=== PATIENT | female | born 1935 | race Caucasian/White ===

== ENCOUNTER 2016-10-03 21:31 | Inpatient (IN) | payer MEDICAID, MEDICARE ==
[2016-10-03 21:32] VITALS: BMI 25.3
--- NOTE | 2016-10-03 21:58 | C.PDOC ---
History Of Present Illness HX LIMITED DUE TO CLINICAL CONDITION, OBTAINED FROM FAMILY MEMBER (SON) AT BEDSIDE 80 Y/O FEMALE, HISTORY OF ASTHMA, BROUGHT TO ER BY ALS FOR INCREASING SOB. FAMILY MEMBER NOTES PT HAS HAD COUGH PRODUCTIVE OF YELLOWISH SPUTUM AND FEVERS FOR PAST 7-8 DAYS. NOTES PT SEEN BY PMD YESTERDAY AND STARTED ON ZITHROMAX 250. NO IMPROVEMENT WITH NEB TREATMENT (2x) AT HOME, 1 NEB GIVEN IN FIELD PRIOR TO ARRIVAL. PT WITH PAST HISTORY OF CABG IN 2005 AND ICD. Chief Complaint (Nursing): Respiratory Distress History Per: Family History/Exam Limitations: clinical condition Onset/Duration Of Symptoms: Days Current Respiratory Medications: See Home Med List Associated Symptoms: Fever, Chest Pain, Productive Cough Reports Recently: Treated By A Physician Past Medical History Reviewed: Historical Data, Nursing Documentation, Vital Signs Vital Signs: Last Vital Signs Temp 97.7 F 10/03/16 21:42 Pulse 99 H 10/04/16 01:27 Resp 18 10/04/16 01:27 BP 122/68 10/03/16 23:45 Pulse Ox 100 10/04/16 01:27 - Medical History PMH: Asthma, Atrial Fibrillation, CAD (CABG), CHF, COPD (ASTHMA), Diabetes, HTN , Peripheral Edema Surgical History: CABG (2004), Pacemaker - [facility] Procedures ASSISTANCE WITH RESPIRATORY VENTILATION, 24-96 HRS, CPAP (02/16/16) EXCISION OF RIGHT LOWER LUNG LOBE, PERC APPROACH, DIAGN (02/16/16) INSPECTION OF LARYNX, ENDO (06/16/15) Family History: States: Unknown Family Hx - Social History Hx Tobacco Use: No Hx Alcohol Use: No Hx Substance Use: No - Immunization History Hx Tetanus Toxoid Vaccination: No Hx Influenza Vaccination: No Hx Pneumococcal Vaccination: Yes Review Of Systems Except As Marked, All Systems Reviewed And Found Negative. (LIMITED, POOR HISTORIAN) Respiratory: Positive for: Shortness of Breath Gastrointestinal: Negative for: Vomiting Skin: Negative for: Rash Physical Exam - Physical Exam Appears: Non-toxic, Chronically Ill (MOD RESPIRATORY DISTRESS) Skin: Warm, Dry, No Diaphoretic Head: Atraumatic, Normacephalic Oral Mucosa: Moist Chest: Symmetrical Cardiovascular: Rhythm Regular (SINUS TACH), No Edema Respiratory: No Accessory Muscle Use, Rhonchi (BILATERAL, DIFFUSE), No Wheezing , Other (TACHYPNEIC) Gastrointestinal/Abdominal: Soft, No Tenderness Back: Normal Inspection Extremity: Normal ROM, Capillary Refill (< 2 SEC. ) ED Course And Treatment - Laboratory Results Result Diagrams: 10/03/16 22:32 10/03/16 22:32 O2 Sat by Pulse Oximetry: 100 (RA) Pulse Ox Interpretation: Normal - Radiology CXR: Interpreted by Me CXR Interpretation: Yes: Other ((+) CHF) Progress - Re-Evaluation Re-evaluation Note: 10/03/16 21:52 CONVERT TO WIDE COMPLEX ON MONITOR. EXAM UNCHANGED. PT DOES NOT REPORT PAIN OR DISCHARGE. 10/03/16 23:19 APPEARS COMFORTABLE ON BIPAP. ADMIT DR CAROL LOGAN MEDICAL STAFF MANAGER - Data Reviewed Data Reviewed: Lab, Diagnostic imaging, EKG, Old records - Critical Care Citical Care: Excluding Proc Time Critical Care Time: 90 minutes - Continuity of Care Discussed patient case with:: Patient, Family-HIPPA compliant, On-call PMD-pt unassigned Disposition Counseled Patient/Family Regarding: Studies Performed, Diagnosis - Disposition Disposition: HOSPITALIZED Disposition Time: 23:24 Condition: STABLE - POA Present On Arrival: None - Clinical Impression Clinical Impression: Congestive heart failure (CHF), Pneumonia - Scribe Statement The provider has reviewed the documentation as recorded by the Scribe Maurisio Mckenna All medical record entries made by the Scribe were at my direction and personally dictated by me. I have reviewed the chart and agree that the record accurately reflects my personal performance of the history, physical exam, medical decision making, and the department course for this patient. I have also personally directed, reviewed, and agree with the discharge instructions and disposition. Decision To Admit - Pt Status Changed To: Hospital Disposition Of: Inpatient - Admit Certification Admit to Inpatient:: After my assessment, the patient will require hospitalization for at least two midnights. This is because of the severity of symptoms shown, intensity of services needed, and/or the medical risk in this patient being treated as an outpatient. - InPatient: Physician Admission Certification: I certify that this patient requires 2 or more midnights of care for the following reason:: SEE NOTE - . Bed Request Type: Telemetry Admitting Physician: Riddhi Clark Patient Diagnosis: Congestive heart failure (CHF), Pneumonia
[2016-10-03 22:37] LABS: VENOUS BLOOD GAS BASE EXCESS -5.2 mmol/L (0.0-2.0); VENOUS BLOOD GAS PCO2 37 mmHg (40-60); VENOUS BLOOD PH 7.34 (7.32-7.43)
[2016-10-03 22:42] LABS: POTASSIUM 4.8 mmol/L (3.6-5.2)
[2016-10-03 22:44] LABS: BILIRUBIN,TOTAL 0.7 mg/dL (0.2-1.3)
[2016-10-03 22:45] LABS: ALB/GLOB RATIO 1.4 (1.0-2.1); TOTAL PROTEIN 7.3 g/dL (6.3-8.3)
[2016-10-03 22:47] LABS: BASO # 0.1 K/uL (0.0-0.2); BASO % 0.6 % (0.0-2.0); EOS % 0.6 % (0.0-4.0); HEMATOCRIT 33.5 % (34.0-47.0); LYMPH # 1.1 K/uL (1.0-4.3); LYMPH % 13.6 % (20.0-40.0); MEAN CELL VOLUME 87.1 fL (81.0-99.0); MEAN CORPUSCULAR HEMOGLOBIN 28.5 pg (27.0-31.0); MEAN CORPUSCULAR HGB CONC 32.7 g/dL (33.0-37.0); MEAN PLATELET VOLUME 7.9 fL (7.2-11.7); MONO # 0.3 K/uL (0.0-0.8); MONO % 3.6 % (0.0-10.0); RED CELL DISTRIBUTION WIDTH 14.5 % (11.5-14.5); WHITE BLOOD COUNT 8.1 K/uL (4.8-10.8)
[2016-10-03 22:54] LABS: INR 1.2
[2016-10-03 22:57] LABS: TROPONIN I 0.032 ng/mL (0.00-0.120)
[2016-10-03] MEDS ORDERED: cefTRIAXone IV 1 gm in Dextros 50 ML IV ONE (23:19)
[2016-10-03] MEDS ORDERED: Azithromycin 500 MG in Sodium Chloride 0.9% 250 ML IV STA (23:19)
[2016-10-03] MEDS ORDERED: cefTRIAXone IV 1 gm in Dextros 50 ML IVPB ONE (23:31)
[2016-10-03] MEDS ORDERED: Azithromycin 500mg/250ML NS 500 MG/250 ML BAG IVPB ONE (23:32)
[2016-10-04 02:08] LABS: URINE COLOR Straw (YELLOW)
[2016-10-04 02:09] LABS: RBC URINE < 1 /hpf (0-3); URINE BILIRUBIN NEGATIVE (NEGATIVE); URINE BLOOD NEGATIVE (NEGATIVE); URINE GLUCOSE (UA) NORMAL (Normal); URINE HYALINE CAST 0-2 /lpf (0-2); URINE KETONE NEGATIVE (NEGATIVE); URINE LEUKOCYTE ESTERASE TRACE Leu/uL (Negative); URINE PROTEIN NEGATIVE (NEGATIVE); URINE UROBILINOGEN NORMAL mg/dL (0.2-1.0); WBC URINE 2 /hpf (0-5)
[2016-10-04] MEDS ORDERED: Home Med 1 UNIT (Ibandronate Sodium [Boniva] 150 MG) PO SCH (07:00)
[2016-10-04] MEDS ORDERED: (Novolog) Insulin Aspart, Recombinant 100 u/ml 10 ml vial SC SCH (07:30)
--- NOTE | 2016-10-04 08:57 | RAD ---
HISTORY: Shortness of breath COMPARISON: 02/21/2016 FINDINGS: LUNGS: Mild venous congestion. Mild bilateral hilar prominence. Patchy increased markings at the left lung base with trace left pleural effusion. PLEURA: As above. CARDIOVASCULAR: Status post median sternotomy. Left-sided pacemaker. Mild cardiomegaly. OSSEOUS STRUCTURES: No significant abnormalities. VISUALIZED UPPER ABDOMEN: Normal. OTHER FINDINGS: None. IMPRESSION: Mild venous congestion. Mild bilateral hilar prominence. Patchy increased markings at the left lung base with trace left pleural effusion.
[2016-10-04] MEDS ORDERED: Albuterol 0.083% Inhal Sol (2.5 mg/3 mL) UD IH SCH (09:30)
[2016-10-04] MEDS ORDERED: DIOVAN 160 MG PO SCH (10:00)
[2016-10-04] MEDS ORDERED: Enoxaparin 40 mg Syringe SC SCH (10:00)
[2016-10-04] MEDS ORDERED: Fluticasone-Salmeterol 250-50mcg Diskus IH SCH (10:00)
[2016-10-04] MEDS: Multiple Vitamins Tab PO SCH (10:27)
[2016-10-04] MEDS: Pantoprazole 40 mg EC Tab PO SCH (10:27)
[2016-10-04 11:18] LABS: BASO % 0.1 % (0.0-2.0); HEMATOCRIT 30.6 % (34.0-47.0); LYMPH # 0.3 K/uL (1.0-4.3); LYMPH % 9.5 % (20.0-40.0); MEAN CELL VOLUME 86.8 fL (81.0-99.0); MEAN CORPUSCULAR HEMOGLOBIN 28.6 pg (27.0-31.0); MEAN CORPUSCULAR HGB CONC 32.9 g/dL (33.0-37.0); MEAN PLATELET VOLUME 8.1 fL (7.2-11.7); MONO # 0.1 K/uL (0.0-0.8); MONO % 2.5 % (0.0-10.0); PLATELET COUNT 198 K/uL (130-400); RED CELL DISTRIBUTION WIDTH 14.5 % (11.5-14.5); WHITE BLOOD COUNT 3.4 K/uL (4.8-10.8)
[2016-10-04 11:29] LABS: POTASSIUM 4.5 mmol/L (3.6-5.2)
[2016-10-04] MEDS: (Novolog) Insulin Aspart, Recombinant 100 u/ml 10 ml vial SC SCH ×3 (11:30→21:55)
[2016-10-04 11:31] LABS: ALB/GLOB RATIO 1.3 (1.0-2.1); BILIRUBIN,TOTAL 0.7 mg/dL (0.2-1.3); TOTAL PROTEIN 6.7 g/dL (6.3-8.3)
[2016-10-04 11:32] LABS: CALCIUM 8.8 mg/dl (8.6-10.4)
[2016-10-04 13:31] LABS: BASOPHIL 1 % (0-2); NEUTROPHIL 82 % (50-75); TOTAL CELLS COUNTED 100
[2016-10-04 13:33] LABS: ACANTHOCYTES SLIGHT
--- NOTE | 2016-10-04 13:46 | CP.PCM.PN ---
Subjective - Date & Time of Evaluation Date of Evaluation: 10/04/16 Time of Evaluation: 09:00 - Subjective Subjective: Medicine Progress Note- Dr. Clark's service: Patient seen and examined at bedside this AM. Patient with PMHx of CHF, DM, CABG 2005 admitted overnight for SOB and cough. Patient is complaining of cough for the past week. She is upset regarding her insulin this morning since it was delayed. Patient is on BIPAP and tolerating it well. Denies fevers, chills, nausea, vomiting, headaches. Objective - Vital Signs/Intake and Output Vital Signs (last 24 hours): Temp Pulse Resp BP Pulse Ox 97.5 F L 87 18 130/70 100 10/04/16 07:15 10/04/16 07:15 10/04/16 07:15 10/04/16 10:26 10/04/16 07:15 Intake and Output: 10/04/16 10/04/16 06:59 18:59 Intake Total 500 Output Total 500 Balance 0 - Medications Medications: Current Medications Albuterol Sulfate (Albuterol 0.083% Inhal Liza (2.5 Mg/3 Ml) Ud) 2.5 mg IH RBID [facility] Apixaban (Eliquis) 5 mg PO DAILY [facility] Carvedilol (Coreg) 6.25 mg PO BID [facility] Last Admin: 10/04/16 10:28 Dose: 6.25 mg Furosemide (Lasix) 40 mg IVP DAILY [facility] Last Admin: 10/04/16 10:26 Dose: 40 mg Glimepiride (Amaryl) 1 mg PO DAILY [facility] Heparin Sodium (Porcine) (Heparin) 5,000 units SC Q12H [facility] Home Med (Acarbose [Precose]) 100 mg PO DAILY [facility] Azithromycin 500 mg/ Sodium (Chloride) 250 mls @ 250 mls/hr IVPB DAILY [facility] Ceftriaxone Sodium 1 gm/ (Sodium Chloride) 100 mls @ 100 mls/hr IVPB DAILY [facility] Insulin Aspart (Novolog) 0 unit SC ACHS [facility] PRN Reason: Protocol Losartan Potassium (Cozaar) 100 mg PO DAILY [facility] Last Admin: 10/04/16 10:27 Dose: 100 mg Metformin HCl (Glucophage) 1,000 mg PO BIDCC [facility] Last Admin: 10/04/16 10:26 Dose: 1,000 mg Multivitamins (Hexavitamin) 1 tab PO DAILY [facility] Last Admin: 10/04/16 10:27 Dose: 1 tab Pantoprazole Sodium (Protonix Ec Tab) 40 mg PO DAILY [facility] Last Admin: 10/04/16 10:27 Dose: 40 mg Fluticasone/Salmeterol (Advair Diskus 250/50) 1 puff IH RQ12 [facility] Sitagliptin Phosphate (Januvia) 50 mg PO BIDCC [facility] Last Admin: 10/04/16 10:27 Dose: 50 mg Spironolactone (Aldactone) 1 mg PO DAILY [facility] - Labs Labs: 10/04/16 11:09 10/04/16 11:09 PT 13.4 SECONDS (9.7-12.2) H 10/03/16 22:32 INR 1.2 10/03/16 22:32 APTT 43 SECONDS (21-34) H 10/03/16 22:32 - Constitutional Appears: No Acute Distress - Head Exam Head Exam: NORMAL INSPECTION, NORMOCEPHALIC - Eye Exam Eye Exam: EOMI, Normal appearance - ENT Exam ENT Exam: Mucous Membranes Moist - Respiratory Exam Respiratory Exam: Rales. absent: Rhonchi, Wheezes - Cardiovascular Exam Cardiovascular Exam: REGULAR RHYTHM, +S1, +S2 - GI/Abdominal Exam GI & Abdominal Exam: Soft. absent: Distended, Tenderness - Extremities Exam Extremities Exam: Full ROM, Normal Inspection - Back Exam Back Exam: NORMAL INSPECTION - Neurological Exam Neurological Exam: Alert, Awake, Oriented x3 - Psychiatric Exam Psychiatric exam: Normal Affect, Normal Mood - Skin Skin Exam: Normal Color, Warm Assessment and Plan (1) Pneumonia Assessment & Plan: CXR shows mild venous congestion. Mild bilateral hilar prominence. Patchy increased markings at the left lung base with trace left pleural effusion. Afebrile and no leukocytosis. Rocephin IVPB Azithomycin IVPB Status: Acute (2) Congestive heart failure (CHF) Assessment & Plan: Patient's mannequin maker consulted- Dr. Colón- help appreciated. CXR shows mild venous congestion. Mild bilateral hilar prominence. Patchy increased markings at the left lung base with trace left pleural effusion. BNP 12,000 Lasix 40 mg IVP daily Losartan 100 mg PO daily Coreg 6.25 mg PO BID Aldactone 12.5 mg PO daily Status: Chronic (3) CAD (coronary artery disease) Assessment & Plan: Patient with hx of CABG in 2004 with AICD Coreg 6.25 mg PO BID Status: Chronic (4) DM type 2 (diabetes mellitus, type 2) Assessment & Plan: Continue home meds: Januvia 100 mg PO daily Glimepiride 1 mg PO daily Metformin 1000 PO BID ISS for coverage Status: Chronic (5) Atrial fibrillation Assessment & Plan: Eliquis 5 mg PO daily Coreg 6.25 mg PO BID Status: Acute (6) Prophylactic measure Assessment & Plan: Hepatin 5000 SC Q12H Protonix 40 mg PO daily Status: Acute - Assessment and Plan (Free Text) Assessment: Management as per Dr. Clark.
[2016-10-04] MEDS: guaiFENesin DM 200 mg-20 mg/10 ml UD PO PRN (19:07)
--- NOTE | 2016-10-04 19:15 | CARD ---
APPROVED REPORT EKG Measurement Heart [id number] <Conclusion> Ventricular-paced rhythm Abnormal ECG
[2016-10-04] MEDS: Azithromycin 500 MG in Sodium Chloride 0.9% 250 ML IVPB SCH (19:30)
[2016-10-04] MEDS: Fluticasone-Salmeterol 250-50mcg Diskus IH SCH (19:43)
[2016-10-05 07:21] LABS: BASO % 0.5 % (0.0-2.0); EOS % 0.8 % (0.0-4.0); HEMATOCRIT 30.3 % (34.0-47.0); LYMPH # 0.7 K/uL (1.0-4.3); LYMPH % 13.5 % (20.0-40.0); MEAN CELL VOLUME 86.9 fL (81.0-99.0); MEAN CORPUSCULAR HEMOGLOBIN 28.4 pg (27.0-31.0); MEAN CORPUSCULAR HGB CONC 32.7 g/dL (33.0-37.0); MEAN PLATELET VOLUME 8.3 fL (7.2-11.7); MONO # 0.4 K/uL (0.0-0.8); MONO % 7.4 % (0.0-10.0); NRBC % 0.1 % (0.0-2.0); RED CELL DISTRIBUTION WIDTH 14.4 % (11.5-14.5)
[2016-10-05 07:39] LABS: WHITE BLOOD COUNT 5.4 K/uL (4.8-10.8)
[2016-10-05] MEDS: guaiFENesin DM 200 mg-20 mg/10 ml UD PO PRN (07:41)
[2016-10-05 07:42] LABS: ALB/GLOB RATIO 1.3 (1.0-2.1); BILIRUBIN,TOTAL 0.5 mg/dL (0.2-1.3); TOTAL PROTEIN 6.2 g/dL (6.3-8.3)
[2016-10-05 07:43] LABS: CALCIUM 8.3 mg/dl (8.6-10.4); MAGNESIUM 1.7 mg/dL (1.6-2.3); PHOSPHOROUS 3.4 mg/dL (2.5-4.5)
[2016-10-05] MEDS: (Novolog) Insulin Aspart, Recombinant 100 u/ml 10 ml vial SC SCH ×4 (08:07→22:27)
[2016-10-05] MEDS: Fluticasone-Salmeterol 250-50mcg Diskus IH SCH (08:32)
[2016-10-05] MEDS: Multiple Vitamins Tab PO SCH (09:26)
[2016-10-05] MEDS: Pantoprazole 40 mg EC Tab PO SCH (09:26)
--- NOTE | 2016-10-05 13:26 | CP.PCM.PN ---
Subjective - Date & Time of Evaluation Date of Evaluation: 10/05/16 Time of Evaluation: 08:00 - Subjective Subjective: Medicine Progress Note- Dr. Clark's Service: Patient seen and examined at bedside this AM. Patient is complaining of productive cough and phlegm. She was not able to sleep secondary to cough. Denies fevers, chills, nausea, vomiting. Patient is tolerating diet. Objective - Vital Signs/Intake and Output Vital Signs (last 24 hours): Temp Pulse Resp BP Pulse Ox 97.3 F L 81 18 107/61 100 10/05/16 07:17 10/05/16 07:17 10/05/16 07:17 10/05/16 09:28 10/05/16 07:17 Intake and Output: 10/05/16 10/05/16 06:59 18:59 Intake Total 490 Balance 490 - Medications Medications: Current Medications Albuterol Sulfate (Albuterol 0.083% Inhal Liza (2.5 Mg/3 Ml) Ud) 2.5 mg IH RBID [facility] Apixaban (Eliquis) 2.5 mg PO BID [facility] Last Admin: 10/05/16 09:27 Dose: 2.5 mg Carvedilol (Coreg) 6.25 mg PO BID [facility] Last Admin: 10/05/16 09:26 Dose: 6.25 mg Furosemide (Lasix) 40 mg IVP DAILY [facility] Last Admin: 10/05/16 09:28 Dose: 40 mg Glimepiride (Amaryl) 1 mg PO DAILY [facility] Last Admin: 10/05/16 09:27 Dose: 1 mg Guaifenesin/Dextromethorphan (Robitussin Dm) 10 ml PO Q4H PRN PRN Reason: Cough and congestion Last Admin: 10/05/16 07:41 Dose: 10 ml Home Med (Acarbose [Precose]) 100 mg PO DAILY [facility] Azithromycin 500 mg/ Sodium (Chloride) 250 mls @ 166.667 mls/hr IVPB Q24H [facility] Last Admin: 10/04/16 19:30 Dose: 166.667 mls/hr Ceftriaxone Sodium 1 gm/ (Sodium Chloride) 100 mls @ 200 mls/hr IVPB Q24H [facility] Last Admin: 10/05/16 12:50 Dose: 200 mls/hr Insulin Aspart (Novolog) 0 unit SC ACHS [facility] PRN Reason: Protocol Last Admin: 10/05/16 11:36 Dose: Not Given Losartan Potassium (Cozaar) 100 mg PO DAILY [facility] Last Admin: 10/05/16 09:26 Dose: 100 mg Metformin HCl (Glucophage) 1,000 mg PO BIDCC [facility] Last Admin: 10/05/16 07:56 Dose: 1,000 mg Multivitamins (Hexavitamin) 1 tab PO DAILY [facility] Last Admin: 10/05/16 09:26 Dose: 1 tab Pantoprazole Sodium (Protonix Ec Tab) 40 mg PO DAILY [facility] Last Admin: 10/05/16 09:26 Dose: 40 mg Fluticasone/Salmeterol (Advair Diskus 250/50) 1 puff IH RQ12 [facility] Last Admin: 10/05/16 08:32 Dose: 1 puff [facility] Last Admin: 10/05/16 07:56 Dose: 50 mg Spironolactone (Aldactone) 12.5 mg PO DAILY [facility] Last Admin: 10/05/16 09:27 Dose: 12.5 mg - Labs Labs: 10/05/16 07:12 10/05/16 07:12 PT 13.4 SECONDS (9.7-12.2) H 10/03/16 22:32 INR 1.2 10/03/16 22:32 APTT 43 SECONDS (21-34) H 10/03/16 22:32 - Constitutional Appears: No Acute Distress - Head Exam Head Exam: NORMAL INSPECTION, NORMOCEPHALIC - Eye Exam Eye Exam: EOMI, Normal appearance - ENT Exam ENT Exam: Mucous Membranes Moist - Neck Exam Neck Exam: Full ROM, Normal Inspection - Respiratory Exam Respiratory Exam: Rales, NORMAL BREATHING PATTERN - Cardiovascular Exam Cardiovascular Exam: REGULAR RHYTHM, +S1, +S2 - GI/Abdominal Exam GI & Abdominal Exam: Soft. absent: Distended, Tenderness - Extremities Exam Extremities Exam: Full ROM, Normal Inspection - Neurological Exam Neurological Exam: Alert, Awake, Oriented x3 - Psychiatric Exam Psychiatric exam: Normal Affect, Normal Mood - Skin Skin Exam: Normal Color, Warm Assessment and Plan - Assessment and Plan (Free Text) Assessment: (1) Pneumonia Assessment & Plan: CXR shows mild venous congestion. Mild bilateral hilar prominence. Patchy increased markings at the left lung base with trace left pleural effusion. Afebrile and no leukocytosis. Rocephin IVPB Azithomycin IVPB Robitussin PO Q4 PRN Add Saroj Marcus Status: Acute (2) Congestive heart failure (CHF) Assessment & Plan: Patient's tracer clerk consulted- Dr. Colón- help appreciated. CXR shows mild venous congestion. Mild bilateral hilar prominence. Patchy increased markings at the left lung base with trace left pleural effusion. BNP 12,000 Lasix 40 mg IVP daily Losartan 100 mg PO daily Coreg 6.25 mg PO BID Aldactone 12.5 mg PO daily f/u ECHO Status: Chronic (3) CAD (coronary artery disease) Assessment & Plan: Patient with hx of CABG in 2004 with AICD Coreg 6.25 mg PO BID Status: Chronic (4) DM type 2 (diabetes mellitus, type 2) Assessment & Plan: Continue home meds: Januvia 100 mg PO daily Glimepiride 1 mg PO daily Metformin 1000 PO BID ISS for coverage Status: Chronic (5) Atrial fibrillation Assessment & Plan: Eliquis 5 mg PO daily Coreg 6.25 mg PO BID Status: Acute (6) Prophylactic measure Assessment & Plan: Hepatin 5000 SC Q12H Protonix 40 mg PO daily Status: Acute - Assessment and Plan (Free Text) Assessment: Management as per Dr. Clark.
[2016-10-05] MEDS: Azithromycin 500 MG in Sodium Chloride 0.9% 250 ML IVPB SCH (18:52)
[2016-10-06] MEDS: Fluticasone-Salmeterol 250-50mcg Diskus IH SCH ×2 (08:26→19:27)
[2016-10-06] MEDS: (Novolog) Insulin Aspart, Recombinant 100 u/ml 10 ml vial SC SCH ×4 (08:32→21:24)
[2016-10-06 08:33] LABS: BASO % 0.4 % (0.0-2.0); EOS # 0.1 K/uL (0.0-0.7); EOS % 1.2 % (0.0-4.0); HEMATOCRIT 31.8 % (34.0-47.0); LYMPH # 0.9 K/uL (1.0-4.3); LYMPH % 13.5 % (20.0-40.0); MEAN CELL VOLUME 87.4 fL (81.0-99.0); MEAN CORPUSCULAR HGB CONC 33.2 g/dL (33.0-37.0); MEAN PLATELET VOLUME 8.1 fL (7.2-11.7); MONO # 0.6 K/uL (0.0-0.8); MONO % 8.8 % (0.0-10.0); RED CELL DISTRIBUTION WIDTH 14.6 % (11.5-14.5); WHITE BLOOD COUNT 6.4 K/uL (4.8-10.8)
[2016-10-06 08:54] LABS: POTASSIUM 4.1 mmol/L (3.6-5.2)
[2016-10-06 08:56] LABS: ALB/GLOB RATIO 1.3 (1.0-2.1); BILIRUBIN,TOTAL 0.5 mg/dL (0.2-1.3); PHOSPHOROUS 3.4 mg/dL (2.5-4.5); TOTAL PROTEIN 6.4 g/dL (6.3-8.3)
[2016-10-06 08:57] LABS: CALCIUM 8.1 mg/dl (8.6-10.4); MAGNESIUM 1.8 mg/dL (1.6-2.3)
[2016-10-06] MEDS: guaiFENesin DM 200 mg-20 mg/10 ml UD PO PRN ×3 (09:57→18:26)
[2016-10-06] MEDS: Multiple Vitamins Tab PO SCH (09:57)
[2016-10-06] MEDS: Pantoprazole 40 mg EC Tab PO SCH (09:58)
[2016-10-06] MEDS ORDERED: MethylPREDNISolone 40 mg Vial IM ONE (16:30)
[2016-10-06] MEDS ORDERED: Dextrose 50% SYRINGE Inj (50 ml) IV PRN (16:40)
[2016-10-06] MEDS ORDERED: MethylPREDNISolone 40 mg Vial IVP STA (16:44)
[2016-10-06] MEDS ORDERED: Glucagon Recombinant 1 mg Inj IM PRN (17:06)
[2016-10-06] MEDS ORDERED: MethylPREDNISolone 40 mg Vial IVP ONE (17:15)
[2016-10-06] MEDS: Azithromycin 500 MG in Sodium Chloride 0.9% 250 ML IVPB SCH (18:33)
[2016-10-06] MEDS: Patient's Own Medication - Tablet/Capusle PO SCH (18:38)
[2016-10-07] MEDS: MethylPREDNISolone 40 mg Vial IVP SCH ×3 (00:28→21:51)
[2016-10-07 07:31] LABS: BASO % 0.2 % (0.0-2.0); HEMATOCRIT 30.9 % (34.0-47.0); LYMPH # 0.5 K/uL (1.0-4.3); LYMPH % 13.4 % (20.0-40.0); MEAN CELL VOLUME 86.2 fL (81.0-99.0); MEAN CORPUSCULAR HGB CONC 33.6 g/dL (33.0-37.0); MEAN PLATELET VOLUME 8.3 fL (7.2-11.7); MONO # 0.1 K/uL (0.0-0.8); NRBC % 0.1 % (0.0-2.0); RED CELL DISTRIBUTION WIDTH 14.5 % (11.5-14.5); WHITE BLOOD COUNT 3.6 K/uL (4.8-10.8)
[2016-10-07] MEDS: (Novolog) Insulin Aspart, Recombinant 100 u/ml 10 ml vial SC SCH ×4 (07:35→21:46)
[2016-10-07 07:49] LABS: POTASSIUM 4.7 mmol/L (3.6-5.2)
[2016-10-07 07:51] LABS: ALB/GLOB RATIO 1.2 (1.0-2.1); BILIRUBIN,TOTAL 0.6 mg/dL (0.2-1.3); TOTAL PROTEIN 6.4 g/dL (6.3-8.3)
[2016-10-07 07:52] LABS: CALCIUM 7.9 mg/dl (8.6-10.4); MAGNESIUM 1.8 mg/dL (1.6-2.3); PHOSPHOROUS 4.2 mg/dL (2.5-4.5)
[2016-10-07] MEDS: Pantoprazole 40 mg EC Tab PO SCH (09:29)
[2016-10-07] MEDS: guaiFENesin DM 200 mg-20 mg/10 ml UD PO PRN (09:30)
[2016-10-07] MEDS: Multiple Vitamins Tab PO SCH (09:38)
[2016-10-07] MEDS: Fluticasone-Salmeterol 250-50mcg Diskus IH SCH ×2 (11:26→19:33)
[2016-10-07] MEDS: Azithromycin 500 MG in Sodium Chloride 0.9% 250 ML IVPB SCH (19:32)
[2016-10-07] MEDS: Patient's Own Medication - Tablet/Capusle PO SCH (19:41)
[2016-10-08] MEDS: (Novolog) Insulin Aspart, Recombinant 100 u/ml 10 ml vial SC SCH ×4 (07:32→22:28)
[2016-10-08 07:46] LABS: HEMATOCRIT 29.1 % (34.0-47.0); LYMPH # 0.6 K/uL (1.0-4.3); LYMPH % 9.2 % (20.0-40.0); MEAN CELL VOLUME 86.1 fL (81.0-99.0); MEAN CORPUSCULAR HEMOGLOBIN 28.8 pg (27.0-31.0); MEAN CORPUSCULAR HGB CONC 33.5 g/dL (33.0-37.0); MEAN PLATELET VOLUME 8.3 fL (7.2-11.7); MONO # 0.4 K/uL (0.0-0.8); MONO % 5.6 % (0.0-10.0); PLATELET COUNT 209 K/uL (130-400); RED CELL DISTRIBUTION WIDTH 14.3 % (11.5-14.5)
--- NOTE | 2016-10-08 07:49 | HP ---
A 80-year-old female with history of congestive heart failure, status post pacemaker, chief complaint weakness, fatigue, tiredness ____ rest. The patient came to the hospital advised admission. PHYSICAL EXAMINATION: GENERAL: Awake, alert, oriented. VITAL SIGNS: Temperature 98, pulse ____. HEENT: Within normal limits. NECK: Supple. CHEST: Symmetrical. HEART: Regular. ABDOMEN: Soft. EXTREMITIES: No edema. ASSESSMENT: The patient congestive heart failure. PLAN: The patient on bed rest, supportive care, antibiotic. Riddhi Conley MD cc: [id number] TT: 10/06/2016 12:16:29 jn 10/08/2016 06:48:10
[2016-10-08 07:54] LABS: WHITE BLOOD COUNT 6.3 K/uL (4.8-10.8)
[2016-10-08 08:03] LABS: POTASSIUM 4.7 mmol/L (3.6-5.2)
[2016-10-08 08:05] LABS: BILIRUBIN,TOTAL 0.5 mg/dL (0.2-1.3)
[2016-10-08 08:06] LABS: ALB/GLOB RATIO 1.2 (1.0-2.1); CALCIUM 7.6 mg/dl (8.6-10.4); MAGNESIUM 1.8 mg/dL (1.6-2.3); PHOSPHOROUS 2.9 mg/dL (2.5-4.5); TOTAL PROTEIN 5.9 g/dL (6.3-8.3)
[2016-10-08] MEDS: Fluticasone-Salmeterol 250-50mcg Diskus IH SCH ×2 (08:06→19:43)
[2016-10-08 09:51] LABS: NEUTROPHIL 85 % (50-75); REACTIVE LYMPHOCYTES 1 % (0-0); TOTAL CELLS COUNTED 100
[2016-10-08] MEDS: Pantoprazole 40 mg EC Tab PO SCH (10:02)
[2016-10-08] MEDS: MethylPREDNISolone 40 mg Vial IVP SCH ×2 (10:02→22:23)
[2016-10-08] MEDS: Multiple Vitamins Tab PO SCH (10:02)
[2016-10-08] MEDS ORDERED: Sodium Chloride 0.9% 1,000 ML IV SCH (13:30)
--- NOTE | 2016-10-08 14:18 | CP.PCM.PN ---
Subjective - Date & Time of Evaluation Date of Evaluation: 10/08/16 Time of Evaluation: 08:00 - Subjective Subjective: Medicine Progress Note- Dr. Clark's Service: Patient seen and examined at bedside this AM. Patient is complaining of cough. Cough has improved. This AM she is out of bed to chair. She is feeling better this AM. Objective - Vital Signs/Intake and Output Vital Signs (last 24 hours): Temp Pulse Resp BP Pulse Ox 97.4 F L 87 20 126/64 98 10/07/16 23:25 10/08/16 12:33 10/07/16 23:25 10/08/16 10:02 10/08/16 12:33 Intake and Output: 10/08/16 10/08/16 06:59 18:59 Intake Total 50 Output Total 500 Balance -450 - Medications Medications: Current Medications Albuterol Sulfate (Albuterol 0.083% Inhal Liza (2.5 Mg/3 Ml) Ud) 2.5 mg IH RBID [facility] Apixaban (Eliquis) 2.5 mg PO BID [facility] Benzonatate (Tessalon Perles) 100 mg PO TID [facility] Last Admin: 10/08/16 13:07 Dose: 100 mg Carvedilol (Coreg) 6.25 mg PO BID [facility] Last Admin: 10/08/16 10:02 Dose: 6.25 mg Dextrose (Dextrose 50% Inj) 0 ml IV STAT PRN; Protocol PRN Reason: Hyglycemia Protocol Dextrose (Glutose 15) 0 gm PO ONCE PRN; Protocol PRN Reason: Hypoglycemia Protocol Last Admin: 10/06/16 17:09 Dose: 15 gm Furosemide (Lasix) 40 mg IVP DAILY [facility] Last Admin: 10/08/16 10:02 Dose: 40 mg Glimepiride (Amaryl) 1 mg PO DAILY [facility] Last Admin: 10/08/16 10:03 Dose: 1 mg Glucagon (Glucagen Diagnostic Kit) 0 mg IM STAT PRN; Protocol PRN Reason: Hypoglycemia Protocol Guaifenesin/Dextromethorphan (Robitussin Dm) 10 ml PO Q4H PRN PRN Reason: Cough and congestion Last Admin: 10/07/16 09:30 Dose: 10 ml Home Med (Patient's Own Medication) 1 tab PO DAILY@1800 [facility] Last Admin: 10/07/16 19:41 Dose: Not Given Azithromycin 500 mg/ Sodium (Chloride) 250 mls @ 166.667 mls/hr IVPB Q24H [facility] Last Admin: 10/07/16 19:32 Dose: 166.667 mls/hr Ceftriaxone Sodium 1 gm/ (Sodium Chloride) 100 mls @ 200 mls/hr IVPB Q24H [facility] Last Admin: 10/08/16 13:07 Dose: 200 mls/hr Dextrose (Dextrose 5% In Water 1000 Ml) 1,000 mls @ 0 mls/hr IV .Q0M PRN; Protocol; Per Protocol PRN Reason: Hypoglycemia Protocol Sodium Chloride (Sodium Chloride 0.9%) 1,000 mls @ 60 mls/hr IV [id number] [facility] Stop: 10/09/16 06:09 Insulin Aspart (Novolog) 0 unit SC ACHS [facility] PRN Reason: Protocol Last Admin: 10/08/16 12:10 Dose: 6 unit Losartan Potassium (Cozaar) 100 mg PO DAILY [facility] Last Admin: 10/08/16 10:02 Dose: 100 mg Metformin HCl (Glucophage) 1,000 mg PO BIDCC [facility] Last Admin: 10/08/16 07:31 Dose: 1,000 mg Methylprednisolone (Solu-Medrol) 20 mg IVP Q12 [facility] Montelukast Sodium (Singulair) 10 mg PO HS [facility] Last Admin: 10/07/16 21:51 Dose: 10 mg Multivitamins (Hexavitamin) 1 tab PO DAILY [facility] Last Admin: 10/08/16 10:02 Dose: 1 tab Pantoprazole Sodium (Protonix Ec Tab) 40 mg PO DAILY [facility] Last Admin: 10/08/16 10:02 Dose: 40 mg Fluticasone/Salmeterol (Advair Diskus 250/50) 1 puff IH RQ12 [facility] Last Admin: 10/08/16 08:06 Dose: 1 puff Sitagliptin Phosphate (Januvia) 50 mg PO BIDCC [facility] Last Admin: 10/08/16 07:32 Dose: 50 mg Spironolactone (Aldactone) 12.5 mg PO DAILY [facility] Last Admin: 10/08/16 10:03 Dose: 12.5 mg - Labs Labs: 10/08/16 07:24 10/08/16 07:24 PT 13.4 SECONDS (9.7-12.2) H 10/03/16 22:32 INR 1.2 10/03/16 22:32 APTT 43 SECONDS (21-34) H 10/03/16 22:32 - Constitutional Appears: No Acute Distress - Head Exam Head Exam: NORMAL INSPECTION, NORMOCEPHALIC - Eye Exam Eye Exam: EOMI, Normal appearance - ENT Exam ENT Exam: Mucous Membranes Moist - Neck Exam Neck Exam: Full ROM, Normal Inspection - Respiratory Exam Respiratory Exam: Clear to Ausculation Bilateral, NORMAL BREATHING PATTERN - Cardiovascular Exam Cardiovascular Exam: REGULAR RHYTHM, +S1, +S2 - GI/Abdominal Exam GI & Abdominal Exam: Soft. absent: Distended, Tenderness - Extremities Exam Extremities Exam: Full ROM, Normal Inspection - Back Exam Back Exam: NORMAL INSPECTION - Neurological Exam Neurological Exam: Alert, Awake, Oriented x3 - Psychiatric Exam Psychiatric exam: Normal Affect, Normal Mood - Skin Skin Exam: Normal Color, Warm Assessment and Plan - Assessment and Plan (Free Text) Assessment: (1) Pneumonia Assessment & Plan: CXR shows mild venous congestion. Mild bilateral hilar prominence. Patchy increased markings at the left lung base with trace left pleural effusion. Afebrile and no leukocytosis. Decrease IV steroids from Solumedrol 40 IVP Q12H to 20 mg IVP Q12H Rocephin IVPB- DAY 5 Azithomycin IVPB- DAY 5 Robitussin PO Q4 PRN Tessalon Perles Status: Acute (2) Congestive heart failure (CHF) Assessment & Plan: Patient's plunger shovel operator consulted- Dr. Colón- help appreciated. CXR shows mild venous congestion. Mild bilateral hilar prominence. Patchy increased markings at the left lung base with trace left pleural effusion. BNP 12,000 Lasix 40 mg IVP daily Losartan 100 mg PO daily Coreg 6.25 mg PO BID Aldactone 12.5 mg PO daily f/u ECHO- done follow up report Status: Chronic (3) CAD (coronary artery disease) Assessment & Plan: Patient with hx of CABG in 2004 with AICD Coreg 6.25 mg PO BID Status: Chronic (4) DM type 2 (diabetes mellitus, type 2) Assessment & Plan: Continue home meds: Januvia 100 mg PO daily Glimepiride 1 mg PO daily Metformin 1000 PO BID ISS for coverage Status: Chronic (5) Atrial fibrillation Assessment & Plan: Eliquis 2.5 mg PO BID Coreg 6.25 mg PO BID Status: Acute (6) Prophylactic measure Assessment & Plan: Hepatin 5000 SC Q12H Protonix 40 mg PO daily Status: Acute
[2016-10-08] MEDS: Patient's Own Medication - Tablet/Capusle PO SCH (18:48)
[2016-10-08] MEDS: guaiFENesin DM 200 mg-20 mg/10 ml UD PO PRN (18:48)
[2016-10-08] MEDS: Azithromycin 500 MG in Sodium Chloride 0.9% 250 ML IVPB SCH (19:54)
[2016-10-09 07:47] LABS: BASO % 0.1 % (0.0-2.0); HEMATOCRIT 28.6 % (34.0-47.0); LYMPH # 0.5 K/uL (1.0-4.3); LYMPH % 6.5 % (20.0-40.0); MEAN CELL VOLUME 85.7 fL (81.0-99.0); MEAN CORPUSCULAR HEMOGLOBIN 28.7 pg (27.0-31.0); MEAN CORPUSCULAR HGB CONC 33.5 g/dL (33.0-37.0); MEAN PLATELET VOLUME 8.1 fL (7.2-11.7); MONO # 0.3 K/uL (0.0-0.8); MONO % 3.8 % (0.0-10.0); PLATELET COUNT 206 K/uL (130-400); RED CELL DISTRIBUTION WIDTH 14.5 % (11.5-14.5)
[2016-10-09] MEDS: (Novolog) Insulin Aspart, Recombinant 100 u/ml 10 ml vial SC SCH ×4 (07:53→22:01)
[2016-10-09 07:55] LABS: POTASSIUM 4.2 mmol/L (3.6-5.2)
[2016-10-09 07:58] LABS: ALB/GLOB RATIO 1.2 (1.0-2.1); BILIRUBIN,TOTAL 0.5 mg/dL (0.2-1.3); CALCIUM 7.6 mg/dl (8.6-10.4); MAGNESIUM 1.8 mg/dL (1.6-2.3); TOTAL PROTEIN 5.9 g/dL (6.3-8.3)
[2016-10-09] MEDS: Fluticasone-Salmeterol 250-50mcg Diskus IH SCH ×2 (08:28→19:40)
[2016-10-09] MEDS: Multiple Vitamins Tab PO SCH (09:33)
[2016-10-09] MEDS: MethylPREDNISolone 40 mg Vial IVP SCH ×2 (09:33→21:20)
[2016-10-09] MEDS: Pantoprazole 40 mg EC Tab PO SCH (09:33)
[2016-10-09 10:06] LABS: NEUTROPHIL 88 % (50-75); TOTAL CELLS COUNTED 100
--- NOTE | 2016-10-09 10:56 | CP.PCM.PN ---
Subjective - Date & Time of Evaluation Date of Evaluation: 10/09/16 Time of Evaluation: 09:05 - Subjective Subjective: Medicine Progress Note Patient seen and examined. Patient states that she feels better but continues to have productive cough with yellow sputum. She also complains of throat discomfort due to the coughing. She denies pain in her chest or abdomen. Objective - Vital Signs/Intake and Output Vital Signs (last 24 hours): Temp Pulse Resp BP Pulse Ox 97.3 F L 71 19 127/64 100 10/09/16 07:55 10/09/16 07:55 10/09/16 07:55 10/09/16 09:34 10/09/16 07:55 Intake and Output: 10/09/16 10/09/16 06:59 18:59 Intake Total 720 Balance 720 - Medications Medications: Current Medications Albuterol Sulfate (Albuterol 0.083% Inhal Liza (2.5 Mg/3 Ml) Ud) 2.5 mg IH RBID [facility] Apixaban (Eliquis) 2.5 mg PO BID [facility] Last Admin: 10/09/16 09:32 Dose: 2.5 mg Benzonatate (Tessalon Perles) 100 mg PO TID [facility] Last Admin: 10/09/16 09:34 Dose: 100 mg Carvedilol (Coreg) 6.25 mg PO BID [facility] Last Admin: 10/09/16 09:33 Dose: 6.25 mg Dextrose (Dextrose 50% Inj) 0 ml IV STAT PRN; Protocol PRN Reason: Hyglycemia Protocol Dextrose (Glutose 15) 0 gm PO ONCE PRN; Protocol PRN Reason: Hypoglycemia Protocol Last Admin: 10/06/16 17:09 Dose: 15 gm Furosemide (Lasix) 40 mg IVP DAILY [facility] Last Admin: 10/09/16 09:34 Dose: 40 mg Glimepiride (Amaryl) 1 mg PO DAILY [facility] Last Admin: 10/09/16 09:43 Dose: 1 mg Glucagon (Glucagen Diagnostic Kit) 0 mg IM STAT PRN; Protocol PRN Reason: Hypoglycemia Protocol Guaifenesin/Dextromethorphan (Robitussin Dm) 10 ml PO Q4H PRN PRN Reason: Cough and congestion Last Admin: 10/08/16 18:48 Dose: 10 ml Home Med (Patient's Own Medication) 1 tab PO DAILY@1800 [facility] Last Admin: 10/08/16 18:48 Dose: 1 tab Azithromycin 500 mg/ Sodium (Chloride) 250 mls @ 166.667 mls/hr IVPB Q24H [facility] Last Admin: 10/08/16 19:54 Dose: 166.667 mls/hr Ceftriaxone Sodium 1 gm/ (Sodium Chloride) 100 mls @ 200 mls/hr IVPB Q24H [facility] Last Admin: 10/08/16 13:07 Dose: 200 mls/hr Dextrose (Dextrose 5% In Water 1000 Ml) 1,000 mls @ 0 mls/hr IV .Q0M PRN; Protocol; Per Protocol PRN Reason: Hypoglycemia Protocol Insulin Aspart (Novolog) 0 unit SC ACHS [facility] PRN Reason: Protocol Last Admin: 10/09/16 07:53 Dose: 3 unit Losartan Potassium (Cozaar) 100 mg PO DAILY [facility] Last Admin: 10/09/16 09:33 Dose: 100 mg Metformin HCl (Glucophage) 1,000 mg PO BIDCC [facility] Last Admin: 10/09/16 07:52 Dose: 1,000 mg Methylprednisolone (Solu-Medrol) 20 mg IVP Q12 [facility] Last Admin: 10/09/16 09:33 Dose: 20 mg Montelukast Sodium (Singulair) 10 mg PO HS [facility] Last Admin: 10/08/16 22:17 Dose: 10 mg Multivitamins (Hexavitamin) 1 tab PO DAILY [facility] Last Admin: 10/09/16 09:33 Dose: 1 tab Pantoprazole Sodium (Protonix Ec Tab) 40 mg PO DAILY [facility] Last Admin: 10/09/16 09:33 Dose: 40 mg Fluticasone/Salmeterol (Advair Diskus 250/50) 1 puff IH RQ12 [facility] Last Admin: 10/09/16 08:28 Dose: 1 puff Sitagliptin Phosphate (Januvia) 50 mg PO BIDCC [facility] Last Admin: 10/09/16 07:53 Dose: 50 mg Spironolactone (Aldactone) 12.5 mg PO DAILY [facility] Last Admin: 10/09/16 09:34 Dose: 12.5 mg - Labs Labs: 10/09/16 07:30 10/09/16 07:30 PT 13.4 SECONDS (9.7-12.2) H 10/03/16 22:32 INR 1.2 10/03/16 22:32 APTT 43 SECONDS (21-34) H 10/03/16 22:32 - Constitutional Appears: Well, No Acute Distress - Head Exam Head Exam: ATRAUMATIC, NORMOCEPHALIC - Eye Exam Eye Exam: EOMI, Normal appearance - ENT Exam ENT Exam: Mucous Membranes Moist, Normal Exam Additional comments: no erythema or exudates in throat - Neck Exam Neck Exam: Full ROM - Respiratory Exam Respiratory Exam: Rhonchi, Wheezes, NORMAL BREATHING PATTERN. absent: Accessory Muscle Use, Prolonged Expiratory Phase, Respiratory Distress - Cardiovascular Exam Cardiovascular Exam: REGULAR RHYTHM, +S1, +S2. absent: Tachycardia - GI/Abdominal Exam GI & Abdominal Exam: Soft, Normal Bowel Sounds - Extremities Exam Extremities Exam: Normal Inspection - Neurological Exam Neurological Exam: Alert, Awake, Oriented x3 - Psychiatric Exam Psychiatric exam: Normal Affect, Normal Mood - Skin Skin Exam: Dry, Intact, Normal Color, Warm Assessment and Plan - Assessment and Plan (Free Text) Assessment: (1) Pneumonia Assessment & Plan: CXR shows mild venous congestion. Mild bilateral hilar prominence. Patchy increased markings at the left lung base with trace left pleural effusion. Afebrile and no leukocytosis. IV steroids from Solumedrol 20 mg IVP Q12H Rocephin IVPB- DAY 6 Azithomycin IVPB- DAY 6 Robitussin PO Q4 PRN Tessalon Perles Status: Acute (2) Congestive heart failure (CHF) Assessment & Plan: Patient's customs officer consulted- Dr. Colón- help appreciated. CXR shows mild venous congestion. Mild bilateral hilar prominence. Patchy increased markings at the left lung base with trace left pleural effusion. BNP 12,000 Lasix 40 mg IVP daily Losartan 100 mg PO daily Coreg 6.25 mg PO BID Aldactone 12.5 mg PO daily f/u ECHO report Patient has AICD in place Status: Chronic (3) CAD (coronary artery disease) Assessment & Plan: Patient with hx of CABG in 2004 with AICD Coreg 6.25 mg PO BID Status: Chronic (4) DM type 2 (diabetes mellitus, type 2) Assessment & Plan: Continue home meds: Januvia 100 mg PO daily Glimepiride 1 mg PO daily Metformin 1000 PO BID ISS for coverage Status: Chronic (5) Atrial fibrillation Assessment & Plan: Eliquis 2.5 mg PO BID Coreg 6.25 mg PO BID Currently rate controlled Status: Acute (6) Prophylactic measure Assessment & Plan: Heparin 5000 SC Q12H Protonix 40 mg PO daily Status: Acute
[2016-10-09 15:56] VITALS: RESP 20
[2016-10-09] MEDS: guaiFENesin DM 200 mg-20 mg/10 ml UD PO PRN (17:29)
[2016-10-09] MEDS: Patient's Own Medication - Tablet/Capusle PO SCH (17:33)
[2016-10-09] MEDS: Azithromycin 500 MG in Sodium Chloride 0.9% 250 ML IVPB SCH (18:16)
[2016-10-09] MEDS: guaiFENesin 600 mg ER Tab PO SCH (21:21)
[2016-10-10] MEDS: Fluticasone-Salmeterol 250-50mcg Diskus IH SCH ×2 (07:56→19:27)
[2016-10-10] MEDS: (Novolog) Insulin Aspart, Recombinant 100 u/ml 10 ml vial SC SCH ×4 (08:03→21:02)
--- NOTE | 2016-10-10 08:50 | CARD ---
APPROVED REPORT EXAM: Two-dimensional and M-mode echocardiogram with Doppler and color Doppler. Other Information Quality : GoodRhythm : NSR INDICATION Dyspnea Congestive Heart Failure SOB, PNEUMONIA M-Mode DIMENSIONS Left Atrium (MM)4.23 (2.5-4.0cm)IVSd0.59 (0.7-1.1cm) Aortic Root2.67 (2.2-3.7cm)LVDd5.84 (4.0-5.6cm) Aortic Cusp Exc.1.66 (1.5-2.0cm)PWd0.73 (0.7-1.1cm) FS (%) 15 %LVDs4.93 (2.0-3.8cm) LVEF (%)32 (>50%) Mitral Valve MV E Ezvkhbup41.7cm/sMV A Ytwpkgtq78.9cm/sE/A ratio2.5 TDI E/Lateral E'0.0E/Medial E'0.0 Tricuspid Valve TR Peak [id number]/sTR Peak Gr.[id number] LEFT VENTRICLE The Left Ventricle is mildly dilated. There is normal left ventricular wall thickness. The systolic function is severely impaired. EF = 15-20% There is Mild hypokinesis of the inferior and infero-septal wall segments with severe hypokinesis of the basal anterior wall and akinesis of all other wall segments. Transmitral Doppler flow pattern is Grade III-reversible restrictive diastolic dysfunction. No left ventricle thrombus noted on this study. There is no ventricular septal defect visualized. There is no left ventricular aneurysm. There is no mass noted in the left ventricle. RIGHT VENTRICLE The right ventricle is normal size. There is normal right ventricular wall thickness. The right ventricular systolic function is normal. DEVICE LEADS NOTED IN THE RA AND RV ATRIA The left atrium is mildly dilated. The right atrium size is normal. The interatrial septum is intact with no evidence for an atrial septal defect. AORTIC VALVE The aortic valve is moderately sclerotic. There is trace aortic regurgitation. There is no aortic valvular stenosis. There is no aortic valvular vegetation. MITRAL VALVE Mitral annular calcification is mild. There is no evidence of mitral valve prolapse. There is no mitral valve stenosis. Mitral regurgitation is mild. TRICUSPID VALVE The tricuspid valve is normal in structure There is mild tricuspid regurgitation. RAP 10-15 PAP IS 30-35 There is no tricuspid valve prolapse or vegetation. There is no tricuspid valve stenosis. PULMONIC VALVE The pulmonary valve is normal in structure. There is moderate pulmonic valvular regurgitation. There is no pulmonic valvular stenosis. GREAT VESSELS The aortic root is normal in size. The ascending aorta is normal in size. The pulmonary artery is normal. IVC IS DILATED WITH LESS THAN 50% COLLAPSE PERICARDIAL EFFUSION The pericardium appears normal. There is no pleural effusion. <Conclusion> EF = 15-20% The systolic function is severely impaired. There is Mild hypokinesis of the inferior and infero-septal wall segments with severe hypokinesis of the basal anterior wall and akinesis of all other wall segments. Transmitral Doppler flow pattern is Grade III-reversible restrictive diastolic dysfunction. DEVICE LEADS NOTED IN THE RA AND RV The left atrium is mildly dilated. There is trace aortic regurgitation. Mitral regurgitation is mild. There is mild tricuspid regurgitation. There is moderate pulmonic valvular regurgitation. RAP 10-15 PAP IS 30-35 IVC IS DILATED WITH LESS THAN 50% COLLAPSE
[2016-10-10] MEDS: Pantoprazole 40 mg EC Tab PO SCH (09:47)
[2016-10-10] MEDS: Albuterol 0.083% Inhal Sol (2.5 mg/3 mL) UD IH SCH ×2 (09:47→19:26)
[2016-10-10] MEDS: Multiple Vitamins Tab PO SCH (09:48)
[2016-10-10] MEDS: MethylPREDNISolone 40 mg Vial IVP SCH ×2 (09:51→21:02)
[2016-10-10] MEDS: guaiFENesin 600 mg ER Tab PO SCH ×2 (10:59→21:02)
--- NOTE | 2016-10-10 11:01 | CP.PCM.CON ---
History of Present Illness - History of Present Illness History of Present Illness: The patient is a 80 year old kyrgyz speaking woman, who was admitted to the hospital with dyspnea. Pt has wheezing. Pt had an icd implanted 10 yers ago at [facility], with apparently no recent check of the battery. Pt has had apparent OK in the remote past Review of Systems - Review of Systems All systems: reviewed and no additional remarkable complaints except (as above.) Past Patient History - Infectious Disease Hx of Infectious Diseases: None - Past Medical History & Family History Past Medical History?: Yes - Past Social History Smoking Status: Never Smoked - CARDIAC Hx Congestive Heart Failure: Yes Hx Hypertension: Yes - PULMONARY Hx Chronic Obstructive Pulmonary Disease (COPD): Yes - NEUROLOGICAL Hx Neurological Disorder: Yes HX 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) - HEENT Hx HEENT Problems: No - RENAL Hx Chronic Kidney Disease: No - ENDOCRINE/METABOLIC Hx Endocrine Disorders: Yes Hx Diabetes Mellitus Type 2: Yes - HEMATOLOGICAL/ONCOLOGICAL Hx Blood Disorders: No - INTEGUMENTARY Hx Dermatological Problems: No - MUSCULOSKELETAL/RHEUMATOLOGICAL Hx Musculoskeletal Disorders: No Hx Falls: No - GASTROINTESTINAL Hx Gastrointestinal Disorders: No - GENITOURINARY/GYNECOLOGICAL Hx Genitourinary Disorders: No - PSYCHIATRIC Hx Psychophysiologic Disorder: No Hx Substance Use: No - SURGICAL HISTORY Hx Surgeries: Yes Hx Coronary Artery Bypass Graft: Yes (2004) - ANESTHESIA Hx Anesthesia: Yes Hx Anesthesia Reactions: No Hx Malignant Hyperthermia: No Has any member of the family had a problem w/ anesthesia?: No Meds Allergies/Adverse Reactions: Allergies Allergy/AdvReac Type Severity Reaction Status Date / Time DENITA Inhibitors AdvReac Verified 02/16/16 22:55 - Medications Medications: Current Medications Albuterol Sulfate (Albuterol 0.083% Inhal Liza (2.5 Mg/3 Ml) Ud) 2.5 mg IH RBID [facility] Last Admin: 10/10/16 09:47 Dose: 2.5 mg Apixaban (Eliquis) 2.5 mg PO BID [facility] Last Admin: 10/10/16 09:48 Dose: 2.5 mg Benzonatate (Tessalon Perles) 100 mg PO TID [facility] Last Admin: 10/10/16 09:47 Dose: 100 mg Carvedilol (Coreg) 6.25 mg PO BID [facility] Last Admin: 10/10/16 09:48 Dose: 6.25 mg Dextrose (Dextrose 50% Inj) 0 ml IV STAT PRN; Protocol PRN Reason: Hyglycemia Protocol Dextrose (Glutose 15) 0 gm PO ONCE PRN; Protocol PRN Reason: Hypoglycemia Protocol Last Admin: 10/06/16 17:09 Dose: 15 gm Furosemide (Lasix) 40 mg IVP DAILY [facility] Last Admin: 10/10/16 09:51 Dose: 40 mg Glimepiride (Amaryl) 1 mg PO DAILY [facility] Last Admin: 10/10/16 09:48 Dose: 1 mg Glucagon (Glucagen Diagnostic Kit) 0 mg IM STAT PRN; Protocol PRN Reason: Hypoglycemia Protocol Guaifenesin (Mucinex La) 600 mg PO Q12 [facility] Last Admin: 10/09/16 21:21 Dose: 600 mg Guaifenesin/Dextromethorphan (Robitussin Dm) 10 ml PO Q4H PRN PRN Reason: Cough and congestion Last Admin: 10/09/16 17:29 Dose: 10 ml Home Med (Patient's Own Medication) 1 tab PO DAILY@1800 [facility] Last Admin: 10/09/16 17:33 Dose: 1 tab Azithromycin 500 mg/ Sodium (Chloride) 250 mls @ 166.667 mls/hr IVPB Q24H [facility] Last Admin: 10/09/16 18:16 Dose: 166.667 mls/hr Ceftriaxone Sodium 1 gm/ (Sodium Chloride) 100 mls @ 200 mls/hr IVPB Q24H [facility] Last Admin: 10/09/16 12:55 Dose: 200 mls/hr Insulin Aspart (Novolog) 0 unit SC ACHS [facility] PRN Reason: Protocol Last Admin: 10/10/16 08:03 Dose: Not Given Losartan Potassium (Cozaar) 100 mg PO DAILY [facility] Last Admin: 10/10/16 09:48 Dose: 100 mg Metformin HCl (Glucophage) 1,000 mg PO BIDCC [facility] Last Admin: 10/10/16 08:29 Dose: 1,000 mg Methylprednisolone (Solu-Medrol) 20 mg IVP Q12 [facility] Last Admin: 10/10/16 09:51 Dose: 20 mg Montelukast Sodium (Singulair) 10 mg PO HS [facility] Last Admin: 10/09/16 21:21 Dose: 10 mg Multivitamins (Hexavitamin) 1 tab PO DAILY [facility] Last Admin: 10/10/16 09:48 Dose: 1 tab Pantoprazole Sodium (Protonix Ec Tab) 40 mg PO DAILY [facility] Last Admin: 10/10/16 09:47 Dose: 40 mg Fluticasone/Salmeterol (Advair Diskus 250/50) 1 puff IH RQ12 [facility] Last Admin: 10/10/16 07:56 Dose: 1 puff Sitagliptin Phosphate (Januvia) 50 mg PO BIDCC [facility] Last Admin: 10/10/16 08:29 Dose: 50 mg Spironolactone (Aldactone) 12.5 mg PO DAILY [facility] Last Admin: 10/10/16 09:49 Dose: 12.5 mg Physical Exam - Constitutional Appears: No Acute Distress - Head Exam Head Exam: ATRAUMATIC - Eye Exam Eye Exam: EOMI, Normal appearance - ENT Exam ENT Exam: Mucous Membranes Moist - Neck Exam Neck exam: Positive for: Normal Inspection - Respiratory Exam Respiratory Exam: Rhonchi, Wheezes - Cardiovascular Exam Cardiovascular Exam: REGULAR RHYTHM - GI/Abdominal Exam GI & Abdominal Exam: Normal Bowel Sounds - Exam External exam: NORMAL EXTERNAL EXAM - Extremities Exam Extremities exam: Positive for: normal inspection - Back Exam Back exam: NORMAL INSPECTION - Neurological Exam Neurological exam: Alert, CN II-XII Intact, Oriented x3 - Psychiatric Exam Psychiatric exam: Anxious - Skin Skin Exam: Dry Results - Vital Signs Recent Vital Signs: Last Vital Signs Temp 97.8 F 10/10/16 07:00 Pulse 76 10/10/16 09:45 Resp 20 10/10/16 07:00 BP 125/59 L 10/10/16 09:51 Pulse Ox 100 10/10/16 07:00 - Labs Result Diagrams: 10/09/16 07:30 10/09/16 07:30 Labs: Laboratory Results - last 24 hr 10/09/16 10/09/16 10/09/16 11:26 16:27 21:45 POC Glucose (mg/dL) 231 H 409 H* 151 H 10/10/16 10/10/16 02:12 06:19 POC Glucose (mg/dL) 119 H 107 Assessment & Plan - Assessment and Plan (Free Text) Assessment: 1. Echo reveals severe cardiomyopathy with wall motion abnormalities c/w old OK in the LAD distribution. ECG shows alternating paced rhythm and pt's [place] rhythm, with inferior and anterior q waves. 2. No evidence of acute myocardial syndrome. 3. CXR shows increased markings, but pt's overwhelming lung exam is more c/w pneumonia/COPD exacerbation. BNP level will likely be chronically high. 4. Pt is on a non selective beta garett, but only low dose. Also on arb and aldactone, appropriate meds. 5. Will find out which company implanted the ppm and have it checked. 6. Pt is on eliquis, and she likely had afib in the past (alternative, pt could have had a dvt or PE). 7. asa 81 a day is advised. 8. Lipid panel as pt is not on statin.
--- NOTE | 2016-10-10 14:47 | CP.PCM.PN ---
Subjective - Date & Time of Evaluation Date of Evaluation: 10/10/16 Time of Evaluation: 11:00 - Subjective Subjective: Medicine Progress Note Patient seen and examined. Patient continues to have productive cough with yellow sputum. She also complains of throat discomfort due to the coughing. She denies pain in her chest or abdomen. Patient was seen by Dr Avendaño today who wishes to evaluate her ICD as it has not been checked in several years. Objective - Vital Signs/Intake and Output Vital Signs (last 24 hours): Temp Pulse Resp BP Pulse Ox 97.8 F 76 20 125/59 L 100 10/10/16 07:00 10/10/16 09:45 10/10/16 07:00 10/10/16 09:51 10/10/16 07:00 Intake and Output: 10/10/16 10/10/16 06:59 18:59 Intake Total 650 Balance 650 - Medications Medications: Current Medications Albuterol Sulfate (Albuterol 0.083% Inhal Liza (2.5 Mg/3 Ml) Ud) 2.5 mg IH RBID [facility] Last Admin: 10/10/16 09:47 Dose: 2.5 mg Apixaban (Eliquis) 2.5 mg PO BID [facility] Last Admin: 10/10/16 09:48 Dose: 2.5 mg Aspirin (Ecotrin) 81 mg PO DAILY [facility] Benzonatate (Tessalon Perles) 100 mg PO TID [facility] Last Admin: 10/10/16 14:13 Dose: 100 mg Carvedilol (Coreg) 6.25 mg PO BID [facility] Last Admin: 10/10/16 09:48 Dose: 6.25 mg Dextrose (Dextrose 50% Inj) 0 ml IV STAT PRN; Protocol PRN Reason: Hyglycemia Protocol Dextrose (Glutose 15) 0 gm PO ONCE PRN; Protocol PRN Reason: Hypoglycemia Protocol Last Admin: 10/06/16 17:09 Dose: 15 gm Furosemide (Lasix) 40 mg IVP DAILY [facility] Last Admin: 10/10/16 09:51 Dose: 40 mg Glimepiride (Amaryl) 1 mg PO DAILY [facility] Last Admin: 10/10/16 09:48 Dose: 1 mg Glucagon (Glucagen Diagnostic Kit) 0 mg IM STAT PRN; Protocol PRN Reason: Hypoglycemia Protocol Guaifenesin (Mucinex La) 600 mg PO Q12 [facility] Last Admin: 10/10/16 10:59 Dose: 600 mg Guaifenesin/Dextromethorphan (Robitussin Dm) 10 ml PO Q4H PRN PRN Reason: Cough and congestion Last Admin: 10/09/16 17:29 Dose: 10 ml Home Med (Patient's Own Medication) 1 tab PO DAILY@1800 [facility] Last Admin: 10/09/16 17:33 Dose: 1 tab Azithromycin 500 mg/ Sodium (Chloride) 250 mls @ 166.667 mls/hr IVPB Q24H [facility] Last Admin: 10/09/16 18:16 Dose: 166.667 mls/hr Ceftriaxone Sodium 1 gm/ (Sodium Chloride) 100 mls @ 200 mls/hr IVPB Q24H [facility] Last Admin: 10/10/16 13:07 Dose: 200 mls/hr Insulin Aspart (Novolog) 0 unit SC ACHS [facility] PRN Reason: Protocol Last Admin: 10/10/16 13:07 Dose: 3 unit Losartan Potassium (Cozaar) 100 mg PO DAILY [facility] Last Admin: 10/10/16 09:48 Dose: 100 mg Metformin HCl (Glucophage) 1,000 mg PO BIDCC [facility] Last Admin: 10/10/16 08:29 Dose: 1,000 mg Methylprednisolone (Solu-Medrol) 20 mg IVP Q12 [facility] Last Admin: 10/10/16 09:51 Dose: 20 mg Montelukast Sodium (Singulair) 10 mg PO HS [facility] Last Admin: 10/09/16 21:21 Dose: 10 mg Multivitamins (Hexavitamin) 1 tab PO DAILY [facility] Last Admin: 10/10/16 09:48 Dose: 1 tab Pantoprazole Sodium (Protonix Ec Tab) 40 mg PO DAILY [facility] Last Admin: 10/10/16 09:47 Dose: 40 mg Fluticasone/Salmeterol (Advair Diskus 250/50) 1 puff IH RQ12 [facility] Last Admin: 10/10/16 07:56 Dose: 1 puff Sitagliptin Phosphate (Januvia) 50 mg PO BIDCC [facility] Last Admin: 10/10/16 08:29 Dose: 50 mg Spironolactone (Aldactone) 12.5 mg PO DAILY [facility] Last Admin: 10/10/16 09:49 Dose: 12.5 mg - Labs Labs: 10/09/16 07:30 10/09/16 07:30 PT 13.4 SECONDS (9.7-12.2) H 10/03/16 22:32 INR 1.2 10/03/16 22:32 APTT 43 SECONDS (21-34) H 10/03/16 22:32 - Additional Findings Additional findings: - Constitutional Appears: Well, No Acute Distress - Head Exam Head Exam: ATRAUMATIC, NORMOCEPHALIC - Eye Exam Eye Exam: EOMI, Normal appearance - ENT Exam ENT Exam: Mucous Membranes Moist, Normal Exam Additional comments: no erythema or exudates in throat - Neck Exam Neck Exam: Full ROM - Respiratory Exam Respiratory Exam: Rhonchi, Wheezes, NORMAL BREATHING PATTERN. absent: Accessory Muscle Use, Prolonged Expiratory Phase, Respiratory Distress - Cardiovascular Exam Cardiovascular Exam: REGULAR RHYTHM, +S1, +S2. absent: Tachycardia - GI/Abdominal Exam GI & Abdominal Exam: Soft, Normal Bowel Sounds - Extremities Exam Extremities Exam: Normal Inspection - Neurological Exam Neurological Exam: Alert, Awake, Oriented x3 - Psychiatric Exam Psychiatric exam: Normal Affect, Normal Mood - Skin Skin Exam: Dry, Intact, Normal Color, Warm Assessment and Plan - Assessment and Plan (Free Text) Assessment: (1) Pneumonia Assessment & Plan: CXR shows mild venous congestion. Mild bilateral hilar prominence. Patchy increased markings at the left lung base with trace left pleural effusion. Afebrile and no leukocytosis. IV steroids Solumedrol 20 mg IVP Q12H Rocephin IVPB- completed Azithomycin IVPB- completed Robitussin PO Q4 PRN Tessalon Perles Mucom[place] Status: Acute (2) Congestive heart failure (CHF) Assessment & Plan: Patient's insulating machine operator consulted- Dr. Colón- help appreciated. Patient was seen by Dr Avendaño who plans to check patient's ICD battery. CXR shows mild venous congestion. Mild bilateral hilar prominence. Patchy increased markings at the left lung base with trace left pleural effusion. BNP 12,000 Lasix 40 mg IVP daily Losartan 100 mg PO daily Coreg 6.25 mg PO BID Aldactone 12.5 mg PO daily ECHO report- severe cardiomyopathy with wall motion abnormalities c/w old DC in the LAD distribution. Patient has AICD in place Status: Chronic (3) CAD (coronary artery disease) Assessment & Plan: Patient with hx of CABG in 2004 with AICD Coreg 6.25 mg PO BID Status: Chronic (4) DM type 2 (diabetes mellitus, type 2) Assessment & Plan: Continue home meds: Januvia 100 mg PO daily Glimepiride 1 mg PO daily Metformin 1000 PO BID ISS for coverage Status: Chronic (5) Atrial fibrillation Assessment & Plan: Eliquis 2.5 mg PO BID Coreg 6.25 mg PO BID Currently rate controlled Status: Acute (6) Prophylactic measure Assessment & Plan: Heparin 5000 SC Q12H Protonix 40 mg PO daily Status: Acute
[2016-10-10] MEDS: Patient's Own Medication - Tablet/Capusle PO SCH (17:35)
[2016-10-10] MEDS: Azithromycin 500 MG in Sodium Chloride 0.9% 250 ML IVPB SCH (18:34)
[2016-10-11 06:24] LABS: HEMATOCRIT 31.6 % (34.0-47.0); MEAN CELL VOLUME 86.3 fL (81.0-99.0); MEAN CORPUSCULAR HEMOGLOBIN 28.7 pg (27.0-31.0); MEAN CORPUSCULAR HGB CONC 33.2 g/dL (33.0-37.0); MEAN PLATELET VOLUME 8.2 fL (7.2-11.7); RED CELL DISTRIBUTION WIDTH 14.4 % (11.5-14.5); WHITE BLOOD COUNT 8.1 K/uL (4.8-10.8)
[2016-10-11 06:35] LABS: POTASSIUM 4.7 mmol/L (3.6-5.2)
[2016-10-11 06:37] LABS: ALB/GLOB RATIO 1.1 (1.0-2.1); BILIRUBIN,TOTAL 0.6 mg/dL (0.2-1.3); CALCIUM 8.4 mg/dl (8.6-10.4); TOTAL PROTEIN 6.1 g/dL (6.3-8.3)
[2016-10-11] MEDS: Albuterol 0.083% Inhal Sol (2.5 mg/3 mL) UD IH SCH (07:34)
[2016-10-11] MEDS: (Novolog) Insulin Aspart, Recombinant 100 u/ml 10 ml vial SC SCH ×2 (08:46→12:52)
--- NOTE | 2016-10-11 09:41 | CP.PCM.PN ---
Subjective - Date & Time of Evaluation Date of Evaluation: 10/11/16 Time of Evaluation: 08:00 - Subjective Subjective: Medicine Progress Note- Dr. Clark's service: Patient seen and examined at bedside this AM. Patient reports she is feeling better. She still has cough. Patient out of bed to chair yesterday. No acute events overnight as per nursing. As per conversation with Dr. Avendaño, patient recently had AICD checked in the office recently. Patient stable for discharge from cardio side. Discharge planning as per Dr. Clark. Objective - Vital Signs/Intake and Output Vital Signs (last 24 hours): Temp Pulse Resp BP Pulse Ox 97.4 F L 75 20 134/51 L 97 10/11/16 08:32 10/11/16 09:36 10/11/16 08:32 10/11/16 09:36 10/11/16 08:32 Intake and Output: 10/11/16 10/11/16 06:59 18:59 Intake Total 380 Balance 380 - Medications Medications: Current Medications Albuterol Sulfate (Albuterol 0.083% Inhal Liza (2.5 Mg/3 Ml) Ud) 2.5 mg IH RBID [facility] Last Admin: 10/11/16 07:34 Dose: 2.5 mg Apixaban (Eliquis) 2.5 mg PO BID [facility] Last Admin: 10/10/16 17:34 Dose: 2.5 mg Aspirin (Ecotrin) 81 mg PO DAILY [facility] Benzonatate (Tessalon Perles) 100 mg PO TID [facility] Last Admin: 10/10/16 17:34 Dose: 100 mg Carvedilol (Coreg) 6.25 mg PO BID [facility] Last Admin: 10/10/16 17:34 Dose: 6.25 mg Dextrose (Dextrose 50% Inj) 0 ml IV STAT PRN; Protocol PRN Reason: Hyglycemia Protocol Dextrose (Glutose 15) 0 gm PO ONCE PRN; Protocol PRN Reason: Hypoglycemia Protocol Last Admin: 10/06/16 17:09 Dose: 15 gm Furosemide (Lasix) 40 mg IVP DAILY [facility] Last Admin: 10/10/16 09:51 Dose: 40 mg Glimepiride (Amaryl) 1 mg PO DAILY [facility] Last Admin: 10/10/16 09:48 Dose: 1 mg Glucagon (Glucagen Diagnostic Kit) 0 mg IM STAT PRN; Protocol PRN Reason: Hypoglycemia Protocol Guaifenesin (Mucinex La) 600 mg PO Q12 [facility] Last Admin: 10/10/16 21:02 Dose: 600 mg Guaifenesin/Dextromethorphan (Robitussin Dm) 10 ml PO Q4H PRN PRN Reason: Cough and congestion Last Admin: 10/09/16 17:29 Dose: 10 ml Home Med (Patient's Own Medication) 1 tab PO DAILY@1800 [facility] Last Admin: 10/10/16 17:35 Dose: 1 tab Ceftriaxone Sodium 1 gm/ (Sodium Chloride) 100 mls @ 200 mls/hr IVPB Q24H [facility] Last Admin: 10/10/16 13:07 Dose: 200 mls/hr Insulin Aspart (Novolog) 0 unit SC ACHS JULI PRN Reason: Protocol Last Admin: 10/11/16 08:46 Dose: 2 unit Losartan Potassium (Cozaar) 100 mg PO DAILY [facility] Last Admin: 10/10/16 09:48 Dose: 100 mg Metformin HCl (Glucophage) 1,000 mg PO BIDCC [facility] Last Admin: 10/11/16 08:47 Dose: 1,000 mg Methylprednisolone (Solu-Medrol) 20 mg IVP Q12 [facility] Last Admin: 10/10/16 21:02 Dose: 20 mg Montelukast Sodium (Singulair) 10 mg PO HS [facility] Last Admin: 10/10/16 21:02 Dose: 10 mg Multivitamins (Hexavitamin) 1 tab PO DAILY [facility] Last Admin: 10/10/16 09:48 Dose: 1 tab Pantoprazole Sodium (Protonix Ec Tab) 40 mg PO DAILY [facility] Last Admin: 10/10/16 09:47 Dose: 40 mg Fluticasone/Salmeterol (Advair Diskus 250/50) 1 puff IH RQ12 [facility] Last Admin: 10/10/16 19:27 Dose: 1 puff Sitagliptin Phosphate (Januvia) 50 mg PO BIDCC [facility] Last Admin: 10/11/16 08:47 Dose: 50 mg Spironolactone (Aldactone) 12.5 mg PO DAILY [facility] Last Admin: 10/10/16 09:49 Dose: 12.5 mg - Labs Labs: 10/11/16 06:09 10/11/16 06:09 PT 13.4 SECONDS (9.7-12.2) H 04/26/17 22:32 INR 1.2 10/03/16 22:32 APTT 43 SECONDS (21-34) H 10/03/16 22:32 - Constitutional Appears: No Acute Distress - Head Exam Head Exam: NORMAL INSPECTION, NORMOCEPHALIC - Eye Exam Eye Exam: EOMI, Normal appearance - Neck Exam Neck Exam: Full ROM - Respiratory Exam Respiratory Exam: Rhonchi, Wheezes. absent: Rales - Cardiovascular Exam Cardiovascular Exam: REGULAR RHYTHM, +S1, +S2 - GI/Abdominal Exam GI & Abdominal Exam: Soft. absent: Distended, Tenderness - Extremities Exam Extremities Exam: absent: Pedal Edema - Neurological Exam Neurological Exam: Alert, Awake, Oriented x3 - Skin Skin Exam: Normal Color, Warm Assessment and Plan - Assessment and Plan (Free Text) Assessment: (1) Pneumonia Assessment & Plan: CXR shows mild venous congestion. Mild bilateral hilar prominence. Patchy increased markings at the left lung base with trace left pleural effusion. Afebrile and no leukocytosis. D/C IV steroids Solumedrol Rocephin IVPB- completed Azithomycin IVPB- completed Patient will be discharged with Medrol dose ligia. Status: Acute (2) Congestive heart failure (CHF) Assessment & Plan: Patient's community planner consulted- Dr. Colón- help appreciated. Patient was seen by Dr Avendaño who plans to check patient's ICD battery. CXR shows mild venous congestion. Mild bilateral hilar prominence. Patchy increased markings at the left lung base with trace left pleural effusion. BNP 12,000 Switch Lasix 40 mg IVP to daily PO Losartan 100 mg PO daily Coreg 6.25 mg PO BID Aldactone 12.5 mg PO daily ECHO report- severe cardiomyopathy with wall motion abnormalities c/w old [place] in the LAD distribution. Patient has AICD in place - recently checked in the office as per Dr. Avendaño. Status: Chronic (3) CAD (coronary artery disease) Assessment & Plan: Patient with hx of CABG in 2004 with AICD Coreg 6.25 mg PO BID Patient has AICD in place - recently checked in the office as per Dr. Avendaño. Status: Chronic (4) DM type 2 (diabetes mellitus, type 2) Assessment & Plan: Continue home meds: Januvia 100 mg PO daily Glimepiride 1 mg PO daily Metformin 1000 PO BID Status: Chronic (5) Atrial fibrillation Assessment & Plan: Eliquis 2.5 mg PO BID Coreg 6.25 mg PO BID Currently rate controlled Status: Acute No more antibiotics as per Dr. Clark. Discharge planning as per Dr. Clark.
[2016-10-11] MEDS: MethylPREDNISolone 40 mg Vial IVP SCH (09:44)
[2016-10-11] MEDS: Pantoprazole 40 mg EC Tab PO SCH (09:45)
[2016-10-11] MEDS: guaiFENesin 600 mg ER Tab PO SCH (09:45)
[2016-10-11] MEDS: Multiple Vitamins Tab PO SCH (09:46)
[2016-10-11] MEDS: Fluticasone-Salmeterol 250-50mcg Diskus IH SCH (10:53)
--- NOTE | 2016-10-11 14:32 | PCM.HF ---
Heart Failure Core Measure - Heart Failure Ejection Fraction: Less Than 40 % (EF <30%) Left Ventricular Function to be assessed after discharge: Yes DENITA Inhibitor Prescribed: No Contraindication/Reason for not providing: ON ARB Beta-Bart Prescribed: Carvedilol Angiotensin II Receptor Bart Prescribed: Yes AnticoagulationTherapy for Atrial Fibrillation/Atrialflutter: Yes Aldosterone Antagonist Prescribed: No Contraindication/Reason for not providing: ON Hydralazine Nitrate Prescribed: No Contraindication/Reason for not providing: NOT RX BY PMD Implantable Cardioverter Defibrillator Therapy: Yes Cardiac Resynchronization Therapy Prescribed: No Contraindication/Reason for not providing: ICD - Follow up Will be discharged to: Home Follow Up Date (must be within 7 days from discharge): 10/09/16 Follow Up Time: 09:00
[2016-10-11 15:31] VITALS: BP 164/47; PULSE 74; TEMP 97.6; O2SAT 99
--- NOTE | 2016-10-12 14:55 | DS ---
The patient in the hospital with chief complaint of shortness of breath, cough, wheezes, , fatigue, t iredness. The patient has history of heart failure, history of pacemaker, COPD, bronchitis with mult iple admissions in the past, same. The patient is a ____smoker, nondrinker. PHYSICAL EXAMINATION: GENERAL: The patient is an elderly female, awake, alert to time and place. VITAL SIGNS: Temperature 98, pulse 90. HEENT: Within normal limits. NECK: Supple. CHEST: Symmetrical. HEART: Regular. ABDOMEN: Soft. EXTREMITIES: No edema. The patient has exacerbation of chronic obstructive pulmonary disease, bronchitis, congestive heart f ailure. Treated with ____, supportive care, bronchodilators ____. Riddhi Conley MD cc: [phone] TT: 10/12/2016 13:45:22 jn
--- NOTE | 2016-11-02 11:22 | DS ---
The patient admitted to the hospital with chief complaint of ____ weakness, fatigue, tiredness. The patient got bedrest, supportive care, showing improvement, discharged to follow as outpatient. Riddhi Conley MD cc: [id number] TT: 11/02/2016 10:16:36 rn 11/06/2016 07:25:24
--- NOTE | 2016-11-27 12:34 | CARD ---
APPROVED REPORT EKG Measurement Heart [id number] <Conclusion> Sinus tachycardia Anterolateral infarct, age undetermined ST & T wave abnormality, consider inferior ischemia Abnormal ECG
== END 2016-10-11 15:45 | disposition home or self-care (01) | DRG 541 ==
LOC: C.ER 21:31 → C.9E 23:24 → C.6T 10-04 02:19
PROVIDERS: ADMIT Internal Medicine Pulmonary Disease; ATTEND Internal Medicine Pulmonary Disease
DX: J44.0 Chronic obstructive pulmonary disease with (acute) lower respiratory infection (principal); J18.9 Pneumonia, unspecified organism; I11.0 Hypertensive heart disease with heart failure; I42.9 Cardiomyopathy, unspecified; I48.91 Unspecified atrial fibrillation; I50.9 Heart failure, unspecified; J20.9 Acute bronchitis, unspecified; E11.9 Type 2 diabetes mellitus without complications; J44.1 Chronic obstructive pulmonary disease with (acute) exacerbation; I25.10 Atherosclerotic heart disease of native coronary artery without angina pectoris; I25.2 Old myocardial infarction; Z86.73 Personal history of transient ischemic attack (TIA), and cerebral infarction without residual deficits; Z95.1 Presence of aortocoronary bypass graft; Z95.810 Presence of automatic (implantable) cardiac defibrillator; Z79.4 Long term (current) use of insulin

== ENCOUNTER 2016-10-29 19:49 | Inpatient (IN) | payer MEDICAID, MEDICARE ==
[2016-10-29 19:49] VITALS: BMI 25.3
[2016-10-29] MEDS ORDERED: Albuterol-Ipratrop 3 mg / 0.5 (3 ml) UD INH STA (20:16)
--- NOTE | 2016-10-29 20:22 | C.PDOC ---
History Of Present Illness Patient is a 80 year old female who presents to the ER with a complaint of SOB that has worsened tonight. Patient has a PMHx of COPD, CHF, DM and bypass surgery. Denies nausea, vomiting, fever, chills and diarrhea. Chief Complaint (Nursing): Shortness Of Breath History Per: Patient History/Exam Limitations: no limitations Onset/Duration Of Symptoms: Hrs Current Symptoms Are (Timing): Still Present Initiating Event: Other (Not known) Current Respiratory Medications: Other (Not known) Associated Symptoms: Other (SOB). denies: Fever, Chills Recent travel outside of the [place]: No Past Medical History Reviewed: Historical Data, Nursing Documentation, Vital Signs Vital Signs: Last Vital Signs Temp Pulse 95 H 10/29/16 21:12 Resp 24 10/29/16 20:24 BP Pulse Ox 99 10/29/16 20:24 - Medical History PMH: Asthma, Atrial Fibrillation, CAD (CABG), CHF, COPD, Diabetes, HTN, Peripheral Edema Surgical History: CABG (2004), Pacemaker - [facility] Procedures ASSISTANCE WITH RESPIRATORY VENTILATION, 24-96 HRS, CPAP (02/16/16) EXCISION OF RIGHT LOWER LUNG LOBE, PERC APPROACH, DIAGN (02/16/16) INSPECTION OF LARYNX, ENDO (06/16/15) Family History: States: Unknown Family Hx - Social History Hx Tobacco Use: No Hx Alcohol Use: No Hx Substance Use: No - Immunization History Hx Tetanus Toxoid Vaccination: No Hx Influenza Vaccination: No Hx Pneumococcal Vaccination: Yes Review Of Systems Constitutional: Negative for: Fever, Chills Respiratory: Positive for: Shortness of Breath Gastrointestinal: Negative for: Nausea, Vomiting, Diarrhea Physical Exam - Physical Exam Appears: Non-toxic, Other (Moderate distress) Skin: Normal Color, Warm, Dry Head: Atraumatic, Normacephalic Eye(s): bilateral: Normal Inspection, EOMI Oral Mucosa: Moist Neck: Other (Neck vein visible in upright position) Chest: Symmetrical, No Tenderness Cardiovascular: Rhythm Regular, No Murmur Respiratory: Rhonchi (bilaterally), Wheezing (expiratory) Gastrointestinal/Abdominal: Soft, No Tenderness Extremity: No Pedal Edema Neurological/Psych: Oriented x3, Normal Speech, Normal Cognition ED Course And Treatment - Laboratory Results Result Diagrams: 10/29/16 20:25 10/29/16 20:25 ECG: Interpreted By Me, Viewed By Me ECG Rhythm: V Paced ECG Interpretation: Abnormal Interpretation Of ECG: ventricular paced rhythm Rate From EC - Radiology CXR: Interpreted by Me, Viewed By Me CXR Interpretation: Yes: Cardiomegaly. No: Infiltrates (mild inc. BY markings) Progress Note: EKG, blood work and CXR ordered. Nebulizer treatment and magnesium administered. On reevaluation, patient is still dyspenic with bilateral wheezing and rhonic, will replace bipap. Dr. escobar called and notified for admission telemetry. Disposition Discussed With : Shaw Escobar Jr. Doctor Will See Patient In The: Hospital Counseled Patient/Family Regarding: Diagnosis - Disposition Disposition: HOSPITALIZED Disposition Time: 21:23 Condition: STABLE - POA Present On Arrival: None - Clinical Impression Clinical Impression: Respiratory distress, Congestive heart failure, COPD exacerbation - Scribe Statement The provider has reviewed the documentation as recorded by the Scribe Iker Kim All medical record entries made by the Scribe were at my direction and personally dictated by me. I have reviewed the chart and agree that the record accurately reflects my personal performance of the history, physical exam, medical decision making, and the department course for this patient. I have also personally directed, reviewed, and agree with the discharge instructions and disposition.
[2016-10-29] MEDS ORDERED: Albuterol-Ipratrop 3 mg / 0.5 (3 ml) UD ONE (20:26)
[2016-10-29] MEDS ORDERED: Magnesium Sulfate 1 gm in D5W 1 GM/100 ML BAG IVPB ONE ×2 (20:26→21:40)
[2016-10-29 20:31] LABS: BASO % 0.6 % (0.0-2.0); EOS # 0.2 K/uL (0.0-0.7); EOS % 3.1 % (0.0-4.0); HEMATOCRIT 28.2 % (34.0-47.0); LYMPH % 14.2 % (20.0-40.0); MEAN CELL VOLUME 86.2 fL (81.0-99.0); MEAN CORPUSCULAR HEMOGLOBIN 28.9 pg (27.0-31.0); MEAN CORPUSCULAR HGB CONC 33.5 g/dL (33.0-37.0); MEAN PLATELET VOLUME 7.3 fL (7.2-11.7); MONO # 0.4 K/uL (0.0-0.8); MONO % 6.2 % (0.0-10.0); RED CELL DISTRIBUTION WIDTH 14.4 % (11.5-14.5)
[2016-10-29] MEDS: Magnesium Sulfate 1 gm in D5W 1 GM/100 ML BAG IVPB SCH ×2 (20:36→21:42)
[2016-10-29 20:38] LABS: POTASSIUM 4.4 mmol/L (3.6-5.2)
[2016-10-29 20:40] LABS: ALB/GLOB RATIO 1.1 (1.0-2.1); BILIRUBIN,TOTAL 0.6 mg/dL (0.2-1.3); CALCIUM 8.5 mg/dl (8.6-10.4); TOTAL PROTEIN 6.7 g/dL (6.3-8.3)
[2016-10-29 20:53] LABS: TROPONIN I 0.022 ng/mL (0.00-0.120)
[2016-10-29 21:16] LABS: ABG ALLEN TEST POS; ARTERIAL BLOOD HGB O2 SAT 94.9 % (95.0-98.0); CARBOXYHEMOGLOBIN 1.6 % (0.5-1.5); DRAW SITE RBA; HHB 2.1 % (0.0-5.0); METHEMOGLOBIN 1.4 % (0.0-3.0)
[2016-10-29 21:16] LABS: INR 1.2
--- NOTE | 2016-10-29 22:12 | CP.PCM.HP ---
History of Present Illness - History of Present Illness History of Present Illness: CC: "difficulty breathing and persistent cough" 80 year old Malay speaking female with PMH of CHF, Asthma, HTN, DM presents to [facility] ED for complaint of SOB. Patient's son was bedside at time of interview and he provided the majority of the history. As per son, his mother has been intermittently having issues with breathing over last 4-5 months. Patient was discharged from hospital about 2 weeks ago for SOB and it did not resolve. Symptoms have been present since that admission but have gotten progressively worse over the last two days. Patient had increased difficulty completing daily tasks and became short of breath at rest. Patient seems to improve with steroids each admission but son denies COPD history. Son reports that patient had lung biopsy for nodules that resulted as nonspecific without presence of malignancy. He states that the nodules resolved with steroid treatment. He also states that his mother was to have her AICD battery changed last week but had to cancel due to her symptoms. Patient is complaining of chest discomfort. She rated the pain minimally as 2/10 in severity. She described it as a constant discomfort over entire chest. She denies any specific alleviating factor, but states exertion worsens her symptoms. Her last ECHO was 10/05 and it revealed systolic and diastolic dysfunction, severe hypokinesis of basal anterior wall, and EF of 15-20% (see full repport). Patient sleeps with 1 pillow at night. She is only able to ambulate 1 block before developing dyspnea. Admits to generalized weakness, weight loss, fatigue , minimally productive cough, QUINTERO. Denies dizziness/lightheadedness, syncope, vertigo, palpitations, abd pain, n/v/d, incontinence, urinary symptoms, numbness /tingling, calf tenderness, LE edema. PMD: Dr. Kika Ocampo Viticulturist: Dr. Nini Colón PMH: CHF, Asthma, HTN, DM, history of RA Meds: As per EMR Allergy: Zac inhibitors PSH: CABG with quadruple vessel disease, AICD placement, Lung biopsy Hosp: Multiple in the past for simialr symptoms FH: Denies Social: lives alone, needs some assistance with ADLs, using rolling walker to ambulate Present on Admission - Present on Admission Any Indicators Present on Admission: No History of DVT/PE: No History of Uncontrolled Diabetes: No Urinary Catheter: No Decubitus Ulcer Present: No Review of Systems - Constitutional Constitutional: Fatigue, Weakness. absent: Anorexia, Chills, Fever, Headache, Night Sweats, Weight Gain, Weight Loss - EENT Eyes: absent: Blurred Vision, Change in Vision, Discharge, Dry Eye, Loss of Peripheral Vision Ears: absent: Ear Discharge, Ear Pain, Tinnitus Nose/Mouth/Throat: absent: Nasal Congestion, Change in Voice, Sore Throat, Neck Mass - Breasts Breasts: absent: Mass, Pain, Swelling - Cardiovascular Cardiovascular: Dyspnea, Dyspnea on Exertion. absent: Chest Pain, Chest Pain at Rest, Chest Pain with Activity, Diaphoresis, Leg Edema, Palpitations, Pedal Edema, Rapid Heart Rate, Syncope - Respiratory Respiratory: Cough, Dyspnea, Dyspnea on Exertion, Wheezing, Pain with Coughing. absent: Hemoptysis - Gastrointestinal Gastrointestinal: absent: Abdominal Pain, Constipation, Diarrhea, Fecal Incontinence, Nausea, Vomiting - Genitourinary Genitourinary: absent: Change in Urinary Stream, Difficulty Urinating, Dysuria, Urinary Incontinence - Musculoskeletal Musculoskeletal: Arthralgias - Integumentary Integumentary: absent: Changing Lesions, New Lesions - Neurological Neurological: Weakness. absent: Confusion, Dizziness, Numbness, Focal Weakness , Headaches, Syncope, Tingling, Tremor, Vertigo - Psychiatric Psychiatric: absent: Anxiety, Depression, Homicidal Ideation, Suicidal Ideation - Endocrine Endocrine: Fatigue. absent: Palpitations, Polydipsia, Polyphagia, Polyuria - Hematologic/Lymphatic Hematologic: absent: Easy Bleeding, Easy Bruising, Lymphadenopathy Past Patient History - Infectious Disease Hx of Infectious Diseases: None - Past Medical History & Family History Past Medical History?: Yes - Past Social History Smoking Status: Never Smoked - CARDIAC Hx Atrial Fibrillation: Yes Hx Congestive Heart Failure: Yes Hx Hypertension: Yes Hx Pacemaker: Yes Hx Peripheral Edema: Yes - PULMONARY Hx Asthma: Yes Hx Chronic Obstructive Pulmonary Disease (COPD): Yes - NEUROLOGICAL Hx Neurological Disorder: Yes HX 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) - HEENT Hx HEENT Problems: No - RENAL Hx Chronic Kidney Disease: No - ENDOCRINE/METABOLIC Hx Endocrine Disorders: Yes Hx Diabetes Mellitus Type 2: Yes - HEMATOLOGICAL/ONCOLOGICAL Hx Blood Disorders: No - INTEGUMENTARY Hx Dermatological Problems: No - MUSCULOSKELETAL/RHEUMATOLOGICAL Hx Musculoskeletal Disorders: No Hx Falls: No - GASTROINTESTINAL Hx Gastrointestinal Disorders: No - GENITOURINARY/GYNECOLOGICAL Hx Genitourinary Disorders: No - PSYCHIATRIC Hx Substance Use: No - SURGICAL HISTORY Hx Coronary Artery Bypass Graft: Yes (2004) - ANESTHESIA Hx Anesthesia: Yes Hx Anesthesia Reactions: No Hx Malignant Hyperthermia: No Meds Allergies/Adverse Reactions: Allergies Allergy/AdvReac Type Severity Reaction Status Date / Time ZAC Inhibitors AdvReac Verified 10/29/16 20:06 Physical Exam - Constitutional Appears: No Acute Distress - Head Exam Head Exam: ATRAUMATIC, NORMOCEPHALIC - Eye Exam Eye Exam: EOMI, Normal appearance Pupil Exam: PERRL - ENT Exam ENT Exam: Mucous Membranes Moist - Neck Exam Neck exam: Positive for: Normal Inspection - Respiratory Exam Respiratory Exam: Rales, Wheezes Additional comments: patient on BiPAP - Cardiovascular Exam Cardiovascular Exam: REGULAR RHYTHM, +S1, +S2 - GI/Abdominal Exam GI & Abdominal Exam: Normal Bowel Sounds, Soft. absent: Distended, Firm, Guarding, Rebound, Tenderness - Extremities Exam Extremities exam: Positive for: normal capillary refill, pedal pulses present. Negative for: calf tenderness, pedal edema - Back Exam Back exam: absent: CVA tenderness (L), CVA tenderness (R) - Neurological Exam Neurological exam: Alert, CN II-XII Intact, Oriented x3 - Psychiatric Exam Psychiatric exam: Normal Affect, Normal Mood - Skin Skin Exam: Dry, Intact, Normal Color Results - Vital Signs Recent Vital Signs: Last Vital Signs Temp 97.9 F 10/29/16 21:42 Pulse 85 10/29/16 21:42 Resp 24 10/29/16 21:50 BP 114/57 L 10/29/16 21:42 Pulse Ox 99 10/29/16 21:50 - Labs Result Diagrams: 10/29/16 20:25 10/29/16 20:25 Assessment & Plan - Assessment and Plan (Free Text) Plan: 1. Dyspnea CHF vs COPD/Asthma vs PE elevated D-dimer 556 BNP 7440 V/Q scan CXR ABG Heparin bolus then drip Venous duplex scan bilateral LEs Cardio consult, Dr. Enrique, help appreciated Pulm consult, Dr. Yusuf, help appreciated Duonebs RQ6H solu-medrol 40 mg IVP Q8H BiPAP 2. CHF ASA 81 mg PO daily Coreg 6.125 mg PO BID Lasix 40 mg PO daily Spironolactone 12.5 mg PO daily Losartan 50 mg PO daily Crestor 5 mg PO HS Cardio consult, Dr. Enrique, help appreciated 3. HTN Coreg 6.125 mg PO BID Lasix 40 mg PO daily Spironolactone 12.5 mg PO daily Losartan 50 mg PO daily Cardio consult, Dr. Enrique, help appreciated 4. DM Januvia 50 mg pO daily Metformin 1000 mg PO BID ISS Accuchecks ACHS 5. Asthma Duonebs RQ6H solu-medrol 40 mg IVP Q8H Singulair 10 mg PO HS BiPAP Pulm consult, Dr. Yusuf, help appreciated 6. Cough Phenergan 12.5 mg PO Q8H PRN 7. History of Arthritis Celecoxib 200 mg PO BID PRN 8. Prophylactic Measures Protonix 40 mg IVP daily MVM Heparin drip for DVT/PE Hold SCDs until venous duplex is completed
[2016-10-29] MEDS ORDERED: Home Med 1 UNIT (Ibandronate Sodium [Boniva] 150 MG) PO SCH (22:15)
[2016-10-29] MEDS ORDERED: Heparin25000 units/250ml 1/2NS 25,000 UNITS/250 ML BAG IV ONE (22:45)
[2016-10-30] MEDS: MethylPREDNISolone 40 mg Vial IVP SCH ×4 (00:34→22:25)
[2016-10-30] MEDS: Albuterol-Ipratrop 3 mg / 0.5 (3 ml) UD INH SCH ×4 (01:29→20:40)
[2016-10-30 03:14] LABS: CHLORIDE 98 mmol/L (98-107)
[2016-10-30 03:15] LABS: POTASSIUM 4.8 mmol/L (3.6-5.2); SODIUM 130 mmol/L (132-148)
[2016-10-30 03:17] LABS: ALB/GLOB RATIO 1.1 (1.0-2.1); ALKALINE PHOSPHATASE 70 U/L (38-126); AST/SGOT 19 U/L (14-36); BILIRUBIN,TOTAL 0.7 mg/dL (0.2-1.3); BLOOD UREA NITROGEN 30 mg/dL (7-17); CARBON DIOXIDE 21 mmol/L (22-30); GFR AFRICAN-AMERICAN > 60; TOTAL PROTEIN 6.4 g/dL (6.3-8.3)
[2016-10-30 03:18] LABS: ALT/SGPT 19 U/L (9-52); CALCIUM 8.4 mg/dl (8.6-10.4); GLUCOSE,RANDOM 216 mg/dL (65-105)
--- NOTE | 2016-10-30 07:14 | CP.PCM.PN ---
<Rodger Hsiehima - Last Filed: 10/31/16 07:05> Subjective - Date & Time of Evaluation Date of Evaluation: 10/30/16 Time of Evaluation: 10:00 - Subjective Subjective: PGY1 Medicine note for Dr. Jara Patient seen and examined at bedside. Patient was on NC and used BiPAP overnight. She reported she was feeling tired and has chest pressure at rest. She reports she has been having dyspnea and a dry cough since she was discharged 2 weeks ago but it has been progressively worsening. Patient denied dizziness/lightheadedness, syncope, vertigo, palpitations, abd pain, n/v/d, incontinence, urinary symptoms, numbness/tingling, calf tenderness, LE edema. Objective - Vital Signs/Intake and Output Vital Signs (last 24 hours): Temp Pulse Resp BP Pulse Ox 97.8 F 76 20 121/58 L 100 10/30/16 04:48 10/30/16 04:48 10/30/16 04:48 10/30/16 04:48 10/30/16 04:48 - Medications Medications: Current Medications Albuterol/Ipratropium (Duoneb 3 Mg/0.5 Mg (3 Ml) Ud) 3 ml INH RQ6 [facility] Last Admin: 10/30/16 01:29 Dose: 3 ml Aspirin (Ecotrin) 81 mg PO DAILY [facility] Carvedilol (Coreg) 6.25 mg PO BID [facility] Celecoxib (Celebrex) 200 mg PO BID PRN PRN Reason: Pain, moderate (4-7) Furosemide (Lasix) 40 mg PO DAILY [facility] Insulin Human Regular (Novolin R) 0 unit SC ACHS [facility] PRN Reason: Protocol Losartan Potassium (Cozaar) 50 mg PO DAILY [facility] Metformin HCl (Glucophage Xr) 1,000 mg PO DAILY [facility] Methylprednisolone (Solu-Medrol) 40 mg IVP Q8H [facility] Last Admin: 10/30/16 06:20 Dose: 40 mg Montelukast Sodium (Singulair) 10 mg PO HS [facility] Multivitamins (Hexavitamin) 1 tab PO DAILY [facility] Pantoprazole Sodium (Protonix Inj) 40 mg IVP DAILY [facility] Promethazine HCl (Phenergan Syrup) 12.5 mg PO Q8H PRN PRN Reason: Cough Rosuvastatin Calcium (Crestor) 5 mg PO HS [facility] Sitagliptin Phosphate (Januvia) 50 mg PO DAILY [facility] Spironolactone (Aldactone) 12.5 mg PO DAILY [facility] - Labs Labs: 10/30/16 03:04 PT 13.1 SECONDS (9.7-12.2) H 10/29/16 21:06 INR 1.2 10/29/16 21:06 APTT 39 SECONDS (21-34) H 10/29/16 21:06 - Constitutional Appears: No Acute Distress - Head Exam Head Exam: ATRAUMATIC, NORMOCEPHALIC - Eye Exam Eye Exam: Normal appearance. absent: Conjunctival injection, Scleral icterus - ENT Exam ENT Exam: Mucous Membranes Moist - Neck Exam Neck Exam: Normal Inspection. absent: Tenderness - Respiratory Exam Respiratory Exam: Prolonged Expiratory Phase, Wheezes, NORMAL BREATHING PATTERN. absent: Accessory Muscle Use, Rales, Rhonchi, Respiratory Distress - Cardiovascular Exam Cardiovascular Exam: REGULAR RHYTHM, +S1, +S2. absent: Murmur - GI/Abdominal Exam GI & Abdominal Exam: Soft, Normal Bowel Sounds. absent: Firm, Guarding, Rigid, Tenderness - Extremities Exam Extremities Exam: Normal Inspection. absent: Pedal Edema, Tenderness - Back Exam Back Exam: NORMAL INSPECTION. absent: rash noted, tenderness - Neurological Exam Neurological Exam: Alert, Awake, Oriented x3 - Psychiatric Exam Psychiatric exam: Normal Affect, Normal Mood - Skin Skin Exam: Dry, Intact, Normal Color, Warm Assessment and Plan - Assessment and Plan (Free Text) Assessment: 80 year old Upper Sorbian speaking female with PMH of CHF, Asthma, HTN, DM presenting with SOB Plan: 1. Dyspnea CHF vs COPD/Asthma vs PE elevated D-dimer 556 BNP 7440 V/Q scan CXR ABG Heparin bolus then drip Venous duplex scan bilateral LEs Cardio consult, Dr. Enrique, help appreciated Pulm consult, Dr. Yusuf, help appreciated Duonebs RQ6H solu-medrol 40 mg IVP Q8H BiPAP 2. CHF ASA 81 mg PO daily Coreg 6.125 mg PO BID Lasix 40 mg IVP daily Spironolactone 12.5 mg PO daily Losartan 50 mg PO daily Digoxin 0.125mg po daily Crestor 5 mg PO HS Cardio consult, Dr. Enrique, help appreciated 3. HTN Coreg 6.125 mg PO BID Lasix 40 mg PO daily Spironolactone 12.5 mg PO daily Losartan 50 mg PO daily Cardio consult, Dr. Enrique, help appreciated 4. DM Januvia 50 mg pO daily ISS Accuchecks ACHS 5. Asthma Duoneb RQ6H solu-medrol 40 mg IVP Q8H Singulair 10 mg PO HS BiPAP Pulm consult, Dr. Yusuf, help appreciated 6. Cough Phenergan 12.5 mg PO Q8H PRN 7. History of Arthritis Celecoxib 200 mg PO BID PRN 8. Prophylactic Measures Protonix 40 mg IVP daily Heparin 5000U SC Q8 [facility] <Shaw Jara Jr. - Last Filed: 11/02/16 11:11> Objective - Vital Signs/Intake and Output Vital Signs (last 24 hours): Temp Pulse Resp BP Pulse Ox 97.3 F L 86 18 148/69 95 11/02/16 07:35 11/02/16 07:35 11/02/16 07:35 11/02/16 10:57 11/02/16 07:35 Intake and Output: 11/02/16 11/02/16 06:59 18:59 Output Total 200 Balance -200 - Medications Medications: Current Medications Acetaminophen (Tylenol 325mg Tab) 650 mg PO Q6 PRN PRN Reason: Headache Last Admin: 10/31/16 02:08 Dose: 650 mg Albuterol/Ipratropium (Duoneb 3 Mg/0.5 Mg (3 Ml) Ud) 3 ml INH RQ6 [facility] Last Admin: 11/02/16 07:41 Dose: 3 ml Aspirin (Ecotrin) 81 mg PO DAILY [facility] Last Admin: 11/02/16 10:56 Dose: 81 mg Bisoprolol Fumarate (Zebeta) 5 mg PO DAILY [facility] Last Admin: 11/01/16 10:21 Dose: 5 mg Digoxin (Lanoxin) 0.125 mg PO DAILY@1800 [facility] Last Admin: 11/01/16 18:05 Dose: 0.125 mg Docusate Sodium (Colace) 100 mg PO BID [facility] Last Admin: 11/02/16 10:56 Dose: 100 mg Furosemide (Lasix) 40 mg PO DAILY [facility] Last Admin: 11/02/16 10:57 Dose: 40 mg Guaifenesin (Mucinex La) 600 mg PO BID [facility] Last Admin: 05/26/17 10:56 Dose: 600 mg Heparin Sodium (Porcine) (Heparin) 5,000 units SC Q8 [facility] Last Admin: 11/02/16 05:55 Dose: 5,000 units Insulin Human Regular (Novolin R) 0 unit SC ACHS [facility] PRN Reason: Protocol Last Admin: 11/02/16 08:00 Dose: 5 unit Losartan Potassium (Cozaar) 50 mg PO DAILY [facility] Last Admin: 11/02/16 10:57 Dose: 50 mg Methylprednisolone (Solu-Medrol) 40 mg IVP Q8H [facility] Last Admin: 11/02/16 05:56 Dose: 40 mg Montelukast Sodium (Singulair) 10 mg PO HS [facility] Last Admin: 11/01/16 21:54 Dose: 10 mg Multivitamins (Hexavitamin) 1 tab PO DAILY [facility] Last Admin: 11/02/16 10:56 Dose: 1 tab Pantoprazole Sodium (Protonix Inj) 40 mg IVP DAILY [facility] Last Admin: 11/02/16 10:57 Dose: 40 mg Promethazine HCl (Phenergan Syrup) 12.5 mg PO Q8H PRN PRN Reason: Cough Last Admin: 11/01/16 10:46 Dose: 12.5 mg Rosuvastatin Calcium (Crestor) 5 mg PO HS [facility] Last Admin: 11/01/16 21:53 Dose: 5 mg Fluticasone/Salmeterol (Advair Diskus 500/50) 1 puff INH RQ12 [facility] Last Admin: 11/02/16 07:41 Dose: 1 puff Sitagliptin Phosphate (Januvia) 50 mg PO DAILY [facility] Last Admin: 11/02/16 10:56 Dose: 50 mg Spironolactone (Aldactone) 25 mg PO DAILY [facility] Last Admin: 11/02/16 10:56 Dose: 25 mg Tiotropium Winger (Spiriva) 18 mcg INH RQ24 [facility] Last Admin: 11/02/16 07:41 Dose: 18 mcg - Labs Labs: 11/02/16 08:10 11/02/16 08:10 PT 11.7 SECONDS (9.7-12.2) 11/01/16 17:02 INR 1.0 11/01/16 17:02 APTT 65 SECONDS (21-34) H D 11/01/16 17:02 Attending/Attestation - Attestation I have personally seen and examined this patient.: Yes I have fully participated in the care of the patient.: Yes I have reviewed all pertinent clinical information, including history, physical exam and plan: Yes Notes (Text): 11/02/16 11:11 Agree with resident note on plan of care
--- NOTE | 2016-10-30 07:33 | CP.PCM.CON ---
<Grecia De Luna - Last Filed: 10/30/16 16:48> History of Present Illness - History of Present Illness History of Present Illness: Cardiology Consult- Dr. Benavidez Reason for Consult- ICD interrogation/battery change This is a 80 year old female with PMHx of CHF with ICD, CAD s/p CABG, Asthma, HTN, DM who was admitted overnight for SOB. Cardiology evaluation requested for ICD interrogation and battery change. Patient was discharged from hospital about 10 days ago after being admitted for pneumonia. Ever since prior admission patient has had SOB and coughing. Over the past 2 days patient reports worsening of symptoms for which she was brought in for evaluation. Patient's research compliance specialist is Dr. Nini Colón, whom she did not have a chance to see after last admission. Patient sees Dr. Mccray as outpatient for her pacemaker. She had an appointment with Dr. Mccray October 01, but she missed it because she was hospitalized. She missed another appointment last week for pacemaker battery change because she felt too ill to go. She admits to chest pain that is "all over the chest" and is worse with palpation and cough. Cough is not productive and she feels as though there's "something" in her throat. Admits to intermittent lower extremity swelling. Admits CPAP has been helping her breathing at night and that breathing always improves with steroids. Denies smoking, second hand smoke or being around burning of materials. Patient sleeps with 1 pillow at night. She is only able to ambulate 1 block before developing dyspnea. Ambulates with walker at home. PMH: CHF with ICD, CAD with CABG, A.fib, Asthma, HTN, DM, history of RA Allergy: DENITA inhibitors PSH: CABG with quadruple vessel disease, AICD placement, Lung biopsy. FHx: Denies Social: Denies tobacco, alcohol and illicit drug use. She lives alone, needs some assistance with ADLs. Troponin negative X3. EKG 10/30/16: Atrial sensed ventricular paced rhythm, 81 bpm EKG 10/30/16: Atrial sensed ventricular paced rhythm with PACs and aberrant conduction, 77bpm. EKG 10/29/16: ventricular paced rhythm, 98 bpm. CXR 10/30/16: biapical pleural thickening with upper love granulomatous changes. Bilateral hilar prominence. No gross focal infiltrate or effusion. Few scattered patchy opacities at the left lung apex. V/Q lung scan 10/29/16: low probability for PE. Review of Systems - Constitutional Constitutional: Fatigue. absent: Chills, Fever - EENT Eyes: absent: Blurred Vision, Change in Vision - Cardiovascular Cardiovascular: Chest Pain, Dyspnea, Leg Edema. absent: Claudication - Respiratory Respiratory: Cough, Dyspnea. absent: Wheezing - Gastrointestinal Gastrointestinal: absent: Abdominal Pain, Constipation, Diarrhea, Nausea, Vomiting - Genitourinary Genitourinary: absent: Difficulty Urinating, Dysuria - Musculoskeletal Musculoskeletal: absent: Back Pain, Numbness, Tingling - Neurological Neurological: Weakness. absent: Dizziness, Numbness, Headaches, Syncope, Tingling - Psychiatric Psychiatric: absent: Anxiety - Endocrine Endocrine: Fatigue. absent: Palpitations - Hematologic/Lymphatic Hematologic: absent: Easy Bleeding Past Patient History - Infectious Disease Hx of Infectious Diseases: None - Past Medical History & Family History Past Medical History?: Yes - Past Social History Smoking Status: Never Smoked - CARDIAC Hx Atrial Fibrillation: Yes Hx Congestive Heart Failure: Yes Hx Hypertension: Yes Hx Pacemaker: Yes Hx Peripheral Edema: Yes - PULMONARY Hx Asthma: Yes Hx Chronic Obstructive Pulmonary Disease (COPD): Yes - NEUROLOGICAL Hx Neurological Disorder: Yes HX 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) - HEENT Hx HEENT Problems: No - RENAL Hx Chronic Kidney Disease: No - ENDOCRINE/METABOLIC Hx Endocrine Disorders: Yes Hx Diabetes Mellitus Type 2: Yes - HEMATOLOGICAL/ONCOLOGICAL Hx Blood Disorders: No - INTEGUMENTARY Hx Dermatological Problems: No - MUSCULOSKELETAL/RHEUMATOLOGICAL Hx Musculoskeletal Disorders: No Hx Falls: No - GASTROINTESTINAL Hx Gastrointestinal Disorders: No - GENITOURINARY/GYNECOLOGICAL Hx Genitourinary Disorders: No - PSYCHIATRIC Hx Substance Use: No - SURGICAL HISTORY Hx Coronary Artery Bypass Graft: Yes (2004) - ANESTHESIA Hx Anesthesia: Yes Hx Anesthesia Reactions: No Hx Malignant Hyperthermia: No Meds Allergies/Adverse Reactions: Allergies Allergy/AdvReac Type Severity Reaction Status Date / Time DENITA Inhibitors AdvReac Verified 10/29/16 20:06 - Medications Medications: Current Medications Albuterol/Ipratropium (Duoneb 3 Mg/0.5 Mg (3 Ml) Ud) 3 ml INH RQ6 [facility] Last Admin: 10/30/16 01:29 Dose: 3 ml Aspirin (Ecotrin) 81 mg PO DAILY [facility] Carvedilol (Coreg) 6.25 mg PO BID [facility] Celecoxib (Celebrex) 200 mg PO BID PRN PRN Reason: Pain, moderate (4-7) Furosemide (Lasix) 40 mg PO DAILY [facility] Insulin Human Regular (Novolin R) 0 unit SC ACHS [facility] PRN Reason: Protocol Losartan Potassium (Cozaar) 50 mg PO DAILY [facility] Metformin HCl (Glucophage Xr) 1,000 mg PO DAILY [facility] Methylprednisolone (Solu-Medrol) 40 mg IVP Q8H [facility] Last Admin: 10/30/16 06:20 Dose: 40 mg Montelukast Sodium (Singulair) 10 mg PO HS [facility] Multivitamins (Hexavitamin) 1 tab PO DAILY [facility] Pantoprazole Sodium (Protonix Inj) 40 mg IVP DAILY [facility] Promethazine HCl (Phenergan Syrup) 12.5 mg PO Q8H PRN PRN Reason: Cough Rosuvastatin Calcium (Crestor) 5 mg PO HS [facility] Sitagliptin Phosphate (Januvia) 50 mg PO DAILY [facility] Spironolactone (Aldactone) 12.5 mg PO DAILY [facility] Physical Exam - Constitutional Appears: No Acute Distress - Head Exam Head Exam: NORMAL INSPECTION, NORMOCEPHALIC - Eye Exam Eye Exam: EOMI, Normal appearance - ENT Exam ENT Exam: Mucous Membranes Moist - Respiratory Exam Respiratory Exam: Decreased Breath Sounds. absent: Rales, Wheezes Additional comments: +coarse breath sounds - Cardiovascular Exam Cardiovascular Exam: REGULAR RHYTHM, +S1, +S2 - GI/Abdominal Exam GI & Abdominal Exam: Normal Bowel Sounds, Soft. absent: Tenderness - Extremities Exam Extremities exam: Positive for: normal inspection. Negative for: pedal edema, tenderness - Back Exam Back exam: NORMAL INSPECTION - Neurological Exam Neurological exam: Alert, Oriented x3 - Psychiatric Exam Psychiatric exam: Normal Affect, Normal Mood - Skin Skin Exam: Dry, Normal Color, Warm Results - Vital Signs Recent Vital Signs: Last Vital Signs Temp 97.8 F 10/30/16 04:48 Pulse 76 10/30/16 04:48 Resp 20 10/30/16 04:48 BP 121/58 L 10/30/16 04:48 Pulse Ox 100 10/30/16 04:48 - Labs Result Diagrams: 10/30/16 07:08 10/30/16 03:04 Labs: Laboratory Results - last 24 hr 10/29/16 10/30/16 10/30/16 22:31 03:04 06:13 Sodium 130 L Potassium 4.8 Chloride 98 Carbon Dioxide 21 L Anion Gap 16 BUN 30 H Creatinine 1.0 Est GFR ( Amer) > 60 Est GFR (Non-Af Amer) 53 POC Glucose (mg/dL) 148 H 252 H Random Glucose 216 H Calcium 8.4 L Total Bilirubin 0.7 AST 19 ALT 19 Alkaline Phosphatase 70 Total Creatine Kinase 27 L CK-MB (Mass) 0.84 Troponin I, Quant < 0.0120 Total Protein 6.4 Albumin 3.4 L Globulin 3.0 Albumin/Globulin Ratio 1.1 Assessment & Plan (1) SOB (shortness of breath) Assessment and Plan: CHF vs. Asthma exacerbation, recently admitted for pneumonia. - Will interrogate ICD from EP standpoint. - Less likely PE since V/Q scan showed low probability. - BNP 7,440 on admission, which is better than 12,000 on 10/03/16 (last admission ). - Continue asthma medications as per primary team. - Continue medications: * Coreg 6.25 mg PO BID * Lasix 40 mg PO daily * Cozaar 50 mg PO daily * Aldactone 25 mg PO daily D-Dimer 556 Troponin negative X3. EKG 10/30/16: Atrial sensed ventricular paced rhythm, 81 bpm EKG 10/30/16: Atrial sensed ventricular paced rhythm with PACs and aberrant conduction, 77bpm. EKG 10/29/16: ventricular paced rhythm, 98 bpm. CXR 10/30/16: biapical pleural thickening with upper love granulomatous changes. Bilateral hilar prominence. No gross focal infiltrate or effusion. Few scattered patchy opacities at the left lung apex. ECHO 10/05: systolic and diastolic dysfunction, severe hypokinesis of basal anterior wall, and EF of 15-20% (see full repport) V/Q lung scan 10/29/16: low probability for PE. Status: Acute (2) Congestive heart failure Assessment and Plan: -Patient with ICD and EF of 15-20% BNP 7,440 on admission, which is better than 12,000 on 10/03/16 (last admission) . - Will interrogate ICD. - Continue medications: * Coreg 6.25 mg PO BID * Lasix 40 mg PO daily * Cozaar 50 mg PO daily * Aldactone 25 mg PO daily - Recommend consulting patient's research compliance specialist Dr. Nini Colón for adjustment of medications as needed. D-Dimer 556 Troponin negative X3. EKG 10/30/16: Atrial sensed ventricular paced rhythm, 81 bpm EKG 10/30/16: Atrial sensed ventricular paced rhythm with PACs and aberrant conduction, 77bpm. EKG 10/29/16: ventricular paced rhythm, 98 bpm. CXR 10/30/16: biapical pleural thickening with upper love granulomatous changes. Bilateral hilar prominence. No gross focal infiltrate or effusion. Few scattered patchy opacities at the left lung apex. ECHO 10/05: systolic and diastolic dysfunction, severe hypokinesis of basal anterior wall, and EF of 15-20% (see full report) V/Q lung scan 10/29/16: low probability for PE. Status: Acute (3) Chest pain Assessment and Plan: Likely musculoskeletal, since pain is reproducible to touch and exacerbated with cough. Patient with Hx of CAD s/p CABG. Troponin negative X3. EKG 10/30/16: Atrial sensed ventricular paced rhythm, 81 bpm EKG 10/30/16: Atrial sensed ventricular paced rhythm with PACs and aberrant conduction, 77bpm. EKG 10/29/16: ventricular paced rhythm, 98 bpm. Status: Acute (4) Atrial fibrillation Assessment and Plan: Resume home Eliquis 2.5 mg PO BID Currently rate controlled. Recommend consulting patient's research compliance specialist Dr. Nini Colón for adjustment of medications if needed. Status: Acute - Assessment and Plan (Free Text) Assessment: Seen and discussed with Dr. Enrique. <Garfield Enrique - Last Filed: 10/30/16 21:58> Meds - Medications Medications: Current Medications Albuterol/Ipratropium (Duoneb 3 Mg/0.5 Mg (3 Ml) Ud) 3 ml INH RQ6 [facility] Last Admin: 10/30/16 20:40 Dose: 3 ml Aspirin (Ecotrin) 81 mg PO DAILY [facility] Last Admin: 10/30/16 10:12 Dose: Not Given Bisoprolol Fumarate (Zebeta) 5 mg PO DAILY [facility] Digoxin (Lanoxin) 0.125 mg PO DAILY@1800 [facility] Last Admin: 10/30/16 18:03 Dose: 0.125 mg Furosemide (Lasix) 40 mg IVP BID [facility] Last Admin: 10/30/16 18:06 Dose: 40 mg Heparin Sodium (Porcine) (Heparin) 5,000 units SC Q8 [facility] Insulin Human Regular (Novolin R) 0 unit SC ACHS [facility] PRN Reason: Protocol Last Admin: 10/30/16 21:24 Dose: Not Given Losartan Potassium (Cozaar) 50 mg PO DAILY [facility] Last Admin: 10/30/16 10:18 Dose: 50 mg Methylprednisolone (Solu-Medrol) 40 mg IVP Q8H [facility] Last Admin: 10/30/16 14:07 Dose: 40 mg Montelukast Sodium (Singulair) 10 mg PO HS [facility] Last Admin: 10/30/16 21:21 Dose: 10 mg Multivitamins (Hexavitamin) 1 tab PO DAILY [facility] Last Admin: 10/30/16 10:13 Dose: 1 tab Pantoprazole Sodium (Protonix Inj) 40 mg IVP DAILY [facility] Last Admin: 10/30/16 10:13 Dose: 40 mg Promethazine HCl (Phenergan Syrup) 12.5 mg PO Q8H PRN PRN Reason: Cough Rosuvastatin Calcium (Crestor) 5 mg PO HS [facility] Last Admin: 10/30/16 21:21 Dose: 5 mg Fluticasone/Salmeterol (Advair Diskus 500/50) 1 puff INH RQ12 [facility] Last Admin: 10/30/16 20:38 Dose: 1 puff Sitagliptin Phosphate (Januvia) 50 mg PO DAILY [facility] Last Admin: 10/30/16 10:13 Dose: 50 mg Spironolactone (Aldactone) 25 mg PO DAILY [facility] Last Admin: 10/30/16 13:09 Dose: 25 mg Tiotropium Otis (Spiriva) 18 mcg INH RQ24 [facility] Results - Vital Signs Recent Vital Signs: Last Vital Signs Temp 97.6 F 10/30/16 15:46 Pulse 75 10/30/16 15:46 Resp 20 10/30/16 15:46 BP 125/60 10/30/16 18:06 Pulse Ox 98 10/30/16 15:46 - Labs Result Diagrams: 10/30/16 07:08 10/30/16 03:04 Labs: Laboratory Results - last 24 hr 10/29/16 10/30/16 10/30/16 22:31 03:04 04:40 WBC RBC Hgb Hct MCV MCH MCHC RDW Plt Count MPV Neut % (Auto) Lymph % (Auto) Boundary % (Auto) Eos % (Auto) Baso % (Auto) Neut # Lymph # Boundary # Eos # Baso # PT INR APTT Sodium 130 L Potassium 4.8 Chloride 98 Carbon Dioxide 21 L Anion Gap 16 BUN 30 H Creatinine 1.0 Est GFR ( Amer) > 60 Est GFR (Non-Af Amer) 53 POC Glucose (mg/dL) 148 H Random Glucose 216 H Hemoglobin A1c Calcium 8.4 L Total Bilirubin 0.7 AST 19 ALT 19 Alkaline Phosphatase 70 Total Creatine Kinase 27 L CK-MB (Mass) 0.84 Troponin I, Quant < 0.0120 Total Protein 6.4 Albumin 3.4 L Globulin 3.0 Albumin/Globulin Ratio 1.1 Triglycerides Cholesterol LDL Cholesterol Direct HDL Cholesterol Thyroxine (T4) TSH 3rd Generation Digoxin Influenza Typ A,B (EIA) Negative for flu a/b 10/30/16 10/30/16 10/30/16 06:13 07:08 07:08 WBC RBC Hgb Hct MCV MCH MCHC RDW Plt Count MPV Neut % (Auto) Lymph % (Auto) Boundary % (Auto) Eos % (Auto) Baso % (Auto) Neut # Lymph # Boundary # Eos # Baso # PT INR APTT Sodium Potassium Chloride Carbon Dioxide Anion Gap BUN Creatinine Est GFR ( Amer) Est GFR (Non-Af Amer) POC Glucose (mg/dL) 252 H Random Glucose Hemoglobin A1c 7.4 H Calcium Total Bilirubin AST ALT Alkaline Phosphatase Total Creatine Kinase CK-MB (Mass) Troponin I, Quant Total Protein Albumin Globulin Albumin/Globulin Ratio Triglycerides 46 D Cholesterol 191 LDL Cholesterol Direct 114 HDL Cholesterol 48 Thyroxine (T4) 7.58 TSH 3rd Generation 0.28 L Digoxin Influenza Typ A,B (EIA) 10/30/16 10/30/16 10/30/16 07:08 07:08 07:08 WBC 3.5 L RBC 3.15 L Hgb 9.3 L Hct 27.0 L MCV 85.9 MCH 29.5 MCHC 34.3 RDW 14.4 Plt Count 230 MPV 7.2 Neut % (Auto) 87.8 H Lymph % (Auto) 10.6 L Boundary % (Auto) 1.4 Eos % (Auto) 0.1 Baso % (Auto) 0.1 Neut # 3.1 Lymph # 0.4 L Boundary # 0.0 Eos # 0.0 Baso # 0.0 PT 12.5 H INR 1.1 APTT 73 H D Sodium Potassium Chloride Carbon Dioxide Anion Gap BUN Creatinine Est GFR ( Amer) Est GFR (Non-Af Amer) POC Glucose (mg/dL) Random Glucose Hemoglobin A1c Calcium Total Bilirubin AST ALT Alkaline Phosphatase Total Creatine Kinase 24 L CK-MB (Mass) 0.79 Troponin I, Quant < 0.0120 Total Protein Albumin Globulin Albumin/Globulin Ratio Triglycerides Cholesterol LDL Cholesterol Direct HDL Cholesterol Thyroxine (T4) TSH 3rd Generation Digoxin Influenza Typ A,B (EIA) 10/30/16 10/30/16 10/30/16 11:14 11:40 15:50 WBC RBC Hgb Hct MCV MCH MCHC RDW Plt Count MPV Neut % (Auto) Lymph % (Auto) Boundary % (Auto) Eos % (Auto) Baso % (Auto) Neut # Lymph # Boundary # Eos # Baso # PT INR APTT 36 H D Sodium Potassium Chloride Carbon Dioxide Anion Gap BUN Creatinine Est GFR ( Amer) Est GFR (Non-Af Amer) POC Glucose (mg/dL) 342 H Random Glucose Hemoglobin A1c Calcium Total Bilirubin AST ALT Alkaline Phosphatase Total Creatine Kinase CK-MB (Mass) Troponin I, Quant Total Protein Albumin Globulin Albumin/Globulin Ratio Triglycerides Cholesterol LDL Cholesterol Direct HDL Cholesterol Thyroxine (T4) TSH 3rd Generation Digoxin < 0.4 L Influenza Typ A,B (EIA) 10/30/16 10/30/16 16:28 21:10 WBC RBC Hgb Hct MCV MCH MCHC RDW Plt Count MPV Neut % (Auto) Lymph % (Auto) Boundary % (Auto) Eos % (Auto) Baso % (Auto) Neut # Lymph # Boundary # Eos # Baso # PT INR APTT Sodium Potassium Chloride Carbon Dioxide Anion Gap BUN Creatinine Est GFR ( Amer) Est GFR (Non-Af Amer) POC Glucose (mg/dL) 260 H 269 H Random Glucose Hemoglobin A1c Calcium Total Bilirubin AST ALT Alkaline Phosphatase Total Creatine Kinase CK-MB (Mass) Troponin I, Quant Total Protein Albumin Globulin Albumin/Globulin Ratio Triglycerides Cholesterol LDL Cholesterol Direct HDL Cholesterol Thyroxine (T4) TSH 3rd Generation Digoxin Influenza Typ A,B (EIA) Attending/Attestation - Attestation I have personally seen and examined this patient.: Yes I have fully participated in the care of the patient.: Yes I have reviewed all pertinent clinical information: Yes Notes (Text): 10/30/16 21:57 I asked house staff to call [facility] see as they are her cardiologists. I spoke to Jarocho and he will take over case and I will sign off. Thank you
[2016-10-30 07:34] LABS: BASO % 0.1 % (0.0-2.0); EOS % 0.1 % (0.0-4.0); INR 1.1; LYMPH # 0.4 K/uL (1.0-4.3); LYMPH % 10.6 % (20.0-40.0); MEAN CELL VOLUME 85.9 fL (81.0-99.0); MEAN CORPUSCULAR HEMOGLOBIN 29.5 pg (27.0-31.0); MEAN CORPUSCULAR HGB CONC 34.3 g/dL (33.0-37.0); MEAN PLATELET VOLUME 7.2 fL (7.2-11.7); MONO % 1.4 % (0.0-10.0); RED CELL DISTRIBUTION WIDTH 14.4 % (11.5-14.5); WHITE BLOOD COUNT 3.5 K/uL (4.8-10.8)
[2016-10-30 07:56] LABS: T4 7.58 ug/dL (5.5-11.0)
[2016-10-30] MEDS ORDERED: Fluticasone-Salmeterol 250-50mcg Diskus IH SCH (08:00)
[2016-10-30 08:09] LABS: THYROID STIMULATING HORMONE 0.28 mIU/L (0.46-4.68)
[2016-10-30] MEDS: (Novolin R) Insulin Human Regular 100 units/ml vial SC SCH ×4 (08:10→21:24)
--- NOTE | 2016-10-30 08:24 | RAD ---
PROCEDURE: CHEST RADIOGRAPH, 1 VIEW HISTORY: SOB COMPARISON: 10/03/2016 FINDINGS: LUNGS: Biapical pleural thickening with upper lobe granulomatous changes. Bilateral hilar prominence. No gross focal infiltrate or effusion. Few scattered patchy opacities at the left lung apex and right mid lung zone. PLEURA: No pneumothorax or pleural fluid seen. CARDIOVASCULAR: Status post median sternotomy. Left-sided pacemaker. OSSEOUS STRUCTURES: Degenerative changes in the spine and shoulders. VISUALIZED UPPER ABDOMEN: Normal. OTHER FINDINGS: None. IMPRESSION: Biapical pleural thickening with upper lobe granulomatous changes. Bilateral hilar prominence. No gross focal infiltrate or effusion. Few scattered patchy opacities at the left lung apex and right mid lung zone.
--- NOTE | 2016-10-30 09:31 | NM ---
COMPARISON: 08/20/2013 ventilation-perfusion scan. Summary of findings on the comparison examination: High probability ventilation perfusion scan for pulmonary embolism. TECHNIQUE: 13.1 mCi technetium 99-m Xe-133 Gas. 3.9 mCI technetium 99-m MAA administered intravenously. FINDINGS: VENTILATION COMPONENT: Heterogeneous ventilation, retention of radionuclide/ air trapping primarily affecting left lower lobe. PERFUSION COMPONENT: Focal areas of diminished perfusion improved compared to the prior study primarily in the left upper lobe. IMPRESSION: Low probability ventilation perfusion scan for pulmonary embolism. Concordant results (preliminary interpretation) provided by [facility]. Procedure Completed: 00:06. Preliminary ([facility]) Report: Dictated and Authenticated: 00:47. Final Interpretation: 21:38. October 30, 2016.
[2016-10-30] MEDS ORDERED: Home Med 1 UNIT (Acarbose [Precose] 100 MG) PO SCH (10:00)
[2016-10-30] MEDS: Multiple Vitamins Tab PO SCH (10:13)
--- NOTE | 2016-10-30 14:52 | VASCLAB ---
PROCEDURE: Lower Extremity Venous Duplex Exam. HISTORY: elevated d dimer PRIORS: None. TECHNIQUE: Bilateral common femoral, femoral, popliteal and posterior tibial, peroneal and great saphenous veins were evaluated. Flow was assessed with color Doppler, compressibility, assessment of phasic flow and augmentation response. Report prepared by Iker Musa, [place], RVT FINDINGS: RIGHT: 1. Common Femoral Vein: 1.1. Compressibility - Fully compressible: Thrombus - None : Flow - Phasic: Augmentation -Normal: Reflux - None. 2. Femoral Vein: 2.1. Compressibility - Fully compressible: Thrombus - None : Flow - Phasic: Augmentation -Normal: Reflux - None. 3. Popliteal Vein: 3.1. Compressibility - Fully compressible: Thrombus - None : Flow - Phasic: Augmentation -Normal: Reflux - None. 4. Posterior Tibial Vein: 4.1. Compressibility - Fully compressible: Thrombus - None: Flow - Phasic: Augmentation -Normal: Reflux - None. 5. Peroneal Vein: 5.1. Compressibility - Fully compressible: Thrombus - None: Flow - Phasic: Augmentation -Normal: Reflux - None. 6. Great Saphenous Vein: 6.1. Compressibility - Fully compressible: Thrombus - None: Flow - Phasic: Augmentation - Normal: Reflux - None. LEFT: 1. Common Femoral Vein: 1.1. Compressibility - Fully compressible: Thrombus - None: Flow - Phasic: Augmentation -Normal: Reflux - None. 2. Femoral Vein: 2.1. Compressibility - Fully compressible: Thrombus - None: Flow - Phasic: Augmentation -Normal: Reflux - None. 3. Popliteal Vein: 3.1. Compressibility - Fully compressible: Thrombus - None : Flow - Phasic: Augmentation -Normal: Reflux - None. 4. Posterior Tibial Vein: 4.1. Compressibility - Fully compressible: Thrombus - None: Flow - Phasic: Augmentation -Normal: Reflux - None. 5. Peroneal Vein: 5.1. Compressibility - Fully compressible: Thrombus - None: Flow - Phasic: Augmentation -Normal: Reflux - None. 6. Great Saphenous Vein: 6.1. Compressibility - Fully compressible: Thrombus - None: Flow - Phasic: Augmentation - Normal: Reflux - None. OTHER FINDINGS: Right: None significant. Left: None significant. IMPRESSION: Right: No evidence of deep or superficial vein thrombosis of the right lower extremity. Normal valve function noted of the right side. Left: No evidence of deep or superficial vein thrombosis of the left lower extremity. Normal valve function noted of the left side.
--- NOTE | 2016-10-30 17:59 | CP.PCM.CON ---
History of Present Illness - History of Present Illness History of Present Illness: The patient is an 81 year old woman, with CABG, ischemic cardiomyopathy. Pt seen by Dr Colón. She has an ICD EOL and was supposed to have a battery replacement, by was admitted to the hospital a week ago with pneumonia. CXR only showed mild patchy infiltrated. Echo confirmed severe LV dysfunction, Type III DD. Pt went home and now returns for dyspnea that has not improved since discharge. Pt also gets abdominal pain when she eats. She has been taking nexium for years. Review of Systems - Review of Systems All systems: reviewed and no additional remarkable complaints except (as above. limited walking) Past Patient History - Infectious Disease Hx of Infectious Diseases: None - Past Medical History & Family History Past Medical History?: Yes - Past Social History Smoking Status: Never Smoked - CARDIAC Hx Atrial Fibrillation: Yes Hx Congestive Heart Failure: Yes Hx Hypertension: Yes Hx Pacemaker: Yes Hx Peripheral Edema: Yes - PULMONARY Hx Asthma: Yes Hx Chronic Obstructive Pulmonary Disease (COPD): Yes - NEUROLOGICAL Hx Neurological Disorder: Yes HX 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) - HEENT Hx HEENT Problems: No - RENAL Hx Chronic Kidney Disease: No - ENDOCRINE/METABOLIC Hx Endocrine Disorders: Yes Hx Diabetes Mellitus Type 2: Yes - HEMATOLOGICAL/ONCOLOGICAL Hx Blood Disorders: No - INTEGUMENTARY Hx Dermatological Problems: No - MUSCULOSKELETAL/RHEUMATOLOGICAL Hx Musculoskeletal Disorders: No Hx Falls: No - GASTROINTESTINAL Hx Gastrointestinal Disorders: No - GENITOURINARY/GYNECOLOGICAL Hx Genitourinary Disorders: No - PSYCHIATRIC Hx Substance Use: No - SURGICAL HISTORY Hx Coronary Artery Bypass Graft: Yes (2004) - ANESTHESIA Hx Anesthesia: Yes Hx Anesthesia Reactions: No Hx Malignant Hyperthermia: No Meds Allergies/Adverse Reactions: Allergies Allergy/AdvReac Type Severity Reaction Status Date / Time DENITA Inhibitors AdvReac Verified 10/29/16 20:06 - Medications Medications: Current Medications Albuterol/Ipratropium (Duoneb 3 Mg/0.5 Mg (3 Ml) Ud) 3 ml INH RQ6 [facility] Last Admin: 10/30/16 13:35 Dose: 3 ml Aspirin (Ecotrin) 81 mg PO DAILY [facility] Last Admin: 10/30/16 10:12 Dose: Not Given Carvedilol (Coreg) 6.25 mg PO BID [facility] Last Admin: 10/30/16 17:46 Dose: Not Given Celecoxib (Celebrex) 200 mg PO BID PRN PRN Reason: Pain, moderate (4-7) Digoxin (Lanoxin) 0.125 mg PO DAILY@1800 [facility] Furosemide (Lasix) 40 mg IVP BID [facility] Heparin Sodium (Porcine) (Heparin) 5,000 units SC Q8 [facility] Insulin Human Regular (Novolin R) 0 unit SC ACHS JULI PRN Reason: Protocol Last Admin: 10/30/16 16:55 Dose: 3 unit Losartan Potassium (Cozaar) 50 mg PO DAILY [facility] Last Admin: 10/30/16 10:18 Dose: 50 mg Methylprednisolone (Solu-Medrol) 40 mg IVP Q8H [facility] Last Admin: 10/30/16 14:07 Dose: 40 mg Montelukast Sodium (Singulair) 10 mg PO HS [facility] Multivitamins (Hexavitamin) 1 tab PO DAILY [facility] Last Admin: 10/30/16 10:13 Dose: 1 tab Pantoprazole Sodium (Protonix Inj) 40 mg IVP DAILY [facility] Last Admin: 10/30/16 10:13 Dose: 40 mg Promethazine HCl (Phenergan Syrup) 12.5 mg PO Q8H PRN PRN Reason: Cough Rosuvastatin Calcium (Crestor) 5 mg PO HS [facility] Sitagliptin Phosphate (Januvia) 50 mg PO DAILY [facility] Last Admin: 10/30/16 10:13 Dose: 50 mg Spironolactone (Aldactone) 25 mg PO DAILY [facility] Last Admin: 10/30/16 13:09 Dose: 25 mg Physical Exam - Constitutional Appears: Cachectic - Head Exam Head Exam: ATRAUMATIC - Eye Exam Eye Exam: EOMI - ENT Exam ENT Exam: Mucous Membranes Dry - Respiratory Exam Respiratory Exam: Prolonged Expiratory Phase, Wheezes - Cardiovascular Exam Cardiovascular Exam: REGULAR RHYTHM - GI/Abdominal Exam GI & Abdominal Exam: Normal Bowel Sounds Additional comments: There is pain with palpation in the epigastric area. - Exam External exam: NORMAL EXTERNAL EXAM - Extremities Exam Extremities exam: Positive for: normal inspection - Back Exam Back exam: NORMAL INSPECTION - Neurological Exam Neurological exam: Alert, CN II-XII Intact, Oriented x3, Reflexes Normal Results - Vital Signs Recent Vital Signs: Last Vital Signs Temp 97.6 F 10/30/16 15:46 Pulse 75 10/30/16 15:46 Resp 20 10/30/16 15:46 BP 97/50 L 10/30/16 15:46 Pulse Ox 98 10/30/16 15:46 - Labs Result Diagrams: 10/30/16 07:08 10/30/16 03:04 Labs: Laboratory Results - last 24 hr 10/29/16 10/30/16 10/30/16 22:31 03:04 04:40 WBC RBC Hgb Hct MCV MCH MCHC RDW Plt Count MPV Neut % (Auto) Lymph % (Auto) [place] % (Auto) Eos % (Auto) Baso % (Auto) Neut # Lymph # [place] # Eos # Baso # PT INR APTT Sodium 130 L Potassium 4.8 Chloride 98 Carbon Dioxide 21 L Anion Gap 16 BUN 30 H Creatinine 1.0 Est GFR ( Amer) > 60 Est GFR (Non-Af Amer) 53 POC Glucose (mg/dL) 148 H Random Glucose 216 H Hemoglobin A1c Calcium 8.4 L Total Bilirubin 0.7 AST 19 ALT 19 Alkaline Phosphatase 70 Total Creatine Kinase 27 L CK-MB (Mass) 0.84 Troponin I, Quant < 0.0120 Total Protein 6.4 Albumin 3.4 L Globulin 3.0 Albumin/Globulin Ratio 1.1 Triglycerides Cholesterol LDL Cholesterol Direct HDL Cholesterol Thyroxine (T4) TSH 3rd Generation Digoxin Influenza Typ A,B (EIA) Negative for flu a/b 10/30/16 10/30/16 10/30/16 06:13 07:08 07:08 WBC RBC Hgb Hct MCV MCH MCHC RDW Plt Count MPV Neut % (Auto) Lymph % (Auto) [place] % (Auto) Eos % (Auto) Baso % (Auto) Neut # Lymph # [place] # Eos # Baso # PT INR APTT Sodium Potassium Chloride Carbon Dioxide Anion Gap BUN Creatinine Est GFR ( Amer) Est GFR (Non-Af Amer) POC Glucose (mg/dL) 252 H Random Glucose Hemoglobin A1c 7.4 H Calcium Total Bilirubin AST ALT Alkaline Phosphatase Total Creatine Kinase CK-MB (Mass) Troponin I, Quant Total Protein Albumin Globulin Albumin/Globulin Ratio Triglycerides 46 D Cholesterol 191 LDL Cholesterol Direct 114 HDL Cholesterol 48 Thyroxine (T4) 7.58 TSH 3rd Generation 0.28 L Digoxin Influenza Typ A,B (EIA) 10/30/16 10/30/16 10/30/16 07:08 07:08 07:08 WBC 3.5 L RBC 3.15 L Hgb 9.3 L Hct 27.0 L MCV 85.9 MCH 29.5 MCHC 34.3 RDW 14.4 Plt Count 230 MPV 7.2 Neut % (Auto) 87.8 H Lymph % (Auto) 10.6 L [place] % (Auto) 1.4 Eos % (Auto) 0.1 Baso % (Auto) 0.1 Neut # 3.1 Lymph # 0.4 L [place] # 0.0 Eos # 0.0 Baso # 0.0 PT 12.5 H INR 1.1 APTT 73 H D Sodium Potassium Chloride Carbon Dioxide Anion Gap BUN Creatinine Est GFR ( Amer) Est GFR (Non-Af Amer) POC Glucose (mg/dL) Random Glucose Hemoglobin A1c Calcium Total Bilirubin AST ALT Alkaline Phosphatase Total Creatine Kinase 24 L CK-MB (Mass) 0.79 Troponin I, Quant < 0.0120 Total Protein Albumin Globulin Albumin/Globulin Ratio Triglycerides Cholesterol LDL Cholesterol Direct HDL Cholesterol Thyroxine (T4) TSH 3rd Generation Digoxin Influenza Typ A,B (EIA) 10/30/16 10/30/16 10/30/16 11:14 11:40 15:50 WBC RBC Hgb Hct MCV MCH MCHC RDW Plt Count MPV Neut % (Auto) Lymph % (Auto) [place] % (Auto) Eos % (Auto) Baso % (Auto) Neut # Lymph # [place] # Eos # Baso # PT INR APTT 36 H D Sodium Potassium Chloride Carbon Dioxide Anion Gap BUN Creatinine Est GFR ( Amer) Est GFR (Non-Af Amer) POC Glucose (mg/dL) 342 H Random Glucose Hemoglobin A1c Calcium Total Bilirubin AST ALT Alkaline Phosphatase Total Creatine Kinase CK-MB (Mass) Troponin I, Quant Total Protein Albumin Globulin Albumin/Globulin Ratio Triglycerides Cholesterol LDL Cholesterol Direct HDL Cholesterol Thyroxine (T4) TSH 3rd Generation Digoxin < 0.4 L Influenza Typ A,B (EIA) 10/30/16 16:28 WBC RBC Hgb Hct MCV MCH MCHC RDW Plt Count MPV Neut % (Auto) Lymph % (Auto) [place] % (Auto) Eos % (Auto) Baso % (Auto) Neut # Lymph # [place] # Eos # Baso # PT INR APTT Sodium Potassium Chloride Carbon Dioxide Anion Gap BUN Creatinine Est GFR ( Amer) Est GFR (Non-Af Amer) POC Glucose (mg/dL) 260 H Random Glucose Hemoglobin A1c Calcium Total Bilirubin AST ALT Alkaline Phosphatase Total Creatine Kinase CK-MB (Mass) Troponin I, Quant Total Protein Albumin Globulin Albumin/Globulin Ratio Triglycerides Cholesterol LDL Cholesterol Direct HDL Cholesterol Thyroxine (T4) TSH 3rd Generation Digoxin Influenza Typ A,B (EIA) - EKG Data EKG Interpreted by: Myself (NSR, V pacing) Assessment & Plan - Assessment and Plan (Free Text) Assessment: 1. Dyspnea: Pt has chronic LV dysfunction, but cxr is quite good. She is wheezing very badly, and her dyspnea is certainly due to asthma, copd, and no acute heart failure. I will change her non selective coreg to a more selective beta garett. Po lasix, not IV. NSAIDS should not be prescribed. As pt has not improved, consider pulmonary consultation. 2. Pt has abdominal pain with eating, not relieved by nexium.Consider mesenteric ischemia. Consider GI consult. Nexium has been used for years, and pt is at increased risk of hip fracture. 3. CAD is stable 4. Pt's battery is eol, recently interrogated by Dr Hemphill and does not need an additional interrogation. Dr Hemphill says that she can wait a week or two and see him in the office immediately upon d/c from the hospital (appt should be mad at [facility] the day of d/c (Dr Hemphill is in the office Mondays)
[2016-10-30] MEDS: Digoxin 125 mcg (0.125 mg) Tab PO SCH (18:03)
--- NOTE | 2016-10-30 18:15 | CP.PCM.CON ---
History of Present Illness - History of Present Illness History of Present Illness: cough wheeze sob, s/p uri 1 month hospitalized released and then readmitted h/o asthma on advair at home which pt takes on and off Review of Systems - Respiratory Respiratory: Dyspnea on Exertion, Wheezing, Chest Congestion Past Patient History - Infectious Disease Hx of Infectious Diseases: None - Past Medical History & Family History Past Medical History?: Yes - Past Social History Smoking Status: Never Smoked - CARDIAC Hx Atrial Fibrillation: Yes Hx Congestive Heart Failure: Yes Hx Hypertension: Yes Hx Pacemaker: Yes Hx Peripheral Edema: Yes - PULMONARY Hx Asthma: Yes Hx Chronic Obstructive Pulmonary Disease (COPD): Yes - NEUROLOGICAL Hx Neurological Disorder: Yes HX 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) - HEENT Hx HEENT Problems: No - RENAL Hx Chronic Kidney Disease: No - ENDOCRINE/METABOLIC Hx Endocrine Disorders: Yes Hx Diabetes Mellitus Type 2: Yes - HEMATOLOGICAL/ONCOLOGICAL Hx Blood Disorders: No - INTEGUMENTARY Hx Dermatological Problems: No - MUSCULOSKELETAL/RHEUMATOLOGICAL Hx Musculoskeletal Disorders: No Hx Falls: No - GASTROINTESTINAL Hx Gastrointestinal Disorders: No - GENITOURINARY/GYNECOLOGICAL Hx Genitourinary Disorders: No - PSYCHIATRIC Hx Substance Use: No - SURGICAL HISTORY Hx Coronary Artery Bypass Graft: Yes (2004) - ANESTHESIA Hx Anesthesia: Yes Hx Anesthesia Reactions: No Hx Malignant Hyperthermia: No Meds Allergies/Adverse Reactions: Allergies Allergy/AdvReac Type Severity Reaction Status Date / Time DENITA Inhibitors AdvReac Verified 10/29/16 20:06 - Medications Medications: Current Medications Albuterol/Ipratropium (Duoneb 3 Mg/0.5 Mg (3 Ml) Ud) 3 ml INH RQ6 [facility] Last Admin: 10/30/16 13:35 Dose: 3 ml Aspirin (Ecotrin) 81 mg PO DAILY [facility] Last Admin: 10/30/16 10:12 Dose: Not Given Carvedilol (Coreg) 6.25 mg PO BID [facility] Last Admin: 10/30/16 17:46 Dose: Not Given Celecoxib (Celebrex) 200 mg PO BID PRN PRN Reason: Pain, moderate (4-7) Digoxin (Lanoxin) 0.125 mg PO DAILY@1800 [facility] Furosemide (Lasix) 40 mg IVP BID [facility] Heparin Sodium (Porcine) (Heparin) 5,000 units SC Q8 [facility] Insulin Human Regular (Novolin R) 0 unit SC ACHS [facility] PRN Reason: Protocol Last Admin: 10/30/16 16:55 Dose: 3 unit Losartan Potassium (Cozaar) 50 mg PO DAILY [facility] Last Admin: 10/30/16 10:18 Dose: 50 mg Methylprednisolone (Solu-Medrol) 40 mg IVP Q8H [facility] Last Admin: 10/30/16 14:07 Dose: 40 mg Montelukast Sodium (Singulair) 10 mg PO HS [facility] Multivitamins (Hexavitamin) 1 tab PO DAILY [facility] Last Admin: 10/30/16 10:13 Dose: 1 tab Pantoprazole Sodium (Protonix Inj) 40 mg IVP DAILY [facility] Last Admin: 10/30/16 10:13 Dose: 40 mg Promethazine HCl (Phenergan Syrup) 12.5 mg PO Q8H PRN PRN Reason: Cough Rosuvastatin Calcium (Crestor) 5 mg PO HS [facility] Sitagliptin Phosphate (Januvia) 50 mg PO DAILY [facility] Last Admin: 10/30/16 10:13 Dose: 50 mg Spironolactone (Aldactone) 25 mg PO DAILY [facility] Last Admin: 10/30/16 13:09 Dose: 25 mg Physical Exam - Constitutional Appears: Chronically Ill - Head Exam Head Exam: ATRAUMATIC, NORMOCEPHALIC - Eye Exam Eye Exam: Normal appearance - ENT Exam ENT Exam: Mucous Membranes Moist - Neck Exam Neck exam: Positive for: Normal Inspection - Respiratory Exam Respiratory Exam: Decreased Breath Sounds, Wheezes - Cardiovascular Exam Cardiovascular Exam: +S1, +S2 - GI/Abdominal Exam GI & Abdominal Exam: Normal Bowel Sounds - Rectal Exam Rectal Exam: Deferred - Neurological Exam Neurological exam: Alert, Oriented x3 - Psychiatric Exam Psychiatric exam: Normal Affect, Normal Mood - Skin Skin Exam: Intact Results - Vital Signs Recent Vital Signs: Last Vital Signs Temp 97.6 F 10/30/16 15:46 Pulse 75 10/30/16 15:46 Resp 20 10/30/16 15:46 BP 97/50 L 10/30/16 15:46 Pulse Ox 98 10/30/16 15:46 - Labs Result Diagrams: 10/30/16 07:08 10/30/16 03:04 Labs: Laboratory Results - last 24 hr 10/29/16 10/30/16 10/30/16 22:31 03:04 04:40 WBC RBC Hgb Hct MCV MCH MCHC RDW Plt Count MPV Neut % (Auto) Lymph % (Auto) [place] % (Auto) Eos % (Auto) Baso % (Auto) Neut # Lymph # [place] # Eos # Baso # PT INR APTT Sodium 130 L Potassium 4.8 Chloride 98 Carbon Dioxide 21 L Anion Gap 16 BUN 30 H Creatinine 1.0 Est GFR ( Amer) > 60 Est GFR (Non-Af Amer) 53 POC Glucose (mg/dL) 148 H Random Glucose 216 H Hemoglobin A1c Calcium 8.4 L Total Bilirubin 0.7 AST 19 ALT 19 Alkaline Phosphatase 70 Total Creatine Kinase 27 L CK-MB (Mass) 0.84 Troponin I, Quant < 0.0120 Total Protein 6.4 Albumin 3.4 L Globulin 3.0 Albumin/Globulin Ratio 1.1 Triglycerides Cholesterol LDL Cholesterol Direct HDL Cholesterol Thyroxine (T4) TSH 3rd Generation Digoxin Influenza Typ A,B (EIA) Negative for flu a/b 10/30/16 10/30/16 10/30/16 06:13 07:08 07:08 WBC RBC Hgb Hct MCV MCH MCHC RDW Plt Count MPV Neut % (Auto) Lymph % (Auto) [place] % (Auto) Eos % (Auto) Baso % (Auto) Neut # Lymph # [place] # Eos # Baso # PT INR APTT Sodium Potassium Chloride Carbon Dioxide Anion Gap BUN Creatinine Est GFR ( Amer) Est GFR (Non-Af Amer) POC Glucose (mg/dL) 252 H Random Glucose Hemoglobin A1c 7.4 H Calcium Total Bilirubin AST ALT Alkaline Phosphatase Total Creatine Kinase CK-MB (Mass) Troponin I, Quant Total Protein Albumin Globulin Albumin/Globulin Ratio Triglycerides 46 D Cholesterol 191 LDL Cholesterol Direct 114 HDL Cholesterol 48 Thyroxine (T4) 7.58 TSH 3rd Generation 0.28 L Digoxin Influenza Typ A,B (EIA) 10/30/16 10/30/16 10/30/16 07:08 07:08 07:08 WBC 3.5 L RBC 3.15 L Hgb 9.3 L Hct 27.0 L MCV 85.9 MCH 29.5 MCHC 34.3 RDW 14.4 Plt Count 230 MPV 7.2 Neut % (Auto) 87.8 H Lymph % (Auto) 10.6 L [place] % (Auto) 1.4 Eos % (Auto) 0.1 Baso % (Auto) 0.1 Neut # 3.1 Lymph # 0.4 L [place] # 0.0 Eos # 0.0 Baso # 0.0 PT 12.5 H INR 1.1 APTT 73 H D Sodium Potassium Chloride Carbon Dioxide Anion Gap BUN Creatinine Est GFR ( Amer) Est GFR (Non-Af Amer) POC Glucose (mg/dL) Random Glucose Hemoglobin A1c Calcium Total Bilirubin AST ALT Alkaline Phosphatase Total Creatine Kinase 24 L CK-MB (Mass) 0.79 Troponin I, Quant < 0.0120 Total Protein Albumin Globulin Albumin/Globulin Ratio Triglycerides Cholesterol LDL Cholesterol Direct HDL Cholesterol Thyroxine (T4) TSH 3rd Generation Digoxin Influenza Typ A,B (EIA) 10/30/16 10/30/16 10/30/16 11:14 11:40 15:50 WBC RBC Hgb Hct MCV MCH MCHC RDW Plt Count MPV Neut % (Auto) Lymph % (Auto) [place] % (Auto) Eos % (Auto) Baso % (Auto) Neut # Lymph # [place] # Eos # Baso # PT INR APTT 36 H D Sodium Potassium Chloride Carbon Dioxide Anion Gap BUN Creatinine Est GFR ( Amer) Est GFR (Non-Af Amer) POC Glucose (mg/dL) 342 H Random Glucose Hemoglobin A1c Calcium Total Bilirubin AST ALT Alkaline Phosphatase Total Creatine Kinase CK-MB (Mass) Troponin I, Quant Total Protein Albumin Globulin Albumin/Globulin Ratio Triglycerides Cholesterol LDL Cholesterol Direct HDL Cholesterol Thyroxine (T4) TSH 3rd Generation Digoxin < 0.4 L Influenza Typ A,B (EIA) 10/30/16 16:28 WBC RBC Hgb Hct MCV MCH MCHC RDW Plt Count MPV Neut % (Auto) Lymph % (Auto) [place] % (Auto) Eos % (Auto) Baso % (Auto) Neut # Lymph # [place] # Eos # Baso # PT INR APTT Sodium Potassium Chloride Carbon Dioxide Anion Gap BUN Creatinine Est GFR ( Amer) Est GFR (Non-Af Amer) POC Glucose (mg/dL) 260 H Random Glucose Hemoglobin A1c Calcium Total Bilirubin AST ALT Alkaline Phosphatase Total Creatine Kinase CK-MB (Mass) Troponin I, Quant Total Protein Albumin Globulin Albumin/Globulin Ratio Triglycerides Cholesterol LDL Cholesterol Direct HDL Cholesterol Thyroxine (T4) TSH 3rd Generation Digoxin Influenza Typ A,B (EIA) Assessment & Plan - Assessment and Plan (Free Text) Assessment: exacerbation of asthma cardiomyopathy discussed with dr ibarra Plan: adjust meds
[2016-10-30] MEDS: Fluticasone-Salmeterol 500-50mcg Diskus INH SCH (20:38)
[2016-10-31] MEDS: Albuterol-Ipratrop 3 mg / 0.5 (3 ml) UD INH SCH ×4 (01:24→19:25)
[2016-10-31] MEDS: MethylPREDNISolone 40 mg Vial IVP SCH ×3 (05:54→22:57)
--- NOTE | 2016-10-31 07:05 | CP.PCM.PN ---
Subjective - Date & Time of Evaluation Date of Evaluation: 10/31/16 Time of Evaluation: 07:00 - Subjective Subjective: PGY1 Medicine note for Dr. Jara Patient seen and examined at bedside. Patient used BiPAP overnight. She was on NC this morning and resting comfortably. No acute events overnight as per nursing. Patient continues to complain of tiredness and some chest pressure that is chronic. She has also been complaining of a dry nonproductive cough and some post nasal drip and a headache. She reports she was unable to sleep well. She deneis any dizziness, acute chest pain, palpitations, dyspnea at rest, abdominal pain, nausea, vomiting, bowel/bladder complaints, pain/swelling in her legs bilaterally. Patient reports she has not had an appetite and has been eating less and requested some sort of chocolate supplement. Patient is not ambulating. Objective - Vital Signs/Intake and Output Vital Signs (last 24 hours): Temp Pulse Resp BP Pulse Ox 97.5 F L 101 H 20 138/77 99 10/30/16 23:30 10/30/16 23:30 10/30/16 23:30 10/30/16 23:30 10/30/16 23:30 Intake and Output: 10/31/16 10/31/16 06:59 18:59 Intake Total 400 Output Total 900 Balance -500 - Medications Medications: Current Medications Acetaminophen (Tylenol 325mg Tab) 650 mg PO Q6 PRN PRN Reason: Headache Last Admin: 10/31/16 02:08 Dose: 650 mg Albuterol/Ipratropium (Duoneb 3 Mg/0.5 Mg (3 Ml) Ud) 3 ml INH RQ6 [facility] Last Admin: 10/31/16 01:24 Dose: 3 ml Aspirin (Ecotrin) 81 mg PO DAILY [facility] Last Admin: 10/30/16 10:12 Dose: Not Given Bisoprolol Fumarate (Zebeta) 5 mg PO DAILY [facility] Digoxin (Lanoxin) 0.125 mg PO DAILY@1800 [facility] Last Admin: 10/30/16 18:03 Dose: 0.125 mg Furosemide (Lasix) 40 mg IVP BID [facility] Last Admin: 10/30/16 18:06 Dose: 40 mg Heparin Sodium (Porcine) (Heparin) 5,000 units SC Q8 [facility] Last Admin: 10/31/16 05:54 Dose: 5,000 units Insulin Human Regular (Novolin R) 0 unit SC ACHS [facility] PRN Reason: Protocol Last Admin: 10/30/16 21:24 Dose: Not Given Losartan Potassium (Cozaar) 50 mg PO DAILY [facility] Last Admin: 10/30/16 10:18 Dose: 50 mg Methylprednisolone (Solu-Medrol) 40 mg IVP Q8H [facility] Last Admin: 10/31/16 05:54 Dose: 40 mg Montelukast Sodium (Singulair) 10 mg PO HS [facility] Last Admin: 10/30/16 21:21 Dose: 10 mg Multivitamins (Hexavitamin) 1 tab PO DAILY [facility] Last Admin: 10/30/16 10:13 Dose: 1 tab Pantoprazole Sodium (Protonix Inj) 40 mg IVP DAILY [facility] Last Admin: 10/30/16 10:13 Dose: 40 mg Promethazine HCl (Phenergan Syrup) 12.5 mg PO Q8H PRN PRN Reason: Cough Rosuvastatin Calcium (Crestor) 5 mg PO HS [facility] Last Admin: 10/30/16 21:21 Dose: 5 mg Fluticasone/Salmeterol (Advair Diskus 500/50) 1 puff INH RQ12 [facility] Last Admin: 10/30/16 20:38 Dose: 1 puff Sitagliptin Phosphate (Januvia) 50 mg PO DAILY [facility] Last Admin: 10/30/16 10:13 Dose: 50 mg Spironolactone (Aldactone) 25 mg PO DAILY [facility] Last Admin: 10/30/16 13:09 Dose: 25 mg Tiotropium [place] (Spiriva) 18 mcg INH RQ24 [facility] - Labs Labs: 10/30/16 07:08 10/30/16 03:04 PT 12.5 SECONDS (9.7-12.2) H 10/30/16 07:08 INR 1.1 10/30/16 07:08 APTT 36 SECONDS (21-34) H D 10/30/16 11:14 - Constitutional Appears: No Acute Distress, Chronically Ill - Head Exam Head Exam: NORMAL INSPECTION - Eye Exam Eye Exam: Normal appearance. absent: Conjunctival injection, Scleral icterus Pupil Exam: NORMAL ACCOMODATION - ENT Exam ENT Exam: Mucous Membranes Dry - Neck Exam Neck Exam: Full ROM, Normal Inspection. absent: Tenderness - Respiratory Exam Respiratory Exam: Decreased Breath Sounds, Prolonged Expiratory Phase, Wheezes. absent: Rales, Rhonchi - Cardiovascular Exam Cardiovascular Exam: REGULAR RHYTHM, RRR, +S1, +S2. absent: Murmur - GI/Abdominal Exam GI & Abdominal Exam: Soft, Normal Bowel Sounds. absent: Firm, Guarding, Rigid, Tenderness - Extremities Exam Extremities Exam: Normal Capillary Refill, Normal Inspection. absent: Pedal Edema, Tenderness - Back Exam Back Exam: NORMAL INSPECTION. absent: rash noted, tenderness - Neurological Exam Neurological Exam: Alert, Awake, Oriented x3 - Psychiatric Exam Psychiatric exam: Normal Affect, Normal Mood - Skin Skin Exam: Dry, Intact, Normal Color, Warm Assessment and Plan - Assessment and Plan (Free Text) Assessment: 80 year old German speaking female with PMH of CHF, Asthma, HTN, DM presenting with SOB Plan: 1. Dyspnea likely secondary to asthma exacerbation vs COPD elevated D-dimer 556 BNP 7440 V/Q scan: low probability for PE CXR: biapical pleural thickening with upper lobe granulomatous changes. Bilateral hilar prominence. no gross focal infiltrate or effusion. few scattered patchy opacities at the left lung apex and right mid lung zone. Venous duplex scan bilateral LEs: negative Cardio consult, Dr. Avendaño, help appreciated Pulm consult, Dr. Yusuf, help appreciated BiPAP PRN 2. CHF ASA 81 mg PO daily Bisoprolol Fumarate 5mg po daily Digoxin 0.125mg po daily Lasix 40 mg PO daily Losartan 50 mg PO daily Spironolactone 12.5 mg PO daily ICD to be changed at [facility] when patient's asthma improves as per cardio reccs Cardio consult Dr. Avendaño on board 3. HTN ASA 81 mg PO daily Bisoprolol Fumarate 5mg po daily Digoxin 0.125mg po daily Lasix 40 mg PO daily Losartan 50 mg PO daily Spironolactone 12.5 mg PO daily Crestor 5mg po hs Cardio consult Dr. Avendaño on board 4. DM Januvia 50 mg pO daily ISS Accuchecks ACHS 5. Asthma Exacerbation Duoneb 3ml inh RQ6H Solu-medrol 40 mg IVP Q8H Singulair 10 mg PO HS Advair 1puff inh q12 BiPAP Pulm consult, Dr. Yusuf, help appreciated 6. Cough Phenergan 12.5 mg PO Q8H PRN 7. History of Arthritis Celecoxib 200 mg PO BID PRN 8. Prophylactic Measures Protonix 40 mg IVP daily Heparin 5000U SC Q8 MVM SCDs Tylenol for headache 650mg po q6 prn Will discuss case with Dr. Marek Hsieh PGY1
[2016-10-31] MEDS: Tiotropium 18 mcg Cap For Inhalation INH SCH (07:32)
[2016-10-31] MEDS: Fluticasone-Salmeterol 500-50mcg Diskus INH SCH ×2 (07:32→19:27)
[2016-10-31 07:45] LABS: POTASSIUM 4.6 mmol/L (3.6-5.2)
[2016-10-31 07:47] LABS: ALB/GLOB RATIO 1.1 (1.0-2.1); BILIRUBIN,TOTAL 0.5 mg/dL (0.2-1.3); TOTAL PROTEIN 6.2 g/dL (6.3-8.3)
[2016-10-31 07:48] LABS: CALCIUM 8.1 mg/dl (8.6-10.4); MAGNESIUM 2.2 mg/dL (1.6-2.3)
[2016-10-31 07:51] LABS: BASO % 0.1 % (0.0-2.0); HEMATOCRIT 25.9 % (34.0-47.0); LYMPH # 0.5 K/uL (1.0-4.3); LYMPH % 7.3 % (20.0-40.0); MEAN CELL VOLUME 86.3 fL (81.0-99.0); MEAN CORPUSCULAR HEMOGLOBIN 29.7 pg (27.0-31.0); MEAN CORPUSCULAR HGB CONC 34.5 g/dL (33.0-37.0); MEAN PLATELET VOLUME 7.3 fL (7.2-11.7); MONO # 0.2 K/uL (0.0-0.8); MONO % 3.1 % (0.0-10.0); PLATELET COUNT 247 K/uL (130-400); RED CELL DISTRIBUTION WIDTH 14.4 % (11.5-14.5)
[2016-10-31 07:55] LABS: WHITE BLOOD COUNT 7.1 K/uL (4.8-10.8)
[2016-10-31 08:02] LABS: FT3 1.6 pg/mL (2.77-5.27)
[2016-10-31 08:11] LABS: FREE T4 1.54 ng/dL (0.78-2.19)
[2016-10-31] MEDS: (Novolin R) Insulin Human Regular 100 units/ml vial SC SCH ×4 (08:12→22:58)
[2016-10-31 08:25] LABS: THYROID STIMULATING HORMONE 0.16 mIU/L (0.46-4.68)
--- NOTE | 2016-10-31 08:46 | CARD ---
APPROVED REPORT EKG Measurement Heart [id number] [place] P73 [id number] <Conclusion> Ventricular-paced rhythm Abnormal ECG
[2016-10-31 09:00] LABS: NEUTROPHIL 92 % (50-75); TOTAL CELLS COUNTED 100
--- NOTE | 2016-10-31 09:39 | CP.PCM.PN ---
Subjective - Date & Time of Evaluation Date of Evaluation: 10/31/16 Time of Evaluation: 09:35 - Subjective Subjective: pt feels ok, still coughing, anxious. Comfortable lying flat. Objective - Vital Signs/Intake and Output Vital Signs (last 24 hours): Temp Pulse Resp BP Pulse Ox 97.6 F 87 18 109/54 L 100 10/31/16 07:07 10/31/16 07:07 10/31/16 07:07 10/31/16 07:07 10/31/16 07:07 Intake and Output: 10/31/16 10/31/16 06:59 18:59 Intake Total 400 Output Total 900 Balance -500 - Medications Medications: Current Medications Acetaminophen (Tylenol 325mg Tab) 650 mg PO Q6 PRN PRN Reason: Headache Last Admin: 10/31/16 02:08 Dose: 650 mg Albuterol/Ipratropium (Duoneb 3 Mg/0.5 Mg (3 Ml) Ud) 3 ml INH RQ6 [facility] Last Admin: 10/31/16 07:32 Dose: 3 ml Aspirin (Ecotrin) 81 mg PO DAILY [facility] Last Admin: 10/30/16 10:12 Dose: Not Given Bisoprolol Fumarate (Zebeta) 5 mg PO DAILY [facility] Digoxin (Lanoxin) 0.125 mg PO DAILY@1800 [facility] Last Admin: 10/30/16 18:03 Dose: 0.125 mg Furosemide (Lasix) 40 mg IVP BID [facility] Last Admin: 10/30/16 18:06 Dose: 40 mg Heparin Sodium (Porcine) (Heparin) 5,000 units SC Q8 [facility] Last Admin: 10/31/16 05:54 Dose: 5,000 units Insulin Human Regular (Novolin R) 0 unit SC ACHS [facility] PRN Reason: Protocol Last Admin: 10/31/16 08:12 Dose: 3 unit Losartan Potassium (Cozaar) 50 mg PO DAILY [facility] Last Admin: 10/30/16 10:18 Dose: 50 mg Methylprednisolone (Solu-Medrol) 40 mg IVP Q8H [facility] Last Admin: 10/31/16 05:54 Dose: 40 mg Montelukast Sodium (Singulair) 10 mg PO HS [facility] Last Admin: 10/30/16 21:21 Dose: 10 mg Multivitamins (Hexavitamin) 1 tab PO DAILY [facility] Last Admin: 10/30/16 10:13 Dose: 1 tab Pantoprazole Sodium (Protonix Inj) 40 mg IVP DAILY [facility] Last Admin: 10/30/16 10:13 Dose: 40 mg Promethazine HCl (Phenergan Syrup) 12.5 mg PO Q8H PRN PRN Reason: Cough Rosuvastatin Calcium (Crestor) 5 mg PO HS [facility] Last Admin: 10/30/16 21:21 Dose: 5 mg Fluticasone/Salmeterol (Advair Diskus 500/50) 1 puff INH RQ12 [facility] Last Admin: 10/31/16 07:32 Dose: 1 puff Sitagliptin Phosphate (Januvia) 50 mg PO DAILY [facility] Last Admin: 10/30/16 10:13 Dose: 50 mg Spironolactone (Aldactone) 25 mg PO DAILY [facility] Last Admin: 10/30/16 13:09 Dose: 25 mg Tiotropium [place] (Spiriva) 18 mcg INH RQ24 [facility] Last Admin: 10/31/16 07:32 Dose: 18 mcg - Labs Labs: 10/31/16 06:59 10/31/16 06:59 PT 12.5 SECONDS (9.7-12.2) H 10/30/16 07:08 INR 1.1 10/30/16 07:08 APTT 36 SECONDS (21-34) H 10/31/16 06:59 - Constitutional Appears: Chronically Ill - Head Exam Head Exam: ATRAUMATIC - Eye Exam Eye Exam: EOMI, PERRL - ENT Exam ENT Exam: Mucous Membranes Dry - Neck Exam Neck Exam: Full ROM - Respiratory Exam Respiratory Exam: Prolonged Expiratory Phase, Wheezes - Cardiovascular Exam Cardiovascular Exam: REGULAR RHYTHM - GI/Abdominal Exam GI & Abdominal Exam: Normal Bowel Sounds - Extremities Exam Extremities Exam: Full ROM - Back Exam Back Exam: Full ROM - Neurological Exam Neurological Exam: Alert, Awake, CN II-XII Intact - Psychiatric Exam Psychiatric exam: Normal Mood - Skin Skin Exam: Dry Assessment and Plan - Assessment and Plan (Free Text) Assessment: 1. Pt has stable ischemic cardiomyopathy: pt is wheezing and has asthma. IV lasix has resulted in pre-renal azotemia. Sop and change to po lasix. 2. EOL ICD., To be changed at [facility] when asthma has improved. 3. Pt is in nsr, on eliquis 4. BNP level will be chonically elevated and never normal.
[2016-10-31] MEDS: Multiple Vitamins Tab PO SCH (10:50)
[2016-10-31] MEDS: Promethazine 12.5 mg/10 ml Syrup PO PRN (12:29)
--- NOTE | 2016-10-31 18:33 | CARD ---
APPROVED REPORT EKG Measurement Heart [id number] [id number] <Conclusion> Atrial-sensed ventricular-paced rhythm Abnormal ECG
--- NOTE | 2016-10-31 18:35 | CARD ---
APPROVED REPORT EKG Measurement Heart [id number] [place] [id number] [id number] <Conclusion> Atrial-sensed ventricular-paced rhythm with premature atrial complexes with aberrant conduction Abnormal ECG
[2016-10-31] MEDS: Digoxin 125 mcg (0.125 mg) Tab PO SCH (19:21)
[2016-10-31] MEDS: guaiFENesin 600 mg ER Tab PO SCH (19:22)
[2016-11-01] MEDS: Albuterol-Ipratrop 3 mg / 0.5 (3 ml) UD INH SCH ×4 (01:11→19:44)
--- NOTE | 2016-11-01 07:02 | CP.PCM.PN ---
<JoriPetrona - Last Filed: 11/02/16 07:02> Subjective - Date & Time of Evaluation Date of Evaluation: 11/01/16 Time of Evaluation: 09:30 - Subjective Subjective: PGY1 Medicine note for Dr. Jara Pt seen and examined at bedside. Nursing reports no adverse events overnight. Today, patient is upbeat and comfortably sitting in bed. She states that her breathing feels better and she has been able to bring up more phlegm than yesterday. She reports the phlegm is yellow. She states the glucose control shakes keep her from getting nauseous and states she is eating and sleeping well. Her only complaint is she has not had a BM in 3 days. Pt denies dizziness , chest pain, abdominal pain, bladder/bowel pain, or leg swelling. Objective - Vital Signs/Intake and Output Vital Signs (last 24 hours): Temp Pulse Resp BP Pulse Ox 98.2 F 83 20 128/66 99 10/31/16 23:40 11/01/16 00:04 10/31/16 23:40 10/31/16 23:40 10/31/16 23:40 - Medications Medications: Current Medications Acetaminophen (Tylenol 325mg Tab) 650 mg PO Q6 PRN PRN Reason: Headache Last Admin: 10/31/16 02:08 Dose: 650 mg Albuterol/Ipratropium (Duoneb 3 Mg/0.5 Mg (3 Ml) Ud) 3 ml INH RQ6 [facility] Last Admin: 11/01/16 01:11 Dose: 3 ml Aspirin (Ecotrin) 81 mg PO DAILY [facility] Last Admin: 10/31/16 10:50 Dose: 81 mg Bisoprolol Fumarate (Zebeta) 5 mg PO DAILY [facility] Last Admin: 10/31/16 10:18 Dose: 5 mg Digoxin (Lanoxin) 0.125 mg PO DAILY@1800 [facility] Last Admin: 10/31/16 19:21 Dose: 0.125 mg Furosemide (Lasix) 40 mg PO DAILY [facility] Last Admin: 10/31/16 11:04 Dose: 40 mg Guaifenesin (Mucinex La) 600 mg PO BID [facility] Last Admin: 10/31/16 19:22 Dose: 600 mg Heparin Sodium (Porcine) (Heparin) 5,000 units SC Q8 [facility] Last Admin: 11/01/16 05:53 Dose: 5,000 units Insulin Human Regular (Novolin R) 0 unit SC ACHS [facility] PRN Reason: Protocol Last Admin: 10/31/16 22:58 Dose: 2 unit Losartan Potassium (Cozaar) 50 mg PO DAILY [facility] Last Admin: 10/31/16 10:50 Dose: 50 mg Methylprednisolone (Solu-Medrol) 40 mg IVP Q8H [facility] Last Admin: 10/31/16 22:57 Dose: 40 mg Montelukast Sodium (Singulair) 10 mg PO HS [facility] Last Admin: 10/31/16 22:56 Dose: 10 mg Multivitamins (Hexavitamin) 1 tab PO DAILY [facility] Last Admin: 10/31/16 10:50 Dose: 1 tab Pantoprazole Sodium (Protonix Inj) 40 mg IVP DAILY [facility] Last Admin: 10/31/16 10:50 Dose: 40 mg Promethazine HCl (Phenergan Syrup) 12.5 mg PO Q8H PRN PRN Reason: Cough Last Admin: 10/31/16 12:29 Dose: 12.5 mg Rosuvastatin Calcium (Crestor) 5 mg PO HS [facility] Last Admin: 10/31/16 22:56 Dose: 5 mg Fluticasone/Salmeterol (Advair Diskus 500/50) 1 puff INH RQ12 [facility] Last Admin: 10/31/16 19:27 Dose: 1 puff Sitagliptin Phosphate (Januvia) 50 mg PO DAILY [facility] Last Admin: 10/31/16 10:50 Dose: 50 mg Spironolactone (Aldactone) 25 mg PO DAILY [facility] Last Admin: 10/31/16 10:50 Dose: 25 mg Tiotropium [place] (Spiriva) 18 mcg INH RQ24 [facility] Last Admin: 10/31/16 07:32 Dose: 18 mcg - Labs Labs: 10/31/16 06:59 10/31/16 06:59 PT 12.5 SECONDS (9.7-12.2) H 10/30/16 07:08 INR 1.1 10/30/16 07:08 APTT 38 SECONDS (21-34) H 10/31/16 16:50 - Constitutional Appears: Chronically Ill - Head Exam Head Exam: NORMAL INSPECTION - Eye Exam Eye Exam: Normal appearance. absent: Conjunctival injection, Scleral icterus Pupil Exam: NORMAL ACCOMODATION - ENT Exam ENT Exam: Mucous Membranes Moist - Respiratory Exam Respiratory Exam: Decreased Breath Sounds, Rhonchi, NORMAL BREATHING PATTERN. absent: Accessory Muscle Use, Respiratory Distress - Cardiovascular Exam Cardiovascular Exam: +S1, +S2 - GI/Abdominal Exam GI & Abdominal Exam: Soft, Normal Bowel Sounds. absent: Tenderness - Extremities Exam Extremities Exam: Normal Capillary Refill, Normal Inspection. absent: Pedal Edema, Tenderness - Back Exam Back Exam: NORMAL INSPECTION. absent: rash noted - Neurological Exam Neurological Exam: Alert, Awake, Oriented x3 - Psychiatric Exam Psychiatric exam: Normal Affect, Normal Mood - Skin Skin Exam: Dry, Intact, Normal Color, Warm Assessment and Plan - Assessment and Plan (Free Text) Assessment: 80 year old Armenian speaking female with PMH of CHF, Asthma, HTN, DM presenting with SOB Plan: 1. Dyspnea likely secondary to asthma exacerbation vs COPD elevated D-dimer 556 BNP 7440 V/Q scan: low probability for PE CXR: biapical pleural thickening with upper lobe granulomatous changes. Bilateral hilar prominence. no gross focal infiltrate or effusion. few scattered patchy opacities at the left lung apex and right mid lung zone. Venous duplex scan bilateral LEs: negative Cardio consult, Dr. Avendaño, help appreciated Pulm consult, Dr. Yusuf, help appreciated BiPAP PRN 2. CHF ASA 81 mg PO daily Bisoprolol Fumarate 5mg po daily Digoxin 0.125mg po daily Lasix 40 mg PO daily Losartan 50 mg PO daily Spironolactone 12.5 mg PO daily ICD to be changed [place] [facility] when patient's asthma improves as per cardio reccs Cardio consult Dr. Avendaño on board 3. HTN ASA 81 mg PO daily Bisoprolol Fumarate 5mg po daily Digoxin 0.125mg po daily Lasix 40 mg PO daily Losartan 50 mg PO daily Spironolactone 12.5 mg PO daily Crestor 5mg po hs Cardio consult Dr. Avendaño on board 4. DM Januvia 50 mg pO daily ISS Accuchecks ACHS 5. Asthma Exacerbation Duoneb 3ml inh RQ6H Solu-medrol 40 mg IVP Q8H Singulair 10 mg PO HS Advair 1puff inh q12 BiPAP Pulm consult, Dr. Yusuf, help appreciated 6. Cough Phenergan 12.5 mg PO Q8H PRN 7. History of Arthritis Celecoxib 200 mg PO BID PRN 8. Prophylactic Measures Protonix 40 mg IVP daily Heparin 5000U SC Q8 [facility] SCDs Tylenol for headache 650mg po q6 prn Will discuss case with Dr. Marek Hsieh PGY1 <Shaw Jara Jr. - Last Filed: 11/02/16 11:17> Objective - Vital Signs/Intake and Output Vital Signs (last 24 hours): Temp Pulse Resp BP Pulse Ox 97.3 F L 86 18 148/69 95 11/02/16 07:35 11/02/16 07:35 11/02/16 07:35 11/02/16 10:57 11/02/16 07:35 Intake and Output: 11/02/16 11/02/16 06:59 18:59 Output Total 200 Balance -200 - Medications Medications: Current Medications Acetaminophen (Tylenol 325mg Tab) 650 mg PO Q6 PRN PRN Reason: Headache Last Admin: 10/31/16 02:08 Dose: 650 mg Albuterol/Ipratropium (Duoneb 3 Mg/0.5 Mg (3 Ml) Ud) 3 ml INH RQ6 [facility] Last Admin: 11/02/16 07:41 Dose: 3 ml Aspirin (Ecotrin) 81 mg PO DAILY [facility] Last Admin: 11/02/16 10:56 Dose: 81 mg Digoxin (Lanoxin) 0.125 mg PO DAILY@1800 [facility] Last Admin: 11/01/16 18:05 Dose: 0.125 mg Docusate Sodium (Colace) 100 mg PO BID [facility] Last Admin: 11/02/16 10:56 Dose: 100 mg Furosemide (Lasix) 40 mg PO DAILY [facility] Last Admin: 11/02/16 10:57 Dose: 40 mg Guaifenesin (Mucinex La) 600 mg PO BID [facility] Last Admin: 11/02/16 10:56 Dose: 600 mg Heparin Sodium (Porcine) (Heparin) 5,000 units SC Q8 [facility] Last Admin: 11/02/16 05:55 Dose: 5,000 units Insulin Human Regular (Novolin R) 0 unit SC ACHS [facility] PRN Reason: Protocol Last Admin: 11/02/16 08:00 Dose: 5 unit Losartan Potassium (Cozaar) 50 mg PO DAILY [facility] Last Admin: 11/02/16 10:57 Dose: 50 mg Methylprednisolone (Solu-Medrol) 40 mg IVP Q8H [facility] Last Admin: 11/02/16 05:56 Dose: 40 mg Montelukast Sodium (Singulair) 10 mg PO HS [facility] Last Admin: 11/01/16 21:54 Dose: 10 mg Multivitamins (Hexavitamin) 1 tab PO DAILY [facility] Last Admin: 11/02/16 10:56 Dose: 1 tab Nebivolol (Bystolic) 5 mg PO DAILY [facility] Pantoprazole Sodium (Protonix Inj) 40 mg IVP DAILY [facility] Last Admin: 11/02/16 10:57 Dose: 40 mg Promethazine HCl/Codeine (Phenergan/Codeine Oral Syrup) 5 ml PO Q6H PRN PRN Reason: Cough Rosuvastatin Calcium (Crestor) 5 mg PO HS [facility] Last Admin: 11/01/16 21:53 Dose: 5 mg Fluticasone/Salmeterol (Advair Diskus 500/50) 1 puff INH RQ12 [facility] Last Admin: 11/02/16 07:41 Dose: 1 puff Sitagliptin Phosphate (Januvia) 50 mg PO DAILY [facility] Last Admin: 11/02/16 10:56 Dose: 50 mg Spironolactone (Aldactone) 25 mg PO DAILY [facility] Last Admin: 11/02/16 10:56 Dose: 25 mg Tiotropium [place] (Spiriva) 18 mcg INH RQ24 [facility] Last Admin: 11/02/16 07:41 Dose: 18 mcg - Labs Labs: 11/02/16 08:10 11/02/16 08:10 PT 11.7 SECONDS (9.7-12.2) 11/01/16 17:02 INR 1.0 11/01/16 17:02 APTT 65 SECONDS (21-34) H D 11/01/16 17:02 Attending/Attestation - Attestation I have personally seen and examined this patient.: Yes I have fully participated in the care of the patient.: Yes I have reviewed all pertinent clinical information, including history, physical exam and plan: Yes Notes (Text): 11/02/16 11:17 Agree with resident note and plan of care
[2016-11-01] MEDS: (Novolin R) Insulin Human Regular 100 units/ml vial SC SCH ×4 (08:00→21:55)
[2016-11-01 08:03] LABS: BASO % 0.1 % (0.0-2.0); HEMATOCRIT 26.6 % (34.0-47.0); LYMPH # 0.5 K/uL (1.0-4.3); LYMPH % 7.4 % (20.0-40.0); MEAN CELL VOLUME 85.4 fL (81.0-99.0); MEAN CORPUSCULAR HEMOGLOBIN 29.1 pg (27.0-31.0); MEAN CORPUSCULAR HGB CONC 34.1 g/dL (33.0-37.0); MEAN PLATELET VOLUME 7.5 fL (7.2-11.7); MONO # 0.2 K/uL (0.0-0.8); MONO % 2.9 % (0.0-10.0); PLATELET COUNT 261 K/uL (130-400); RED CELL DISTRIBUTION WIDTH 14.5 % (11.5-14.5); WHITE BLOOD COUNT 6.7 K/uL (4.8-10.8)
[2016-11-01 08:21] LABS: POTASSIUM 4.8 mmol/L (3.6-5.2)
[2016-11-01 08:24] LABS: ALB/GLOB RATIO 1.1 (1.0-2.1); BILIRUBIN,TOTAL 0.5 mg/dL (0.2-1.3); PHOSPHOROUS 2.6 mg/dL (2.5-4.5); TOTAL PROTEIN 6.2 g/dL (6.3-8.3)
[2016-11-01 08:25] LABS: CALCIUM 8.1 mg/dl (8.6-10.4); MAGNESIUM 2.2 mg/dL (1.6-2.3)
[2016-11-01 09:04] LABS: NEUTROPHIL 92 % (50-75); TOTAL CELLS COUNTED 100
[2016-11-01] MEDS: guaiFENesin 600 mg ER Tab PO SCH ×2 (10:21→18:05)
[2016-11-01] MEDS: Multiple Vitamins Tab PO SCH (10:21)
--- NOTE | 2016-11-01 10:40 | CP.PCM.PN ---
Subjective - Date & Time of Evaluation Date of Evaluation: 11/01/16 Time of Evaluation: 10:37 - Subjective Subjective: still with cough and congestion despite all treatment; suggest changing BB to bystolic due to continued bronchospasm Objective - Vital Signs/Intake and Output Vital Signs (last 24 hours): Temp Pulse Resp BP Pulse Ox 97.7 F 78 20 99/51 L 100 11/01/16 07:00 11/01/16 07:00 11/01/16 07:00 11/01/16 07:00 11/01/16 07:00 - Medications Medications: Current Medications Acetaminophen (Tylenol 325mg Tab) 650 mg PO Q6 PRN PRN Reason: Headache Last Admin: 10/31/16 02:08 Dose: 650 mg Albuterol/Ipratropium (Duoneb 3 Mg/0.5 Mg (3 Ml) Ud) 3 ml INH RQ6 [facility] Last Admin: 11/01/16 09:02 Dose: Not Given Aspirin (Ecotrin) 81 mg PO DAILY [facility] Last Admin: 11/01/16 10:21 Dose: 81 mg Bisoprolol Fumarate (Zebeta) 5 mg PO DAILY [facility] Last Admin: 11/01/16 10:21 Dose: 5 mg Digoxin (Lanoxin) 0.125 mg PO DAILY@1800 [facility] Last Admin: 10/31/16 19:21 Dose: 0.125 mg Furosemide (Lasix) 40 mg PO DAILY [facility] Last Admin: 10/31/16 11:04 Dose: 40 mg Guaifenesin (Mucinex La) 600 mg PO BID [facility] Last Admin: 11/01/16 10:21 Dose: 600 mg Heparin Sodium (Porcine) (Heparin) 5,000 units SC Q8 [facility] Last Admin: 11/01/16 05:53 Dose: 5,000 units Insulin Human Regular (Novolin R) 0 unit SC ACHS [facility] PRN Reason: Protocol Last Admin: 11/01/16 08:00 Dose: Not Given Losartan Potassium (Cozaar) 50 mg PO DAILY [facility] Last Admin: 11/01/16 10:21 Dose: 50 mg Methylprednisolone (Solu-Medrol) 40 mg IVP Q8H [facility] Last Admin: 10/31/16 22:57 Dose: 40 mg Montelukast Sodium (Singulair) 10 mg PO HS [facility] Last Admin: 10/31/16 22:56 Dose: 10 mg Multivitamins (Hexavitamin) 1 tab PO DAILY [facility] Last Admin: 11/01/16 10:21 Dose: 1 tab Pantoprazole Sodium (Protonix Inj) 40 mg IVP DAILY [facility] Last Admin: 11/01/16 10:21 Dose: 40 mg Promethazine HCl (Phenergan Syrup) 12.5 mg PO Q8H PRN PRN Reason: Cough Last Admin: 10/31/16 12:29 Dose: 12.5 mg Rosuvastatin Calcium (Crestor) 5 mg PO HS [facility] Last Admin: 10/31/16 22:56 Dose: 5 mg Fluticasone/Salmeterol (Advair Diskus 500/50) 1 puff INH RQ12 [facility] Last Admin: 10/31/16 19:27 Dose: 1 puff Sitagliptin Phosphate (Januvia) 50 mg PO DAILY [facility] Last Admin: 11/01/16 10:21 Dose: 50 mg Spironolactone (Aldactone) 25 mg PO DAILY [facility] Last Admin: 11/01/16 10:21 Dose: 25 mg Tiotropium [place] (Spiriva) 18 mcg INH RQ24 [facility] Last Admin: 10/31/16 07:32 Dose: 18 mcg - Labs Labs: 11/01/16 07:53 11/01/16 07:53 PT 12.5 SECONDS (9.7-12.2) H 10/30/16 07:08 INR 1.1 10/30/16 07:08 APTT 37 SECONDS (21-34) H 11/01/16 07:53 - Constitutional Appears: Chronically Ill - Head Exam Head Exam: ATRAUMATIC, NORMOCEPHALIC - Eye Exam Eye Exam: Normal appearance - ENT Exam ENT Exam: Mucous Membranes Moist - Respiratory Exam Respiratory Exam: Decreased Breath Sounds, Rhonchi - Cardiovascular Exam Cardiovascular Exam: +S1, +S2 - GI/Abdominal Exam GI & Abdominal Exam: Normal Bowel Sounds - Rectal Exam Rectal Exam: Deferred - Neurological Exam Neurological Exam: Alert, Awake - Psychiatric Exam Psychiatric exam: Normal Affect, Normal Mood - Skin Skin Exam: Intact Assessment and Plan (1) Cough Status: Acute (2) Asthma attack Status: Acute (3) Cardiomyopathy Status: Chronic
[2016-11-01] MEDS: Promethazine 12.5 mg/10 ml Syrup PO PRN (10:46)
[2016-11-01] MEDS: MethylPREDNISolone 40 mg Vial IVP SCH ×4 (13:02→21:54)
[2016-11-01] MEDS: Fluticasone-Salmeterol 500-50mcg Diskus INH SCH ×2 (13:15→19:44)
[2016-11-01] MEDS: Tiotropium 18 mcg Cap For Inhalation INH SCH (13:15)
[2016-11-01] MEDS ORDERED: Magnesium Hydroxide Susp 30 ml UD PO ONE ×2 (16:00→17:50)
[2016-11-01] MEDS: Digoxin 125 mcg (0.125 mg) Tab PO SCH (18:05)
[2016-11-02] MEDS: Albuterol-Ipratrop 3 mg / 0.5 (3 ml) UD INH SCH ×3 (01:05→20:11)
[2016-11-02] MEDS: MethylPREDNISolone 40 mg Vial IVP SCH ×2 (05:56→21:51)
[2016-11-02] MEDS: Fluticasone-Salmeterol 500-50mcg Diskus INH SCH ×2 (07:41→20:10)
[2016-11-02] MEDS: Tiotropium 18 mcg Cap For Inhalation INH SCH (07:41)
--- NOTE | 2016-11-02 07:54 | CP.PCM.PN ---
<JoriPetrona - Last Filed: 11/02/16 20:35> Subjective - Date & Time of Evaluation Date of Evaluation: 11/02/16 Time of Evaluation: 08:30 - Subjective Subjective: PGY1 Medicine note for Dr. Jara Patient was seen and examined at bedside. Patient reports her cough has been persistent and she continues to have chronic chest pressure and tiredness. She reports her appetite has improved. Patient had 2 BM yesterday as per nursing. She denied dizziness, headache, acute chest pain, palpitations, abdominal pain, nausea, vomiting, bowel/bladder complaints, leg swelling/pain. Objective - Vital Signs/Intake and Output Vital Signs (last 24 hours): Temp Pulse Resp BP Pulse Ox 98.2 F 87 20 138/69 98 11/01/16 23:35 11/02/16 00:00 11/01/16 23:35 11/01/16 23:35 11/01/16 23:35 Intake and Output: 11/02/16 11/02/16 06:59 18:59 Output Total 200 Balance -200 - Medications Medications: Current Medications Acetaminophen (Tylenol 325mg Tab) 650 mg PO Q6 PRN PRN Reason: Headache Last Admin: 10/31/16 02:08 Dose: 650 mg Albuterol/Ipratropium (Duoneb 3 Mg/0.5 Mg (3 Ml) Ud) 3 ml INH RQ6 [facility] Last Admin: 11/02/16 07:41 Dose: 3 ml Aspirin (Ecotrin) 81 mg PO DAILY [facility] Last Admin: 11/01/16 10:21 Dose: 81 mg Bisoprolol Fumarate (Zebeta) 5 mg PO DAILY [facility] Last Admin: 11/01/16 10:21 Dose: 5 mg Digoxin (Lanoxin) 0.125 mg PO DAILY@1800 [facility] Last Admin: 11/01/16 18:05 Dose: 0.125 mg Docusate Sodium (Colace) 100 mg PO BID [facility] Last Admin: 11/01/16 18:07 Dose: 100 mg Furosemide (Lasix) 40 mg PO DAILY [facility] Last Admin: 11/01/16 10:45 Dose: 40 mg Guaifenesin (Mucinex La) 600 mg PO BID [facility] Last Admin: 11/01/16 18:05 Dose: 600 mg Heparin Sodium (Porcine) (Heparin) 5,000 units SC Q8 [facility] Last Admin: 11/02/16 05:55 Dose: 5,000 units Insulin Human Regular (Novolin R) 0 unit SC ACHS [facility] PRN Reason: Protocol Last Admin: 11/01/16 21:55 Dose: 2 unit Losartan Potassium (Cozaar) 50 mg PO DAILY [facility] Last Admin: 11/01/16 10:21 Dose: 50 mg Methylprednisolone (Solu-Medrol) 40 mg IVP Q8H [facility] Last Admin: 11/02/16 05:56 Dose: 40 mg Montelukast Sodium (Singulair) 10 mg PO HS [facility] Last Admin: 11/01/16 21:54 Dose: 10 mg Multivitamins (Hexavitamin) 1 tab PO DAILY [facility] Last Admin: 11/01/16 10:21 Dose: 1 tab Pantoprazole Sodium (Protonix Inj) 40 mg IVP DAILY [facility] Last Admin: 11/01/16 10:21 Dose: 40 mg Promethazine HCl (Phenergan Syrup) 12.5 mg PO Q8H PRN PRN Reason: Cough Last Admin: 11/01/16 10:46 Dose: 12.5 mg Rosuvastatin Calcium (Crestor) 5 mg PO HS [facility] Last Admin: 11/01/16 21:53 Dose: 5 mg Fluticasone/Salmeterol (Advair Diskus 500/50) 1 puff INH RQ12 [facility] Last Admin: 11/02/16 07:41 Dose: 1 puff Sitagliptin Phosphate (Januvia) 50 mg PO DAILY [facility] Last Admin: 11/01/16 10:21 Dose: 50 mg Spironolactone (Aldactone) 25 mg PO DAILY [facility] Last Admin: 11/01/16 10:21 Dose: 25 mg Tiotropium [place] (Spiriva) 18 mcg INH RQ24 [facility] Last Admin: 11/02/16 07:41 Dose: 18 mcg - Labs Labs: 11/01/16 07:53 11/01/16 07:53 PT 11.7 SECONDS (9.7-12.2) 11/01/16 17:02 INR 1.0 11/01/16 17:02 APTT 65 SECONDS (21-34) H D 11/01/16 17:02 - Constitutional Appears: Chronically Ill - Head Exam Head Exam: ATRAUMATIC, NORMAL INSPECTION, NORMOCEPHALIC - Eye Exam Eye Exam: Normal appearance. absent: Conjunctival injection, Scleral icterus Pupil Exam: NORMAL ACCOMODATION - ENT Exam ENT Exam: Mucous Membranes Moist - Neck Exam Neck Exam: Full ROM, Normal Inspection - Respiratory Exam Respiratory Exam: Decreased Breath Sounds, Rhonchi. absent: Accessory Muscle Use, Rales, Wheezes, Respiratory Distress - Cardiovascular Exam Cardiovascular Exam: +S1, +S2 - GI/Abdominal Exam GI & Abdominal Exam: Soft, Normal Bowel Sounds. absent: Tenderness - Extremities Exam Extremities Exam: Normal Inspection. absent: Pedal Edema - Neurological Exam Neurological Exam: Alert, Awake, Oriented x3 - Psychiatric Exam Psychiatric exam: Normal Affect, Normal Mood - Skin Skin Exam: Dry, Intact, Normal Color, Warm Assessment and Plan - Assessment and Plan (Free Text) Assessment: 80 year old Frisian speaking female with PMH of CHF, Asthma, HTN, DM presenting with SOB Plan: Dyspnea likely secondary to asthma exacerbation vs COPD elevated D-dimer 556 BNP 7440 V/Q scan: low probability for PE CXR: biapical pleural thickening with upper lobe granulomatous changes. Bilateral hilar prominence. no gross focal infiltrate or effusion. few scattered patchy opacities at the left lung apex and right mid lung zone. Venous duplex scan bilateral LEs: negative f/u CXR Azithromycin 500mg IVPB Q24 Cardio consult, Dr. Avendaño, help appreciated Pulm consult, Dr. Yusuf, help appreciated BiPAP PRN CHF ASA 81 mg PO daily Bystolic 5mg po daily Digoxin 0.125mg po daily Lasix 40 mg PO daily Losartan 50 mg PO daily Spironolactone 12.5 mg PO daily ICD to be changed at [facility] when patient's asthma improves as per cardio reccs Cardio consult Dr. Avendaño on board HTN ASA 81 mg PO daily Bystolic 5mg po daily Digoxin 0.125mg po daily Lasix 40 mg PO daily Losartan 50 mg PO daily Spironolactone 12.5 mg PO daily Crestor 5mg po hs Cardio consult Dr. 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 Avendaño cardiology need to speak to patient's family regarding goals of care Son telephone number: [phone] DM Januvia 50 mg pO daily ISS Accuchecks ACHS Asthma Exacerbation Duoneb 3ml inh RQ6H Solu-medrol 40 mg IVP Q8H Singulair 10 mg PO HS Advair 1puff inh q12 BiPAP Pulm consult, Dr. Yusuf, help appreciated Persistent Cough Phenergan with codeine 5ml PO Q6H PRN f/u CXR Azithromycin 500mg IVPB Q24 History of Arthritis Celecoxib 200 mg PO BID PRN Prophylactic Measures Protonix 40 mg IVP daily Heparin 5000U SC Q8 MVM SCDs Tylenol for headache 650mg po q6 prn Case discussed with Dr. Marek Hsieh PGY1 <Shaw Jara Jr. - Last Filed: 11/07/16 14:49> Objective - Vital Signs/Intake and Output Vital Signs (last 24 hours): Temp Pulse Resp BP Pulse Ox 98.0 F 72 20 161/64 H 98 11/07/16 07:22 11/07/16 13:51 11/07/16 07:22 11/07/16 09:28 11/07/16 13:51 Intake and Output: 11/07/16 11/07/16 06:59 18:59 Intake Total 470 Balance 470 - Medications Medications: Current Medications Acetaminophen (Tylenol 325mg Tab) 650 mg PO Q6 PRN PRN Reason: Headache Last Admin: 11/04/16 20:44 Dose: 650 mg Aspirin (Ecotrin) 81 mg PO DAILY [facility] Last Admin: 11/07/16 09:26 Dose: 81 mg Digoxin (Lanoxin) 0.125 mg PO DAILY@1800 [facility] Last Admin: 11/06/16 18:02 Dose: 0.125 mg Docusate Sodium (Colace) 100 mg PO BID [facility] Last Admin: 11/07/16 09:28 Dose: 100 mg Furosemide (Lasix) 40 mg PO DAILY [facility] Last Admin: 11/07/16 09:28 Dose: 40 mg Glimepiride (Amaryl) 2 mg PO ACB [facility] Last Admin: 11/07/16 08:49 Dose: 2 mg Guaifenesin (Mucinex La) 600 mg PO BID [facility] Last Admin: 11/07/16 09:28 Dose: 600 mg Heparin Sodium (Porcine) (Heparin) 5,000 units SC Q8 [facility] Last Admin: 11/07/16 14:05 Dose: 5,000 units Azithromycin 500 mg/ Sodium (Chloride) 250 mls @ 167 mls/hr IVPB Q24H [facility] Last Admin: 11/07/16 13:30 Dose: 167 mls/hr Insulin Human Regular (Novolin R) 0 unit SC ACHS [facility] PRN Reason: Protocol Last Admin: 11/07/16 12:49 Dose: 10 unit Losartan Potassium (Cozaar) 50 mg PO DAILY [facility] Last Admin: 11/07/16 09:28 Dose: 50 mg Methylprednisolone (Solu-Medrol) 40 mg IVP Q8H [facility] Last Admin: 11/07/16 14:03 Dose: 40 mg Montelukast Sodium (Singulair) 10 mg PO HS [facility] Last Admin: 11/06/16 22:34 Dose: 10 mg Multivitamins (Hexavitamin) 1 tab PO DAILY [facility] Last Admin: 11/07/16 09:28 Dose: 1 tab Nebivolol (Bystolic) 5 mg PO DAILY [facility] Last Admin: 11/07/16 09:26 Dose: 5 mg Pantoprazole Sodium (Protonix Inj) 40 mg IVP DAILY [facility] Last Admin: 11/07/16 09:30 Dose: 40 mg Promethazine HCl/Codeine (Phenergan/Codeine Oral Syrup) 5 ml PO Q6H PRN PRN Reason: Cough Last Admin: 11/05/16 09:35 Dose: 5 ml Rosuvastatin Calcium (Crestor) 5 mg PO HS [facility] Last Admin: 11/06/16 22:34 Dose: 5 mg Fluticasone/Salmeterol (Advair Diskus 500/50) 1 puff INH RQ12 [facility] Last Admin: 11/07/16 08:07 Dose: 1 puff Scopolamine (Transderm-Scop) 1 patch TD Q3D [facility] Last Admin: 11/05/16 13:47 Dose: 1 patch Sitagliptin Phosphate (Januvia) 50 mg PO DAILY [facility] Last Admin: 11/07/16 09:31 Dose: 50 mg Spironolactone (Aldactone) 25 mg PO DAILY [facility] Last Admin: 11/07/16 09:32 Dose: 25 mg Tiotropium [place] (Spiriva) 18 mcg INH RQ24 [facility] Last Admin: 11/07/16 08:07 Dose: 18 mcg - Labs Labs: 11/07/16 07:58 11/07/16 07:58 PT 11.7 SECONDS (9.7-12.2) 11/01/16 17:02 INR 1.0 11/01/16 17:02 APTT 65 SECONDS (21-34) H D 11/01/16 17:02 Attending/Attestation - Attestation I have personally seen and examined this patient.: Yes I have fully participated in the care of the patient.: Yes I have reviewed all pertinent clinical information, including history, physical exam and plan: Yes Notes (Text): 11/07/16 14:49 Agree with resident's findings and plan of care
[2016-11-02] MEDS: (Novolin R) Insulin Human Regular 100 units/ml vial SC SCH ×4 (08:00→21:53)
[2016-11-02 08:14] LABS: HEMATOCRIT 27.8 % (34.0-47.0); LYMPH # 0.5 K/uL (1.0-4.3); LYMPH % 9.3 % (20.0-40.0); MEAN CORPUSCULAR HGB CONC 33.7 g/dL (33.0-37.0); MEAN PLATELET VOLUME 7.4 fL (7.2-11.7); MONO # 0.3 K/uL (0.0-0.8); MONO % 5.3 % (0.0-10.0); PLATELET COUNT 260 K/uL (130-400); RED CELL DISTRIBUTION WIDTH 14.9 % (11.5-14.5); WHITE BLOOD COUNT 5.7 K/uL (4.8-10.8)
[2016-11-02 08:28] LABS: BILIRUBIN,TOTAL 0.5 mg/dL (0.2-1.3)
[2016-11-02 08:29] LABS: ALB/GLOB RATIO 1.2 (1.0-2.1); CALCIUM 8.4 mg/dl (8.6-10.4); TOTAL PROTEIN 6.2 g/dL (6.3-8.3)
[2016-11-02 08:30] LABS: MAGNESIUM 2.4 mg/dL (1.6-2.3)
[2016-11-02 08:42] LABS: TOTAL CELLS COUNTED 100
[2016-11-02 08:44] LABS: NEUTROPHIL 85 % (50-75)
[2016-11-02 08:45] LABS: ACANTHOCYTES SLIGHT
[2016-11-02] MEDS: Multiple Vitamins Tab PO SCH (10:56)
[2016-11-02] MEDS: guaiFENesin 600 mg ER Tab PO SCH ×2 (10:56→18:13)
--- NOTE | 2016-11-02 11:05 | VASCLAB ---
PROCEDURE: HISTORY: abdominal pain COMPARISON: None available. TECHNIQUE: Grayscale and duplex Doppler evaluation of the mesenteric arteries. Report prepared by AUSTIN Boyce, RVT FINDINGS: * Suprarenal: Peak Systolic Velocity - 120: Doppler Waveform: Biphasic: EDV- 0 * Celiac: o Proximal Celiac : Peak Systolic Velocity - 635: Doppler Waveform: Biphasic.: EDV- 195 o Distal Celiac: Peak Systolic Velocity - 835: Doppler Waveform: Biphasic: EDV- 255 * Proximal Hepatic: Peak Systolic Velocity - 354: Doppler Waveform: Biphasic: EDV- 82 * Proximal Splenic: Peak Systolic Velocity - 239: Doppler Waveform: Biphasic: EDV- 47 * Mesenteric o Proximal Superior Mesenteric: Peak Systolic Velocity - 796: Doppler Waveform: Biphasic: EDV- 239 o Mid Superior Mesenteric: Peak Systolic Velocity - 533: Doppler Waveform: Biphasic: EDV- 222 o Distal Superior Mesenteric: Peak Systolic Velocity - 180: Doppler Waveform: Biphasic: EDV- 37 o Proximal Inferior Mesenteric: Peak Systolic Velocity - 999: Doppler Waveform: Biphasic: EDV- 212 OTHER FINDINGS: Technically difficult study due severe arterial wall calcifications. RN Glendy notified about the findings. 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 CT Angiography is recommended for further characterization of disease.
[2016-11-02] MEDS: Digoxin 125 mcg (0.125 mg) Tab PO SCH (18:12)
[2016-11-02] MEDS: Promethazine/Cod 6.25mg-10mg/5ml Syr UD PO PRN (21:50)
[2016-11-03] MEDS: Albuterol-Ipratrop 3 mg / 0.5 (3 ml) UD INH SCH ×4 (01:12→19:32)
[2016-11-03] MEDS: MethylPREDNISolone 40 mg Vial IVP SCH ×3 (06:01→21:38)
[2016-11-03] MEDS: Tiotropium 18 mcg Cap For Inhalation INH SCH (07:40)
[2016-11-03] MEDS: Fluticasone-Salmeterol 500-50mcg Diskus INH SCH ×2 (07:40→19:32)
[2016-11-03 08:09] LABS: POTASSIUM 4.5 mmol/L (3.6-5.2)
[2016-11-03 08:11] LABS: ALB/GLOB RATIO 1.1 (1.0-2.1); BILIRUBIN,TOTAL 0.5 mg/dL (0.2-1.3); TOTAL PROTEIN 6.1 g/dL (6.3-8.3)
[2016-11-03 08:12] LABS: CALCIUM 8.2 mg/dl (8.6-10.4)
[2016-11-03 08:15] LABS: BASO % 0.1 % (0.0-2.0); HEMATOCRIT 26.5 % (34.0-47.0); LYMPH # 0.6 K/uL (1.0-4.3); LYMPH % 8.7 % (20.0-40.0); MEAN CELL VOLUME 85.9 fL (81.0-99.0); MEAN CORPUSCULAR HEMOGLOBIN 29.1 pg (27.0-31.0); MEAN CORPUSCULAR HGB CONC 33.8 g/dL (33.0-37.0); MEAN PLATELET VOLUME 7.3 fL (7.2-11.7); MONO # 0.4 K/uL (0.0-0.8); MONO % 5.3 % (0.0-10.0); NRBC % 0.1 % (0.0-2.0); PLATELET COUNT 262 K/uL (130-400)
[2016-11-03] MEDS: (Novolin R) Insulin Human Regular 100 units/ml vial SC SCH ×4 (08:15→21:36)
[2016-11-03] MEDS: Multiple Vitamins Tab PO SCH (09:56)
[2016-11-03] MEDS: guaiFENesin 600 mg ER Tab PO SCH ×2 (09:56→18:00)
[2016-11-03] MEDS: Promethazine/Cod 6.25mg-10mg/5ml Syr UD PO PRN ×2 (09:59→11:20)
[2016-11-03 10:56] LABS: NEUTROPHIL 83 % (50-75); TOTAL CELLS COUNTED 100
[2016-11-03] MEDS: Azithromycin 500 MG in Sodium Chloride 0.9% 250 ML IVPB SCH (12:14)
--- NOTE | 2016-11-03 12:14 | RAD ---
HISTORY: G shortness of breath and cough COMPARISON: 10/29/2016 TECHNIQUE: Chest PA and lateral FINDINGS: LUNGS: No active pulmonary disease. PLEURA: No significant pleural effusion identified. No pneumothorax apparent. CARDIOVASCULAR: No radiographic findings to suggest acute or significant cardiovascular disease. Position/ configuration of pacemaker device: Satisfactory. OSSEOUS STRUCTURES: No significant abnormalities. VISUALIZED UPPER ABDOMEN: Normal. OTHER FINDINGS: None. IMPRESSION: No active disease. No significant interval change compared to the prior examination(s).
--- NOTE | 2016-11-03 15:47 | CP.PCM.PN ---
<Rodger Hsiehima - Last Filed: 11/03/16 15:44> Subjective - Date & Time of Evaluation Date of Evaluation: 11/03/16 Time of Evaluation: 09:00 - Subjective Subjective: PGY1 Medicine note for Dr. Jara Patient seen and examined at bedside. She is in good spirits this AM. Patient continues to complain of a productive cough but SOB has improved. She continues to have chronic chest pressure and tiredness, unchanged. She denies fever, chills, palpitations, abdominal pain, nausea, vomiting, bowel/bladder complaints. Objective - Vital Signs/Intake and Output Vital Signs (last 24 hours): Temp Pulse Resp BP Pulse Ox 98.0 F 77 20 151/78 H 100 11/03/16 08:27 11/03/16 08:27 11/03/16 08:27 11/03/16 09:55 11/03/16 08:27 - Medications Medications: Current Medications Acetaminophen (Tylenol 325mg Tab) 650 mg PO Q6 PRN PRN Reason: Headache Last Admin: 10/31/16 02:08 Dose: 650 mg Albuterol/Ipratropium (Duoneb 3 Mg/0.5 Mg (3 Ml) Ud) 3 ml INH RQ6 [facility] Last Admin: 11/03/16 13:13 Dose: 3 ml Aspirin (Ecotrin) 81 mg PO DAILY [facility] Last Admin: 11/03/16 09:55 Dose: 81 mg Digoxin (Lanoxin) 0.125 mg PO DAILY@1800 [facility] Last Admin: 11/02/16 18:12 Dose: 0.125 mg Docusate Sodium (Colace) 100 mg PO BID [facility] Last Admin: 11/03/16 09:56 Dose: 100 mg Furosemide (Lasix) 40 mg PO DAILY [facility] Last Admin: 11/03/16 09:55 Dose: 40 mg Guaifenesin (Mucinex La) 600 mg PO BID [facility] Last Admin: 11/03/16 09:56 Dose: 600 mg Heparin Sodium (Porcine) (Heparin) 5,000 units SC Q8 [facility] Last Admin: 11/03/16 13:54 Dose: 5,000 units Azithromycin 500 mg/ Sodium (Chloride) 250 mls @ 167 mls/hr IVPB Q24H [facility] Last Admin: 11/03/16 12:14 Dose: 167 mls/hr Insulin Human Regular (Novolin R) 0 unit SC ACHS [facility]ULI PRN Reason: Protocol Last Admin: 11/03/16 12:15 Dose: 5 unit Losartan Potassium (Cozaar) 50 mg PO DAILY [facility] Last Admin: 11/03/16 09:55 Dose: 50 mg Methylprednisolone (Solu-Medrol) 40 mg IVP Q8H [facility] Last Admin: 11/03/16 13:53 Dose: 40 mg Montelukast Sodium (Singulair) 10 mg PO HS [facility] Last Admin: 11/02/16 21:50 Dose: 10 mg Multivitamins (Hexavitamin) 1 tab PO DAILY [facility] Last Admin: 11/03/16 09:56 Dose: 1 tab Nebivolol (Bystolic) 5 mg PO DAILY [facility] Last Admin: 11/03/16 09:59 Dose: 5 mg Pantoprazole Sodium (Protonix Inj) 40 mg IVP DAILY [facility] Last Admin: 11/03/16 09:56 Dose: 40 mg Promethazine HCl/Codeine (Phenergan/Codeine Oral Syrup) 5 ml PO Q6H PRN PRN Reason: Cough Last Admin: 11/03/16 11:20 Dose: 5 ml Rosuvastatin Calcium (Crestor) 5 mg PO HS [facility] Last Admin: 11/02/16 21:54 Dose: 5 mg Fluticasone/Salmeterol (Advair Diskus 500/50) 1 puff INH RQ12 [facility] Last Admin: 11/03/16 07:40 Dose: 1 puff Sitagliptin Phosphate (Januvia) 50 mg PO DAILY [facility] Last Admin: 11/03/16 09:57 Dose: 50 mg Spironolactone (Aldactone) 25 mg PO DAILY [facility] Last Admin: 11/03/16 09:56 Dose: 25 mg Tiotropium [place] (Spiriva) 18 mcg INH RQ24 [facility] Last Admin: 11/03/16 07:40 Dose: 18 mcg - Labs Labs: 11/03/16 07:49 11/03/16 07:49 PT 11.7 SECONDS (9.7-12.2) 11/01/16 17:02 INR 1.0 11/01/16 17:02 APTT 65 SECONDS (21-34) H D 11/01/16 17:02 - Constitutional Appears: Non-toxic, No Acute Distress, Cachectic, Chronically Ill - Head Exam Head Exam: ATRAUMATIC, NORMAL INSPECTION, NORMOCEPHALIC - Eye Exam Eye Exam: Normal appearance. absent: Conjunctival injection, Scleral icterus - ENT Exam ENT Exam: Mucous Membranes Moist - Neck Exam Neck Exam: Full ROM, Normal Inspection. absent: Tenderness - Respiratory Exam Respiratory Exam: Decreased Breath Sounds, Rhonchi, NORMAL BREATHING PATTERN. absent: Accessory Muscle Use, Rales, Respiratory Distress - Cardiovascular Exam Cardiovascular Exam: +S1, +S2 - GI/Abdominal Exam GI & Abdominal Exam: Soft, Normal Bowel Sounds. absent: Firm, Guarding, Rigid, Tenderness - Rectal Exam Rectal Exam: Deferred - Extremities Exam Extremities Exam: Normal Capillary Refill, Normal Inspection. absent: Pedal Edema - Back Exam Back Exam: NORMAL INSPECTION. absent: rash noted, tenderness - Neurological Exam Neurological Exam: Alert, Awake, Oriented x3 - Psychiatric Exam Psychiatric exam: Normal Affect, Normal Mood - Skin Skin Exam: Dry, Intact, Normal Color, Warm Assessment and Plan - Assessment and Plan (Free Text) Assessment: 80 year old Telugu speaking female with PMH of CHF, Asthma, HTN, DM presenting with SOB Plan: Dyspnea likely secondary to asthma exacerbation vs COPD elevated D-dimer 556 BNP 7440 V/Q scan: low probability for PE CXR: biapical pleural thickening with upper lobe granulomatous changes. Bilateral hilar prominence. no gross focal infiltrate or effusion. few scattered patchy opacities at the left lung apex and right mid lung zone. Venous duplex scan bilateral LEs: negative CXR: no active disease Azithromycin 500mg IVPB Q24 Cardio consult, Dr. Avendaño, help appreciated Pulm consult, Dr. Yusuf, help appreciated BiPAP PRN CHF ASA 81 mg PO daily Bystolic 5mg po daily Digoxin 0.125mg po daily Lasix 40 mg PO daily Losartan 50 mg PO daily Spironolactone 12.5 mg PO daily ICD to be changed at [facility] when patient's asthma improves as per cardio reccs Cardio consult Dr. Avendaño on board HTN ASA 81 mg PO daily Bystolic 5mg po daily Digoxin 0.125mg po daily Lasix 40 mg PO daily Losartan 50 mg PO daily Spironolactone 12.5 mg PO daily Crestor 5mg po hs Cardio consult Dr. 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 Avendaño cardiology need to speak to patient's family regarding goals of care Son telephone number: [phone] DM Januvia 50 mg pO daily ISS Accuchecks ACHS Asthma Exacerbation Duoneb 3ml inh RQ6H Solu-medrol 40 mg IVP Q8H Singulair 10 mg PO HS Advair 1puff inh q12 BiPAP Pulm consult, Dr. Yusuf, help appreciated Persistent Cough Phenergan with codeine 5ml PO Q6H PRN CXR: no active disease Azithromycin 500mg IVPB Q24 History of Arthritis Celecoxib 200 mg PO BID PRN Prophylactic Measures Protonix 40 mg IVP daily Heparin 5000U SC Q8 M[facility] SCDs Tylenol for headache 650mg po q6 prn Will discuss with Dr. Marek Hsieh PGY1 <Shaw Jara Jr. - Last Filed: 11/07/16 14:50> Objective - Vital Signs/Intake and Output Vital Signs (last 24 hours): Temp Pulse Resp BP Pulse Ox 98.0 F 72 20 161/64 H 98 11/07/16 07:22 11/07/16 13:51 11/07/16 07:22 11/07/16 09:28 11/07/16 13:51 Intake and Output: 11/07/16 11/07/16 06:59 18:59 Intake Total 470 Balance 470 - Medications Medications: Current Medications Acetaminophen (Tylenol 325mg Tab) 650 mg PO Q6 PRN PRN Reason: Headache Last Admin: 11/04/16 20:44 Dose: 650 mg Aspirin (Ecotrin) 81 mg PO DAILY [facility] Last Admin: 11/07/16 09:26 Dose: 81 mg Digoxin (Lanoxin) 0.125 mg PO DAILY@1800 [facility] Last Admin: 11/06/16 18:02 Dose: 0.125 mg Docusate Sodium (Colace) 100 mg PO BID [facility] Last Admin: 11/07/16 09:28 Dose: 100 mg Furosemide (Lasix) 40 mg PO DAILY [facility] Last Admin: 11/07/16 09:28 Dose: 40 mg Glimepiride (Amaryl) 2 mg PO ACB [facility] Last Admin: 11/07/16 08:49 Dose: 2 mg Guaifenesin (Mucinex La) 600 mg PO BID [facility] Last Admin: 11/07/16 09:28 Dose: 600 mg Heparin Sodium (Porcine) (Heparin) 5,000 units SC Q8 [facility] Last Admin: 11/07/16 14:05 Dose: 5,000 units Azithromycin 500 mg/ Sodium (Chloride) 250 mls @ 167 mls/hr IVPB Q24H [facility] Last Admin: 11/07/16 13:30 Dose: 167 mls/hr Insulin Human Regular (Novolin R) 0 unit SC ACHS [facility] PRN Reason: Protocol Last Admin: 11/07/16 12:49 Dose: 10 unit Losartan Potassium (Cozaar) 50 mg PO DAILY [facility] Last Admin: 11/07/16 09:28 Dose: 50 mg Methylprednisolone (Solu-Medrol) 40 mg IVP Q8H [facility] Last Admin: 11/07/16 14:03 Dose: 40 mg Montelukast Sodium (Singulair) 10 mg PO HS [facility] Last Admin: 11/06/16 22:34 Dose: 10 mg Multivitamins (Hexavitamin) 1 tab PO DAILY [facility] Last Admin: 11/07/16 09:28 Dose: 1 tab Nebivolol (Bystolic) 5 mg PO DAILY [facility] Last Admin: 11/07/16 09:26 Dose: 5 mg Pantoprazole Sodium (Protonix Inj) 40 mg IVP DAILY [facility] Last Admin: 11/07/16 09:30 Dose: 40 mg Promethazine HCl/Codeine (Phenergan/Codeine Oral Syrup) 5 ml PO Q6H PRN PRN Reason: Cough Last Admin: 11/05/16 09:35 Dose: 5 ml Rosuvastatin Calcium (Crestor) 5 mg PO HS [facility] Last Admin: 11/06/16 22:34 Dose: 5 mg Fluticasone/Salmeterol (Advair Diskus 500/50) 1 puff INH RQ12 [facility] Last Admin: 11/07/16 08:07 Dose: 1 puff Scopolamine (Transderm-Scop) 1 patch TD Q3D [facility] Last Admin: 11/05/16 13:47 Dose: 1 patch Sitagliptin Phosphate (Januvia) 50 mg PO DAILY [facility] Last Admin: 11/07/16 09:31 Dose: 50 mg Spironolactone (Aldactone) 25 mg PO DAILY [facility] Last Admin: 11/07/16 09:32 Dose: 25 mg Tiotropium [place] (Spiriva) 18 mcg INH RQ24 [facility] Last Admin: 11/07/16 08:07 Dose: 18 mcg - Labs Labs: 11/07/16 07:58 11/07/16 07:58 PT 11.7 SECONDS (9.7-12.2) 11/01/16 17:02 INR 1.0 11/01/16 17:02 APTT 65 SECONDS (21-34) H D 11/01/16 17:02 Attending/Attestation - Attestation I have personally seen and examined this patient.: Yes I have fully participated in the care of the patient.: Yes I have reviewed all pertinent clinical information, including history, physical exam and plan: Yes Notes (Text): 11/07/16 14:50 Agree with resident's findings and plan of care
[2016-11-03] MEDS: Digoxin 125 mcg (0.125 mg) Tab PO SCH (18:00)
[2016-11-04] MEDS: Albuterol-Ipratrop 3 mg / 0.5 (3 ml) UD INH SCH (01:49)
[2016-11-04] MEDS ORDERED: (Novolin R) Insulin Human Regular 100 units/ml vial SC ONE ×2 (02:24→03:53)
[2016-11-04] MEDS: MethylPREDNISolone 40 mg Vial IVP SCH ×4 (06:11→21:53)
[2016-11-04] MEDS: (Novolin R) Insulin Human Regular 100 units/ml vial SC SCH ×4 (06:39→21:47)
[2016-11-04] MEDS: Fluticasone-Salmeterol 500-50mcg Diskus INH SCH ×2 (07:16→19:30)
[2016-11-04] MEDS: Tiotropium 18 mcg Cap For Inhalation INH SCH (07:16)
--- NOTE | 2016-11-04 07:56 | CP.PCM.PN ---
<Petrona Hsieh - Last Filed: 11/05/16 11:55> Subjective - Date & Time of Evaluation Date of Evaluation: 11/04/16 Time of Evaluation: 10:00 - Subjective Subjective: PGY1 Medicine note for Dr. Jara Patient seen and examined at bedside. Patient reports feeling better this AM and that her cough had slightly improved. She complained about the food saying that she doesn't eat much as she doesn't like it. She continues to have some chest pressure and tiredness. Patient has been encouraged to be OOB to chair. She denied acute chest pain, palpitations, SOB, abd pain, nausea, vomiting, bowel/bladder complaints. Objective - Vital Signs/Intake and Output Vital Signs (last 24 hours): Temp Pulse Resp BP Pulse Ox 97.9 F 82 20 146/67 97 11/03/16 23:10 11/04/16 00:00 11/03/16 23:10 11/03/16 23:10 11/03/16 23:10 Intake and Output: 11/04/16 11/04/16 06:59 18:59 Intake Total 560 Balance 560 - Medications Medications: Current Medications Acetaminophen (Tylenol 325mg Tab) 650 mg PO Q6 PRN PRN Reason: Headache Last Admin: 10/31/16 02:08 Dose: 650 mg Aspirin (Ecotrin) 81 mg PO DAILY [facility] Last Admin: 11/03/16 09:55 Dose: 81 mg Digoxin (Lanoxin) 0.125 mg PO DAILY@1800 [facility] Last Admin: 11/03/16 18:00 Dose: 0.125 mg Docusate Sodium (Colace) 100 mg PO BID [facility] Last Admin: 11/03/16 17:59 Dose: 100 mg Furosemide (Lasix) 40 mg PO DAILY [facility] Last Admin: 11/03/16 09:55 Dose: 40 mg Guaifenesin (Mucinex La) 600 mg PO BID [facility] Last Admin: 11/03/16 18:00 Dose: 600 mg Heparin Sodium (Porcine) (Heparin) 5,000 units SC Q8 [facility] Last Admin: 11/04/16 06:10 Dose: 5,000 units Azithromycin 500 mg/ Sodium (Chloride) 250 mls @ 167 mls/hr IVPB Q24H [facility] Last Admin: 11/03/16 12:14 Dose: 167 mls/hr Insulin Human Regular (Novolin R) 0 unit SC ACHS [facility] PRN Reason: Protocol Last Admin: 11/04/16 06:39 Dose: 10 unit Losartan Potassium (Cozaar) 50 mg PO DAILY [facility] Last Admin: 11/03/16 09:55 Dose: 50 mg Methylprednisolone (Solu-Medrol) 40 mg IVP Q8H [facility] Last Admin: 11/04/16 06:11 Dose: 40 mg Montelukast Sodium (Singulair) 10 mg PO HS [facility] Last Admin: 11/03/16 21:38 Dose: 10 mg Multivitamins (Hexavitamin) 1 tab PO DAILY [facility] Last Admin: 11/03/16 09:56 Dose: 1 tab Nebivolol (Bystolic) 5 mg PO DAILY [facility] Last Admin: 11/03/16 09:59 Dose: 5 mg Pantoprazole Sodium (Protonix Inj) 40 mg IVP DAILY [facility] Last Admin: 11/03/16 09:56 Dose: 40 mg Promethazine HCl/Codeine (Phenergan/Codeine Oral Syrup) 5 ml PO Q6H PRN PRN Reason: Cough Last Admin: 11/03/16 11:20 Dose: 5 ml Rosuvastatin Calcium (Crestor) 5 mg PO HS [facility] Last Admin: 11/03/16 21:53 Dose: 5 mg Fluticasone/Salmeterol (Advair Diskus 500/50) 1 puff INH RQ12 [facility] Last Admin: 11/04/16 07:16 Dose: 1 puff Sitagliptin Phosphate (Januvia) 50 mg PO DAILY [facility] Last Admin: 11/03/16 09:57 Dose: 50 mg Spironolactone (Aldactone) 25 mg PO DAILY [facility] Last Admin: 11/03/16 09:56 Dose: 25 mg Tiotropium [place] (Spiriva) 18 mcg INH RQ24 [facility] Last Admin: 11/04/16 07:16 Dose: 18 mcg - Labs Labs: 11/03/16 07:49 11/03/16 07:49 PT 11.7 SECONDS (9.7-12.2) 11/01/16 17:02 INR 1.0 11/01/16 17:02 APTT 65 SECONDS (21-34) H D 11/01/16 17:02 - Constitutional Appears: Non-toxic, No Acute Distress, Chronically Ill - Head Exam Head Exam: NORMAL INSPECTION - Eye Exam Eye Exam: Normal appearance. absent: Conjunctival injection, Scleral icterus Pupil Exam: NORMAL ACCOMODATION - ENT Exam ENT Exam: Mucous Membranes Moist - Neck Exam Neck Exam: Normal Inspection - Respiratory Exam Respiratory Exam: Clear to Ausculation Bilateral, Wheezes (scattered), NORMAL BREATHING PATTERN. absent: Accessory Muscle Use, Rales, Rhonchi, Respiratory Distress - Cardiovascular Exam Cardiovascular Exam: +S1, +S2 - GI/Abdominal Exam GI & Abdominal Exam: Soft, Normal Bowel Sounds. absent: Tenderness - Extremities Exam Extremities Exam: Normal Capillary Refill, Normal Inspection. absent: Pedal Edema, Tenderness - Back Exam Back Exam: NORMAL INSPECTION. absent: rash noted - Neurological Exam Neurological Exam: Alert, Awake, Oriented x3 - Psychiatric Exam Psychiatric exam: Normal Affect, Normal Mood - Skin Skin Exam: Dry, Intact, Normal Color, Warm Assessment and Plan - Assessment and Plan (Free Text) Assessment: 80 year old Tajik speaking female with PMH of CHF, Asthma, HTN, DM presenting with SOB Plan: Dyspnea likely secondary to asthma exacerbation vs COPD elevated D-dimer 556 BNP 7440 V/Q scan: low probability for PE CXR: biapical pleural thickening with upper lobe granulomatous changes. Bilateral hilar prominence. no gross focal infiltrate or effusion. few scattered patchy opacities at the left lung apex and right mid lung zone. Venous duplex scan bilateral LEs: negative CXR: no active disease Azithromycin 500mg IVPB Q24 Cardio consult, Dr. Avendaño, help appreciated Pulm consult, Dr. Yusuf, help appreciated BiPAP PRN CHF ASA 81 mg PO daily Bystolic 5mg po daily Digoxin 0.125mg po daily Lasix 40 mg PO daily Losartan 50 mg PO daily Spironolactone 12.5 mg PO daily ICD to be changed at [facility] [place] when patient's asthma improves as per cardio reccs Cardio consult Dr. Avendaño on board HTN ASA 81 mg PO daily Bystolic 5mg po daily Digoxin 0.125mg po daily Lasix 40 mg PO daily Losartan 50 mg PO daily Spironolactone 12.5 mg PO daily Crestor 5mg po hs Cardio consult Dr. 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 Avendaño cardiology need to speak to patient's family regarding goals of care Son telephone number: [phone] DM Januvia 50 mg pO daily ISS Accuchecks ACHS Asthma Exacerbation Duoneb 3ml inh RQ6H Solu-medrol 40 mg IVP Q8H Singulair 10 mg PO HS Advair 1puff inh q12 BiPAP Pulm consult, Dr. Yusuf, help appreciated Persistent Cough Phenergan with codeine 5ml PO Q6H PRN CXR: no active disease Azithromycin 500mg IVPB Q24 History of Arthritis Celecoxib 200 mg PO BID PRN Prophylactic Measures Protonix 40 mg IVP daily Heparin 5000U SC Q8 MVM SCDs Tylenol for headache 650mg po q6 prn Will discuss with Dr. Marek Hsieh PGY1 <Shaw Jara Jr. - Last Filed: 11/07/16 14:56> Objective - Vital Signs/Intake and Output Vital Signs (last 24 hours): Temp Pulse Resp BP Pulse Ox 98.0 F 72 20 161/64 H 98 11/07/16 07:22 11/07/16 13:51 11/07/16 07:22 11/07/16 09:28 11/07/16 13:51 Intake and Output: 11/07/16 11/07/16 06:59 18:59 Intake Total 470 Balance 470 - Medications Medications: Current Medications Acetaminophen (Tylenol 325mg Tab) 650 mg PO Q6 PRN PRN Reason: Headache Last Admin: 11/04/16 20:44 Dose: 650 mg Aspirin (Ecotrin) 81 mg PO DAILY [facility] Last Admin: 11/07/16 09:26 Dose: 81 mg Digoxin (Lanoxin) 0.125 mg PO DAILY@1800 [facility] Last Admin: 11/06/16 18:02 Dose: 0.125 mg Docusate Sodium (Colace) 100 mg PO BID [facility] Last Admin: 11/07/16 09:28 Dose: 100 mg Furosemide (Lasix) 40 mg PO DAILY [facility] Last Admin: 11/07/16 09:28 Dose: 40 mg Glimepiride (Amaryl) 2 mg PO ACB [facility] Last Admin: 11/07/16 08:49 Dose: 2 mg Guaifenesin (Mucinex La) 600 mg PO BID [facility] Last Admin: 11/07/16 09:28 Dose: 600 mg Heparin Sodium (Porcine) (Heparin) 5,000 units SC Q8 [facility] Last Admin: 11/07/16 14:05 Dose: 5,000 units Azithromycin 500 mg/ Sodium (Chloride) 250 mls @ 167 mls/hr IVPB Q24H [facility] Last Admin: 11/07/16 13:30 Dose: 167 mls/hr Insulin Human Regular (Novolin R) 0 unit SC ACHS [facility] PRN Reason: Protocol Last Admin: 11/07/16 12:49 Dose: 10 unit Losartan Potassium (Cozaar) 50 mg PO DAILY [facility] Last Admin: 11/07/16 09:28 Dose: 50 mg Methylprednisolone (Solu-Medrol) 40 mg IVP Q8H [facility] Last Admin: 11/07/16 14:03 Dose: 40 mg Montelukast Sodium (Singulair) 10 mg PO HS [facility] Last Admin: 11/06/16 22:34 Dose: 10 mg Multivitamins (Hexavitamin) 1 tab PO DAILY [facility] Last Admin: 11/07/16 09:28 Dose: 1 tab Nebivolol (Bystolic) 5 mg PO DAILY [facility] Last Admin: 11/07/16 09:26 Dose: 5 mg Pantoprazole Sodium (Protonix Inj) 40 mg IVP DAILY [facility] Last Admin: 11/07/16 09:30 Dose: 40 mg Promethazine HCl/Codeine (Phenergan/Codeine Oral Syrup) 5 ml PO Q6H PRN PRN Reason: Cough Last Admin: 11/05/16 09:35 Dose: 5 ml Rosuvastatin Calcium (Crestor) 5 mg PO HS [facility] Last Admin: 11/06/16 22:34 Dose: 5 mg Fluticasone/Salmeterol (Advair Diskus 500/50) 1 puff INH RQ12 [facility] Last Admin: 11/07/16 08:07 Dose: 1 puff Scopolamine (Transderm-Scop) 1 patch TD Q3D [facility] Last Admin: 11/05/16 13:47 Dose: 1 patch Sitagliptin Phosphate (Januvia) 50 mg PO DAILY [facility] Last Admin: 11/07/16 09:31 Dose: 50 mg Spironolactone (Aldactone) 25 mg PO DAILY [facility] Last Admin: 11/07/16 09:32 Dose: 25 mg Tiotropium [place] (Spiriva) 18 mcg INH RQ24 [facility] Last Admin: 11/07/16 08:07 Dose: 18 mcg - Labs Labs: 11/07/16 07:58 11/07/16 07:58 PT 11.7 SECONDS (9.7-12.2) 11/01/16 17:02 INR 1.0 11/01/16 17:02 APTT 65 SECONDS (21-34) H D 11/01/16 17:02 Attending/Attestation - Attestation I have personally seen and examined this patient.: Yes I have fully participated in the care of the patient.: Yes I have reviewed all pertinent clinical information, including history, physical exam and plan: Yes Notes (Text): 11/07/16 14:56 Agree with resident's findings and plan of care
[2016-11-04 08:07] LABS: BASO % 0.1 % (0.0-2.0); HEMATOCRIT 28.4 % (34.0-47.0); LYMPH # 0.5 K/uL (1.0-4.3); LYMPH % 7.6 % (20.0-40.0); MEAN CELL VOLUME 86.5 fL (81.0-99.0); MEAN CORPUSCULAR HGB CONC 33.5 g/dL (33.0-37.0); MONO # 0.6 K/uL (0.0-0.8); MONO % 8.2 % (0.0-10.0); NRBC % 0.1 % (0.0-2.0); PLATELET COUNT 270 K/uL (130-400); RED CELL DISTRIBUTION WIDTH 14.4 % (11.5-14.5); WHITE BLOOD COUNT 7.1 K/uL (4.8-10.8)
[2016-11-04 08:16] LABS: POTASSIUM 4.6 mmol/L (3.6-5.2)
[2016-11-04 08:18] LABS: ALB/GLOB RATIO 1.1 (1.0-2.1); BILIRUBIN,TOTAL 0.6 mg/dL (0.2-1.3); PHOSPHOROUS 2.1 mg/dL (2.5-4.5); TOTAL PROTEIN 6.2 g/dL (6.3-8.3)
[2016-11-04 08:19] LABS: CALCIUM 8.6 mg/dl (8.6-10.4); MAGNESIUM 2.1 mg/dL (1.6-2.3)
[2016-11-04] MEDS: guaiFENesin 600 mg ER Tab PO SCH ×2 (09:40→18:00)
[2016-11-04] MEDS: Promethazine/Cod 6.25mg-10mg/5ml Syr UD PO PRN ×2 (09:45→21:55)
[2016-11-04] MEDS: Multiple Vitamins Tab PO SCH (09:45)
[2016-11-04 10:35] LABS: NEUTROPHIL 85 % (50-75); TOTAL CELLS COUNTED 100
[2016-11-04] MEDS: Azithromycin 500 MG in Sodium Chloride 0.9% 250 ML IVPB SCH (13:00)
[2016-11-04] MEDS: Digoxin 125 mcg (0.125 mg) Tab PO SCH (18:00)
--- NOTE | 2016-11-05 01:11 | CP.PCM.PN ---
<RosAlan - Last Filed: 11/05/16 01:11> Subjective - Date & Time of Evaluation Date of Evaluation: 11/05/16 Time of Evaluation: 01:11 - Subjective Subjective: PGY-1 Medicine Progress Note for Dr. Jara Patient seen and examined at bedside. No acute event overnight. Patient resting comfortably. Patient still complaining of productive cough. She states that her breathing has improved but occasionally will become short of breath. Admits to chest tightness and fatigue. Denies fever/chills, palpitations, abdominal pain, n/v/d, constipation, urinary complaints. Objective - Vital Signs/Intake and Output Vital Signs (last 24 hours): Temp Pulse Resp BP Pulse Ox 97.9 F 80 20 133/64 100 11/04/16 23:25 11/04/16 23:25 11/04/16 23:25 11/04/16 23:25 11/04/16 23:25 Intake and Output: 11/04/16 11/05/16 18:59 06:59 Intake Total 320 Balance 320 - Medications Medications: Current Medications Acetaminophen (Tylenol 325mg Tab) 650 mg PO Q6 PRN PRN Reason: Headache Last Admin: 11/04/16 20:44 Dose: 650 mg Aspirin (Ecotrin) 81 mg PO DAILY [facility] Last Admin: 11/04/16 09:52 Dose: 81 mg Digoxin (Lanoxin) 0.125 mg PO DAILY@1800 [facility] Last Admin: 11/04/16 18:00 Dose: 0.125 mg Docusate Sodium (Colace) 100 mg PO BID [facility] Last Admin: 11/04/16 18:00 Dose: 100 mg Furosemide (Lasix) 40 mg PO DAILY [facility] Last Admin: 11/04/16 09:40 Dose: 40 mg Guaifenesin (Mucinex La) 600 mg PO BID [facility] Last Admin: 11/04/16 18:00 Dose: 600 mg Heparin Sodium (Porcine) (Heparin) 5,000 units SC Q8 [facility] Last Admin: 11/04/16 21:53 Dose: 5,000 units Azithromycin 500 mg/ Sodium (Chloride) 250 mls @ 167 mls/hr IVPB Q24H [facility] Last Admin: 11/04/16 13:00 Dose: 167 mls/hr Insulin Human Regular (Novolin R) 0 unit SC ACHS [facility] PRN Reason: Protocol Last Admin: 11/04/16 21:47 Dose: Not Given Losartan Potassium (Cozaar) 50 mg PO DAILY [facility] Last Admin: 11/04/16 09:52 Dose: 50 mg Methylprednisolone (Solu-Medrol) 40 mg IVP Q8H [facility] Last Admin: 11/04/16 21:53 Dose: 40 mg Montelukast Sodium (Singulair) 10 mg PO HS [facility] Last Admin: 11/04/16 21:54 Dose: 10 mg Multivitamins (Hexavitamin) 1 tab PO DAILY [facility] Last Admin: 11/04/16 09:45 Dose: 1 tab Nebivolol (Bystolic) 5 mg PO DAILY [facility] Last Admin: 11/04/16 09:52 Dose: 5 mg Pantoprazole Sodium (Protonix Inj) 40 mg IVP DAILY [facility] Last Admin: 11/04/16 09:41 Dose: 40 mg Promethazine HCl/Codeine (Phenergan/Codeine Oral Syrup) 5 ml PO Q6H PRN PRN Reason: Cough Last Admin: 11/04/16 21:55 Dose: 5 ml Rosuvastatin Calcium (Crestor) 5 mg PO HS [facility] Last Admin: 11/04/16 21:54 Dose: 5 mg Fluticasone/Salmeterol (Advair Diskus 500/50) 1 puff INH RQ12 [facility] Last Admin: 11/04/16 19:30 Dose: 1 puff Sitagliptin Phosphate (Januvia) 50 mg PO DAILY [facility] Last Admin: 11/04/16 09:40 Dose: 50 mg Spironolactone (Aldactone) 25 mg PO DAILY [facility] Last Admin: 11/04/16 09:40 Dose: 25 mg Tiotropium [place] (Spiriva) 18 mcg INH RQ24 [facility] Last Admin: 11/04/16 07:16 Dose: 18 mcg - Labs Labs: 11/04/16 07:43 11/04/16 07:43 PT 11.7 SECONDS (9.7-12.2) 11/01/16 17:02 INR 1.0 11/01/16 17:02 APTT 65 SECONDS (21-34) H D 11/01/16 17:02 - Constitutional Appears: Non-toxic, No Acute Distress, Cachectic, Chronically Ill - Head Exam Head Exam: ATRAUMATIC, NORMOCEPHALIC - Eye Exam Eye Exam: EOMI, Normal appearance Pupil Exam: PERRL - ENT Exam ENT Exam: Mucous Membranes Moist - Neck Exam Neck Exam: Normal Inspection - Respiratory Exam Respiratory Exam: Decreased Breath Sounds, Rhonchi, NORMAL BREATHING PATTERN - Cardiovascular Exam Cardiovascular Exam: REGULAR RHYTHM, +S1, +S2 - GI/Abdominal Exam GI & Abdominal Exam: Soft, Normal Bowel Sounds. absent: Tenderness - Extremities Exam Extremities Exam: Normal Capillary Refill. absent: Calf Tenderness - Back Exam Back Exam: absent: CVA tenderness (L), CVA tenderness (R) - Neurological Exam Neurological Exam: Alert, Awake, CN II-XII Intact, Oriented x3 - Psychiatric Exam Psychiatric exam: Normal Affect, Normal Mood - Skin Skin Exam: Dry, Intact, Normal Color, Warm Assessment and Plan - Assessment and Plan (Free Text) Plan: 80 year old Irish speaking female with PMH of CHF, Asthma, HTN, DM presenting with SOB Dyspnea likely secondary to asthma exacerbation vs COPD elevated D-dimer 556 BNP 7440 V/Q scan: low probability for PE CXR: biapical pleural thickening with upper lobe granulomatous changes. Bilateral hilar prominence. no gross focal infiltrate or effusion. few scattered patchy opacities at the left lung apex and right mid lung zone. Venous duplex scan bilateral LEs: negative CXR: no active disease Azithromycin 500mg IVPB Q24 Cardio consult, Dr. Avendaño, help appreciated Pulm consult, Dr. Yusuf, help appreciated BiPAP CHF ASA 81 mg PO daily Bystolic 5mg po daily Digoxin 0.125mg po daily Lasix 40 mg PO daily Losartan 50 mg PO daily Spironolactone 12.5 mg PO daily ICD to be changed at [facility] when patient's asthma improves as per cardio reccs Cardio consult Dr. Avendñao on board HTN ASA 81 mg PO daily Bystolic 5mg po daily Digoxin 0.125mg po daily Lasix 40 mg PO daily Losartan 50 mg PO daily Spironolactone 12.5 mg PO daily Crestor 5mg po hs Cardio consult Dr. 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 Avendaño cardiology need to speak to patient's family regarding goals of care Son telephone number: [phone] DM Januvia 50 mg pO daily ISS Accuchecks ACHS Asthma Exacerbation Duoneb 3ml inh RQ6H Solu-medrol 40 mg IVP Q8H Singulair 10 mg PO HS Advair 1puff inh q12 BiPAP Pulm consult, Dr. Yusuf, help appreciated Persistent Cough Phenergan with codeine 5ml PO Q6H PRN CXR: no active disease Azithromycin 500mg IVPB Q24 History of Arthritis Celecoxib 200 mg PO BID PRN Prophylactic Measures Protonix 40 mg IVP daily Heparin 5000U SC Q8 MVM SCDs Tylenol for headache 650mg po q6 prn <Shaw Jara Jr. - Last Filed: 11/07/16 14:55> Objective - Vital Signs/Intake and Output Vital Signs (last 24 hours): Temp Pulse Resp BP Pulse Ox 98.0 F 72 20 161/64 H 98 11/07/16 07:22 11/07/16 13:51 11/07/16 07:22 11/07/16 09:28 11/07/16 13:51 Intake and Output: 11/07/16 11/07/16 06:59 18:59 Intake Total 470 Balance 470 - Medications Medications: Current Medications Acetaminophen (Tylenol 325mg Tab) 650 mg PO Q6 PRN PRN Reason: Headache Last Admin: 11/04/16 20:44 Dose: 650 mg Aspirin (Ecotrin) 81 mg PO DAILY [facility] Last Admin: 11/07/16 09:26 Dose: 81 mg Digoxin (Lanoxin) 0.125 mg PO DAILY@1800 [facility] Last Admin: 11/06/16 18:02 Dose: 0.125 mg Docusate Sodium (Colace) 100 mg PO BID [facility] Last Admin: 11/07/16 09:28 Dose: 100 mg Furosemide (Lasix) 40 mg PO DAILY [facility] Last Admin: 11/07/16 09:28 Dose: 40 mg Glimepiride (Amaryl) 2 mg PO ACB [facility] Last Admin: 11/07/16 08:49 Dose: 2 mg Guaifenesin (Mucinex La) 600 mg PO BID [facility] Last Admin: 11/07/16 09:28 Dose: 600 mg Heparin Sodium (Porcine) (Heparin) 5,000 units SC Q8 [facility] Last Admin: 11/07/16 14:05 Dose: 5,000 units Azithromycin 500 mg/ Sodium (Chloride) 250 mls @ 167 mls/hr IVPB Q24H [facility] Last Admin: 11/07/16 13:30 Dose: 167 mls/hr Insulin Human Regular (Novolin R) 0 unit SC ACHS [facility] PRN Reason: Protocol Last Admin: 11/07/16 12:49 Dose: 10 unit Losartan Potassium (Cozaar) 50 mg PO DAILY [facility] Last Admin: 11/07/16 09:28 Dose: 50 mg Methylprednisolone (Solu-Medrol) 40 mg IVP Q8H [facility] Last Admin: 11/07/16 14:03 Dose: 40 mg Montelukast Sodium (Singulair) 10 mg PO HS [facility] Last Admin: 11/06/16 22:34 Dose: 10 mg Multivitamins (Hexavitamin) 1 tab PO DAILY [facility] Last Admin: 11/07/16 09:28 Dose: 1 tab Nebivolol (Bystolic) 5 mg PO DAILY [facility] Last Admin: 11/07/16 09:26 Dose: 5 mg Pantoprazole Sodium (Protonix Inj) 40 mg IVP DAILY [facility] Last Admin: 11/07/16 09:30 Dose: 40 mg Promethazine HCl/Codeine (Phenergan/Codeine Oral Syrup) 5 ml PO Q6H PRN PRN Reason: Cough Last Admin: 11/05/16 09:35 Dose: 5 ml Rosuvastatin Calcium (Crestor) 5 mg PO HS [facility] Last Admin: 11/06/16 22:34 Dose: 5 mg Fluticasone/Salmeterol (Advair Diskus 500/50) 1 puff INH RQ12 [facility] Last Admin: 11/07/16 08:07 Dose: 1 puff Scopolamine (Transderm-Scop) 1 patch TD Q3D [facility] Last Admin: 11/05/16 13:47 Dose: 1 patch Sitagliptin Phosphate (Januvia) 50 mg PO DAILY [facility] Last Admin: 11/07/16 09:31 Dose: 50 mg Spironolactone (Aldactone) 25 mg PO DAILY [facility] Last Admin: 11/07/16 09:32 Dose: 25 mg Tiotropium [place] (Spiriva) 18 mcg INH RQ24 [facility] Last Admin: 11/07/16 08:07 Dose: 18 mcg - Labs Labs: 11/07/16 07:58 11/07/16 07:58 PT 11.7 SECONDS (9.7-12.2) 11/01/16 17:02 INR 1.0 11/01/16 17:02 APTT 65 SECONDS (21-34) H D 11/01/16 17:02 Attending/Attestation - Attestation I have personally seen and examined this patient.: Yes I have fully participated in the care of the patient.: Yes I have reviewed all pertinent clinical information, including history, physical exam and plan: Yes Notes (Text): 11/07/16 14:54 Agree with resident's findings and plan of care
[2016-11-05] MEDS: MethylPREDNISolone 40 mg Vial IVP SCH ×3 (05:31→21:56)
[2016-11-05] MEDS: Fluticasone-Salmeterol 500-50mcg Diskus INH SCH ×2 (07:53→18:59)
[2016-11-05] MEDS: Tiotropium 18 mcg Cap For Inhalation INH SCH (07:55)
[2016-11-05] MEDS: (Novolin R) Insulin Human Regular 100 units/ml vial SC SCH ×4 (07:59→21:56)
[2016-11-05 08:02] LABS: BASO % 0.2 % (0.0-2.0); EOS % 0.1 % (0.0-4.0); LYMPH # 0.9 K/uL (1.0-4.3); LYMPH % 9.2 % (20.0-40.0); MEAN CELL VOLUME 86.4 fL (81.0-99.0); MEAN CORPUSCULAR HEMOGLOBIN 29.2 pg (27.0-31.0); MEAN CORPUSCULAR HGB CONC 33.7 g/dL (33.0-37.0); MEAN PLATELET VOLUME 7.5 fL (7.2-11.7); MONO # 0.4 K/uL (0.0-0.8); MONO % 3.9 % (0.0-10.0); NRBC % 0.1 % (0.0-2.0); PLATELET COUNT 263 K/uL (130-400); RED CELL DISTRIBUTION WIDTH 14.9 % (11.5-14.5); WHITE BLOOD COUNT 9.2 K/uL (4.8-10.8)
[2016-11-05 08:13] LABS: POTASSIUM 4.8 mmol/L (3.6-5.2)
[2016-11-05 08:15] LABS: BILIRUBIN,TOTAL 0.6 mg/dL (0.2-1.3)
[2016-11-05 08:16] LABS: CALCIUM 8.3 mg/dl (8.6-10.4); MAGNESIUM 1.9 mg/dL (1.6-2.3); PHOSPHOROUS 2.7 mg/dL (2.5-4.5); TOTAL PROTEIN 6.1 g/dL (6.3-8.3)
[2016-11-05 09:10] LABS: NEUTROPHIL 85 % (50-75); REACTIVE LYMPHOCYTES 1 % (0-0); TOTAL CELLS COUNTED 100
[2016-11-05] MEDS: Promethazine/Cod 6.25mg-10mg/5ml Syr UD PO PRN (09:35)
[2016-11-05] MEDS: guaiFENesin 600 mg ER Tab PO SCH ×2 (09:36→17:57)
[2016-11-05] MEDS: Multiple Vitamins Tab PO SCH (09:36)
[2016-11-05] MEDS: Azithromycin 500 MG in Sodium Chloride 0.9% 250 ML IVPB SCH (13:00)
[2016-11-05] MEDS: Digoxin 125 mcg (0.125 mg) Tab PO SCH (17:57)
[2016-11-06 07:16] LABS: BASO % 0.1 % (0.0-2.0); HEMATOCRIT 29.5 % (34.0-47.0); LYMPH # 0.8 K/uL (1.0-4.3); LYMPH % 8.5 % (20.0-40.0); MEAN CELL VOLUME 86.6 fL (81.0-99.0); MEAN CORPUSCULAR HEMOGLOBIN 29.2 pg (27.0-31.0); MEAN CORPUSCULAR HGB CONC 33.8 g/dL (33.0-37.0); MEAN PLATELET VOLUME 7.6 fL (7.2-11.7); MONO # 0.6 K/uL (0.0-0.8); MONO % 6.2 % (0.0-10.0); NRBC % 0.1 % (0.0-2.0); PLATELET COUNT 254 K/uL (130-400); RED CELL DISTRIBUTION WIDTH 14.7 % (11.5-14.5)
[2016-11-06 07:28] LABS: POTASSIUM 4.9 mmol/L (3.6-5.2)
[2016-11-06 07:31] LABS: BILIRUBIN,TOTAL 0.6 mg/dL (0.2-1.3); CALCIUM 8.3 mg/dl (8.6-10.4); TOTAL PROTEIN 5.9 g/dL (6.3-8.3)
[2016-11-06] MEDS: (Novolin R) Insulin Human Regular 100 units/ml vial SC SCH ×4 (07:38→22:35)
[2016-11-06] MEDS: Tiotropium 18 mcg Cap For Inhalation INH SCH (07:50)
[2016-11-06] MEDS: Fluticasone-Salmeterol 500-50mcg Diskus INH SCH ×2 (07:50→19:38)
[2016-11-06 08:09] LABS: MYELOCYTE 2 % (0-0); NEUTROPHIL 81 % (50-75); TOTAL CELLS COUNTED 100
[2016-11-06] MEDS: Multiple Vitamins Tab PO SCH (09:33)
[2016-11-06] MEDS: guaiFENesin 600 mg ER Tab PO SCH ×2 (09:33→18:02)
[2016-11-06] MEDS: Azithromycin 500 MG in Sodium Chloride 0.9% 250 ML IVPB SCH (12:23)
--- NOTE | 2016-11-06 13:42 | CP.PCM.PN ---
<Rodger Hsiehima - Last Filed: 11/06/16 16:11> Subjective - Date & Time of Evaluation Date of Evaluation: 11/06/16 Time of Evaluation: 09:00 - Subjective Subjective: PGY1 Medicine note for Dr. Jara Patient seen and examined at bedside. Patient reports feeling better this AM. She continues to complain of cough, chest pressure, and tiredness. She has been encouraged to be OOB to chair and work with PT. When asked if she would like to go to [facility] patient reported she would rather go home. Will speak to son about final decision as to where to send patient. Patient denied acute chest pain, palpitations, SOB, abd pain, nausea, vomiting, bowel/bladder complaints. As per PT patient is a good candidate for [facility]. As per case workers, patient has place in [facility]. Objective - Vital Signs/Intake and Output Vital Signs (last 24 hours): Temp Pulse Resp BP Pulse Ox 97.6 F 63 20 152/56 H 100 11/06/16 08:05 11/06/16 11:26 11/06/16 08:05 11/06/16 09:32 11/06/16 08:05 Intake and Output: 11/06/16 11/06/16 06:59 18:59 Intake Total 320 Balance 320 - Medications Medications: Current Medications Acetaminophen (Tylenol 325mg Tab) 650 mg PO Q6 PRN PRN Reason: Headache Last Admin: 11/04/16 20:44 Dose: 650 mg Aspirin (Ecotrin) 81 mg PO DAILY [facility] Last Admin: 11/06/16 09:33 Dose: 81 mg Digoxin (Lanoxin) 0.125 mg PO DAILY@1800 [facility] Last Admin: 11/05/16 17:57 Dose: 0.125 mg Docusate Sodium (Colace) 100 mg PO BID [facility] Last Admin: 11/06/16 09:33 Dose: 100 mg Furosemide (Lasix) 40 mg PO DAILY [facility] Last Admin: 11/06/16 09:32 Dose: 40 mg Glimepiride (Amaryl) 2 mg PO ACB [facility] Guaifenesin (Mucinex La) 600 mg PO BID [facility] Last Admin: 11/06/16 09:33 Dose: 600 mg Heparin Sodium (Porcine) (Heparin) 5,000 units SC Q8 [facility] Last Admin: 11/06/16 13:05 Dose: 5,000 units Azithromycin 500 mg/ Sodium (Chloride) 250 mls @ 167 mls/hr IVPB Q24H JULI Last Admin: 11/06/16 12:23 Dose: 167 mls/hr Insulin Human Regular (Novolin R) 0 unit SC ACHS [facility]ULI PRN Reason: Protocol Last Admin: 11/06/16 12:24 Dose: 4 unit Losartan Potassium (Cozaar) 50 mg PO DAILY [facility]UL[facility] Last Admin: 11/06/16 09:48 Dose: 50 mg Methylprednisolone (Solu-Medrol) 40 mg IVP Q8H JULI Last Admin: 11/05/16 21:56 Dose: 40 mg Montelukast Sodium (Singulair) 10 mg PO HS [facility] Last Admin: 11/05/16 21:55 Dose: 10 mg Multivitamins (Hexavitamin) 1 tab PO DAILY [facility] Last Admin: 11/06/16 09:33 Dose: 1 tab Nebivolol (Bystolic) 5 mg PO DAILY [facility] Last Admin: 11/06/16 09:35 Dose: 5 mg Pantoprazole Sodium (Protonix Inj) 40 mg IVP DAILY [facility] Last Admin: 11/06/16 09:33 Dose: 40 mg Promethazine HCl/Codeine (Phenergan/Codeine Oral Syrup) 5 ml PO Q6H PRN PRN Reason: Cough Last Admin: 11/05/16 09:35 Dose: 5 ml Rosuvastatin Calcium (Crestor) 5 mg PO HS [facility] Last Admin: 11/05/16 21:55 Dose: 5 mg Fluticasone/Salmeterol (Advair Diskus 500/50) 1 puff INH RQ12 [facility] Last Admin: 11/06/16 07:50 Dose: 1 puff Scopolamine (Transderm-Scop) 1 patch TD Q3D [facility] Last Admin: 11/05/16 13:47 Dose: 1 patch Sitagliptin Phosphate (Januvia) 50 mg PO DAILY [facility] Last Admin: 11/06/16 09:33 Dose: 50 mg Spironolactone (Aldactone) 25 mg PO DAILY [facility] Last Admin: 11/06/16 09:33 Dose: 25 mg Tiotropium [place] (Spiriva) 18 mcg INH RQ24 [facility] Last Admin: 11/06/16 07:50 Dose: 18 mcg - Labs Labs: 11/06/16 07:05 05/30/17 07:05 PT 11.7 SECONDS (9.7-12.2) 11/01/16 17:02 INR 1.0 11/01/16 17:02 APTT 65 SECONDS (21-34) H D 11/01/16 17:02 - Constitutional Appears: Non-toxic, No Acute Distress, Chronically Ill - Head Exam Head Exam: ATRAUMATIC, NORMAL INSPECTION, NORMOCEPHALIC - Eye Exam Eye Exam: Normal appearance. absent: Conjunctival injection, Scleral icterus Pupil Exam: NORMAL ACCOMODATION - ENT Exam ENT Exam: Mucous Membranes Moist - Neck Exam Neck Exam: Normal Inspection - Respiratory Exam Respiratory Exam: Wheezes (scattered), NORMAL BREATHING PATTERN. absent: Accessory Muscle Use, Rales, Rhonchi, Respiratory Distress - Cardiovascular Exam Cardiovascular Exam: +S1, +S2 - GI/Abdominal Exam GI & Abdominal Exam: Soft, Normal Bowel Sounds. absent: Firm, Guarding, Rigid, Tenderness - Extremities Exam Extremities Exam: Normal Capillary Refill, Normal Inspection. absent: Pedal Edema, Tenderness - Back Exam Back Exam: NORMAL INSPECTION. absent: rash noted - Neurological Exam Neurological Exam: Alert, Awake, Oriented x3 - Psychiatric Exam Psychiatric exam: Normal Affect, Normal Mood - Skin Skin Exam: Dry, Intact, Normal Color, Warm Assessment and Plan - Assessment and Plan (Free Text) Assessment: 80 year old Thai speaking female with PMH of CHF, Asthma, HTN, DM presenting with SOB Plan: Dyspnea Improved likely secondary to asthma exacerbation vs COPD elevated D-dimer 556 BNP 7440 V/Q scan: low probability for PE CXR: biapical pleural thickening with upper lobe granulomatous changes. Bilateral hilar prominence. no gross focal infiltrate or effusion. few scattered patchy opacities at the left lung apex and right mid lung zone. Venous duplex scan bilateral LEs: negative CXR: no active disease Azithromycin 500mg IVPB Q24 Cardio consult, Dr. Avendaño, help appreciated Pulm consult, Dr. Yusuf, help appreciated BiPAP PRN CHF ASA 81 mg PO daily Bystolic 5mg po daily Digoxin 0.125mg po daily Lasix 40 mg PO daily Losartan 50 mg PO daily Spironolactone 12.5 mg PO daily ICD to be changed at [facility] when patient's asthma improves as per cardio reccs Cardio consult Dr. Avendaño on board HTN ASA 81 mg PO daily Bystolic 5mg po daily Digoxin 0.125mg po daily Lasix 40 mg PO daily Losartan 50 mg PO daily Spironolactone 12.5 mg PO daily Crestor 5mg po hs Cardio consult Dr. 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 Avendaño cardiology need to speak to patient's family regarding goals of care Son telephone number: [phone] DM Januvia 50 mg pO daily ISS Accuchecks ACHS Asthma Exacerbation Duoneb 3ml inh RQ6H Solu-medrol 40 mg IVP Q8H Singulair 10 mg PO HS Advair 1puff inh q12 BiPAP Pulm consult, Dr. Yusuf, help appreciated Persistent Cough Phenergan with codeine 5ml PO Q6H PRN CXR: no active disease Azithromycin 500mg IVPB Q24 History of Arthritis Celecoxib 200 mg PO BID PRN Prophylactic Measures Protonix 40 mg IVP daily Heparin 5000U SC Q8 MVM SCDs Tylenol for headache 650mg po q6 prn Dispo: Patient is a candidate for [facility] as per physical therapy and patient has a place at [facility] as per rn case manager hospice. Will speak to son regarding home vs [facility] Will discuss with Dr. Marek Hsieh PGY1 <Shaw Jara Jr. - Last Filed: 11/07/16 14:59> Objective - Vital Signs/Intake and Output Vital Signs (last 24 hours): Temp Pulse Resp BP Pulse Ox 98.0 F 72 20 161/64 H 98 11/07/16 07:22 11/07/16 13:51 11/07/16 07:22 11/07/16 09:28 11/07/16 13:51 Intake and Output: 11/07/16 11/07/16 06:59 18:59 Intake Total 470 Balance 470 - Medications Medications: Current Medications Acetaminophen (Tylenol 325mg Tab) 650 mg PO Q6 PRN PRN Reason: Headache Last Admin: 11/04/16 20:44 Dose: 650 mg Aspirin (Ecotrin) 81 mg PO DAILY [facility] Last Admin: 11/07/16 09:26 Dose: 81 mg Digoxin (Lanoxin) 0.125 mg PO DAILY@1800 [facility] Last Admin: 11/06/16 18:02 Dose: 0.125 mg Docusate Sodium (Colace) 100 mg PO BID [facility] Last Admin: 11/07/16 09:28 Dose: 100 mg Furosemide (Lasix) 40 mg PO DAILY [facility] Last Admin: 11/07/16 09:28 Dose: 40 mg Glimepiride (Amaryl) 2 mg PO ACB [facility] Last Admin: 11/07/16 08:49 Dose: 2 mg Guaifenesin (Mucinex La) 600 mg PO BID [facility] Last Admin: 11/07/16 09:28 Dose: 600 mg Heparin Sodium (Porcine) (Heparin) 5,000 units SC Q8 [facility] Last Admin: 11/07/16 14:05 Dose: 5,000 units Azithromycin 500 mg/ Sodium (Chloride) 250 mls @ 167 mls/hr IVPB Q24H [facility] Last Admin: 11/07/16 13:30 Dose: 167 mls/hr Insulin Human Regular (Novolin R) 0 unit SC ACHS [facility] PRN Reason: Protocol Last Admin: 11/07/16 12:49 Dose: 10 unit Losartan Potassium (Cozaar) 50 mg PO DAILY [facility] Last Admin: 11/07/16 09:28 Dose: 50 mg Methylprednisolone (Solu-Medrol) 40 mg IVP Q8H [facility] Last Admin: 11/07/16 14:03 Dose: 40 mg Montelukast Sodium (Singulair) 10 mg PO HS [facility] Last Admin: 11/06/16 22:34 Dose: 10 mg Multivitamins (Hexavitamin) 1 tab PO DAILY [facility] Last Admin: 11/07/16 09:28 Dose: 1 tab Nebivolol (Bystolic) 5 mg PO DAILY [facility] Last Admin: 11/07/16 09:26 Dose: 5 mg Pantoprazole Sodium (Protonix Inj) 40 mg IVP DAILY [facility] Last Admin: 11/07/16 09:30 Dose: 40 mg Promethazine HCl/Codeine (Phenergan/Codeine Oral Syrup) 5 ml PO Q6H PRN PRN Reason: Cough Last Admin: 11/05/16 09:35 Dose: 5 ml Rosuvastatin Calcium (Crestor) 5 mg PO HS [facility] Last Admin: 11/06/16 22:34 Dose: 5 mg Fluticasone/Salmeterol (Advair Diskus 500/50) 1 puff INH RQ12 [facility] Last Admin: 11/07/16 08:07 Dose: 1 puff Scopolamine (Transderm-Scop) 1 patch TD Q3D [facility] Last Admin: 11/05/16 13:47 Dose: 1 patch Sitagliptin Phosphate (Januvia) 50 mg PO DAILY [facility] Last Admin: 11/07/16 09:31 Dose: 50 mg Spironolactone (Aldactone) 25 mg PO DAILY [facility] Last Admin: 11/07/16 09:32 Dose: 25 mg Tiotropium [place] (Spiriva) 18 mcg INH RQ24 [facility] Last Admin: 11/07/16 08:07 Dose: 18 mcg - Labs Labs: 11/07/16 07:58 11/07/16 07:58 PT 11.7 SECONDS (9.7-12.2) 11/01/16 17:02 INR 1.0 11/01/16 17:02 APTT 65 SECONDS (21-34) H D 11/01/16 17:02 Attending/Attestation - Attestation I have personally seen and examined this patient.: Yes I have fully participated in the care of the patient.: Yes I have reviewed all pertinent clinical information, including history, physical exam and plan: Yes Notes (Text): 11/07/16 14:59 Agree with resident's findings and plan of care
[2016-11-06] MEDS: MethylPREDNISolone 40 mg Vial IVP SCH ×2 (14:35→22:35)
[2016-11-06] MEDS: Digoxin 125 mcg (0.125 mg) Tab PO SCH (18:02)
[2016-11-06 18:03] VITALS: PULSE 79
[2016-11-07] MEDS: MethylPREDNISolone 40 mg Vial IVP SCH ×2 (05:58→14:03)
[2016-11-07] MEDS: (Novolin R) Insulin Human Regular 100 units/ml vial SC SCH ×2 (07:00→12:49)
--- NOTE | 2016-11-07 07:02 | CP.PCM.DIS ---
Provider - Provider Date of Admission: 10/29/16 21:24 Attending physician: Shaw Jara Jr, MD Primary care physician: Dr. Kika Ocampo Consults: Dr Enrique cardiology Dr Avendaño cardiology Dr Yusuf pulmonology Time Spent in preparation of Discharge (in minutes): 45 Hospital Course - Lab Results Lab Results: Most Recent Lab Values WBC 9.0 K/uL (4.8-10.8) 11/06/16 07:05 RBC 3.40 Mil/uL (3.80-5.20) L 11/06/16 07:05 Hgb 10.0 g/dL (11.0-16.0) L 11/06/16 07:05 Hct 29.5 % (34.0-47.0) L 11/06/16 07:05 MCV 86.6 fL (81.0-99.0) 11/06/16 07:05 MCH 29.2 pg (27.0-31.0) 11/06/16 07:05 MCHC 33.8 g/dL (33.0-37.0) 11/06/16 07:05 RDW 14.7 % (11.5-14.5) H 11/06/16 07:05 Plt Count 254 K/uL (130-400) 11/06/16 07:05 MPV 7.6 fL (7.2-11.7) 11/06/16 07:05 Neut % (Auto) 85.2 % (50.0-75.0) H 11/06/16 07:05 Lymph % (Auto) 8.5 % (20.0-40.0) L 11/06/16 07:05 [place] % (Auto) 6.2 % (0.0-10.0) 11/06/16 07:05 Eos % (Auto) 0.0 % (0.0-4.0) 11/06/16 07:05 Baso % (Auto) 0.1 % (0.0-2.0) 11/06/16 07:05 Neut # 7.7 K/uL (1.8-7.0) H 11/06/16 07:05 Lymph # 0.8 K/uL (1.0-4.3) L 11/06/16 07:05 [place] # 0.6 K/uL (0.0-0.8) 11/06/16 07:05 Eos # 0.0 K/uL (0.0-0.7) 11/06/16 07:05 Baso # 0.0 K/uL (0.0-0.2) 11/06/16 07:05 Neutrophils % (Manual) 81 % (50-75) H 11/06/16 07:05 Band Neutrophils % 1 % (0-2) 11/06/16 07:05 Lymphocytes % (Manual) 10 % (20-40) L 11/06/16 07:05 Reactive Lymphs % 1 % (0-0) H 11/05/16 07:46 Monocytes % (Manual) 6 % (0-10) 11/06/16 07:05 Myelocytes % 2 % (0-0) H 11/06/16 07:05 Platelet Estimate Normal (NORMAL) 11/06/16 07:05 Polychromasia Slight 11/05/16 07:46 Hypochromasia (manual) Slight 11/06/16 07:05 Poikilocytosis (manual Slight 11/06/16 07:05 Basophilic Stippling Slight 11/05/16 07:46 Anisocytosis (manual) Slight 11/06/16 07:05 Ovalocytes Slight 11/06/16 07:05 [place] Cells Slight 11/06/16 07:05 Acanthocytes (Spur) Slight 11/02/16 08:10 PT 11.7 SECONDS (9.7-12.2) 11/01/16 17:02 INR 1.0 11/01/16 17:02 APTT 65 SECONDS (21-34) H D 11/01/16 17:02 D-Dimer, Quantitative 556 ng/mlDDU (0-243) H 10/29/16 20:25 Puncture Site Rba 10/29/16 21:10 pCO2 32 mm/Hg (35-45) L 10/29/16 21:10 pO2 75 mm/Hg (80-100) L 10/29/16 21:10 HCO3 21.6 mmol/L (21-28) 10/29/16 21:10 ABG pH 7.40 (7.35-7.45) 10/29/16 21:10 ABG Total CO2 20.8 mmol/L (22-28) L 10/29/16 21:10 ABG O2 Saturation 97.8 % (95-98) 10/29/16 21:10 ABG Base Excess -4.3 mmol/L (-2.0-3.0) L 10/29/16 21:10 ABG Hemoglobin 9.3 g/dL (11.7-17.4) L 10/29/16 21:10 ABG Carboxyhemoglobin 1.6 % (0.5-1.5) H 10/29/16 21:10 POC ABG HHb (Measured) 2.1 % (0.0-5.0) 10/29/16 21:10 ABG Methemoglobin 1.4 % (0.0-3.0) 10/29/16 21:10 [place] Test Pos 10/29/16 21:10 A-a O2 Difference 35.0 mm/Hg 10/29/16 21:10 Respiratory Index 0.5 10/29/16 21:10 Hgb O2 Saturation 94.9 % (95.0-98.0) L 10/29/16 21:10 FiO2 21.0 % 10/29/16 21:10 Sodium 130 mmol/L (132-148) L 11/06/16 07:05 Potassium 4.9 mmol/L (3.6-5.2) 11/06/16 07:05 Chloride 93 mmol/L (98-107) L 11/06/16 07:05 Carbon Dioxide 29 mmol/L (22-30) 11/06/16 07:05 Anion Gap 13 (10-20) 11/06/16 07:05 BUN 49 mg/dL (7-17) H 11/06/16 07:05 Creatinine 1.3 MG/DL (0.7-1.2) H 11/06/16 07:05 Est GFR ( Amer) 48 11/06/16 07:05 Est GFR (Non-Af Amer) 39 11/06/16 07:05 POC Glucose (mg/dL) 402 mg/dL (65-110) H* 11/07/16 06:36 Random Glucose 344 mg/dL (65-105) H 11/06/16 07:05 Hemoglobin A1c 7.4 % (4.2-6.5) H 10/30/16 07:08 Calcium 8.3 mg/dl (8.6-10.4) L 11/06/16 07:05 Phosphorus 2.7 mg/dL (2.5-4.5) 11/05/16 07:46 Magnesium 1.9 mg/dL (1.6-2.3) 11/05/16 07:46 Total Bilirubin 0.6 mg/dL (0.2-1.3) 11/06/16 07:05 AST 14 U/L (14-36) D 11/06/16 07:05 ALT 16 U/L (9-52) 11/06/16 07:05 Alkaline Phosphatase 58 U/L (38-126) 11/06/16 07:05 Total Creatine Kinase 24 U/L (30-135) L 10/30/16 07:08 CK-MB (Mass) 0.79 ng/mL (0.0-3.38) 10/30/16 07:08 Troponin I 0.0220 ng/mL (0.00-0.120) 10/29/16 20:25 Troponin I, Quant < 0.0120 ng/mL (0.00-0.120) 10/30/16 07:08 NT-Pro-B Natriuret Pep 6270 pg/mL (0-900) H 10/31/16 06:59 Total Protein 5.9 g/dL (6.3-8.3) L 11/06/16 07:05 Albumin 3.0 g/dL (3.5-5.0) L 11/06/16 07:05 Globulin 2.9 gm/dL (2.2-3.9) 11/06/16 07:05 Albumin/Globulin Ratio 1.0 (1.0-2.1) 11/06/16 07:05 Triglycerides 46 mg/dL (0-149) D 10/30/16 07:08 Cholesterol 191 mg/dL (0-199) 10/30/16 07:08 LDL Cholesterol Direct 114 mg/dL (0-129) 10/30/16 07:08 HDL Cholesterol 48 mg/dL (30-70) 10/30/16 07:08 Free T4 1.54 ng/dL (0.78-2.19) 10/31/16 06:59 Thyroxine (T4) 7.58 ug/dL (5.5-11.0) 10/30/16 07:08 TSH 3rd Generation 0.16 mIU/L (0.46-4.68) L 10/31/16 06:59 Digoxin < 0.4 ng/mL (0.8-2.0) L 10/30/16 15:50 Thyroperoxidase Ab <1 IU/mL (<9) 10/31/16 06:59 Thyroglobulin Antibody <1 IU/mL (< OR = 1) 10/31/16 06:59 Influenza Typ A,B (EIA) Negative for flu a/b (NEGATIVE) 10/30/16 04:40 - Hospital Course Hospital Course: Upon Admission 80 year old Hungarian speaking female with PMH of CHF, Asthma, HTN, DM presents to [facility] ED for complaint of SOB. Patient's son was bedside at time of interview and he provided the majority of the history. As per son, his mother has been intermittently having issues with breathing over last 4-5 months. Patient was discharged from hospital about 2 weeks ago for SOB and it did not resolve. Symptoms have been present since that admission but have gotten progressively worse over the last two days. Patient had increased difficulty completing daily tasks and became short of breath at rest. Patient seems to improve with steroids each admission but son denies COPD history. Son reports that patient had lung biopsy for nodules that resulted as nonspecific without presence of malignancy. He states that the nodules resolved with steroid treatment. He also states that his mother was to have her AICD battery changed last week but had to cancel due to her symptoms. Patient is complaining of chest discomfort. She rated the pain minimally as 2/10 in severity. She described it as a constant discomfort over entire chest. She denies any specific alleviating factor, but states exertion worsens her symptoms. Her last ECHO was 10/05 and it revealed systolic and diastolic dysfunction, severe hypokinesis of basal anterior wall, and EF of 15-20% (see full repport). Patient sleeps with 1 pillow at night. She is only able to ambulate 1 block before developing dyspnea. Admits to generalized weakness, weight loss, fatigue , minimally productive cough, QUINTERO. Denies dizziness/lightheadedness, syncope, vertigo, palpitations, abd pain, n/v/d, incontinence, urinary symptoms, numbness /tingling, calf tenderness, LE edema. Patient admitted to TELE. Patient had an elevated D dimer but V/Q scan was low probability for PE. Patient had negative b/l LE duplex. CXR showed biapical pleural thickening with upper lobe granulomatous changes. Bilateral hilar prominence. no gross focal infiltrate or effusion. few scattered patchy opacities at the left lung apex and right mid lung zone. Cardiology Dr Avendaño and Pulmonolgy Dr Yusuf were consulted. Patient had BiPAP PRN. Cardiology recommended tranfser to [facility] for ICD to be changed when patient's asthma improved. As patient was complaining of abdominal pain, a vascular study was done showing hemodynamically significant disease of the proximal celiac, proximal hepatic, proximal splenic, proximal superior mesenteric and proximal inferior mesenteric arteries is noted. Intervention was to be determined by cardiology and goals of care with patient's son. Patient had a physical therapy evaluation that deemed her need for ABHI which both patient and family agreed to. On day of discharge patient was deemed medically stable for ABHI. 1) Asthma exacerbation: improved 2) CHF: ICD to be changed at [facility] as per cardio reccs 3) HTN: continue medications 4) Persistent cough: improved 5) Hx of arthritis: continue medications Upon Discharge Patient stable for discharge to [facility] as per Dr. Jara Patient to take medications as prescribed and to be discharged with saline lock in place. Steroids to be tapered. Patient to follow up with PMD Dr. Jara within 7 days Address: [address] [place] [address] [address] floor, [place] [address] Patient to also follow up with Cardiology Dr. Avendaño in 10 days. Patient encouraged to be OOB and to work with physical therapy. If symptoms persist or worsen patient to visit ER immediately. Instructions discussed in detail with patient who understands and agrees. Discharge Exam - Head Exam Head Exam: ATRAUMATIC, NORMAL INSPECTION, NORMOCEPHALIC - Eye Exam Eye Exam: EOMI, Normal appearance, PERRL. absent: Conjunctival injection, Scleral icterus Pupil Exam: PERRL - ENT Exam ENT Exam: Mucous Membranes Moist - Neck Exam Neck exam: Full Rom, Normal Inspection - Respiratory Exam Respiratory Exam: Wheezes (scattered), NORMAL BREATHING PATTERN. absent: Accessory Muscle Use, Respiratory Distress - Cardiovascular Exam Cardiovascular Exam: +S1, +S2 - GI/Abdominal Exam GI & Abdominal Exam: Normal Bowel Sounds, Soft. absent: Tenderness - Extremities Exam Extremities exam: normal capillary refill, normal inspection, pedal pulses present - Back Exam Back exam: NORMAL INSPECTION. absent: CVA tenderness (L), CVA tenderness (R) - Neurological Exam Neurological exam: Alert, CN II-XII Intact, Oriented x3 - Psychiatric Exam Psychiatric exam: Normal Affect, Normal Mood - Skin Skin Exam: Dry, Intact, Normal Color, Warm Discharge Plan - Discharge Medications Prescriptions: Apixaban [Eliquis] 2.5 mg PO BID #60 tab Pantoprazole Sodium [Protonix] 40 mg PO DAILY #30 ect - Follow Up Plan Condition: STABLE Disposition: HOME/ ROUTINE Instructions: Pantoprazole (By mouth), Apixaban (By mouth), Heart Failure (DC) , Heart Healthy Diet (DC), COPD (Chronic Obstructive Pulmonary Disease) (DC) Additional Instructions: Patient stable for discharge to [facility] as per Dr. Jara Patient to take medications as prescribed Patient to follow up with PMD Dr. Jara within 7 days Address: [address] [place] [address] [address] [place] [address] Patient to also follow up with Cardiology Dr. Avendaño in 10 days. Patient encouraged to be OOB and to work with physical therapy. If symptoms persist or worsen patient to visit ER immediately. Instructions discussed in detail with patient who understands and agrees.
[2016-11-07] MEDS: Fluticasone-Salmeterol 500-50mcg Diskus INH SCH (08:07)
[2016-11-07] MEDS: Tiotropium 18 mcg Cap For Inhalation INH SCH (08:07)
[2016-11-07 08:14] LABS: BASO % 0.1 % (0.0-2.0); HEMATOCRIT 31.7 % (34.0-47.0); LYMPH # 0.9 K/uL (1.0-4.3); LYMPH % 9.8 % (20.0-40.0); MEAN CORPUSCULAR HEMOGLOBIN 29.1 pg (27.0-31.0); MEAN CORPUSCULAR HGB CONC 33.5 g/dL (33.0-37.0); MEAN PLATELET VOLUME 7.7 fL (7.2-11.7); MONO # 0.6 K/uL (0.0-0.8); MONO % 6.4 % (0.0-10.0); PLATELET COUNT 262 K/uL (130-400); RED CELL DISTRIBUTION WIDTH 14.8 % (11.5-14.5); WHITE BLOOD COUNT 8.8 K/uL (4.8-10.8)
[2016-11-07 08:38] LABS: POTASSIUM 4.5 mmol/L (3.6-5.2)
[2016-11-07 08:40] LABS: BILIRUBIN,TOTAL 0.5 mg/dL (0.2-1.3); PHOSPHOROUS 3.2 mg/dL (2.5-4.5); TOTAL PROTEIN 5.9 g/dL (6.3-8.3)
[2016-11-07 08:41] LABS: CALCIUM 8.4 mg/dl (8.6-10.4)
[2016-11-07 08:45] VITALS: BP 161/64; RESP 20; TEMP 98
[2016-11-07 09:27] LABS: MYELOCYTE 2 % (0-0); NEUTROPHIL 84 % (50-75); TOTAL CELLS COUNTED 100
[2016-11-07] MEDS: Multiple Vitamins Tab PO SCH (09:28)
[2016-11-07] MEDS: guaiFENesin 600 mg ER Tab PO SCH (09:28)
[2016-11-07] MEDS: Azithromycin 500 MG in Sodium Chloride 0.9% 250 ML IVPB SCH (13:30)
[2016-11-07 14:00] VITALS: PULSE 72; O2SAT 98
--- NOTE | 2016-11-07 17:14 | PCM.HF ---
Heart Failure Core Measure - Heart Failure Ejection Fraction: 40 % or Greater (EF<30%) Left Ventricular Function to be assessed after discharge: Yes DENITA Inhibitor Prescribed: No Contraindication/Reason for not providing: ON ARB Beta-Bart Prescribed: Carvedilol Angiotensin II Receptor Bart Prescribed: Yes AnticoagulationTherapy for Atrial Fibrillation/Atrialflutter: Yes Aldosterone Antagonist Prescribed: No Contraindication/Reason for not providing: NOT RX BY Hydralazine Nitrate Prescribed: No Contraindication/Reason for not providing: NOT RX BY MD Implantable Cardioverter Defibrillator Therapy: Yes Cardiac Resynchronization Therapy Prescribed: No Contraindication/Reason for not providing: ICD - Follow up Will be discharged to: Home Follow Up Date (must be within 7 days from discharge): 11/09/16 Follow Up Time: 09:00
== END 2016-11-07 17:10 | disposition home or self-care (01) | DRG 88 ==
LOC: C.ER 19:49 → C.6T 21:24
PROVIDERS: ADMIT Internal Medicine; ATTEND Internal Medicine
PROC: 5A09457 Assistance with Respiratory Ventilation, 24-96 Consecutive Hours, Continuous Positive Airway Pressure (ICD-10-PCS; principal; 2016-10-29)
DX: J44.1 Chronic obstructive pulmonary disease with (acute) exacerbation (principal); I69.351 Hemiplegia and hemiparesis following cerebral infarction affecting right dominant side; I11.0 Hypertensive heart disease with heart failure; I50.9 Heart failure, unspecified; J45.901 Unspecified asthma with (acute) exacerbation; I48.91 Unspecified atrial fibrillation; I25.5 Ischemic cardiomyopathy; I25.10 Atherosclerotic heart disease of native coronary artery without angina pectoris; E11.9 Type 2 diabetes mellitus without complications; Z95.1 Presence of aortocoronary bypass graft; Z95.0 Presence of cardiac pacemaker; M19.90 Unspecified osteoarthritis, unspecified site; R10.9 Unspecified abdominal pain; Z79.4 Long term (current) use of insulin

== ENCOUNTER 2017-01-18 22:34 | Inpatient (IN) | payer MEDICAID, MEDICARE ==
[2017-01-18 22:34] VITALS: BMI 25.3
[2017-01-18] MEDS ORDERED: Albuterol-Ipratrop 3 mg / 0.5 (3 ml) UD INH STA (23:32)
[2017-01-18 23:33] LABS: BASO # 0.1 K/uL (0.0-0.2); BASO % 0.6 % (0.0-2.0); EOS % 0.2 % (0.0-4.0); HEMATOCRIT 25.2 % (34.0-47.0); LYMPH # 0.7 K/uL (1.0-4.3); LYMPH % 4.8 % (20.0-40.0); MEAN CELL VOLUME 85.9 fL (81.0-99.0); MEAN CORPUSCULAR HEMOGLOBIN 27.8 pg (27.0-31.0); MEAN CORPUSCULAR HGB CONC 32.3 g/dL (33.0-37.0); MEAN PLATELET VOLUME 7.8 fL (7.2-11.7); MONO # 0.6 K/uL (0.0-0.8); MONO % 3.9 % (0.0-10.0); PLATELET COUNT 191 K/uL (130-400); RED CELL DISTRIBUTION WIDTH 16.2 % (11.5-14.5); WHITE BLOOD COUNT 14.3 K/uL (4.8-10.8)
[2017-01-18 23:41] LABS: CHLORIDE 104 mmol/L (98-107); SODIUM 129 mmol/L (132-148)
[2017-01-18] MEDS ORDERED: Magnesium Sulfate 1 gm in D5W 1 GM/100 ML BAG IVPB ONE (23:43)
[2017-01-18 23:44] LABS: ALB/GLOB RATIO 0.9 (1.0-2.1); ALKALINE PHOSPHATASE 79 U/L (38-126); ALT/SGPT 30 U/L (9-52); AST/SGOT 18 U/L (14-36); BILIRUBIN,TOTAL 0.8 mg/dL (0.2-1.3); BLOOD UREA NITROGEN 20 mg/dL (7-17); CARBON DIOXIDE 16 mmol/L (22-30); GFR AFRICAN-AMERICAN 52; GLUCOSE,RANDOM 156 mg/dL (65-105); TOTAL PROTEIN 6.8 g/dL (6.3-8.3)
[2017-01-18 23:45] LABS: CALCIUM 8.9 mg/dl (8.6-10.4)
[2017-01-18] MEDS ORDERED: Albuterol-Ipratrop 3 mg / 0.5 (3 ml) UD ONE (23:47)
[2017-01-18] MEDS: Magnesium Sulfate 1 gm in D5W 1 GM/100 ML BAG IVPB SCH (23:49)
[2017-01-18 23:51] LABS: NEUTROPHIL 91 % (50-75); TOTAL CELLS COUNTED 100
[2017-01-18 23:53] LABS: GIANT PLATELETS PRESENT
[2017-01-19] MEDS ORDERED: Magnesium Sulfate 1 gm in D5W 1 GM/100 ML BAG IVPB ONE (00:35)
[2017-01-19] MEDS: Magnesium Sulfate 1 gm in D5W 1 GM/100 ML BAG IVPB SCH (00:43)
[2017-01-19] MEDS ORDERED: Azithromycin 500 MG in Sodium Chloride 0.9% 250 ML IVPB STA (00:56)
[2017-01-19] MEDS ORDERED: cefTRIAXone IV 1 gm in Dextros 50 ML IVPB ONE (01:15)
[2017-01-19] MEDS ORDERED: Azithromycin 500mg/250ML NS 500 MG/250 ML BAG IVPB ONE (01:38)
[2017-01-19] MEDS ORDERED: Sodium Chloride 0.9% 250 ML IV ONE ×2 (02:53→03:04)
--- NOTE | 2017-01-19 02:57 | C.PDOC ---
History Of Present Illness 81 y/o female whose PMHx includes COPD and CHF, is brought to the ED by ambulance accompanied by son for evaluation of increased shortness of breath over the past day. Patient also notes unproductive cough. She states she has been compliant with her medication. She denies fever, chills, chest pain, blood in urine/stool. Time Seen by Provider: 01/18/17 23:17 Chief Complaint (Nursing): Shortness Of Breath History Per: Patient, Family (son ) History/Exam Limitations: no limitations Onset/Duration Of Symptoms: Hrs Current Symptoms Are (Timing): Still Present Quality: denies: "Pain" Current Respiratory Medications: See Home Med List Associated Symptoms: denies: Fever, Chills Additional History Per: Patient Past Medical History Reviewed: Historical Data, Nursing Documentation, Vital Signs Vital Signs: Last Vital Signs Temp 97.5 F L 01/21/17 16:49 Pulse 74 01/21/17 16:49 Resp 20 01/21/17 16:49 BP 151/67 H 01/21/17 16:49 Pulse Ox 98 01/21/17 16:49 - Medical History PMH: Asthma, Atrial Fibrillation, CAD (CABG), CHF, COPD, Diabetes, HTN, Peripheral Edema Surgical History: CABG (2004), Pacemaker - [facility] Procedures ASSISTANCE WITH RESPIRATORY VENTILATION, 24-96 HRS, CPAP (10/29/16) EXCISION OF RIGHT LOWER LUNG LOBE, PERC APPROACH, DIAGN (02/16/16) INSPECTION OF LARYNX, ENDO (06/16/15) Family History: States: Unknown Family Hx - Social History Hx Tobacco Use: No Hx Alcohol Use: No Hx Substance Use: No - Immunization History Hx Tetanus Toxoid Vaccination: No Hx Influenza Vaccination: No Hx Pneumococcal Vaccination: Yes Review Of Systems Constitutional: Negative for: Fever, Chills Cardiovascular: Negative for: Chest Pain Respiratory: Positive for: Cough, Shortness of Breath Physical Exam - Physical Exam Appears: Non-toxic, No Acute Distress Skin: Normal Color, Warm, Dry Head: Atraumatic, Normacephalic Eye(s): bilateral: Other (+pale conjunctiva ) Oral Mucosa: Moist Neck: Supple Chest: Symmetrical, No Deformity, No Tenderness, Other (+surgical scar on left upper chest ) Cardiovascular: Rhythm Regular, No Murmur Respiratory: Decreased Breath Sounds (at b/l bases), Wheezing (mild, expiratory ) Back: Normal Inspection, No Vertebral Tenderness, No Paraspinal Tenderness Extremity: Normal ROM, Capillary Refill (less than 2 seconds ) Neurological/Psych: Oriented x3 Gait: Steady ED Course And Treatment - Laboratory Results Result Diagrams: 01/20/17 08:20 01/20/17 08:20 O2 Sat by Pulse Oximetry: 98 (on RA) Pulse Ox Interpretation: Normal Progress Note: labs, EKG, CXR ordered. Patient received Duoneb INH, Zithromax IV , Rocephin IV, solu-medrol IV, and Magnesium Sulfate IV. Disposition - Disposition Disposition: HOME/ ROUTINE Disposition Time: 01:00 Condition: FAIR - Clinical Impression Clinical Impression: Chronic congestive heart failure, Cough, SOB (shortness of breath), Anemia - Scribe Statement The provider has reviewed the documentation as recorded by the Scribe Provider Attestation: All medical record entries made by the Scribe were at my direction and personally dictated by me. I have reviewed the chart and agree that the record accurately reflects my personal performance of the history, physical exam, medical decision making, and the department course for this patient. I have also personally directed, reviewed, and agree with the discharge instructions and disposition.
[2017-01-19] MEDS ORDERED: Albuterol-Ipratrop 3 mg / 0.5 (3 ml) UD ONE (04:21)
[2017-01-19] MEDS: Albuterol-Ipratrop 3 mg / 0.5 (3 ml) UD INH SCH ×5 (04:22→19:56)
--- NOTE | 2017-01-19 04:27 | CP.PCM.CON ---
History of Present Illness - History of Present Illness History of Present Illness: 81 y/o female with PMH includes COPD/asthma ,CAD s/p CABG,AICD, CHF with EF 13864%(ECHO 09/2016),HTN,DM,atrial fibrillationAnemia,hep C is brought to the ED from [facility] increased shortness of breath over the past day and unproductive cough. She states that she has shortness of breath and dry cough intermittently since september. She denies fever, chills, chest pain,nausea,vomiting ,dizziness, blood in urine/stool. In ER patient treated with diuretics,antibiotics,bronchodilators and steroids.She feels better and denies difficulty breathing at present time. 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 absent: Chills, Fever - EENT Eyes: absent: Blurred Vision Ears: absent: Dizziness Nose/Mouth/Throat: absent: Nasal Congestion - Cardiovascular Cardiovascular: Dyspnea. absent: Chest Pain, Diaphoresis, Edema, Leg Edema, Palpitations, Syncope - Respiratory Respiratory: Cough - Gastrointestinal Gastrointestinal: absent: Abdominal Pain, Change in Bowel Habits, Diarrhea, Nausea, Vomiting - Genitourinary Genitourinary: absent: Difficulty Urinating - Musculoskeletal Musculoskeletal: absent: Numbness, Stiffness - Integumentary Integumentary: absent: Dry Skin, Rash - Neurological Neurological: absent: Dizziness - Endocrine Endocrine: absent: Palpitations - Hematologic/Lymphatic Hematologic: absent: Easy Bleeding Past Patient History - Infectious Disease Hx of Infectious Diseases: None - Past Medical History & Family History Past Medical History?: Yes - Past Social History Smoking Status: Never Smoked Chewing Tobacco Use: No Cigar Use: No Alcohol: None Drugs: Denies Home Situation {Lives}: [facility] - CARDIAC Hx Atrial Fibrillation: Yes Hx Congestive Heart Failure: Yes Hx Hypertension: Yes Hx Pacemaker: Yes Hx Peripheral Edema: Yes - PULMONARY Hx Asthma: Yes Hx Chronic Obstructive Pulmonary Disease (COPD): Yes - NEUROLOGICAL HX 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) - HEENT Hx HEENT Problems: No - RENAL Hx Chronic Kidney Disease: No - ENDOCRINE/METABOLIC Hx Diabetes Mellitus Type 2: Yes - HEMATOLOGICAL/ONCOLOGICAL Hx Blood Disorders: No - INTEGUMENTARY Hx Dermatological Problems: No - MUSCULOSKELETAL/RHEUMATOLOGICAL Hx Musculoskeletal Disorders: No Hx Falls: No - GASTROINTESTINAL Hx Gastrointestinal Disorders: No - GENITOURINARY/GYNECOLOGICAL Hx Genitourinary Disorders: No - PSYCHIATRIC Hx Substance Use: No - SURGICAL HISTORY Hx Coronary Artery Bypass Graft: Yes (2004) - ANESTHESIA Hx Anesthesia: Yes Hx Anesthesia Reactions: No Hx Malignant Hyperthermia: No Meds Allergies/Adverse Reactions: Allergies Allergy/AdvReac Type Severity Reaction Status Date / Time DENITA Inhibitors AdvReac Verified 01/18/17 23:04 - Medications Medications: Current Medications Albuterol/Ipratropium (Duoneb 3 Mg/0.5 Mg (3 Ml) Ud) 3 ml INH RQ4 [facility] Apixaban (Eliquis) 2.5 mg PO BID [facility] Aspirin (Ecotrin) 81 mg PO DAILY [facility] Digoxin (Lanoxin) 0.125 mg PO DAILY@1800 [facility] Docusate Sodium (Colace) 100 mg PO DAILY [facility] Furosemide (Lasix) 40 mg IVP DAILY [facility] Glimepiride (Amaryl) 1 mg PO DAILY [facility] Guaifenesin (Mucinex La) 600 mg PO BID [facility] Home Med (Acarbose [Precose]) 100 mg PO DAILY [facility] Home Med (Atorvastatin [Lipitor]) 40 mg PO HS [facility] Home Med (Budesonide/Formoterol Fumarate [Symbicort 160-4.5 Mcg Inhaler]) 2 puff IH BID [facility] Ceftriaxone Sodium 1 gm/ (Sodium Chloride) 100 mls @ 100 mls/hr IVPB DAILY [facility] Azithromycin (Zithromax 500mg In Ns Addvantage) 500 mg in 250 mls @ 167 mls/hr IVPB Q24H [facility] Insulin Aspart (Novolog) 0 unit SC ACHS [facility] PRN Reason: Protocol Losartan Potassium (Cozaar) 25 mg PO DAILY [facility] Methylprednisolone (Solu-Medrol) 40 mg IVP Q8H [facility] Montelukast Sodium (Singulair) 10 mg PO HS [facility] Pantoprazole Sodium (Protonix Ec Tab) 40 mg PO DAILY [facility] Rosuvastatin Calcium (Crestor) 5 mg PO HS [facility] Sitagliptin Phosphate (Januvia) 50 mg PO DAILY [facility] Tiotropium [place] (Spiriva) 18 mcg INH RQ24 [facility] Physical Exam - Constitutional Appears: Non-toxic, No Acute Distress Additional comments: comfortable at rest,was sleeping when I went in to see her - Head Exam Head Exam: ATRAUMATIC, NORMAL INSPECTION, NORMOCEPHALIC - Eye Exam Eye Exam: EOMI, PERRL - ENT Exam ENT Exam: Mucous Membranes Moist - Neck Exam Neck exam: Positive for: Normal Inspection. Negative for: Tenderness - Respiratory Exam Respiratory Exam: NORMAL BREATHING PATTERN. absent: Chest Wall Tenderness, Respiratory Distress Additional comments: decreased airentry in bases,right basal rales scar of previous surgery - Cardiovascular Exam Cardiovascular Exam: REGULAR RHYTHM. absent: JVD - GI/Abdominal Exam GI & Abdominal Exam: Normal Bowel Sounds, Soft. absent: Guarding, Tenderness - Extremities Exam Extremities exam: Positive for: normal inspection, pedal pulses present. Negative for: joint swelling, pedal edema, tenderness - Neurological Exam Neurological exam: Alert, Oriented x3 - Psychiatric Exam Psychiatric exam: Normal Affect - Skin Skin Exam: Intact, Warm Results - Vital Signs Recent Vital Signs: Last Vital Signs Temp 97.9 F 01/19/17 03:01 Pulse 71 01/19/17 04:17 Resp 20 01/19/17 04:17 BP 100/43 L 01/19/17 04:17 Pulse Ox 99 01/19/17 04:17 - Labs Result Diagrams: 01/18/17 23:30 01/18/17 23:30 - EKG Data EKG Interpreted by: Myself - Impressions Impression: rate 92/min paced rhythm Assessment & Plan - Assessment and Plan (Free Text) Assessment: ASthma/COPD exacerbation, Pneumonia/CHF -on antibiotics,bronchodilators monitor BP ,cautious use of diuretics/antihypertensives Hyponatremia Anemia receiving PRBC CAD/AICD,CABG DM Patient BP improved no difficulty breathing.Can be transferred to telemetry at present time
--- NOTE | 2017-01-19 06:48 | RAD ---
PROCEDURE: CHEST RADIOGRAPH, 1 VIEW HISTORY: SOB COMPARISON: Comparison is made to the previous study dated 11/03/2016 FINDINGS: LUNGS: No significant interval change in the lungs noted since the previous exam. The pacemaker is overlying the left lower chest. PLEURA: No pneumothorax or pleural fluid seen. CARDIOVASCULAR: Post sternotomy changes are again seen. The cardiac silhouette is mildly enlarged. OSSEOUS STRUCTURES: No significant abnormalities. VISUALIZED UPPER ABDOMEN: Normal. OTHER FINDINGS: None. IMPRESSION: No significant interval change since the previous exam noted. Hyperinflation of the lungs suggestive of COPD. Possible bibasilar atelectasis.
[2017-01-19] MEDS: (Novolog) Insulin Aspart, Recombinant 100 u/ml 10 ml vial SC SCH ×4 (08:02→22:00)
[2017-01-19] MEDS: MethylPREDNISolone 40 mg Vial IVP SCH ×2 (08:02→16:49)
[2017-01-19] MEDS: Tiotropium 18 mcg Cap For Inhalation INH SCH (08:45)
[2017-01-19] MEDS ORDERED: FORMOTEROL FUMARATE IH SCH (10:00)
[2017-01-19] MEDS ORDERED: BUDESONIDE IH SCH (10:00)
[2017-01-19] MEDS: Pantoprazole 40 mg EC Tab PO SCH (10:24)
[2017-01-19] MEDS: guaiFENesin 600 mg ER Tab PO SCH ×2 (10:55→18:58)
--- NOTE | 2017-01-19 11:40 | CP.PCM.HP ---
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) - HEENT Hx HEENT Problems: No - RENAL Hx Chronic Kidney Disease: No - ENDOCRINE/METABOLIC Hx Diabetes Mellitus Type 2: Yes - HEMATOLOGICAL/ONCOLOGICAL Hx Blood Disorders: No - INTEGUMENTARY Hx Dermatological Problems: No - MUSCULOSKELETAL/RHEUMATOLOGICAL Hx Musculoskeletal Disorders: No Hx Falls: No - GASTROINTESTINAL Hx Gastrointestinal Disorders: No - GENITOURINARY/GYNECOLOGICAL Hx Genitourinary Disorders: No - PSYCHIATRIC Hx Substance Use: No - SURGICAL HISTORY Hx Coronary Artery Bypass Graft: Yes (2004) - ANESTHESIA Hx Anesthesia: Yes Hx Anesthesia Reactions: No Hx Malignant Hyperthermia: No Meds Allergies/Adverse Reactions: Allergies Allergy/AdvReac Type Severity Reaction Status Date / Time DENITA Inhibitors AdvReac Verified 01/18/17 23:04 Physical Exam - Constitutional Appears: Well - Head Exam Head Exam: ATRAUMATIC, NORMAL INSPECTION, NORMOCEPHALIC - Eye Exam Eye Exam: EOMI, Normal appearance, PERRL Pupil Exam: NORMAL ACCOMODATION, PERRL - ENT Exam ENT Exam: Mucous Membranes Moist, Normal Exam - Neck Exam Neck exam: Positive for: Normal Inspection - Respiratory Exam Respiratory Exam: Decreased Breath Sounds - Cardiovascular Exam Cardiovascular Exam: REGULAR RHYTHM, +S1, +S2 - GI/Abdominal Exam GI & Abdominal Exam: Diminished Bowel Sounds, Soft - Rectal Exam Rectal Exam: Deferred Results - Vital Signs Recent Vital Signs: Last Vital Signs Temp 97.4 F L 01/19/17 07:30 Pulse 84 01/19/17 08:05 Resp 18 01/19/17 07:30 BP 107/57 L 01/19/17 10:24 Pulse Ox 100 01/19/17 07:30 - Labs Result Diagrams: 01/18/17 23:30 01/18/17 23:30 Labs: Laboratory Results - last 24 hr 01/19/17 07:36 POC Glucose (mg/dL) 264 H Assessment & Plan - Assessment and Plan (Free Text) Plan: Continue Amaryl Continue ceftriaxone Continue DuoNeb Continue all home medications Continue Solu-Medrol Pulmonary consult IV antibiotic Less IV Lasix Cardiology Lovenox As ordered
[2017-01-19] MEDS: Azithromycin 500mg/250ML NS 500 MG/250 ML BAG IVPB SCH (12:10)
[2017-01-19] MEDS: Digoxin 125 mcg (0.125 mg) Tab PO SCH (18:58)
--- NOTE | 2017-01-19 20:02 | CP.PCM.CON ---
History of Present Illness - History of Present Illness History of Present Illness: reason for consultation: shortness of breath 81 y/o female with PMH includes COPD/asthma ,CAD s/p CABG,AICD, CHF with EF 20%( ECHO 09/2016),HTN,DM,atrial fibrillationAnemia,hep C is brought to the ED from [facility] increased shortness of breath over the past day and unproductive cough. She states that she has shortness of breath and dry cough intermittently since september. She denies fever, chills, chest pain,nausea,vomiting,dizziness, blood in urine/stool. In ER patient treated with diuretics,antibiotics,bronchodilators and steroids.She feels better and denies difficulty breathing at present time. 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) - HEENT Hx HEENT Problems: No - RENAL Hx Chronic Kidney Disease: No - ENDOCRINE/METABOLIC Hx Diabetes Mellitus Type 2: Yes - HEMATOLOGICAL/ONCOLOGICAL Hx Blood Disorders: No - INTEGUMENTARY Hx Dermatological Problems: No - MUSCULOSKELETAL/RHEUMATOLOGICAL Hx Musculoskeletal Disorders: No Hx Falls: No - GASTROINTESTINAL Hx Gastrointestinal Disorders: No - GENITOURINARY/GYNECOLOGICAL Hx Genitourinary Disorders: No - PSYCHIATRIC Hx Substance Use: No - SURGICAL HISTORY Hx Coronary Artery Bypass Graft: Yes (2004) - ANESTHESIA Hx Anesthesia: Yes Hx Anesthesia Reactions: No Hx Malignant Hyperthermia: No Meds Allergies/Adverse Reactions: Allergies Allergy/AdvReac Type Severity Reaction Status Date / Time DENITA Inhibitors AdvReac Verified 01/18/17 23:04 - Medications Medications: Current Medications Albuterol/Ipratropium (Duoneb 3 Mg/0.5 Mg (3 Ml) Ud) 3 ml INH RQ4 [facility] Last Admin: 01/19/17 19:56 Dose: 3 ml Apixaban (Eliquis) 2.5 mg PO BID [facility] Last Admin: 01/19/17 18:59 Dose: 2.5 mg Aspirin (Ecotrin) 81 mg PO DAILY [facility] Last Admin: 01/19/17 10:23 Dose: 81 mg Digoxin (Lanoxin) 0.125 mg PO DAILY@1800 [facility] Last Admin: 01/19/17 18:58 Dose: 0.125 mg Docusate Sodium (Colace) 100 mg PO DAILY [facility] Last Admin: 01/19/17 10:30 Dose: Not Given Furosemide (Lasix) 40 mg IVP DAILY [facility] Last Admin: 01/19/17 10:24 Dose: 40 mg Glimepiride (Amaryl) 1 mg PO DAILY [facility] Last Admin: 01/19/17 11:22 Dose: Not Given Guaifenesin (Mucinex La) 600 mg PO BID [facility] Last Admin: 01/19/17 18:58 Dose: 600 mg Home Med (Acarbose [Precose]) 100 mg PO DAILY [facility] Ceftriaxone Sodium 1 gm/ (Sodium Chloride) 100 mls @ 100 mls/hr IVPB DAILY [facility] Last Admin: 01/19/17 10:56 Dose: 100 mls/hr Azithromycin (Zithromax 500mg In Ns Addvantage) 500 mg in 250 mls @ 167 mls/hr IVPB Q24H [facility] Last Admin: 01/19/17 12:10 Dose: 167 mls/hr Insulin Aspart (Novolog) 0 unit SC ACHS [facility] PRN Reason: Protocol Last Admin: 01/19/17 18:59 Dose: 3 unit Losartan Potassium (Cozaar) 25 mg PO DAILY [facility] Methylprednisolone (Solu-Medrol) 40 mg IVP Q8H [facility] Last Admin: 01/19/17 16:49 Dose: 40 mg Midodrine (Proamatine) 5 mg PO BID [facility] Last Admin: 01/19/17 18:52 Dose: Not Given Montelukast Sodium (Singulair) 10 mg PO HS [facility] Pantoprazole Sodium (Protonix Ec Tab) 40 mg PO DAILY [facility] Last Admin: 01/19/17 10:24 Dose: 40 mg Rosuvastatin Calcium (Crestor) 5 mg PO HS [facility] Fluticasone/Salmeterol (Advair Diskus 250/50) 1 puff IH RQ12 [facility] Sitagliptin Phosphate (Januvia) 50 mg PO DAILY [facility] Last Admin: 01/19/17 10:23 Dose: 50 mg Tiotropium [place] (Spiriva) 18 mcg INH RQ24 [facility] Last Admin: 01/19/17 08:45 Dose: 18 mcg Physical Exam - Constitutional Appears: No Acute Distress - Head Exam Head Exam: ATRAUMATIC, NORMOCEPHALIC - Eye Exam Eye Exam: Normal appearance - ENT Exam ENT Exam: Mucous Membranes Moist - Respiratory Exam Respiratory Exam: Clear to Auscultation Bilateral - Cardiovascular Exam Cardiovascular Exam: REGULAR RHYTHM - GI/Abdominal Exam GI & Abdominal Exam: Normal Bowel Sounds, Soft - Extremities Exam Extremities exam: Positive for: normal inspection Results - Vital Signs Recent Vital Signs: Last Vital Signs Temp 97.3 F L 01/19/17 19:25 Pulse 76 01/19/17 19:25 Resp 18 01/19/17 16:00 BP 103/62 01/19/17 19:25 Pulse Ox 99 01/19/17 16:00 - Labs Result Diagrams: 01/18/17 23:30 01/18/17 23:30 Labs: Laboratory Results - last 24 hr 01/19/17 01/19/17 01/19/17 07:36 12:17 17:04 POC Glucose (mg/dL) 264 H 309 H 294 H Assessment & Plan (1) COPD exacerbation Status: Acute Comment: shortness of breath most likely secondary to COPD exacerbation. Chest x-ray consistent with hyperinflation. Continue nebulizer treatment, IV steroids and spiriva (2) Cardiomyopathy Status: Chronic
[2017-01-20] MEDS: MethylPREDNISolone 40 mg Vial IVP SCH ×3 (00:02→16:37)
[2017-01-20] MEDS: Albuterol-Ipratrop 3 mg / 0.5 (3 ml) UD INH SCH ×6 (03:37→20:12)
--- NOTE | 2017-01-20 06:16 | CON ---
CARDIOLOGY CONSULTATION DATE: REASON FOR CONSULTATION: Shortness of breath. HISTORY OF PRESENT ILLNESS: The patient is an 81 years old female who has a history of coronary artery disease, status post coronary artery bypass surgery, has a history of cardiomyopathy, status post ICD placement as well as biventricular pacemaker placement. The patient underwent coronary artery bypass surgery at [facility] in 2003. The patient presented with shortness of breath and weakness as well as inability to stand up because of dizziness. The patient denies any recently charge of the defibrillator. The patient is being followed by her bag mender at [facility] where the pacemaker battery was recently replaced. SOCIAL HISTORY: Nonsmoker. MEDICATIONS: Amaryl 1 mg daily, Rocephin 1 g intravenously daily, Colace 100 mg once a day, Cozaar 25 mg once a day, Crestor 40 mg once a day, aspirin 81 mg once a day, Eliquis 2.5 mg twice a day, Lanoxin 0.125 mg once a day, Januvia 50 mg once a day, Lasix 40 mg intravenously once a day, 5 mg twice a day, Protonix 20 mg once a day, Singulair 4 mg intravenously q.8 hours, Spiriva 18 mcg inhalation daily, and Zithromax 500 mg intravenously daily. PHYSICAL EXAMINATION: GENERAL: The patient is an elderly female who does not appear to be in acute distress. VITAL SIGNS: Blood pressure 107/57, heart rate 72, temperature 97.4, and respirations 18. HEENT: The patient has very poor visual acuity. NECK: No JVD. CHEST: Diminished breath sounds over bases and scattered bilateral rhonchi. HEART: S1 and S2 regular. ABDOMEN: Soft. EXTREMITIES: No pedal edema. LABORATORY DATA: SMA-7; sodium 129, potassium 5, chloride 104, CO2 of 16, glucose 156, BUN 20, creatinine 1.2. ProBNP is 14,300, hemoglobin and hematocrit 8.1 and 25.2, white count 14.3, and platelet count 191,000. Chest x-ray reveal mild cardiomegaly, mild basilar infiltrates bilaterally and mild CHF. EKG revealed atrial fib, biventricular paced rhythm. Echocardiographic study done in October of this year revealed ejection fraction of 15% to 20% with mild hypokinesis of anteroseptal wall with severe hypokinesis of the basilar anterior wall and akinesis of all other segments. Mild pulmonary hypertension. ASSESSMENT: 1. The patient with history of congestive heart failure. 2. Rule out underlying pneumonia. 3. History of chronic obstructive lung disease. 4. Diabetic retinopathy. 5. Borderline hypertension. RECOMMENDATIONS: Case was discussed with Dr. Prather, the primary physician. The patient will be maintained on IV Rocephin and IV Zithromax. Continue aspirin 81 mg once a day, Crestor 40 mg once a day, Lanoxin 0.125 mg once a day, Eliquis 25 mg twice a day, continue current bronchodilators, hold Cozaar for systolic blood pressure below 110. Soren Johnson MD
[2017-01-20] MEDS: Fluticasone-Salmeterol 250-50mcg Diskus IH SCH ×2 (07:55→20:12)
[2017-01-20] MEDS: Tiotropium 18 mcg Cap For Inhalation INH SCH (07:56)
[2017-01-20] MEDS: (Novolog) Insulin Aspart, Recombinant 100 u/ml 10 ml vial SC SCH ×4 (08:11→21:45)
[2017-01-20 08:44] LABS: HEMATOCRIT 28.2 % (34.0-47.0); MEAN CELL VOLUME 85.5 fL (81.0-99.0); MEAN CORPUSCULAR HEMOGLOBIN 28.5 pg (27.0-31.0); MEAN CORPUSCULAR HGB CONC 33.3 g/dL (33.0-37.0); RED CELL DISTRIBUTION WIDTH 15.4 % (11.5-14.5); WHITE BLOOD COUNT 15.3 K/uL (4.8-10.8)
[2017-01-20 08:57] LABS: POTASSIUM 4.4 mmol/L (3.6-5.2)
[2017-01-20 09:00] LABS: CALCIUM 8.6 mg/dl (8.6-10.4)
--- NOTE | 2017-01-20 09:56 | CP.PCM.PN ---
Subjective - Date & Time of Evaluation Date of Evaluation: 01/20/17 Time of Evaluation: 11:20 - Subjective Subjective: clinically same Objective - Vital Signs/Intake and Output Vital Signs (last 24 hours): Temp Pulse Resp BP Pulse Ox 97 F L 76 20 103/57 L 100 01/20/17 08:45 01/20/17 08:45 01/20/17 08:45 01/20/17 08:45 01/20/17 08:45 - Medications Medications: Current Medications Albuterol/Ipratropium (Duoneb 3 Mg/0.5 Mg (3 Ml) Ud) 3 ml INH RQ4 [facility] Last Admin: 01/20/17 07:55 Dose: 3 ml Apixaban (Eliquis) 2.5 mg PO BID [facility] Last Admin: 01/19/17 18:59 Dose: 2.5 mg Aspirin (Ecotrin) 81 mg PO DAILY [facility] Last Admin: 01/19/17 10:23 Dose: 81 mg Digoxin (Lanoxin) 0.125 mg PO DAILY@1800 [facility] Last Admin: 01/19/17 18:58 Dose: 0.125 mg Docusate Sodium (Colace) 100 mg PO DAILY [facility] Last Admin: 01/19/17 10:30 Dose: Not Given Furosemide (Lasix) 40 mg IVP DAILY [facility] Last Admin: 01/19/17 10:24 Dose: 40 mg Glimepiride (Amaryl) 1 mg PO DAILY [facility] Last Admin: 01/19/17 11:22 Dose: Not Given Guaifenesin (Mucinex La) 600 mg PO BID [facility] Last Admin: 01/19/17 18:58 Dose: 600 mg Home Med (Patient's Own Medication) 1 tab PO BID [facility] Ceftriaxone Sodium 1 gm/ (Sodium Chloride) 100 mls @ 100 mls/hr IVPB DAILY [facility] Last Admin: 01/19/17 10:56 Dose: 100 mls/hr Azithromycin (Zithromax 500mg In Ns Addvantage) 500 mg in 250 mls @ 167 mls/hr IVPB Q24H [facility] Last Admin: 01/19/17 12:10 Dose: 167 mls/hr Insulin Aspart (Novolog) 0 unit SC ACHS [facility] PRN Reason: Protocol Last Admin: 01/20/17 08:11 Dose: 2 unit Losartan Potassium (Cozaar) 25 mg PO DAILY [facility] Methylprednisolone (Solu-Medrol) 40 mg IVP Q8H [facility] Last Admin: 01/20/17 08:14 Dose: 40 mg Midodrine (Proamatine) 5 mg PO BID [facility] Last Admin: 01/19/17 18:52 Dose: Not Given Montelukast Sodium (Singulair) 10 mg PO HS [facility] Last Admin: 01/19/17 22:00 Dose: 10 mg Pantoprazole Sodium (Protonix Ec Tab) 40 mg PO DAILY [facility] Last Admin: 01/19/17 10:24 Dose: 40 mg Rosuvastatin Calcium (Crestor) 5 mg PO HS [facility] Last Admin: 01/19/17 22:00 Dose: 5 mg Fluticasone/Salmeterol (Advair Diskus 250/50) 1 puff IH RQ12 [facility] Last Admin: 01/20/17 07:55 Dose: 1 puff Sitagliptin Phosphate (Januvia) 50 mg PO DAILY [facility] Last Admin: 01/19/17 10:23 Dose: 50 mg Tiotropium [place] (Spiriva) 18 mcg INH RQ24 [facility] Last Admin: 01/20/17 07:56 Dose: 18 mcg - Labs Labs: 01/20/17 08:20 01/20/17 08:20 - Constitutional Appears: Well - Head Exam Head Exam: ATRAUMATIC, NORMAL INSPECTION, NORMOCEPHALIC - Eye Exam Eye Exam: EOMI, Normal appearance, PERRL Pupil Exam: NORMAL ACCOMODATION, PERRL - ENT Exam ENT Exam: Mucous Membranes Moist, Normal Exam - Neck Exam Neck Exam: Full ROM, Normal Inspection. absent: Lymphadenopathy - Respiratory Exam Respiratory Exam: Decreased Breath Sounds - Cardiovascular Exam Cardiovascular Exam: REGULAR RHYTHM, +S1, +S2 - GI/Abdominal Exam GI & Abdominal Exam: Soft, Diminished Bowel Sounds - Rectal Exam Rectal Exam: Deferred
[2017-01-20] MEDS: Pantoprazole 40 mg EC Tab PO SCH (12:06)
[2017-01-20] MEDS: guaiFENesin 600 mg ER Tab PO SCH ×2 (12:06→17:58)
[2017-01-20] MEDS: Patient's Own Medication - Tablet/Capusle PO SCH ×2 (12:08→17:59)
[2017-01-20] MEDS: Azithromycin 500mg/250ML NS 500 MG/250 ML BAG IVPB SCH (13:27)
--- NOTE | 2017-01-20 14:07 | PN ---
DATE: SUBJECTIVE: The patient is still short of breath and feels weak. PHYSICAL EXAMINATION: VITAL SIGNS: Blood pressure 103/57, heart rate 76, temperature 97, and respirations 20. HEENT: Pale conjunctivae and very poor visual acuity. CHEST: Diminished breath sounds at the bases. HEART: S1 and S2 regular. EXTREMITIES: Trace leg edema. LABORATORY DATA: Hemoglobin and hematocrit 9.4 and 28.2, white count 15.3, and platelet count 185,000. Today's BUN and creatinine 39 and 1.6. Glucose 283. Sodium is 129. ASSESSMENT: 1. The patient with congestive heart failure. 2. Consider underlying pneumonia. 3. Borderline hypertension. 4. Uncontrolled diabetes mellitus. RECOMMENDATIONS: Continue current IV Rocephin and IV Zithromax. Continue Eliquis 2.5 mg twice a day, aspirin 81 mg once a day, Lanoxin 0.125 mg daily, Lasix 40 mg intravenously daily, and obtain portable chest x-ray. Soren Johnsno MD
--- NOTE | 2017-01-20 14:19 | RAD ---
HISTORY: Congestive heart failure COMPARISON: 01/18/2017. FINDINGS: LUNGS: No active pulmonary disease. PLEURA: No significant pleural effusion identified, no pneumothorax apparent. CARDIOVASCULAR: Cardiomegaly. 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 No evidence of acute, significant cardiovascular disease. Position/ configuration of pacemaker Satisfactory. OSSEOUS STRUCTURES: No significant abnormalities. VISUALIZED UPPER ABDOMEN: Normal. OTHER FINDINGS: None. IMPRESSION: Cardiomegaly, pulmonary vascular congestion, mild. Otherwise no significant findings or interval changes.
[2017-01-20] MEDS: Digoxin 125 mcg (0.125 mg) Tab PO SCH (17:57)
[2017-01-21] MEDS: MethylPREDNISolone 40 mg Vial IVP SCH ×3 (00:18→16:25)
[2017-01-21] MEDS: Albuterol-Ipratrop 3 mg / 0.5 (3 ml) UD INH SCH ×6 (01:27→20:15)
[2017-01-21] MEDS: Tiotropium 18 mcg Cap For Inhalation INH SCH (07:45)
[2017-01-21] MEDS: (Novolog) Insulin Aspart, Recombinant 100 u/ml 10 ml vial SC SCH ×4 (08:44→22:11)
[2017-01-21] MEDS: Pantoprazole 40 mg EC Tab PO SCH (09:57)
[2017-01-21] MEDS: guaiFENesin 600 mg ER Tab PO SCH ×2 (09:57→18:30)
[2017-01-21] MEDS: Patient's Own Medication - Tablet/Capusle PO SCH ×2 (09:59→18:31)
[2017-01-21] MEDS: Azithromycin 500mg/250ML NS 500 MG/250 ML BAG IVPB SCH (10:55)
--- NOTE | 2017-01-21 13:20 | CP.PCM.PN ---
Subjective - Date & Time of Evaluation Date of Evaluation: 01/21/17 Time of Evaluation: 11:00 - Subjective Subjective: clinically same Objective - Vital Signs/Intake and Output Vital Signs (last 24 hours): Temp Pulse Resp BP Pulse Ox 97.3 F L 82 20 124/60 97 01/21/17 08:47 01/21/17 08:47 01/21/17 08:47 01/21/17 09:58 01/21/17 08:47 Intake and Output: 01/21/17 01/21/17 06:59 18:59 Intake Total 400 Balance 400 - Medications Medications: Current Medications Albuterol/Ipratropium (Duoneb 3 Mg/0.5 Mg (3 Ml) Ud) 3 ml INH RQ4 [facility] Last Admin: 01/21/17 12:14 Dose: 3 ml Apixaban (Eliquis) 2.5 mg PO BID [facility] Last Admin: 01/21/17 09:56 Dose: 2.5 mg Aspirin (Ecotrin) 81 mg PO DAILY [facility] Last Admin: 01/21/17 09:58 Dose: 81 mg Carvedilol (Coreg) 3.125 mg PO BID [facility] Digoxin (Lanoxin) 0.125 mg PO DAILY@1800 [facility] Last Admin: 01/20/17 17:57 Dose: 0.125 mg Docusate Sodium (Colace) 100 mg PO DAILY [facility] Last Admin: 01/21/17 10:19 Dose: Not Given Furosemide (Lasix) 40 mg IVP DAILY [facility] Last Admin: 01/21/17 09:58 Dose: 40 mg Glimepiride (Amaryl) 1 mg PO DAILY [facility] Last Admin: 01/21/17 09:56 Dose: 1 mg Guaifenesin (Mucinex La) 600 mg PO BID [facility] Last Admin: 01/21/17 09:57 Dose: 600 mg Home Med (Patient's Own Medication) 1 tab PO BID [facility] Last Admin: 01/21/17 09:59 Dose: 1 tab Ceftriaxone Sodium 1 gm/ (Sodium Chloride) 100 mls @ 100 mls/hr IVPB DAILY [facility] Last Admin: 01/21/17 09:00 Dose: 100 mls/hr Azithromycin (Zithromax 500mg In Ns Addvantage) 500 mg in 250 mls @ 167 mls/hr IVPB Q24H [facility] Last Admin: 01/21/17 10:55 Dose: 167 mls/hr Dobutamine HCl/Dextrose (Dobutamine/Dextrose 5% 500mg/250ml) 500 mg in 250 mls @ 5.273 mls/hr IV .Q24H [facility]; 2.5 MCG/KG/MIN PRN Reason: Protocol Insulin Aspart (Novolog) 0 unit SC ACHS [facility] PRN Reason: Protocol Last Admin: 01/21/17 12:34 Dose: 6 unit Losartan Potassium (Cozaar) 25 mg PO DAILY [facility] Last Admin: 01/21/17 09:58 Dose: 25 mg Methylprednisolone (Solu-Medrol) 40 mg IVP Q8H [facility] Last Admin: 01/21/17 08:52 Dose: 40 mg Midodrine (Proamatine) 5 mg PO BID [facility] Last Admin: 01/21/17 09:56 Dose: 5 mg Montelukast Sodium (Singulair) 10 mg PO HS [facility] Last Admin: 01/20/17 22:05 Dose: 10 mg Pantoprazole Sodium (Protonix Ec Tab) 40 mg PO DAILY [facility] Last Admin: 01/21/17 09:57 Dose: 40 mg Rosuvastatin Calcium (Crestor) 5 mg PO HS [facility] Last Admin: 01/20/17 22:05 Dose: 5 mg Fluticasone/Salmeterol (Advair Diskus 250/50) 1 puff IH RQ12 [facility] Last Admin: 01/20/17 20:12 Dose: 1 puff Sitagliptin Phosphate (Januvia) 50 mg PO DAILY [facility] Last Admin: 01/21/17 09:57 Dose: 50 mg Tiotropium [place] (Spiriva) 18 mcg INH RQ24 [facility] Last Admin: 01/21/17 07:45 Dose: 18 mcg - Labs Labs: 01/20/17 08:20 01/20/17 08:20 - Constitutional Appears: Well - Head Exam Head Exam: ATRAUMATIC, NORMAL INSPECTION, NORMOCEPHALIC - Eye Exam Eye Exam: EOMI, Normal appearance, PERRL Pupil Exam: NORMAL ACCOMODATION, PERRL - ENT Exam ENT Exam: Mucous Membranes Moist, Normal Exam - Neck Exam Neck Exam: Full ROM, Normal Inspection. absent: Lymphadenopathy - Respiratory Exam Respiratory Exam: Decreased Breath Sounds - Cardiovascular Exam Cardiovascular Exam: REGULAR RHYTHM, +S1, +S2 - GI/Abdominal Exam GI & Abdominal Exam: Soft, Diminished Bowel Sounds - Rectal Exam Rectal Exam: Deferred Assessment and Plan - Assessment and Plan (Free Text) Plan: Case seen and examined still short of breath feels better now complains of epigastric pain Continue DuoNeb continue steroids continue Eliquis continue glimepiride Continue same Continue cardiology follow-up monitor the bicarb as bicarbonate is 14
[2017-01-21] MEDS: DOBUTamine 500mg/250ml D5W 500 MG/250 ML BAG IV SCH (14:37)
[2017-01-21] MEDS ORDERED: (Novolog) Insulin Aspart, Recombinant 100 u/ml 10 ml vial SC ONE (14:45)
--- NOTE | 2017-01-21 17:23 | CP.PCM.PN ---
Subjective - Date & Time of Evaluation Date of Evaluation: 01/21/17 Time of Evaluation: 11:00 - Subjective Subjective: patient seen and examined Still complaining of shortness of breath Denies cough, denies fever chills Complaining of epigastric Objective - Vital Signs/Intake and Output Vital Signs (last 24 hours): Temp Pulse Resp BP Pulse Ox 97.5 F L 74 20 151/67 H 98 01/21/17 16:49 01/21/17 16:49 01/21/17 16:49 01/21/17 16:49 01/21/17 16:49 Intake and Output: 01/21/17 01/21/17 06:59 18:59 Intake Total 400 760 Balance 400 760 - Medications Medications: Current Medications Albuterol/Ipratropium (Duoneb 3 Mg/0.5 Mg (3 Ml) Ud) 3 ml INH RQ4 [facility] Last Admin: 01/21/17 16:48 Dose: 3 ml Apixaban (Eliquis) 2.5 mg PO BID [facility] Last Admin: 01/21/17 09:56 Dose: 2.5 mg Aspirin (Ecotrin) 81 mg PO DAILY [facility] Last Admin: 01/21/17 09:58 Dose: 81 mg Carvedilol (Coreg) 3.125 mg PO BID [facility] Digoxin (Lanoxin) 0.125 mg PO DAILY@1800 [facility] Last Admin: 01/20/17 17:57 Dose: 0.125 mg Docusate Sodium (Colace) 100 mg PO DAILY [facility] Last Admin: 01/21/17 10:19 Dose: Not Given Furosemide (Lasix) 40 mg IVP DAILY [facility] Last Admin: 01/21/17 09:58 Dose: 40 mg Glimepiride (Amaryl) 1 mg PO DAILY [facility] Last Admin: 01/21/17 09:56 Dose: 1 mg Guaifenesin (Mucinex La) 600 mg PO BID [facility] Last Admin: 01/21/17 09:57 Dose: 600 mg Home Med (Patient's Own Medication) 1 tab PO BID [facility] Last Admin: 01/21/17 09:59 Dose: 1 tab Ceftriaxone Sodium 1 gm/ (Sodium Chloride) 100 mls @ 100 mls/hr IVPB DAILY [facility] Last Admin: 01/21/17 09:00 Dose: 100 mls/hr Azithromycin (Zithromax 500mg In Ns Addvantage) 500 mg in 250 mls @ 167 mls/hr IVPB Q24H [facility] Last Admin: 01/21/17 10:55 Dose: 167 mls/hr Dobutamine HCl/Dextrose (Dobutamine/Dextrose 5% 500mg/250ml) 500 mg in 250 mls @ 5.273 mls/hr IV .Q24H [facility]; 2.5 MCG/KG/MIN PRN Reason: Protocol Last Admin: 01/21/17 14:37 Dose: 5.273 mls/hr Insulin Aspart (Novolog) 0 unit SC ACHS [facility] PRN Reason: Protocol Last Admin: 01/21/17 12:34 Dose: 6 unit Losartan Potassium (Cozaar) 25 mg PO DAILY [facility] Last Admin: 01/21/17 09:58 Dose: 25 mg Methylprednisolone (Solu-Medrol) 40 mg IVP Q8H [facility] Last Admin: 01/21/17 16:25 Dose: 40 mg Midodrine (Proamatine) 5 mg PO BID [facility] Last Admin: 01/21/17 09:56 Dose: 5 mg Montelukast Sodium (Singulair) 10 mg PO HS [facility] Last Admin: 01/20/17 22:05 Dose: 10 mg Pantoprazole Sodium (Protonix Ec Tab) 40 mg PO DAILY [facility] Last Admin: 01/21/17 09:57 Dose: 40 mg Rosuvastatin Calcium (Crestor) 5 mg PO HS [facility] Last Admin: 01/20/17 22:05 Dose: 5 mg Fluticasone/Salmeterol (Advair Diskus 250/50) 1 puff IH RQ12 [facility] Last Admin: 01/20/17 20:12 Dose: 1 puff Sitagliptin Phosphate (Januvia) 50 mg PO DAILY [facility] Last Admin: 01/21/17 09:57 Dose: 50 mg Tiotropium [place] (Spiriva) 18 mcg INH RQ24 [facility] Last Admin: 01/21/17 07:45 Dose: 18 mcg - Labs Labs: 01/20/17 08:20 01/20/17 08:20 - Head Exam Head Exam: ATRAUMATIC, NORMOCEPHALIC - Eye Exam Eye Exam: Normal appearance - ENT Exam ENT Exam: Mucous Membranes Moist - Neck Exam Neck Exam: Normal Inspection - GI/Abdominal Exam GI & Abdominal Exam: Soft, Normal Bowel Sounds Assessment and Plan (1) COPD exacerbation Status: Acute (2) Cardiomyopathy Status: Chronic
[2017-01-21] MEDS: Digoxin 125 mcg (0.125 mg) Tab PO SCH (18:31)
[2017-01-21] MEDS: Fluticasone-Salmeterol 250-50mcg Diskus IH SCH (20:15)
--- NOTE | 2017-01-21 20:56 | CARD ---
APPROVED REPORT EKG Measurement Heart [id number] CO [id number] [id number] <Conclusion> Atrial-sensed ventricular-paced rhythm Abnormal ECG
[2017-01-22] MEDS: Albuterol-Ipratrop 3 mg / 0.5 (3 ml) UD INH SCH ×6 (00:28→19:42)
[2017-01-22] MEDS: MethylPREDNISolone 40 mg Vial IVP SCH ×3 (01:12→16:32)
--- NOTE | 2017-01-22 07:56 | PN ---
SUBJECTIVE: The patient is experiencing shortness of breath on minimal exertion. PHYSICAL EXAMINATION VITAL SIGNS: Blood pressure 124/60, heart rate 82, temperature 97.3, respirations 20. HEENT: Very poor visual acuity. CHEST: Bibasilar rales. HEART: S1 and S2, regular. EXTREMITIES: No edema. LABORATORY DATA: Today's blood sugars are 344 and 463. ASSESSMENT: 1. Ischemic cardiomyopathy. 2. Consider underlying pneumonia. 3. Uncontrolled diabetes mellitus. 4. Anemia. 5. Mild hyponatremia. RECOMMENDATIONS: Continue current IV losartan and IV Zithromax. Continue Cozaar 25 mg daily. I did initiate Coreg 3.125 mg twice a day, ____ at 2.5 mcg/kg/min. Continue aspirin 81 mg once s day and Eliquis at 2.5 mg twice a day, intravenous Lasix at 20 mg once a day, digoxin 0.125 mg daily. Obtain serum digoxin level. Soren Johnson MD
[2017-01-22] MEDS: Fluticasone-Salmeterol 250-50mcg Diskus IH SCH ×2 (08:38→19:42)
[2017-01-22] MEDS: Tiotropium 18 mcg Cap For Inhalation INH SCH (08:38)
[2017-01-22] MEDS: Azithromycin 500 MG in Sodium Chloride 0.9% 250 ML IVPB SCH (08:50)
[2017-01-22] MEDS: (Novolog) Insulin Aspart, Recombinant 100 u/ml 10 ml vial SC SCH ×4 (08:50→21:58)
[2017-01-22 08:51] LABS: BASO % 0.1 % (0.0-2.0); HEMATOCRIT 30.6 % (34.0-47.0); LYMPH # 0.4 K/uL (1.0-4.3); LYMPH % 3.4 % (20.0-40.0); MEAN CELL VOLUME 84.3 fL (81.0-99.0); MEAN CORPUSCULAR HGB CONC 33.2 g/dL (33.0-37.0); MONO # 0.2 K/uL (0.0-0.8); MONO % 1.6 % (0.0-10.0); NRBC % 0.1 % (0.0-2.0); PLATELET COUNT 262 K/uL (130-400); RED CELL DISTRIBUTION WIDTH 15.6 % (11.5-14.5); WHITE BLOOD COUNT 10.7 K/uL (4.8-10.8)
[2017-01-22 09:07] LABS: POTASSIUM 3.3 mmol/L (3.6-5.2)
[2017-01-22 09:09] LABS: BILIRUBIN,TOTAL 0.5 mg/dL (0.2-1.3)
[2017-01-22 09:10] LABS: ALB/GLOB RATIO 0.9 (1.0-2.1); CALCIUM 8.5 mg/dl (8.6-10.4); TOTAL PROTEIN 6.2 g/dL (6.3-8.3)
[2017-01-22 09:51] LABS: NEUTROPHIL 91 % (50-75); TOTAL CELLS COUNTED 100
[2017-01-22] MEDS: Pantoprazole 40 mg EC Tab PO SCH (09:58)
[2017-01-22] MEDS: guaiFENesin 600 mg ER Tab PO SCH ×2 (09:59→18:00)
[2017-01-22] MEDS: Patient's Own Medication - Tablet/Capusle PO SCH ×2 (10:01→18:01)
[2017-01-22] MEDS: DOBUTamine 500mg/250ml D5W 500 MG/250 ML BAG IV SCH (12:45)
[2017-01-22] MEDS ORDERED: Potassium Chloride 20 mEq ER Tab PO STA (16:35)
--- NOTE | 2017-01-22 17:04 | CP.PCM.PN ---
Subjective - Date & Time of Evaluation Date of Evaluation: 01/22/17 Time of Evaluation: 10:20 - Subjective Subjective: clinically same Objective - Vital Signs/Intake and Output Vital Signs (last 24 hours): Temp Pulse Resp BP Pulse Ox 97.7 F 85 20 145/60 96 01/22/17 16:05 01/22/17 16:05 01/22/17 16:05 01/22/17 16:05 01/22/17 16:05 Intake and Output: 01/22/17 01/22/17 06:59 18:59 Intake Total 440 790 Balance 440 790 - Medications Medications: Current Medications Albuterol/Ipratropium (Duoneb 3 Mg/0.5 Mg (3 Ml) Ud) 3 ml INH RQ4 [facility] Last Admin: 01/22/17 15:46 Dose: 3 ml Apixaban (Eliquis) 2.5 mg PO BID [facility] Last Admin: 01/22/17 09:59 Dose: 2.5 mg Aspirin (Ecotrin) 81 mg PO DAILY [facility] Last Admin: 01/22/17 09:58 Dose: 81 mg Carvedilol (Coreg) 3.125 mg PO BID [facility] Last Admin: 01/22/17 10:00 Dose: 3.125 mg Digoxin (Lanoxin) 0.125 mg PO DAILY@1800 [facility] Last Admin: 01/21/17 18:31 Dose: 0.125 mg Docusate Sodium (Colace) 100 mg PO DAILY [facility] Last Admin: 01/22/17 10:05 Dose: Not Given Furosemide (Lasix) 20 mg IVP DAILY [facility] Glimepiride (Amaryl) 1 mg PO DAILY [facility] Last Admin: 01/22/17 09:58 Dose: 1 mg Guaifenesin (Mucinex La) 600 mg PO BID [facility] Last Admin: 01/22/17 09:59 Dose: 600 mg Home Med (Patient's Own Medication) 1 tab PO BID [facility] Last Admin: 01/22/17 10:01 Dose: 1 tab Ceftriaxone Sodium 1 gm/ (Sodium Chloride) 100 mls @ 100 mls/hr IVPB DAILY [facility] Last Admin: 01/22/17 10:55 Dose: 100 mls/hr Dobutamine HCl/Dextrose (Dobutamine/Dextrose 5% 500mg/250ml) 500 mg in 250 mls @ 5.273 mls/hr IV .Q24H [facility]; 2.5 MCG/KG/MIN PRN Reason: Protocol Last Admin: 01/21/17 14:37 Dose: 5.273 mls/hr Azithromycin 500 mg/ Sodium (Chloride) 250 mls @ 167 mls/hr IVPB Q24H [facility] Last Admin: 01/22/17 08:50 Dose: 167 mls/hr Insulin Aspart (Novolog) 0 unit SC ACHS [facility] PRN Reason: Protocol Losartan Potassium (Cozaar) 25 mg PO DAILY [facility] Last Admin: 01/22/17 10:00 Dose: 25 mg Methylprednisolone (Solu-Medrol) 40 mg IVP Q8H [facility] Last Admin: 01/22/17 16:32 Dose: 40 mg Midodrine (Proamatine) 5 mg PO BID [facility] Last Admin: 01/22/17 10:00 Dose: 5 mg Montelukast Sodium (Singulair) 10 mg PO HS [facility] Last Admin: 01/21/17 22:49 Dose: 10 mg Pantoprazole Sodium (Protonix Ec Tab) 40 mg PO DAILY [facility] Last Admin: 01/22/17 09:58 Dose: 40 mg Potassium Chloride (K-Dur 20 Meq Er Tab) 40 meq PO ONCE ONE Stop: 01/23/17 18:01 Rosuvastatin Calcium (Crestor) 5 mg PO HS [facility] Last Admin: 01/21/17 22:49 Dose: 5 mg Fluticasone/Salmeterol (Advair Diskus 250/50) 1 puff IH RQ12 [facility] Last Admin: 01/22/17 08:38 Dose: 1 puff Sitagliptin Phosphate (Januvia) 50 mg PO DAILY [facility] Last Admin: 01/22/17 09:58 Dose: 50 mg Tiotropium [place] (Spiriva) 18 mcg INH RQ24 [facility] Last Admin: 01/22/17 08:38 Dose: 18 mcg - Labs Labs: 01/22/17 08:47 01/22/17 08:47 - Constitutional Appears: Well - Head Exam Head Exam: ATRAUMATIC, NORMAL INSPECTION, NORMOCEPHALIC - Eye Exam Eye Exam: EOMI, Normal appearance, PERRL Pupil Exam: NORMAL ACCOMODATION, PERRL - ENT Exam ENT Exam: Mucous Membranes Moist, Normal Exam - Neck Exam Neck Exam: Full ROM, Normal Inspection. absent: Lymphadenopathy - Respiratory Exam Respiratory Exam: Decreased Breath Sounds - Cardiovascular Exam Cardiovascular Exam: REGULAR RHYTHM, +S1, +S2 - GI/Abdominal Exam GI & Abdominal Exam: Soft, Diminished Bowel Sounds - Rectal Exam Rectal Exam: Deferred
[2017-01-22] MEDS: Digoxin 125 mcg (0.125 mg) Tab PO SCH (18:07)
--- NOTE | 2017-01-22 20:03 | PN ---
DATE: 01/22/2017 SUBJECTIVE: The patient's shortness of breath has improved, but she still agrees she is weak. PHYSICAL EXAMINATION VITAL SIGNS: Blood pressure 145/60, heart rate 85, temperature 97.7, and respirations 20. HEENT: The patient is legally blind. CHEST: Active breath sounds at the bases. HEART: S1 and S2, regular. EXTREMITIES: No edema. LABORATORY DATA: Today's potassium level is 3.3, BUN and creatinine are 37 and 1.4 respectively. Glucose 255. Hemoglobin and hematocrit 10.2 and 30.6, white count and platelet count are within normal limits. ASSESSMENT: 1. Ischemic cardiomyopathy. 2. Prerenal azotemia. 3. Chronic obstructive lung disease. 4. Anemia. 5. Hypokalemia. RECOMMENDATIONS: Continue Subutex infusion 2.5 mcg/kg/minute. Continue IV Zithromax and IV Rocephin. Continue Cozaar 25 mg once a day, Coreg at 3.125 mg once a day, aspirin 81 mg once a day, Eliquis 2.5 mg twice a day, K-Dur 20 mEq orally daily, reduce Lasix 20 mg intravenously once a day. Optimize diabetic control. Soren Johnson MD
[2017-01-23] MEDS: Albuterol-Ipratrop 3 mg / 0.5 (3 ml) UD INH SCH ×7 (00:18→23:52)
[2017-01-23] MEDS: MethylPREDNISolone 40 mg Vial IVP SCH ×3 (00:28→16:54)
[2017-01-23] MEDS: Azithromycin 500 MG in Sodium Chloride 0.9% 250 ML IVPB SCH (06:22)
[2017-01-23] MEDS: Fluticasone-Salmeterol 250-50mcg Diskus IH SCH ×2 (07:42→20:30)
[2017-01-23] MEDS: Tiotropium 18 mcg Cap For Inhalation INH SCH (07:45)
[2017-01-23] MEDS: (Novolog) Insulin Aspart, Recombinant 100 u/ml 10 ml vial SC SCH ×4 (09:36→21:43)
[2017-01-23] MEDS: Patient's Own Medication - Tablet/Capusle PO SCH ×2 (10:58→17:58)
[2017-01-23] MEDS: guaiFENesin 600 mg ER Tab PO SCH ×2 (10:58→17:58)
[2017-01-23] MEDS: Pantoprazole 40 mg EC Tab PO SCH (13:06)
[2017-01-23] MEDS: Digoxin 125 mcg (0.125 mg) Tab PO SCH (17:58)
[2017-01-23 17:59] VITALS: PULSE 74
--- NOTE | 2017-01-23 17:59 | CP.PCM.PN ---
Subjective - Date & Time of Evaluation Date of Evaluation: 01/23/17 Time of Evaluation: 11:20 - Subjective Subjective: clinically same Objective - Vital Signs/Intake and Output Vital Signs (last 24 hours): Temp Pulse Resp BP Pulse Ox 97.6 F 67 20 114/66 98 01/23/17 16:19 01/23/17 16:19 01/23/17 16:19 01/23/17 16:19 01/23/17 16:19 Intake and Output: 01/23/17 01/23/17 06:59 18:59 Intake Total 442.4 526.5 Balance 442.4 526.5 - Medications Medications: Current Medications Albuterol/Ipratropium (Duoneb 3 Mg/0.5 Mg (3 Ml) Ud) 3 ml INH RQ4 [facility] Last Admin: 01/23/17 16:43 Dose: 3 ml Apixaban (Eliquis) 2.5 mg PO BID [facility] Last Admin: 01/23/17 10:58 Dose: 2.5 mg Aspirin (Ecotrin) 81 mg PO DAILY [facility] Last Admin: 01/23/17 10:58 Dose: 81 mg Carvedilol (Coreg) 3.125 mg PO BID [facility] Last Admin: 01/23/17 10:58 Dose: 3.125 mg Digoxin (Lanoxin) 0.125 mg PO DAILY@1800 [facility] Last Admin: 01/22/17 18:07 Dose: 0.125 mg Docusate Sodium (Colace) 100 mg PO DAILY [facility] Last Admin: 01/23/17 10:58 Dose: Not Given Glimepiride (Amaryl) 1 mg PO DAILY [facility] Last Admin: 01/23/17 10:58 Dose: 1 mg Guaifenesin (Mucinex La) 600 mg PO BID [facility] Last Admin: 01/23/17 10:58 Dose: 600 mg Home Med (Patient's Own Medication) 1 tab PO BID [facility] Last Admin: 01/23/17 10:58 Dose: 1 tab Ceftriaxone Sodium 1 gm/ (Sodium Chloride) 100 mls @ 100 mls/hr IVPB DAILY [facility] Last Admin: 01/23/17 10:20 Dose: 100 mls/hr Azithromycin 500 mg/ Sodium (Chloride) 250 mls @ 167 mls/hr IVPB Q24H [facility] Last Admin: 01/23/17 06:22 Dose: 167 mls/hr Insulin Aspart (Novolog) 0 unit SC ACHS [facility] PRN Reason: Protocol Last Admin: 01/23/17 17:55 Dose: 4 unit Losartan Potassium (Cozaar) 25 mg PO DAILY [facility] Last Admin: 01/23/17 10:58 Dose: 25 mg Methylprednisolone (Solu-Medrol) 40 mg IVP Q8H [facility] Last Admin: 01/23/17 16:54 Dose: 40 mg Midodrine (Proamatine) 5 mg PO BID [facility] Last Admin: 01/23/17 10:58 Dose: 5 mg Montelukast Sodium (Singulair) 10 mg PO HS [facility] Last Admin: 01/22/17 21:57 Dose: 10 mg Pantoprazole Sodium (Protonix Ec Tab) 40 mg PO DAILY [facility] Last Admin: 01/23/17 13:06 Dose: 40 mg Potassium Chloride (K-Dur 20 Meq Er Tab) 40 meq PO ONCE ONE Stop: 01/23/17 18:01 Last Admin: 01/23/17 17:57 Dose: 40 meq Rosuvastatin Calcium (Crestor) 5 mg PO HS [facility] Last Admin: 01/22/17 21:57 Dose: 5 mg Fluticasone/Salmeterol (Advair Diskus 250/50) 1 puff IH RQ12 [facility] Last Admin: 01/23/17 07:42 Dose: 1 puff Sitagliptin Phosphate (Januvia) 50 mg PO DAILY [facility] Last Admin: 01/23/17 10:58 Dose: 50 mg Tiotropium [place] (Spiriva) 18 mcg INH RQ24 [facility] Last Admin: 01/23/17 07:45 Dose: 18 mcg - Labs Labs: 01/22/17 08:47 01/22/17 08:47 - Constitutional Appears: Well - Head Exam Head Exam: ATRAUMATIC, NORMAL INSPECTION, NORMOCEPHALIC - Eye Exam Eye Exam: EOMI, Normal appearance, PERRL Pupil Exam: NORMAL ACCOMODATION, PERRL - ENT Exam ENT Exam: Mucous Membranes Moist, Normal Exam - Neck Exam Neck Exam: Full ROM, Normal Inspection. absent: Lymphadenopathy - Respiratory Exam Respiratory Exam: Decreased Breath Sounds - Cardiovascular Exam Cardiovascular Exam: REGULAR RHYTHM, +S1, +S2 - GI/Abdominal Exam GI & Abdominal Exam: Soft, Diminished Bowel Sounds - Rectal Exam Rectal Exam: Deferred
[2017-01-23] MEDS ORDERED: Potassium Chloride 20 mEq ER Tab PO ONE (18:00)
--- NOTE | 2017-01-23 18:23 | PN ---
SUBJECTIVE: The patient's shortness of breath has improved. She is not happy with for some reason. PHYSICAL EXAMINATION: VITAL SIGNS: Blood pressure 152/63, heart rate 98, temperature 97.9, respirations 20. HEENT: Pale conjunctivae. CHEST: Bilateral rhonchi. HEART: S1 and S2 regular. EXTREMITIES: No edema. LABORATORY DATA: Today's BUN and creatinine 37 and 1.4, potassium 3.3, glucose 255. ASSESSMENT: 1. Ischemic cardiomyopathy. 2. Prerenal azotemia. 3. Uncontrolled diabetes mellitus. 4. Hypokalemia. 5. Pneumonia. RECOMMENDATION: Continue IV Rocephin and IV Zithromax. Continue Cozaar 25 mg once a day, Coreg at 3.125 mg twice a day, Crestor 5 mg once a day, Eliquis at 2.5 mg twice a day. Discontinue Lasix and continue K-Dur at 40 mEq daily. The patient can be discharged from cardiac point to view after optimizing potassium replacement. Soren Johnson MD
[2017-01-24] MEDS: MethylPREDNISolone 40 mg Vial IVP SCH ×2 (00:17→08:03)
[2017-01-24] MEDS: Albuterol-Ipratrop 3 mg / 0.5 (3 ml) UD INH SCH (03:07)
[2017-01-24] MEDS: Azithromycin 500 MG in Sodium Chloride 0.9% 250 ML IVPB SCH (05:44)
[2017-01-24] MEDS: (Novolog) Insulin Aspart, Recombinant 100 u/ml 10 ml vial SC SCH ×2 (08:03→12:10)
[2017-01-24 08:05] VITALS: BP 145/68; PULSE 78; RESP 19; TEMP 97.5; O2SAT 99
[2017-01-24] MEDS: Fluticasone-Salmeterol 250-50mcg Diskus IH SCH (08:34)
[2017-01-24] MEDS: Tiotropium 18 mcg Cap For Inhalation INH SCH (08:34)
[2017-01-24] MEDS: Pantoprazole 40 mg EC Tab PO SCH (10:16)
[2017-01-24] MEDS: guaiFENesin 600 mg ER Tab PO SCH (10:16)
[2017-01-24] MEDS: Patient's Own Medication - Tablet/Capusle PO SCH (10:17)
--- NOTE | 2017-01-24 19:33 | CP.PCM.PN ---
Subjective - Date & Time of Evaluation Date of Evaluation: 01/24/17 Objective - Vital Signs/Intake and Output Vital Signs (last 24 hours): Temp Pulse Resp BP Pulse Ox 97.5 F L 78 19 145/68 99 01/24/17 08:04 01/24/17 08:04 01/24/17 08:04 01/24/17 08:04 01/24/17 08:04 - Labs Labs: 01/22/17 08:47 01/22/17 08:47
== END 2017-01-24 14:04 | disposition home or self-care (01) | DRG 541 ==
LOC: C.ER 22:34 → C.5T 01-19 00:58
PROVIDERS: ADMIT Internal Medicine Nephrology; ATTEND Internal Medicine Nephrology
DX: J44.0 Chronic obstructive pulmonary disease with (acute) lower respiratory infection (principal); J18.9 Pneumonia, unspecified organism; I11.0 Hypertensive heart disease with heart failure; E11.65 Type 2 diabetes mellitus with hyperglycemia; I50.9 Heart failure, unspecified; J45.901 Unspecified asthma with (acute) exacerbation; E87.1 Hypo-osmolality and hyponatremia; I48.91 Unspecified atrial fibrillation; E87.6 Hypokalemia; E11.319 Type 2 diabetes mellitus with unspecified diabetic retinopathy without macular edema; J44.1 Chronic obstructive pulmonary disease with (acute) exacerbation; I25.10 Atherosclerotic heart disease of native coronary artery without angina pectoris; I25.5 Ischemic cardiomyopathy; D64.9 Anemia, unspecified; Z95.1 Presence of aortocoronary bypass graft; Z95.810 Presence of automatic (implantable) cardiac defibrillator

== ENCOUNTER 2017-09-10 06:06 | Inpatient (IN) | payer MEDICARE, MEDICAID ==
[2017-09-10 06:06] VITALS: BMI 25.3
[2017-09-10] MEDS ORDERED: Albuterol-Ipratrop 3 mg / 0.5 (3 ml) UD ONE ×2 (06:16→09:23)
--- NOTE | 2017-09-10 06:22 | C.PDOC ---
Time Seen by Provider: 09/10/17 06:15 Chief Complaint (Nursing): Shortness Of Breath Past Medical History - Medical History PMH: Asthma, Atrial Fibrillation, CAD (CABG), CHF, COPD, Diabetes, HTN, Peripheral Edema Denies: Chronic Kidney Disease Surgical History: CABG (2004), Pacemaker - [facility] Procedures ASSISTANCE WITH RESPIRATORY VENTILATION, 24-96 HRS, CPAP (10/29/16) EXCISION OF RIGHT LOWER LUNG LOBE, PERC APPROACH, DIAGN (02/16/16) INSPECTION OF LARYNX, ENDO (06/16/15) Family History: States: Unknown Family Hx - Social History Hx Tobacco Use: No Hx Alcohol Use: No Hx Substance Use: No - Immunization History Hx Tetanus Toxoid Vaccination: No Hx Influenza Vaccination: No Hx Pneumococcal Vaccination: Yes Disposition - Disposition Forms: [employer] ([employer]) (Yi)
--- NOTE | 2017-09-10 06:23 | C.PDOC ---
81 y/o female brought to the ED via EMS complaining of shortness of breath for the past few days, increased this morning. No chest pain. Patient has been coughing up frothy white sputum. Patient has pmhx of CHF and COPD. Was given duoneb in transport. (HarperSlava Alejandro) History Per: Patient History/Exam Limitations: no limitations Onset/Duration Of Symptoms: Days Current Symptoms Are (Timing): Worse Associated Symptoms: Productive Cough Additional History Per: EMS <Slava Harper R - Last Filed: 09/10/17 06:39> <JimmieRamsey M - Last Filed: 09/10/17 08:58> Time Seen by Provider: 09/10/17 06:15 Chief Complaint (Nursing): Shortness Of Breath Past Medical History Reviewed: Historical Data, Nursing Documentation, Vital Signs - Medical History PMH: Asthma, Atrial Fibrillation, CAD (CABG), CHF, COPD, Diabetes, HTN, Peripheral Edema Denies: Chronic Kidney Disease Surgical History: CABG (2004), Pacemaker Family History: States: Unknown Family Hx - Social History Hx Tobacco Use: No Hx Alcohol Use: No Hx Substance Use: No - Immunization History Hx Tetanus Toxoid Vaccination: No Hx Influenza Vaccination: No Hx Pneumococcal Vaccination: Yes <Slava Harper R - Last Filed: 09/10/17 06:39> Vital Signs: Last Vital Signs Temp 97.4 F L 09/10/17 06:46 Pulse 82 09/10/17 06:46 Resp 20 09/10/17 06:46 BP 134/59 L 09/10/17 06:46 Pulse Ox 100 09/10/17 06:46 - [facility] Procedures ASSISTANCE WITH RESPIRATORY VENTILATION, 24-96 HRS, CPAP (10/29/16) EXCISION OF RIGHT LOWER LUNG LOBE, PERC APPROACH, DIAGN (02/16/16) INSPECTION OF LARYNX, ENDO (06/16/15) Review Of Systems Except As Marked, All Systems Reviewed And Found Negative. Constitutional: Negative for: Fever, Chills Cardiovascular: Negative for: Chest Pain Respiratory: Positive for: Cough, Shortness of Breath, Sputum <Slava Harper R - Last Filed: 09/10/17 06:39> Physical Exam - Physical Exam Appears: In Acute Distress (moderate) Skin: Normal Color, Warm, Dry Head: Atraumatic, Normacephalic Eye(s): bilateral: Normal Inspection, PERRL, EOMI Oral Mucosa: Moist Neck: Normal ROM, Supple Chest: Symmetrical Cardiovascular: Rhythm Regular, No Murmur Respiratory: Rhonchi (bilaterally), Wheezing (bilaterally) Gastrointestinal/Abdominal: Soft, No Tenderness, No Distention Extremity: Bilateral: Atraumatic, Normal Color And Temperature, Normal ROM Neurological/Psych: Oriented x3, Normal Speech <Prince Harperel R - Last Filed: 09/10/17 06:39> ED Course And Treatment - Laboratory Results Result Diagrams: 09/10/17 06:55 09/10/17 06:55 <Braulio Samuel M - Last Filed: 09/10/17 08:58> Medical Decision Making <Slava Harper R - Last Filed: 09/10/17 06:39> <Braulio Samuel M - Last Filed: 09/10/17 08:58> Medical Decision Making: Impression: 81 y/o female with SOB Time: 6:27 Initial Plan: * EKG * CMP * CBC * Troponin I * D Dimer * PTT * PT * Chest x-ray * Blood culture * Duoneb 3 ml INH x2 * Solu-Medrol 125 mg IV * Reevaluation (LeroySlava R) Disposition <Slava Harper R - Last Filed: 09/10/17 06:39> Discussed With : Archana Prather - Disposition Disposition Time: 08:58 <Braulio Samuel M - Last Filed: 09/10/17 08:58> - Disposition Disposition: HOSPITALIZED Condition: FAIR Forms: [facility] (Ecuadorean) - Clinical Impression Clinical Impression: Chr obstructive pulmonary disease w/ acute lower respiratory infxn - Scribe Statement The provider has reviewed the documentation as recorded by the Scribe (Monika Apodaca) <Slava Harper R - Last Filed: 09/10/17 06:39> <Braulio Samuel M - Last Filed: 09/10/17 08:58> - Scribe Statement Provider Attestation: All medical record entries made by the Scribe were at my direction and personally dictated by me. I have reviewed the chart and agree that the record accurately reflects my personal performance of the history, physical exam, medical decision making, and the department course for this patient. I have also personally directed, reviewed, and agree with the discharge instructions and disposition. (Slava Harper) Physician Patient Turnover Patient Signed Over To: Braulio Samuel Handoff Comments: Dysonea,pending workup, presently being treated with nebulicer and given Iv solumedrol. <Slava Harper - Last Filed: 09/10/17 06:39> Addendum <Slava Harper - Last Filed: 09/10/17 06:39> <Braulio Samuel - Last Filed: 09/10/17 08:58> Addendum: 09/10/17 08:54 Received patient in s/o. ekg - av paced at 88 bpm. patient with expiratory wheeze, breathing treatment administered, solu-medrol and antibiotics. case discussed with Dr. Starr Prather and will admit to medical surgical floor. Do note patient d-dimer slightly elevated. Patient is currently taking eloquis. Will not perform any further imaging at this time as patient is wheezing and clinically symptoms are more in line with copd exacerbation. (Braulio Samuel) Disposition <Slava Harper - Last Filed: 09/10/17 06:39> Discussed With DrJen: Archana Prather Doctor Will See Patient In The: Hospital Counseled Patient/Family Regarding: Studies Performed, Diagnosis Disposition Time: 08:57 - POA Present On Arrival: None <Braulio Samuel - Last Filed: 09/10/17 08:58> Clinical Impression: Chr obstructive pulmonary disease w/ acute lower respiratory infxn Disposition: HOSPITALIZED Condition: FAIR Stand Alone Forms: [facility] (Ecuadorean)
[2017-09-10] MEDS ORDERED: Albuterol-Ipratrop 3 mg / 0.5 (3 ml) UD INH STA ×3 (06:27→08:50)
[2017-09-10 06:58] LABS: BASO # 0.1 K/uL (0.0-0.2); BASO % 0.7 % (0.0-2.0); EOS # 0.7 K/uL (0.0-0.7); EOS % 8.8 % (0.0-4.0); HEMOGLOBIN 11.1 g/dL (11.0-16.0); LYMPH # 1.3 K/uL (1.0-4.3); LYMPH % 17.2 % (20.0-40.0); MEAN CELL VOLUME 88.9 fL (81.0-99.0); MEAN CORPUSCULAR HEMOGLOBIN 30.5 pg (27.0-31.0); MEAN CORPUSCULAR HGB CONC 34.3 g/dL (33.0-37.0); MEAN PLATELET VOLUME 7.8 fL (7.2-11.7); MONO # 0.6 K/uL (0.0-0.8); MONO % 8.2 % (0.0-10.0); NEUT # 5.1 K/uL (1.8-7.0); NEUT % 65.1 % (50.0-75.0); NRBC % 0.1 % (0.0-2.0); RBC 3.63 Mil/uL (3.80-5.20); RED CELL DISTRIBUTION WIDTH 14.4 % (11.5-14.5); WHITE BLOOD COUNT 7.8 K/uL (4.8-10.8)
[2017-09-10 07:13] LABS: CALCIUM 9.4 mg/dl (8.6-10.4)
[2017-09-10 07:19] LABS: PROTHROMBIN TIME 13.1 SECONDS (9.7-12.2)
[2017-09-10 07:20] LABS: INR 1.2
[2017-09-10 07:53] LABS: ALB/GLOB RATIO 1.2 (1.0-2.1); ALBUMIN 3.9 g/dL (3.5-5.0); TROPONIN I 0.02 ng/mL (0.00-0.120)
[2017-09-10] MEDS ORDERED: Azithromycin 500 MG in Sodium Chloride 0.9% 250 ML IVPB STA (08:49)
[2017-09-10] MEDS ORDERED: cefTRIAXone IV 1 gm in Dextros 50 ML IVPB ONE (09:24)
[2017-09-10] MEDS ORDERED: Sodium Bicarbonate (8.4%) 50 Meq Syringe ONE (11:22)
--- NOTE | 2017-09-10 11:41 | RAD ---
PROCEDURE: CHEST RADIOGRAPH, 1 VIEW HISTORY: SOB COMPARISON: 01/20/2017 FINDINGS: LUNGS: Clear. PLEURA: No pneumothorax or pleural fluid seen. CARDIOVASCULAR: No radiographic findings to suggest acute or significant cardiovascular disease. Incidental Finding(s): Postoperative changes related to sternotomy. Position/ configuration of pacemaker device: Satisfactory. OSSEOUS STRUCTURES: No significant abnormalities. VISUALIZED UPPER ABDOMEN: Normal. OTHER FINDINGS: None. IMPRESSION: No active disease. No acute/significant interval changes.
[2017-09-10] MEDS: MethylPREDNISolone 40 mg Vial IVP SCH ×2 (13:00→20:00)
[2017-09-10] MEDS: Albuterol-Ipratrop 3 mg / 0.5 (3 ml) UD INH SCH ×3 (13:33→20:09)
[2017-09-10] MEDS: (Novolin R) Insulin Human Regular 100 units/ml vial SC SCH ×2 (17:01→22:20)
[2017-09-10] MEDS: Digoxin 125 mcg (0.125 mg) Tab PO SCH (18:00)
[2017-09-10] MEDS: Fluticasone-Salmeterol 500-50mcg Diskus INH SCH (20:08)
--- NOTE | 2017-09-10 21:40 | CP.PCM.PN ---
Subjective - Date & Time of Evaluation Date of Evaluation: 09/10/17 Time of Evaluation: 07:20 - Subjective Subjective: clinically same Objective - Vital Signs/Intake and Output Vital Signs (last 24 hours): Temp Pulse Resp BP Pulse Ox 97.8 F 92 H 20 127/68 99 09/10/17 16:00 09/10/17 16:00 09/10/17 16:00 09/10/17 16:00 09/10/17 16:00 Intake and Output: 09/10/17 09/11/17 18:59 06:59 Intake Total 590 Balance 590 - Medications Medications: Current Medications Albuterol/Ipratropium (Duoneb 3 Mg/0.5 Mg (3 Ml) Ud) 3 ml INH RQ4 [facility] Last Admin: 09/10/17 20:09 Dose: 3 ml Apixaban (Eliquis) 2.5 mg PO DAILY [facility] Digoxin (Digoxin) 0.125 mg PO DAILY@1800 [facility] Docusate Sodium (Colace) 100 mg PO DAILY [facility] Furosemide (Lasix) 40 mg PO DAILY [facility] Last Admin: 09/10/17 13:00 Dose: 40 mg Home Med (Acarbose [Precose]) 100 mg PO DAILY [facility] Azithromycin 500 mg/ Sodium (Chloride) 250 mls @ 250 mls/hr IVPB DAILY [facility] PRN Reason: Protocol Insulin Human Regular (Novolin R) 0 unit SC ACHS [facility] PRN Reason: Protocol Last Admin: 09/10/17 17:01 Dose: 3 unit Metformin HCl (Glucophage) 500 mg PO BID [facility] Last Admin: 09/10/17 17:05 Dose: 500 mg Methylprednisolone (Solu-Medrol) 40 mg IVP Q8H [facility] Last Admin: 09/10/17 13:00 Dose: 40 mg Montelukast Sodium (Singulair) 10 mg PO HS [facility] Nebivolol (Bystolic) 5 mg PO DAILY [facility] Fluticasone/Salmeterol (Advair Diskus 500/50) 1 puff INH RQ12 [facility] Last Admin: 09/10/17 20:08 Dose: 1 puff Spironolactone (Aldactone) 25 mg PO DAILY [facility] Last Admin: 09/10/17 13:00 Dose: 25 mg Tiotropium [place] (Spiriva) 18 mcg INH RQ24 [facility] - Labs Labs: 09/10/17 06:55 09/10/17 06:55 PT 13.1 SECONDS (9.7-12.2) H 09/10/17 06:55 INR 1.2 09/10/17 06:55 APTT 40 SECONDS (21-34) H 09/10/17 06:55 - Constitutional Appears: Well - Head Exam Head Exam: ATRAUMATIC, NORMAL INSPECTION, NORMOCEPHALIC - Eye Exam Eye Exam: EOMI, Normal appearance, PERRL Pupil Exam: NORMAL ACCOMODATION, PERRL - ENT Exam ENT Exam: Mucous Membranes Moist, Normal Exam - Neck Exam Neck Exam: Full ROM, Normal Inspection. absent: Lymphadenopathy - Respiratory Exam Respiratory Exam: Decreased Breath Sounds - Cardiovascular Exam Cardiovascular Exam: REGULAR RHYTHM, +S1, +S2 - GI/Abdominal Exam GI & Abdominal Exam: Soft, Diminished Bowel Sounds - Rectal Exam Rectal Exam: Deferred
--- NOTE | 2017-09-10 21:41 | CP.PCM.HP ---
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) - HEENT Hx HEENT Problems: No - RENAL Hx Chronic Kidney Disease: No - ENDOCRINE/METABOLIC Hx Diabetes Mellitus Type 2: Yes - HEMATOLOGICAL/ONCOLOGICAL Hx Blood Disorders: No - INTEGUMENTARY Hx Dermatological Problems: No - MUSCULOSKELETAL/RHEUMATOLOGICAL Hx Musculoskeletal Disorders: No Hx Falls: No - GASTROINTESTINAL Hx Gastrointestinal Disorders: No - GENITOURINARY/GYNECOLOGICAL Hx Genitourinary Disorders: No - PSYCHIATRIC Hx Substance Use: No - SURGICAL HISTORY Hx Coronary Artery Bypass Graft: Yes (2004) - ANESTHESIA Hx Anesthesia: Yes Hx Anesthesia Reactions: No Hx Malignant Hyperthermia: No Meds Allergies/Adverse Reactions: Allergies Allergy/AdvReac Type Severity Reaction Status Date / Time DENITA Inhibitors AdvReac COUGH Verified 09/10/17 06:30 Physical Exam - Constitutional Appears: Well - Head Exam Head Exam: ATRAUMATIC, NORMAL INSPECTION, NORMOCEPHALIC - Eye Exam Eye Exam: EOMI, Normal appearance, PERRL Pupil Exam: NORMAL ACCOMODATION, PERRL - ENT Exam ENT Exam: Mucous Membranes Moist, Normal Exam - Neck Exam Neck exam: Positive for: Normal Inspection - Respiratory Exam Respiratory Exam: Decreased Breath Sounds - Cardiovascular Exam Cardiovascular Exam: REGULAR RHYTHM, +S1, +S2 - GI/Abdominal Exam GI & Abdominal Exam: Diminished Bowel Sounds, Soft - Rectal Exam Rectal Exam: Deferred Results - Vital Signs Recent Vital Signs: Last Vital Signs Temp 97.8 F 09/10/17 16:00 Pulse 92 H 09/10/17 16:00 Resp 20 09/10/17 16:00 BP 127/68 09/10/17 16:00 Pulse Ox 99 09/10/17 16:00 - Labs Result Diagrams: 09/10/17 06:55 09/10/17 06:55 Labs: Laboratory Results - last 24 hr 09/10/17 09/10/17 09/10/17 06:55 06:55 06:55 WBC 7.8 RBC 3.63 L Hgb 11.1 Hct 32.3 L MCV 88.9 D MCH 30.5 MCHC 34.3 RDW 14.4 Plt Count 201 MPV 7.8 Neut % (Auto) 65.1 Lymph % (Auto) 17.2 L [place] % (Auto) 8.2 Eos % (Auto) 8.8 H Baso % (Auto) 0.7 Neut # (Auto) 5.1 Lymph # (Auto) 1.3 [place] # (Auto) 0.6 Eos # (Auto) 0.7 Baso # (Auto) 0.1 PT 13.1 H INR 1.2 APTT 40 H D-Dimer, Quantitative 408 H Sodium 135 Potassium 4.8 Chloride 96 L Carbon Dioxide 21 L Anion Gap 22 H BUN 20 H Creatinine 1.2 Est GFR ( Amer) 52 Est GFR (Non-Af Amer) 43 POC Glucose (mg/dL) Random Glucose 102 Calcium 9.4 Total Bilirubin 1.1 AST 27 ALT 8 L D Alkaline Phosphatase 52 Troponin I 0.0200 Total Protein 7.3 Albumin 3.9 Globulin 3.4 Albumin/Globulin Ratio 1.2 Digoxin 09/10/17 09/10/17 09/10/17 09:06 11:37 16:39 WBC RBC Hgb Hct MCV MCH MCHC RDW Plt Count MPV Neut % (Auto) Lymph % (Auto) [place] % (Auto) Eos % (Auto) Baso % (Auto) Neut # (Auto) Lymph # (Auto) [place] # (Auto) Eos # (Auto) Baso # (Auto) PT INR APTT D-Dimer, Quantitative Sodium Potassium Chloride Carbon Dioxide Anion Gap BUN Creatinine Est GFR ( Amer) Est GFR (Non-Af Amer) POC Glucose (mg/dL) 141 H 206 H Random Glucose Calcium Total Bilirubin AST ALT Alkaline Phosphatase Troponin I Total Protein Albumin Globulin Albumin/Globulin Ratio Digoxin < 0.4 L 09/10/17 21:17 WBC RBC Hgb Hct MCV MCH MCHC RDW Plt Count MPV Neut % (Auto) Lymph % (Auto) [place] % (Auto) Eos % (Auto) Baso % (Auto) Neut # (Auto) Lymph # (Auto) [place] # (Auto) Eos # (Auto) Baso # (Auto) PT INR APTT D-Dimer, Quantitative Sodium Potassium Chloride Carbon Dioxide Anion Gap BUN Creatinine Est GFR ( Amer) Est GFR (Non-Af Amer) POC Glucose (mg/dL) 239 H Random Glucose Calcium Total Bilirubin AST ALT Alkaline Phosphatase Troponin I Total Protein Albumin Globulin Albumin/Globulin Ratio Digoxin
[2017-09-11] MEDS: Albuterol-Ipratrop 3 mg / 0.5 (3 ml) UD INH SCH ×5 (01:00→19:43)
[2017-09-11] MEDS: MethylPREDNISolone 40 mg Vial IVP SCH ×3 (04:22→20:47)
[2017-09-11] MEDS ORDERED: Tiotropium 18 mcg Cap For Inhalation INH SCH (08:00)
[2017-09-11] MEDS: (Novolin R) Insulin Human Regular 100 units/ml vial SC SCH ×4 (08:26→21:05)
--- NOTE | 2017-09-11 09:23 | CP.PCM.PN ---
Subjective - Date & Time of Evaluation Date of Evaluation: 09/11/17 Time of Evaluation: 07:20 - Subjective Subjective: clinically same Objective - Vital Signs/Intake and Output Vital Signs (last 24 hours): Temp Pulse Resp BP Pulse Ox 97.7 F 89 20 110/52 L 100 09/11/17 07:00 09/11/17 07:00 09/11/17 07:00 09/11/17 07:00 09/11/17 07:00 - Medications Medications: Current Medications Albuterol/Ipratropium (Duoneb 3 Mg/0.5 Mg (3 Ml) Ud) 3 ml INH RQ4 [facility] Last Admin: 09/11/17 07:23 Dose: 3 ml Apixaban (Eliquis) 2.5 mg PO DAILY [facility] Digoxin (Digoxin) 0.125 mg PO DAILY@1800 [facility] Last Admin: 09/10/17 18:00 Dose: 0.125 mg Docusate Sodium (Colace) 100 mg PO DAILY [facility] Furosemide (Lasix) 40 mg PO DAILY [facility] Last Admin: 09/10/17 13:00 Dose: 40 mg Home Med (Acarbose [Precose]) 100 mg PO DAILY [facility] Azithromycin 500 mg/ Sodium (Chloride) 250 mls @ 250 mls/hr IVPB DAILY [facility] PRN Reason: Protocol Insulin Human Regular (Novolin R) 0 unit SC ACHS [facility] PRN Reason: Protocol Last Admin: 09/11/17 08:26 Dose: 3 unit Metformin HCl (Glucophage) 500 mg PO BID [facility] Last Admin: 09/10/17 17:05 Dose: 500 mg Methylprednisolone (Solu-Medrol) 40 mg IVP Q8H [facility] Last Admin: 09/11/17 04:22 Dose: 40 mg Montelukast Sodium (Singulair) 10 mg PO HS [facility] Last Admin: 09/10/17 21:51 Dose: 10 mg Nebivolol (Bystolic) 5 mg PO DAILY [facility] Fluticasone/Salmeterol (Advair Diskus 500/50) 1 puff INH RQ12 [facility] Last Admin: 09/10/17 20:08 Dose: 1 puff Spironolactone (Aldactone) 25 mg PO DAILY [facility] Last Admin: 09/10/17 13:00 Dose: 25 mg Tiotropium [place] (Spiriva) 18 mcg INH RQ24 [facility] - Labs Labs: 09/10/17 06:55 04/03/18 06:55 PT 13.1 SECONDS (9.7-12.2) H 09/10/17 06:55 INR 1.2 09/10/17 06:55 APTT 40 SECONDS (21-34) H 09/10/17 06:55 - Constitutional Appears: Well - Head Exam Head Exam: ATRAUMATIC, NORMAL INSPECTION, NORMOCEPHALIC - Eye Exam Eye Exam: EOMI, Normal appearance, PERRL Pupil Exam: NORMAL ACCOMODATION, PERRL - ENT Exam ENT Exam: Mucous Membranes Moist, Normal Exam - Neck Exam Neck Exam: Full ROM, Normal Inspection. absent: Lymphadenopathy - Respiratory Exam Respiratory Exam: Decreased Breath Sounds - Cardiovascular Exam Cardiovascular Exam: REGULAR RHYTHM, +S1, +S2 - GI/Abdominal Exam GI & Abdominal Exam: Soft, Diminished Bowel Sounds - Rectal Exam Rectal Exam: Deferred
[2017-09-11] MEDS: Fluticasone-Salmeterol 500-50mcg Diskus INH SCH (10:03)
[2017-09-11] MEDS: Azithromycin 500 MG in Sodium Chloride 0.9% 250 ML IVPB SCH (11:11)
--- NOTE | 2017-09-11 14:29 | CP.PCM.CON ---
History of Present Illness - History of Present Illness History of Present Illness: Reason for consult: COPD Patient seen and examined at bedside. HPI: 81 F with PMHx of CHF and COPD brought in by EMS for shortness of breath for a few days that increased yesterday morning. Given duonebs in transport.The patient has had a cough productive of frothy white sputum and associated shortness of breath. During the interview, patient repeatedly had a loud productive cough but no shortness of breath. She stated that she was unable to sleep last night because the cough was so persistent. She denies leg swelling and notes that she is currently fasting. patient saturation 98% on 2 L nasal cannula. PMHx, Afib, CAD, CHF, COPD, DM, HTN PSH: CABG 2004, AICD Meds: eliquus Allergies: DENITA inhibitors SH: denies tobacco, alcohol and illicit drug use Review of Systems - Review of Systems Systems not reviewed;Unavailable: Language Barrier 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) - HEENT Hx HEENT Problems: No - RENAL Hx Chronic Kidney Disease: No - ENDOCRINE/METABOLIC Hx Diabetes Mellitus Type 2: Yes - HEMATOLOGICAL/ONCOLOGICAL Hx Blood Disorders: No - INTEGUMENTARY Hx Dermatological Problems: No - MUSCULOSKELETAL/RHEUMATOLOGICAL Hx Musculoskeletal Disorders: No Hx Falls: No - GASTROINTESTINAL Hx Gastrointestinal Disorders: No - GENITOURINARY/GYNECOLOGICAL Hx Genitourinary Disorders: No - PSYCHIATRIC Hx Substance Use: No - SURGICAL HISTORY Hx Coronary Artery Bypass Graft: Yes (2004) - ANESTHESIA Hx Anesthesia: Yes Hx Anesthesia Reactions: No Hx Malignant Hyperthermia: No Meds Allergies/Adverse Reactions: Allergies Allergy/AdvReac Type Severity Reaction Status Date / Time DENITA Inhibitors AdvReac COUGH Verified 09/10/17 06:30 - Medications Medications: Current Medications Albuterol/Ipratropium (Duoneb 3 Mg/0.5 Mg (3 Ml) Ud) 3 ml INH RQ4 [facility] Last Admin: 09/11/17 11:04 Dose: 3 ml Apixaban (Eliquis) 2.5 mg PO DAILY [facility] Last Admin: 09/11/17 10:52 Dose: 2.5 mg Digoxin (Digoxin) 0.125 mg PO DAILY@1800 [facility] Last Admin: 09/10/17 18:00 Dose: 0.125 mg Docusate Sodium (Colace) 100 mg PO DAILY [facility] Last Admin: 09/11/17 10:52 Dose: 100 mg Furosemide (Lasix) 40 mg PO DAILY [facility] Last Admin: 09/11/17 10:55 Dose: Not Given Azithromycin 500 mg/ Sodium (Chloride) 250 mls @ 250 mls/hr IVPB DAILY [facility] PRN Reason: Protocol Last Admin: 09/11/17 11:11 Dose: 250 mls/hr Insulin Human Regular (Novolin R) 0 unit SC ACHS [facility] PRN Reason: Protocol Last Admin: 09/11/17 12:17 Dose: 3 unit Metformin HCl (Glucophage) 500 mg PO BID [facility] Last Admin: 09/11/17 10:52 Dose: 500 mg Methylprednisolone (Solu-Medrol) 40 mg IVP Q8H [facility] Last Admin: 09/11/17 12:16 Dose: 40 mg Montelukast Sodium (Singulair) 10 mg PO HS [facility] Last Admin: 09/10/17 21:51 Dose: 10 mg Nebivolol (Bystolic) 5 mg PO DAILY [facility] Last Admin: 09/11/17 10:52 Dose: 5 mg Fluticasone/Salmeterol (Advair Diskus 500/50) 1 puff INH RQ12 [facility] Last Admin: 09/11/17 10:03 Dose: 1 puff Spironolactone (Aldactone) 25 mg PO DAILY [facility] Last Admin: 09/11/17 10:52 Dose: 25 mg Tiotropium [place] (Spiriva) 18 mcg INH RQ24 [facility] Last Admin: 09/11/17 10:04 Dose: 18 mcg Physical Exam - Head Exam Head Exam: ATRAUMATIC, NORMOCEPHALIC - ENT Exam ENT Exam: Mucous Membranes Moist - Neck Exam Neck exam: Positive for: Normal Inspection - Respiratory Exam Respiratory Exam: Clear to Auscultation Bilateral - Cardiovascular Exam Cardiovascular Exam: Irregular Rhythm - GI/Abdominal Exam GI & Abdominal Exam: Normal Bowel Sounds Results - Vital Signs Recent Vital Signs: Last Vital Signs Temp 97.7 F 09/11/17 07:00 Pulse 89 09/11/17 07:00 Resp 20 09/11/17 07:00 BP 110/52 L 09/11/17 10:55 Pulse Ox 100 09/11/17 07:00 - Labs Result Diagrams: 09/13/17 16:43 09/13/17 11:43 Labs: Laboratory Results - last 24 hr 09/10/17 09/10/17 09/11/17 16:39 21:17 07:17 POC Glucose (mg/dL) 206 H 239 H 229 H 09/11/17 11:16 POC Glucose (mg/dL) 233 H Assessment & Plan (1) COPD (chronic obstructive pulmonary disease) with acute bronchitis Assessment and Plan: - duonebs - solumedrol - IV abx - antitussive - patient in no respiratory distress and saturating well, chest x-ray showed no acute infiltrate, at this point. Continue IV steroids, empiric antibiotic treatment and bronchodilators Status: Acute (2) Congestive heart failure Status: Acute Comment: - low digoxin level. - lasix. - aldactone. - bystolic
[2017-09-11] MEDS: Digoxin 125 mcg (0.125 mg) Tab PO SCH (17:24)
[2017-09-11] MEDS: guaiFENesin 100 mg/5 ml Syrup UD PO PRN (20:53)
[2017-09-12] MEDS: Albuterol-Ipratrop 3 mg / 0.5 (3 ml) UD INH SCH ×4 (01:10→19:14)
--- NOTE | 2017-09-12 02:16 | CON ---
DATE: CARDIOLOGY CONSULT REASON FOR CONSULTATION: Exacerbation of congestive heart failure. HISTORY OF PRESENT ILLNESS: The patient is an 81-year-old Spanish female who has a history of coronary artery disease, status post coronary artery bypass surgery, history of ischemic cardiomyopathy, status post ICD placement and biventricular pacemaker placement. The patient has a history of COPD and on home nebulizer therapy. She presents because of shortness of breath and cough with thick, tenacious sputum. The patient is unaware of any recent discharge of the defibrillator and is being followed by her glazier artist at [facility] and had recent replacement of the battery at [facility] at [place]. The patient denies any associated fever or chills. The patient denies any associated chest pain. SOCIAL HISTORY: Nonsmoker. She lives by herself. One son lives nearby and another son lives in [place]. They are both on almost daily contact with the patient. The patient ambulates at home with the help of quad walker. MEDICATIONS: Aldactone 25 mg once a day, Zithromax 500 mg intravenously daily, Bystolic 5 mg once a day, Colace 100 mg daily, digoxin 0.125 mg daily, Eliquis 2.5 mg daily, metformin 500 mg twice a day, Lasix 20 mg p.o. once a day, Solu-Medrol 40 mg intravenously every 8 hours, Robitussin 100 mg p.o. every 4 hours p.r.n. REVIEW OF SYSTEMS: No fever or chills. No nausea or vomiting. No recent fall. The patient complains of itchiness in the back of her neck as well as in the left and right axillary area. No rash. PHYSICAL EXAMINATION: GENERAL: The patient is an elderly female who does not appear to be in acute distress. VITAL SIGNS: Blood pressure 126/70, heart rate 96, temperature 98.4, and respirations 20. HEENT: Normocephalic. CHEST: Diffuse bilateral rhonchi and scattered wheezing. HEART: S1 and S2 regular. ABDOMEN: Soft. EXTREMITIES: Significant muscle wasting. No pedal edema. LABORATORY DATA: SMA-7; sodium 135, potassium 4.8, chloride 96, CO2 of 21, glucose 102. BUN 20, creatinine 1.2. INR is 1.2. PTT 40. D-dimer is 408. Hemoglobin and hematocrit 11.1 and 32.3. White count and platelet count are within normal limits. Digoxin level is less than 0.4. EKG revealed a biventricular pacemaker rhythm with atrial sensing and ventricular pacing. Heart rate is 92. Echocardiogram in September of last year revealed severely impaired ejection fraction which is estimated at the range of 15% to 20%. Mild hypokinesia on the anterior and anteroseptal wall. Grade 3 function. Chest x-ray revealed borderline cardiomegaly, prominent bronchovascular markings. ICD and biventricular dual pacemaker leads noted. ASSESSMENT: 1. Exacerbation of congestive heart failure. 2. Consider upper respiratory tract infection, rule out underlying pneumonia. 3. Coronary artery disease, status post coronary artery bypass surgery. RECOMMENDATIONS: Continue Aldactone 25 mg daily, Zithromax 500 mg intravenously daily, Bystolic 5 mg daily, digoxin 0.125 mg daily, Eliquis 2.5 mg once a day, change Lasix to 40 mg intravenously daily. Continue Solu-Medrol 40 mg intravenously every 8 hours. Transfer the patient to telemetry. Soren Johnson MD
[2017-09-12] MEDS: MethylPREDNISolone 40 mg Vial IVP SCH ×3 (04:21→19:56)
[2017-09-12] MEDS: (Novolin R) Insulin Human Regular 100 units/ml vial SC SCH ×4 (08:25→22:01)
[2017-09-12] MEDS: Promethazine DM 6.25 mg-15 mg/5 ml Syrup PO PRN ×2 (08:34→16:38)
[2017-09-12] MEDS: Azithromycin 500 MG in Sodium Chloride 0.9% 250 ML IVPB SCH (10:15)
--- NOTE | 2017-09-12 11:38 | CP.PCM.PN ---
Subjective - Date & Time of Evaluation Date of Evaluation: 09/12/17 Time of Evaluation: 11:20 - Subjective Subjective: clinically same Objective - Vital Signs/Intake and Output Vital Signs (last 24 hours): Temp Pulse Resp BP Pulse Ox 97.9 F 90 20 109/56 L 20 L 09/12/17 08:16 09/12/17 08:16 09/12/17 08:16 09/12/17 10:13 09/12/17 08:16 - Medications Medications: Current Medications Albuterol/Ipratropium (Duoneb 3 Mg/0.5 Mg (3 Ml) Ud) 3 ml INH RQ6 [facility] Last Admin: 09/12/17 07:19 Dose: 3 ml Apixaban (Eliquis) 2.5 mg PO DAILY [facility] Last Admin: 09/12/17 10:15 Dose: 2.5 mg Digoxin (Digoxin) 0.125 mg PO DAILY@1800 [facility] Last Admin: 09/11/17 17:24 Dose: 0.125 mg Docusate Sodium (Colace) 100 mg PO DAILY [facility] Last Admin: 09/12/17 10:13 Dose: 100 mg Furosemide (Lasix) 20 mg IVP DAILY [facility] Last Admin: 09/12/17 10:13 Dose: 20 mg Guaifenesin (Robitussin) 100 mg PO Q4H PRN PRN Reason: Cough Last Admin: 09/11/17 20:53 Dose: 100 mg Azithromycin 500 mg/ Sodium (Chloride) 250 mls @ 250 mls/hr IVPB DAILY [facility] PRN Reason: Protocol Last Admin: 09/12/17 10:15 Dose: 250 mls/hr Insulin Human Regular (Novolin R) 0 unit SC ACHS [facility] PRN Reason: Protocol Last Admin: 09/12/17 08:25 Dose: 3 unit Losartan Potassium (Cozaar) 25 mg PO DAILY [facility] Last Admin: 09/12/17 10:13 Dose: 25 mg Metformin HCl (Glucophage) 500 mg PO BID [facility] Last Admin: 09/12/17 10:13 Dose: 500 mg Methylprednisolone (Solu-Medrol) 40 mg IVP Q8H [facility] Last Admin: 09/12/17 04:21 Dose: 40 mg Montelukast Sodium (Singulair) 10 mg PO HS [facility] Last Admin: 09/11/17 21:01 Dose: 10 mg Nebivolol (Bystolic) 5 mg PO DAILY [facility] Last Admin: 09/11/17 10:52 Dose: 5 mg Promethazine HCl/Dextromethorphan (Phenergan Dm Syrup) 5 ml PO Q6H PRN PRN Reason: Cough Last Admin: 09/12/17 08:34 Dose: 5 ml Spironolactone (Aldactone) 25 mg PO DAILY [facility] Last Admin: 09/12/17 10:13 Dose: 25 mg - Labs Labs: 09/10/17 06:55 09/10/17 06:55 PT 13.1 SECONDS (9.7-12.2) H 09/10/17 06:55 INR 1.2 09/10/17 06:55 APTT 40 SECONDS (21-34) H 09/10/17 06:55 - Constitutional Appears: Well - Head Exam Head Exam: ATRAUMATIC, NORMAL INSPECTION, NORMOCEPHALIC - Eye Exam Eye Exam: EOMI, Normal appearance, PERRL Pupil Exam: NORMAL ACCOMODATION, PERRL - ENT Exam ENT Exam: Mucous Membranes Moist, Normal Exam - Neck Exam Neck Exam: Full ROM, Normal Inspection. absent: Lymphadenopathy - Respiratory Exam Respiratory Exam: Decreased Breath Sounds - Cardiovascular Exam Cardiovascular Exam: REGULAR RHYTHM, +S1, +S2 - GI/Abdominal Exam GI & Abdominal Exam: Soft, Diminished Bowel Sounds - Rectal Exam Rectal Exam: Deferred
[2017-09-12] MEDS: guaiFENesin 100 mg/5 ml Syrup UD PO PRN (12:34)
--- NOTE | 2017-09-12 16:49 | CP.PCM.PN ---
Subjective - Date & Time of Evaluation Date of Evaluation: 09/12/17 Time of Evaluation: 11:00 - Subjective Subjective: Patient seen and examined at bedside. Patient reports her cough is no different and again kept her from sleeping last night. no shortness of breath noted. 1. COPD Exacerbation - CXR 09/10: clear lungs, no PTX or pleural fluid - Saturating 95-100% on 2L NC - duonebs - singulair - spiriva - solumedrol - IV abx - phenergan Q6h PRN for cough 2. CHF - low digoxin level - Dr. Johnson on-board - lasix - aldactone - bystolic Objective - Vital Signs/Intake and Output Vital Signs (last 24 hours): Temp Pulse Resp BP Pulse Ox 98.0 F 87 18 116/60 100 09/12/17 15:36 09/12/17 15:36 09/12/17 15:36 09/12/17 15:36 09/12/17 15:36 - Medications Medications: Current Medications Albuterol/Ipratropium (Duoneb 3 Mg/0.5 Mg (3 Ml) Ud) 3 ml INH RQ6 [facility] Last Admin: 09/12/17 13:09 Dose: 3 ml Apixaban (Eliquis) 2.5 mg PO DAILY [facility] Last Admin: 09/12/17 10:15 Dose: 2.5 mg Digoxin (Digoxin) 0.125 mg PO DAILY@1800 [facility] Last Admin: 09/11/17 17:24 Dose: 0.125 mg Docusate Sodium (Colace) 100 mg PO DAILY [facility] Last Admin: 09/12/17 10:13 Dose: 100 mg Furosemide (Lasix) 20 mg IVP DAILY [facility] Last Admin: 09/12/17 10:13 Dose: 20 mg Guaifenesin (Robitussin) 100 mg PO Q4H PRN PRN Reason: Cough Last Admin: 09/12/17 12:34 Dose: 100 mg Azithromycin 500 mg/ Sodium (Chloride) 250 mls @ 250 mls/hr IVPB DAILY [facility] PRN Reason: Protocol Last Admin: 09/12/17 10:15 Dose: 250 mls/hr Insulin Human Regular (Novolin R) 0 unit SC ACHS [facility] PRN Reason: Protocol Last Admin: 09/12/17 12:12 Dose: 2 unit Losartan Potassium (Cozaar) 25 mg PO DAILY [facility] Last Admin: 09/12/17 10:13 Dose: 25 mg Metformin HCl (Glucophage) 500 mg PO BID [facility] Last Admin: 09/12/17 10:13 Dose: 500 mg Methylprednisolone (Solu-Medrol) 40 mg IVP Q8H [facility] Last Admin: 09/12/17 12:32 Dose: 40 mg Montelukast Sodium (Singulair) 10 mg PO HS [facility] Last Admin: 09/11/17 21:01 Dose: 10 mg Nebivolol (Bystolic) 5 mg PO DAILY [facility] Last Admin: 09/12/17 11:30 Dose: 5 mg Promethazine HCl/Dextromethorphan (Phenergan Dm Syrup) 5 ml PO Q6H PRN PRN Reason: Cough Last Admin: 09/12/17 16:38 Dose: 5 ml Spironolactone (Aldactone) 25 mg PO DAILY [facility] Last Admin: 09/12/17 10:13 Dose: 25 mg - Labs Labs: 09/10/17 06:55 09/10/17 06:55 PT 13.1 SECONDS (9.7-12.2) H 09/10/17 06:55 INR 1.2 09/10/17 06:55 APTT 40 SECONDS (21-34) H 09/10/17 06:55 Assessment and Plan (1) COPD (chronic obstructive pulmonary disease) with acute bronchitis Status: Acute (2) Congestive heart failure Status: Acute
[2017-09-12 17:38] VITALS: PULSE 92
[2017-09-12] MEDS: Digoxin 125 mcg (0.125 mg) Tab PO SCH (17:38)
--- NOTE | 2017-09-12 19:32 | PN ---
DATE: SUBJECTIVE: The patient is still experiencing cough with thick tenacious sputum. PHYSICAL EXAMINATION: VITAL SIGNS: Blood pressure 109/56, heart rate is 90, temperature 97.9, respirations 20. HEENT: Normocephalic. CHEST: Bibasilar rhonchi. HEART: S1, S2, regular. ABDOMEN: Soft. EXTREMITIES: Significant for muscle wasting. LABORATORY DATA: Today's blood sugars 112 and 185. ASSESSMENT: 1. Dilated cardiomyopathy, status post implantable cardioverter-defibrillator placement. 2. Consider underlying pneumonia. 3. Coronary artery disease, status post coronary artery bypass surgery. RECOMMENDATIONS: Continue Aldactone 25 mg once daily, IV Zithromax 500 mg daily, Cozaar 25 mg once daily, digoxin 0.125 mg daily, Eliquis 0.5 mg once a day, Solu-Medrol at 40 mg intravenously every 8 hours was started today. Consider chest physical therapy with nebulizer treatment. Soren Johnson MD
[2017-09-12] MEDS: Promethazine/Cod 6.25mg-10mg/5ml Syr UD PO PRN (21:49)
[2017-09-13] MEDS: Albuterol-Ipratrop 3 mg / 0.5 (3 ml) UD INH SCH ×2 (01:02→07:21)
[2017-09-13] MEDS: MethylPREDNISolone 40 mg Vial IVP SCH ×3 (03:26→20:20)
[2017-09-13] MEDS: (Novolin R) Insulin Human Regular 100 units/ml vial SC SCH (08:19)
[2017-09-13] MEDS: Promethazine/Cod 6.25mg-10mg/5ml Syr UD PO PRN (08:24)
[2017-09-13] MEDS ORDERED: Influenza Vaccine 60 mcg/0.5 mL SYR (4YR UP) IM ONE (10:00)
[2017-09-13] MEDS ORDERED: Pneumococcal 23-Valent Vaccine IM ONE (10:00)
[2017-09-13] MEDS: Azithromycin 500 MG in Sodium Chloride 0.9% 250 ML IVPB SCH (10:18)
[2017-09-13 11:47] LABS: BASO % 0.2 % (0.0-2.0); EOS % 0.1 % (0.0-4.0); HEMOGLOBIN 8.5 g/dL (11.0-16.0); LYMPH # 1.8 K/uL (1.0-4.3); MEAN CELL VOLUME 91.5 fL (81.0-99.0); MEAN CORPUSCULAR HEMOGLOBIN 30.7 pg (27.0-31.0); MEAN CORPUSCULAR HGB CONC 33.6 g/dL (33.0-37.0); MEAN PLATELET VOLUME 7.8 fL (7.2-11.7); MONO # 0.4 K/uL (0.0-0.8); MONO % 5.2 % (0.0-10.0); NEUT # 4.9 K/uL (1.8-7.0); NEUT % 69.5 % (50.0-75.0); NRBC % 0.2 % (0.0-2.0); RBC 2.77 Mil/uL (3.80-5.20); RED CELL DISTRIBUTION WIDTH 14.8 % (11.5-14.5)
[2017-09-13 11:50] LABS: ARTERIAL BLOOD GAS HCO3 10.4 mmol/L (21-28); ARTERIAL BLOOD GAS O2 SAT 100.5 % (95-98); ARTERIAL BLOOD GAS PCO2 14 mm/Hg (35-45); ARTERIAL BLOOD GAS PH 7.24 (7.35-7.45); ARTERIAL BLOOD GAS PO2 390 mm/Hg (80-100); ARTERIAL BLOOD GAS TCO2 6.4 mmol/L (22-28)
[2017-09-13] MEDS ORDERED: Iodixanol 320 MG/ML 100 ML BOTTLE IV ONE (11:55)
[2017-09-13 12:02] LABS: ALB/GLOB RATIO 1.3 (1.0-2.1); ALBUMIN 3.3 g/dL (3.5-5.0); ALT/SGPT 55 U/L (9-52); AST/SGOT 62 U/L (14-36); BLOOD UREA NITROGEN 40 mg/dL (7-17); CALCIUM 8.2 mg/dl (8.6-10.4); GFR AFRICAN-AMERICAN 35; GFR NON-AFRICAN AMERICAN 29
[2017-09-13] MEDS ORDERED: Sodium Chloride 0.9% 1,000 ML IV ONE ×2 (12:03→16:19)
[2017-09-13] MEDS ORDERED: Sodium Bicarbonate (8.4%) 50 Meq Syringe ONE ×7 (12:05→21:01)
[2017-09-13] MEDS ORDERED: Calcium Gluconate 4.65 mEq/10 ml Inj ONE (12:05)
--- NOTE | 2017-09-13 12:38 | PCM.RRT ---
CAR BLOCKER Nurses Assessment - Situation Date: 09/13/17 CAR BLOCKER Called By: GIULIA
[2017-09-13] MEDS ORDERED: DOPamine 400mg/250ml D5W IV ONE (12:41)
[2017-09-13] MEDS ORDERED: Vasopressin 20 Units/ml Inj SC ONE (12:49)
--- NOTE | 2017-09-13 12:57 | PCM.PROC ---
Procedures Attestation:: I certify that I have explained the specified Operation(s) or Procedure(s), risks, benefits and reasonable alternatives to the Patient and/or other person responsible. The opportunity was given to ask questions and all questions answered - Arterial Line Right Radial Aseptic technique was employed throughout the procedure: Full sterile barriers ( mask, hair cover, sterile gown, sterile gloves), Full body sterile drape, Chloraprep Antiseptic: 30 second prep for IJ or SC sites Time Out Performed: Yes Pt. placed on Pulse Ox Monitor: Yes Central Line Prep: Chlorhexidine-Alcohol Combination Ultrasound Used for Placement: No Gauge (Size): 20 gauge Secured by: Securement device Post procedure dressing: Gauze, Clear vapor permeable, Chlorhexidine disc ( Biopatch) Patient Tolerated Procedure: well Immediate Complications: none
--- NOTE | 2017-09-13 12:58 | PCM.PROC ---
Procedures Attestation:: I certify that I have explained the specified Operation(s) or Procedure(s), risks, benefits and reasonable alternatives to the Patient and/or other person responsible. The opportunity was given to ask questions and all questions answered - Central Line Placement Left Femoral Triple Lumen Catheter Aseptic technique was employed throughout the procedure: Hand Hygiene done prior to procedure, Full sterile barriers (mask, hair cover, sterile gown, sterile gloves), Full body sterile drape, Chloraprep Antiseptic: 30 second prep for IJ or SC sites CVP Time Out Performed: Yes Pt. Placed on Pulse Ox Monitor: Yes Central Line Prep: Chlorhexidine-Alcohol Combination Ultrasound Used for Placement: No Central Line Lumen Inserted: triple Central Line Length: 20 cm Post Procedure: Sutured in Place, Good Blood Return, All Ports Aspirated, Flushed, Capped, Sterile Dressing Applied Secured by: Suture Post procedure dressing: Chlorhexidine disc (Biopatch) Post Procedure X-Ray: No Patient Tolerated Procedure: Well, No Complications Immediate Complications: None
[2017-09-13] MEDS ORDERED: Vasopressin 40 UNITS in Dextrose 5% In Water 38 ML IV SCH ×2 (13:00→19:02)
[2017-09-13] MEDS ORDERED: Sodium Bicarbonate 8.4% 150 MEQ in Dextrose 5% In Water 1,000 ML IV SCH ×2 (13:00→19:03)
[2017-09-13 13:02] LABS: CK-MB 1.22 ng/mL (0.0-3.38)
[2017-09-13 13:04] LABS: ARTERIAL BLOOD GAS HCO3 7.9 mmol/L (21-28); ARTERIAL BLOOD GAS O2 SAT 99.9 % (95-98); ARTERIAL BLOOD GAS PCO2 23 mm/Hg (35-45); ARTERIAL BLOOD GAS PH 7.07 (7.35-7.45); ARTERIAL BLOOD GAS PO2 303 mm/Hg (80-100); ARTERIAL BLOOD GAS TCO2 7.4 mmol/L (22-28)
[2017-09-13] MEDS ORDERED: Calcium Chloride 1000 mg/10 ml Syringe IV ONE ×2 (13:04→17:51)
[2017-09-13] MEDS ORDERED: Vasopressin 20 Units/ml Inj ONE ×3 (13:04→20:43)
[2017-09-13] MEDS ORDERED: DOPamine 400mg/250ml D5W 400 MG/250 ML BAG IV PRN (13:05)
[2017-09-13] MEDS: EPINEPHrine- 1 MG in Sodium Chloride 0.9% 250 ML IV PRN ×6 (13:05→20:30)
--- NOTE | 2017-09-13 13:33 | PCM.RRT ---
HUMAN RESOURCES RECORDS CLERK Nurses Assessment - Situation Date: 09/13/17 Time HUMAN RESOURCES RECORDS CLERK was called: 11:20 HUMAN RESOURCES RECORDS CLERK Responder Arrival Time:: 11:21 HUMAN RESOURCES RECORDS CLERK Location:: Med/Surg Room Number: 653 HUMAN RESOURCES RECORDS CLERK Reason for Call: Not Responding to Urgent Treatment HUMAN RESOURCES RECORDS CLERK Called By: RN - IV IV Inserted during HUMAN RESOURCES RECORDS CLERK?: No IV Fluids Initiated During HUMAN RESOURCES RECORDS CLERK?: Normal saline bolus 1000 an hour - Respiratory HUMAN RESOURCES RECORDS CLERK Delivery Method: Nasal Cannula @L/min, Intubated Oxygen Flow Rate: 3 Received Nebulizer Treatments: No Was the Patient Ventilated with Bag/Mask 100% O2?: Yes Secretions Suctioned?: Yes Was the Patient Intubated?: Yes Was the Patient Placed on a Ventilator?: No - Medication Medications Administered During HUMAN RESOURCES RECORDS CLERK: 1123 Epinephrine & Sodium Bicarbonate. 1124 Epinephrine. Levophed Drip 1142 - Diagnostic Test Ordered EKG: Yes Chest X-Ray: Yes CT Scan: Yes - Stat Labs Ordered HUMAN RESOURCES RECORDS CLERK Stat Labs Ordered: CBC, BMP, TROPONIN, LACTIC ACID, ABG HUMAN RESOURCES RECORDS CLERK Other Labs Ordered: CMP CPR started during HUMAN RESOURCES RECORDS CLERK?: Yes - [place] Coma Scale Coma Scale Eye Opening: No response - Vital Signs at end of HUMAN RESOURCES RECORDS CLERK Vital Signs at end of HUMAN RESOURCES RECORDS CLERK: Rapid Response End Vital Sign Blood Pressure 139/94 Pulse Rate 157 O2 Sat by Pulse Oximetry 93 - Recommendations Notifications: Attending Physician, Consultations, Family or Designated Caregiver I.Reason for HUMAN RESOURCES RECORDS CLERK - A) Acute Change in Patient: Subjective: Cold blue was called 11:20 Patient was taken to CT to get a CT chest/abdomen/pelvis. the study was done once, contrast was noted in lung space. The study was attempted to be repeated the second time and patient was found to be in PEA. Code blue was called again 12:03 CPR was started again chest compressions were started 12:05 1 amp epinephrine was pushed 12:07 gluconate was given 12:08 Epinephrine was given pulse check 12:10 ROSC 12:12 136/89 - Respiratory Oxygen Delivery Method: Nasal Cannula @L/min, Intubated Oxygen Flow Rate: 3
--- NOTE | 2017-09-13 13:38 | CT ---
PROCEDURE: CT Chest, Abdomen and Pelvis with intravenous contrast HISTORY: Code blue. . Status post ROSC COMPARISON: The comparison made with prior CT scan chest dated of 04/09/2016 None. TECHNIQUE: IV dose administered: 100 cc Visipaque 320 Radiation dose: Total exam DLP = 666.08 mGy-cm. This CT exam was performed using one or more of the following dose reduction techniques: Automated exposure control, adjustment of the mA and/or kV according to patient size, and/or use of iterative reconstruction technique. FINDINGS: CT CHEST WITH CONTRAST: LUNGS: Small nodular opacity seen in the right posterior sulcus. Otherwise no focal consolidation. MEDIASTINUM: There is no intravascular contrast material within heart nor arterial compartment. Contrast material opacifies the right upper extremity, right axillary vein subclavian vein and superior vena cava. There is reflux into the inferior vena cava and reflux into the hepatic venous system. There is also some reflux into surrounding draining collateral veins in the tissues of the right supraclavicular region and base of the neck. . Collectively these findings are consistent with severe right heart failure -dysfunction. Heart is enlarged. No evidence of thoracic aortic aneurysm. LYMPH NODES: Evaluation for adenopathy is limited the due to significant streak and beam hardening artifact related to dense contrast material within the superior vena cava as well as arising from pacemaker battery pack. Centrally, the aorta and pulmonary arteries are significantly obscured. The trachea is midline and the patent with in situ ETT, the tip of which is located at approximately the mid or the 3.3 cm above amairani. PLEURA: No significant effusion or pneumothorax. BONES: No acute compression fractures no retropulsed fragments. Mild multilevel degenerative spondylosis of the thoracic spine. OTHER FINDINGS: None. CT ABDOMEN AND PELVIS: LIVER: The liver is poorly delineated due to due to significant reflux of contrast material into the hepatic venous system. These changes result in significant surrounding streak and beam hardening artifact. GALLBLADDER AND BILE DUCTS: Cholecystectomy. PANCREAS: Pancreas is poorly delineated due to the lack of intravenous contrast material as well as oral contrast material and paucity of intraperitoneal/ retroperitoneal fat. Streak and beam hardening artifact related to dense contrast material within the IVC and hepatic venous system results in poor visualization of the the upper abdominal structures such as the pancreas as well as the adrenal glands. SPLEEN: There appears to be a small of perisplenic ascites. Small amount of ascites within Mondragon's pouch may be present as well. . ADRENALS: Adrenal glands poorly seen KIDNEYS AND URETERS: Both kidneys poorly delineated due to the aforementioned limitations VASCULATURE: No evidence of abdominal aortic aneurysm. BOWEL: Evaluation of the bowel is limited due to the lack of oral and intravenous contrast material as well as a paucity of intra and retroperitoneal fat. Food debris liquid and air are present within the stomach. No evidence of acute mechanical small bowel obstruction. . Stool seen throughout the large bowel. . There is a masslike appearance within the upper abdomen more so on the right side anterior to the right kidney that is of uncertain etiology though probably represents loops of under opacified small bowel. APPENDIX: Appendix not seen with any certainty. PERITONEUM: Small amount of perisplenic ascites and small amount of ascites in Mondragon's pouch felt to be present. No evidence of free intraperitoneal air. LYMPH NODES: Evaluation for adenopathy is quite limited BLADDER: Urinary bladder is physiologically distended. No evidence of intraluminal urinary bladder calculi. Note that streak artifact arising from multiple compression screws traversing the femoral head limit evaluation of the urinary bladder. REPRODUCTIVE: Uterus appears unremarkable. . BONES: No evidence of acute compression fractures no retropulsed fragments. OTHER FINDINGS: Mild diffuse anasarca. IMPRESSION: Very limited study. Intravenous contrast material confined into the superior vena cava and inferior vena cava with reflux of contrast into the hepatic venous system. No intravenous contrast material is seen within cardiac chambers or intra arterial compartment consistent with severe right heart failure -dysfunction. Rule out cardiac dysrhythmia versus of pacemaker dysfunction. No evidence of aortic thoracic or abdominal aortic aneurysm. In situ ETT. Move few small nodular opacities right posterior sulcus. Evaluation of the intra-abdominal compartment is limited as well. . There appears to be a small amount of perisplenic ascites and ascites within Mondragon's pouch. No evidence of free intraperitoneal air. There is a matter of soft tissue within the upper and mid abdomen just anterior to the retroperitoneum likely representing loops of under opacified compress small bowel.
--- NOTE | 2017-09-13 13:44 | PCM.RRT ---
Addendum entered and electronically signed by Maribell Bolton DO 09/13/17 16:01: of note: final read of CT chest/abdomen/pelvis states reflux of contrast material into hepatic venous system is noted. no contrast in lung space no pleural effusion or pneumothorax. IMPRESSION: Very limited study. Intravenous contrast material confined into the superior vena cava and inferior vena cava with reflux of contrast into the hepatic venous system. No intravenous contrast material is seen within cardiac chambers.intra arterial compartment consistent with severe right heart failure - dysfunction. Rule out cardiac dysrhythmia versus of pacemaker dysfunction. Original Note: <Maribell Bolton - Last Filed: 09/13/17 15:07> AGRICULTURE ENGINEER Nurses Assessment - Situation Date: 09/13/17 Time AGRICULTURE ENGINEER was called: 11:20 AGRICULTURE ENGINEER Responder Arrival Time:: 11:21 AGRICULTURE ENGINEER Location:: Med/Surg Room Number: 653 AGRICULTURE ENGINEER Reason for Call: Not Responding to Urgent Treatment AGRICULTURE ENGINEER Called By: RN - IV IV Inserted during AGRICULTURE ENGINEER?: No IV Fluids Initiated During AGRICULTURE ENGINEER?: Normal saline bolus 1000 an hour - Respiratory AGRICULTURE ENGINEER Delivery Method: Nasal Cannula @L/min, Intubated (bag valve mask was used to wheel patient to CT and to ICU where vent settings were placed) Oxygen Flow Rate: 3 Received Nebulizer Treatments: No Was the Patient Ventilated with Bag/Mask 100% O2?: Yes Secretions Suctioned?: Yes Was the Patient Intubated?: Yes Was the Patient Placed on a Ventilator?: No - Ventilator Settings Mode: PRVC - Medication Medications Administered During AGRICULTURE ENGINEER: 1123 Epinephrine & Sodium Bicarbonate. 1124 Epinephrine. Levophed Drip 1142 - Diagnostic Test Ordered EKG: Yes Chest X-Ray: Yes CT Scan: Yes - Stat Labs Ordered AGRICULTURE ENGINEER Stat Labs Ordered: CBC, BMP, TROPONIN, LACTIC ACID, ABG AGRICULTURE ENGINEER Other Labs Ordered: CMP CPR started during AGRICULTURE ENGINEER?: Yes - [place] Coma Scale Coma Scale Eye Opening: No response - Vital Signs at end of AGRICULTURE ENGINEER Vital Signs at end of AGRICULTURE ENGINEER: Rapid Response End Vital Sign Blood Pressure 139/94 Pulse Rate 157 O2 Sat by Pulse Oximetry 93 - Recommendations Notifications: Attending Physician, Consultations, Family or Designated Caregiver I.Reason for AGRICULTURE ENGINEER - A) Acute Change in Patient: Subjective: Cold blue was called 11:20 11:23 Epinephrine x 1 and bicarb x1 11:24 Epinephrine CPR Intubated 11:28 ROSC 11:29 Levophed Drip 1142 Fluids were given 11:28 and patient was brought to CT scan Patient was taken to CT to get a CT chest/abdomen/pelvis. the study was done once, contrast was noted in lung space. The study was attempted to be repeated the second time and patient was found to be in PEA. Larissa estevez was called again 12:03 CPR was started again chest compressions were started 12:05 1 amp epinephrine was pushed 12:07 gluconate was given 12:08 Epinephrine was given pulse check 12:10 ROSC 12:12 136/89 - Neurological Status (Select all that apply): absent: Alert, Responsive, Oriented, Verbal, Follows Commands, Confused Other (Please specify): no pulse - Respiratory Oxygen Flow Rate: 3 - Eyes Eye Exam: absent: PERRL Additional Comments: dilated pupils - Respiratory Exam Respiratory Exam: absent: NORMAL BREATHING PATTERN - Cardiovascular Exam Cardiovascular Exam: absent: REGULAR RHYTHM, +S1, +S2 - GI/Abdominal Exam GI & Abdominal Exam: Soft - Neurological Exam Neurological Exam: absent: CN II-XII Intact, Reflexes Normal - Extremities Exam Extremities Exam: absent: Full ROM, Pedal Edema Plan - Assessment of Findings&Treatment Plan patient brought to ICU abg cbc cmp ekg Son [phone] was contacted by cell phone and he was made aware. Per nursing , he is heading towards the hospital. Patient's second son arrived shortly after second code and was notified of events and is being continually updated during this time. Dr. Nikki Prather was notified by senior resident <Rick Osullivan - Last Filed: 09/13/17 16:05> AGRICULTURE ENGINEER Nurses Assessment - Vital Signs at end of AGRICULTURE ENGINEER Vital Signs at end of AGRICULTURE ENGINEER: Rapid Response End Vital Sign Blood Pressure 139/94 Pulse Rate 157 O2 Sat by Pulse Oximetry 93 Attending/Attestation - Attestation I have personally seen and examined this patient.: Yes I have fully participated in the care of the patient.: Yes I have reviewed all pertinent clinical information, including history, physical exam and plan: Yes Notes (Text): 09/13/17 16:05 Hospitalist note: I reviewed the above note by resident This is an 81 year old female whom from what I can gather has a history of COPD , CHF, and likley low EF, pacer/AICD. She came to the hospital due to shortness of breath. The nursing staff noted that the patient was sudden alter mental status and non responsive. They immediately became concerned and called a CODE BLUE since she was non arousable and also they were not able to readily find a pulse. I came immediately to see to the room and I was not able to find a pulse. She looked almost as if having small agonal respirations and we started chest compressions. As soon as the crash cart was brought to the room we administed epinephrine as well as a sodium bicarbonate and bag valve mask was also administed. The pads of monitor were placed on as well. After more CPR and additional epinephrine and bicarbonate was given anesthesia arrived and the patient was intubated. We were able to get a pulse and return of blood pressure. Levophed was also started at that time. ICU was notified, lab work including troponins, and ABG were ordered as she had not had any lab work done in a few days. She was brought to CT scan to assess for possible PE or other pulmonary reason as to why she would have a sudden change. However she while in CT she again coded and required more CPR and had adminstration of additional epinephrine as well as bicarb and also calcium gluconate was given. At that time we again were able to get pulse to return and also a blood pressure. She was very tacycardic. We did not [place] the CT scan and we brought her down to ICU for further monitoring. I asked the staff to please notify family member. Shortly thereafter a family did arrive, and he identified himself as her son. I did update him with the events that happened, it was clearly a very emotionally trying moment for him. He was waiting on additional family members to arrive. thank you Rick Osullivan
--- NOTE | 2017-09-13 13:49 | CP.PCM.CON ---
<Geno Ramirez - Last Filed: 09/13/17 15:21> History of Present Illness - History of Present Illness History of Present Illness: Patient is a 81 year old female with past medical history of CHF EF of 15-20%, AICD, CAD s/p CABG, COPD/asthhma, afib on Eliquis DM initially came to the hospital for worsening shortness of breath. SOB was associated with productive cough with frothy white sputum. Patient was being treated for COPD exacerbation with possible upper respiratory tract infection and CHF exacerbation. While on the telemetry floor patient was found unresponsive. Code Blue was called. CPR was initiated, there was ROSC. Patient was intubated and transferred to CT scan where another code blue was called. CPR was initiated, ROSC was achieved. Patient was transferred to the ICU for further management. Please see code blue notes for further details. Allergies: DENITA inhibitors Medical History: CHF EF of 15-20%, AICD, CAD s/p CABG, COPD/asthhma, DM, a fib Medications: See MAR Surgical History: Right hip surgery, AICD Social History: No smoking, alcohol, tobacco use Past Patient History - Infectious Disease Hx of Infectious Diseases: None - Past Medical History & Family History Past Medical History?: Yes - Past Social History Smoking Status: Never Smoked - CARDIAC Hx Cardiac Disorders: Yes (PACEMAKER) Hx Congestive Heart Failure: Yes Hx Hypertension: Yes - PULMONARY Hx Chronic Obstructive Pulmonary Disease (COPD): Yes - NEUROLOGICAL HX 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) - HEENT Hx HEENT Problems: No - RENAL Hx Chronic Kidney Disease: No - ENDOCRINE/METABOLIC Hx Diabetes Mellitus Type 2: Yes - HEMATOLOGICAL/ONCOLOGICAL Hx Blood Disorders: No - INTEGUMENTARY Hx Dermatological Problems: No - MUSCULOSKELETAL/RHEUMATOLOGICAL Hx Arthritis: Yes (BACK DJD; STOOPED POSTURE; R HIP) - GASTROINTESTINAL Hx Gastrointestinal Disorders: No - GENITOURINARY/GYNECOLOGICAL Hx Genitourinary Disorders: No - PSYCHIATRIC Hx Substance Use: No - SURGICAL HISTORY Hx Coronary Artery Bypass Graft: Yes (2004) - ANESTHESIA Hx Anesthesia: Yes Hx Anesthesia Reactions: No Hx Malignant Hyperthermia: No Meds Allergies/Adverse Reactions: Allergies Allergy/AdvReac Type Severity Reaction Status Date / Time DENITA Inhibitors AdvReac COUGH Verified 09/10/17 06:30 - Medications Medications: Current Medications Albuterol/Ipratropium (Duoneb 3 Mg/0.5 Mg (3 Ml) Ud) 3 ml INH RQ6 [facility] Last Admin: 09/13/17 07:21 Dose: 3 ml Apixaban (Eliquis) 2.5 mg PO DAILY [facility] Last Admin: 09/13/17 10:20 Dose: 2.5 mg Docusate Sodium (Colace) 100 mg PO DAILY [facility] Last Admin: 09/13/17 10:20 Dose: 100 mg Azithromycin 500 mg/ Sodium (Chloride) 250 mls @ 250 mls/hr IVPB DAILY [facility] PRN Reason: Protocol Last Admin: 09/13/17 10:18 Dose: 250 mls/hr Epinephrine HCl 1 mg/ Sodium (Chloride) 251 mls @ 15.06 mls/hr IV .[id number] PRN ; Protocol; 1 MCG/MIN PRN Reason: TITRATE PER MD ORDER Vasopressin 40 units/ Dextrose 40 mls @ 2.4 mls/hr IV .[id number] JULI; 0.04 UNITS/ MIN PRN Reason: Protocol Sodium Bicarbonate 150 meq/ (Dextrose) 1,150 mls @ 75 mls/hr IV .[id number] [facility] Methylprednisolone (Solu-Medrol) 40 mg IVP Q8H [facility] Last Admin: 09/13/17 03:26 Dose: 40 mg Montelukast Sodium (Singulair) 10 mg PO HS [facility] Last Admin: 09/12/17 22:13 Dose: 10 mg Physical Exam - Constitutional Appears: Chronically Ill - Head Exam Head Exam: ATRAUMATIC - Eye Exam Eye Exam: absent: PERRL - ENT Exam ENT Exam: Mucous Membranes Moist Additional comments: +ETT - Respiratory Exam Respiratory Exam: Rhonchi - Cardiovascular Exam Cardiovascular Exam: Tachycardia - GI/Abdominal Exam GI & Abdominal Exam: Soft - Extremities Exam Extremities exam: Positive for: normal inspection - Skin Skin Exam: Dry, Normal Color, Warm Results - Vital Signs Recent Vital Signs: Last Vital Signs Temp 98.1 F 09/13/17 07:30 Pulse 86 09/13/17 08:01 Resp 20 09/13/17 07:30 BP 119/66 09/13/17 10:18 Pulse Ox 98 09/13/17 07:30 - Labs Result Diagrams: 09/13/17 11:43 09/13/17 11:43 Labs: Laboratory Results - last 24 hr 0409/12/17 09/13/17 16:23 20:39 06:24 WBC RBC Hgb Hct MCV MCH MCHC RDW Plt Count MPV Neut % (Auto) Lymph % (Auto) [place] % (Auto) Eos % (Auto) Baso % (Auto) Neut # (Auto) Lymph # (Auto) [place] # (Auto) Eos # (Auto) Baso # (Auto) Puncture Site pCO2 pO2 HCO3 ABG pH ABG Total CO2 ABG O2 Saturation ABG Base Excess Tylor Test ABG Potassium A-a O2 Difference Respiratory Index Glucose Lactate Vent Mode Mechanical Rate FiO2 Tidal Volume PEEP Crit Value Called To Crit Value Called By Crit Value Read Back Blood Gas Notified Time Sodium Potassium Chloride Carbon Dioxide Anion Gap BUN Creatinine Est GFR ( Amer) Est GFR (Non-Af Amer) POC Glucose (mg/dL) 168 H 203 H 275 H Random Glucose Calcium Phosphorus Magnesium Total Bilirubin AST ALT Alkaline Phosphatase Total Creatine Kinase CK-MB (Mass) Troponin I Total Protein Albumin Globulin Albumin/Globulin Ratio Arterial Blood Potassium Serum Ketones 09/13/17 09/13/17 09/13/17 11:03 11:43 11:43 WBC 7.0 RBC 2.77 L Hgb 8.5 L D Hct 25.3 L MCV 91.5 D MCH 30.7 MCHC 33.6 RDW 14.8 H Plt Count 147 MPV 7.8 Neut % (Auto) 69.5 Lymph % (Auto) 25.0 Coryell % (Auto) 5.2 Eos % (Auto) 0.1 Baso % (Auto) 0.2 Neut # (Auto) 4.9 Lymph # (Auto) 1.8 [place] # (Auto) 0.4 Eos # (Auto) 0.0 Baso # (Auto) 0.0 Puncture Site pCO2 pO2 HCO3 ABG pH ABG Total CO2 ABG O2 Saturation ABG Base Excess Tylor Test ABG Potassium A-a O2 Difference Respiratory Index Glucose Lactate Vent Mode Mechanical Rate FiO2 Tidal Volume PEEP Crit Value Called To Crit Value Called By Crit Value Read Back Blood Gas Notified Time Sodium 130 L Potassium 4.5 Chloride 95 L Carbon Dioxide 17 L Anion Gap 23 H BUN 40 H Creatinine 1.7 H Est GFR ( Amer) 35 Est GFR (Non-Af Amer) 29 POC Glucose (mg/dL) 234 H Random Glucose 225 H Calcium 8.2 L Phosphorus 5.1 H Magnesium 1.9 Total Bilirubin 0.4 AST 62 H D ALT 55 H D Alkaline Phosphatase 47 Total Creatine Kinase 97 CK-MB (Mass) 1.22 Troponin I 0.1370 H* Total Protein 5.8 L Albumin 3.3 L Globulin 2.5 Albumin/Globulin Ratio 1.3 Arterial Blood Potassium Serum Ketones Negative 09/13/17 09/13/17 11:46 12:59 WBC RBC Hgb Hct MCV MCH MCHC RDW Plt Count MPV Neut % (Auto) Lymph % (Auto) [place] % (Auto) Eos % (Auto) Baso % (Auto) Neut # (Auto) Lymph # (Auto) [place] # (Auto) Eos # (Auto) Baso # (Auto) Puncture Site Femoral A line pCO2 14 L* 23 L pO2 390 H 303 H HCO3 10.4 L 7.9 L* ABG pH 7.24 L 7.07 L* ABG Total CO2 6.4 L 7.4 L ABG O2 Saturation 100.5 H 99.9 H ABG Base Excess -18.7 L -21.9 L Tylor Test N/a Na ABG Potassium 3.5 L 4.5 A-a O2 Difference 306.0 381.0 Respiratory Index 0.8 1.3 Glucose 265 H 502 H* D Lactate 9.1 H* 13.5 H* Vent Mode Prvc Mechanical Rate 26 FiO2 100.0 100.0 Tidal Volume 500 PEEP 5 Crit Value Called To Dr geronimo melton Crit Value Called By Matthew kenny hepatologist Sofya bass hepatologist Crit Value Read Back Y Y Blood Gas Notified Time 1149 1305 Sodium 137.0 134.0 Potassium Chloride 109.0 H 103.0 Carbon Dioxide Anion Gap BUN Creatinine Est GFR ( Amer) Est GFR (Non-Af Amer) POC Glucose (mg/dL) Random Glucose Calcium Phosphorus Magnesium Total Bilirubin AST ALT Alkaline Phosphatase Total Creatine Kinase CK-MB (Mass) Troponin I Total Protein Albumin Globulin Albumin/Globulin Ratio Arterial Blood Potassium 3.5 L 4.5 Serum Ketones Assessment & Plan - Assessment and Plan (Free Text) Assessment: Patient is a 81 year old female with past medical history of CHF EF of 15-20%, AICD, CAD s/p CABG, COPD/asthhma, DM s/p Code blue x 2, intubated. Now transferred to the ICU for further management. Patient was transferred to the ICU with low blood pressures Urgent femoral line and radial artery line were placed Patient became pulseless, 3rd code blue was called at 12:39 CPR was initiated, ROSC obtained (see code sheet for details) Patient currently on 3 pressors (epi/norepi/dopamine) ABG showed severe metabolic acidosis Recieved bicarb amps, Bicarb drip started Will repeat ABG Family and attending notified Please see orders for more details Plan discussed with Dr Melton <Ray Melton - Last Filed: 09/13/17 17:14> Meds - Medications Medications: Current Medications Albuterol/Ipratropium (Duoneb 3 Mg/0.5 Mg (3 Ml) Ud) 3 ml INH RQ6 [facility] Last Admin: 09/13/17 07:21 Dose: 3 ml Apixaban (Eliquis) 2.5 mg PO DAILY [facility] Last Admin: 09/13/17 10:20 Dose: 2.5 mg Docusate Sodium (Colace) 100 mg PO DAILY [facility] Last Admin: 09/13/17 10:20 Dose: 100 mg Azithromycin 500 mg/ Sodium (Chloride) 250 mls @ 250 mls/hr IVPB DAILY [facility] PRN Reason: Protocol Last Admin: 09/13/17 10:18 Dose: 250 mls/hr Epinephrine HCl 1 mg/ Sodium (Chloride) 251 mls @ 15.06 mls/hr IV .[id number] PRN ; Protocol; 1 MCG/MIN PRN Reason: TITRATE PER MD ORDER Last Admin: 09/13/17 16:11 Dose: 20 mcg/min, 301.2 mls/hr Vasopressin 40 units/ Dextrose 40 mls @ 2.4 mls/hr IV .[id number] JULI; 0.04 UNITS/ MIN PRN Reason: Protocol Last Admin: 09/13/17 13:10 Dose: 0.04 units/min, 2.4 mls/hr Sodium Bicarbonate 150 meq/ (Dextrose) 1,150 mls @ 75 mls/hr IV .[id number] [facility] Last Admin: 09/13/17 13:15 Dose: 75 mls/hr Vancomycin/Sodium Chloride (Vancomycin 1 Gm/Ns 200 Ml) 1 gm in 200 mls @ 166.7 mls/hr IVPB Q24H [facility] PRN Reason: Protocol Stop: 09/18/17 15:31 Meropenem 1 gm/ Sodium (Chloride) 100 mls @ 100 mls/hr IVPB DAILY [facility] PRN Reason: Protocol Norepinephrine Bitartrate 4 mg (/ Dextrose) 254 mls @ 15.24 mls/hr IV .[id number] PRN; Protocol; 4 MCG/MIN PRN Reason: TITRATE PER MD ORDER Last Admin: 09/13/17 16:24 Dose: 4 mcg/min, 15.24 mls/hr Dopamine HCl/Dextrose (Dopamine 400mg/250ml D5w) 400 mg in 250 mls @ 3.65 mls/ hr IV .Q24H PRN; Protocol; 2 MCG/KG/MIN PRN Reason: TITRATE PER MD ORDER Last Admin: 09/13/17 13:45 Dose: 2 mcg/kg/min, 3.65 mls/hr Sodium Chloride (Sodium Chloride 0.9%) 1,000 mls @ 1,000 mls/hr IV .Q1H ONE Stop: 09/13/17 17:18 Last Admin: 09/13/17 16:22 Dose: 1,000 mls/hr Methylprednisolone (Solu-Medrol) 40 mg IVP Q8H [facility] Last Admin: 09/13/17 03:26 Dose: 40 mg Montelukast Sodium (Singulair) 10 mg PO HS [facility] Last Admin: 09/12/17 22:13 Dose: 10 mg Results - Vital Signs Recent Vital Signs: Last Vital Signs Temp 98.1 F 09/13/17 07:30 Pulse 50 L 09/13/17 16:24 Resp 0 L 09/13/17 16:24 BP 0/0 L 09/13/17 16:24 Pulse Ox 98 09/13/17 07:30 - Labs Result Diagrams: 09/13/17 16:43 09/13/17 11:43 Labs: Laboratory Results - last 24 hr 09/12/17 09/13/17 09/13/17 20:39 06:24 11:03 WBC RBC Hgb Hct MCV MCH MCHC RDW Plt Count MPV Neut % (Auto) Lymph % (Auto) [place] % (Auto) Eos % (Auto) Baso % (Auto) Neut # (Auto) Lymph # (Auto) [place] # (Auto) Eos # (Auto) Baso # (Auto) Puncture Site pCO2 pO2 HCO3 ABG pH ABG Total CO2 ABG O2 Saturation ABG Base Excess Tylor Test ABG Potassium A-a O2 Difference Respiratory Index Glucose Lactate Vent Mode Mechanical Rate FiO2 Tidal Volume PEEP Crit Value Called To Crit Value Called By Crit Value Read Back Blood Gas Notified Time Sodium Potassium Chloride Carbon Dioxide Anion Gap BUN Creatinine Est GFR ( Amer) Est GFR (Non-Af Amer) POC Glucose (mg/dL) 203 H 275 H 234 H Random Glucose Lactic Acid Calcium Phosphorus Magnesium Total Bilirubin AST ALT Alkaline Phosphatase Total Creatine Kinase CK-MB (Mass) Troponin I Total Protein Albumin Globulin Albumin/Globulin Ratio Arterial Blood Potassium Digoxin Serum Ketones Blood Type Antibody Screen 09/13/17 09/13/17 09/13/17 11:43 11:43 11:46 WBC 7.0 RBC 2.77 L Hgb 8.5 L D Hct 25.3 L MCV 91.5 D MCH 30.7 MCHC 33.6 RDW 14.8 H Plt Count 147 MPV 7.8 Neut % (Auto) 69.5 Lymph % (Auto) 25.0 [place] % (Auto) 5.2 Eos % (Auto) 0.1 Baso % (Auto) 0.2 Neut # (Auto) 4.9 Lymph # (Auto) 1.8 [place] # (Auto) 0.4 Eos # (Auto) 0.0 Baso # (Auto) 0.0 Puncture Site Femoral pCO2 14 L* pO2 390 H HCO3 10.4 L ABG pH 7.24 L ABG Total CO2 6.4 L ABG O2 Saturation 100.5 H ABG Base Excess -18.7 L Tylor Test N/a ABG Potassium 3.5 L A-a O2 Difference 306.0 Respiratory Index 0.8 Glucose 265 H Lactate 9.1 H* Vent Mode Mechanical Rate FiO2 100.0 Tidal Volume PEEP Crit Value Called To Dr melton Crit Value Called By Matthew kenny hepatologist Crit Value Read Back Y Blood Gas Notified Time 1149 Sodium 130 L 137.0 Potassium 4.5 Chloride 95 L 109.0 H Carbon Dioxide 17 L Anion Gap 23 H BUN 40 H Creatinine 1.7 H Est GFR ( Amer) 35 Est GFR (Non-Af Amer) 29 POC Glucose (mg/dL) Random Glucose 225 H Lactic Acid Calcium 8.2 L Phosphorus 5.1 H Magnesium 1.9 Total Bilirubin 0.4 AST 62 H D ALT 55 H D Alkaline Phosphatase 47 Total Creatine Kinase 97 CK-MB (Mass) 1.22 Troponin I 0.1370 H* Total Protein 5.8 L Albumin 3.3 L Globulin 2.5 Albumin/Globulin Ratio 1.3 Arterial Blood Potassium 3.5 L Digoxin Serum Ketones Negative Blood Type Antibody Screen 09/13/17 09/13/17 09/13/17 12:59 15:56 15:56 WBC RBC Hgb Hct MCV MCH MCHC RDW Plt Count MPV Neut % (Auto) Lymph % (Auto) [place] % (Auto) Eos % (Auto) Baso % (Auto) Neut # (Auto) Lymph # (Auto) [place] # (Auto) Eos # (Auto) Baso # (Auto) Puncture Site A line pCO2 23 L pO2 303 H HCO3 7.9 L* ABG pH 7.07 L* ABG Total CO2 7.4 L ABG O2 Saturation 99.9 H ABG Base Excess -21.9 L Tylor Test Na ABG Potassium 4.5 A-a O2 Difference 381.0 Respiratory Index 1.3 Glucose 502 H* D Lactate 13.5 H* Vent Mode Prvc Mechanical Rate 26 FiO2 100.0 Tidal Volume 500 PEEP 5 Crit Value Called To Dr dolores melton Crit Value Called By Sofya bass hepatologist Crit Value Read Back Y Blood Gas Notified Time 1305 Sodium 134.0 Potassium Chloride 103.0 Carbon Dioxide Anion Gap BUN Creatinine Est GFR ( Amer) Est GFR (Non-Af Amer) POC Glucose (mg/dL) Random Glucose Lactic Acid 15.2 H* Calcium Phosphorus Magnesium Total Bilirubin AST ALT Alkaline Phosphatase Total Creatine Kinase CK-MB (Mass) Troponin I 3.6800 H* Total Protein Albumin Globulin Albumin/Globulin Ratio Arterial Blood Potassium 4.5 Digoxin Serum Ketones Blood Type Antibody Screen 09/13/17 09/13/17 15:56 15:56 WBC RBC Hgb Hct MCV MCH MCHC RDW Plt Count MPV Neut % (Auto) Lymph % (Auto) [place] % (Auto) Eos % (Auto) Baso % (Auto) Neut # (Auto) Lymph # (Auto) [place] # (Auto) Eos # (Auto) Baso # (Auto) Puncture Site pCO2 pO2 HCO3 ABG pH ABG Total CO2 ABG O2 Saturation ABG Base Excess Tylor Test ABG Potassium A-a O2 Difference Respiratory Index Glucose Lactate Vent Mode Mechanical Rate FiO2 Tidal Volume PEEP Crit Value Called To Crit Value Called By Crit Value Read Back Blood Gas Notified Time Sodium Potassium Chloride Carbon Dioxide Anion Gap BUN Creatinine Est GFR ( Amer) Est GFR (Non-Af Amer) POC Glucose (mg/dL) Random Glucose Lactic Acid Calcium Phosphorus Magnesium Total Bilirubin AST ALT Alkaline Phosphatase Total Creatine Kinase CK-MB (Mass) Troponin I Total Protein Albumin Globulin Albumin/Globulin Ratio Arterial Blood Potassium Digoxin 0.9 Serum Ketones Blood Type A POSITIVE Antibody Screen Negative Assessment & Plan - Assessment and Plan (Free Text) Assessment: Patient seen and examined at bedside. Patient with h/o severe systolic heart failure, noted to be in severe metabolic acidosis with PEA cardiac arrest. ABG reveals severe metabolic acidosis. -Cardiac arrest: s/p multiple chest compressions and multiple ROSC -Severe metabolic acidosis (more than 7 amps of bicarb pushed) -A-fib on eliquis: monitor for any signs of bleeding -empirically on abx des/vanco per level -Acute blood loss anemia: post chest compression, transfuse to keep hb/hct >8/24 -(+)trop, NSTEMI/V-tach: cardiology input regarding prognosis (EF post code 15% on max pressors) -Goals of Care: Patient's 2 sons and daughter in law were at bedside. Patient's son advised against agressive measure. Patient's daughter in-law stated that patient "wanted everything done." -Neurologically patient's pupils not reactive, high suspicious for anoxic brain injury -Patient will remains full code -Continue resusitation (currently on max pressors (epi/dopamine/norepi and vaso) -cc time 70 minutes excluding any time spent on any procedures. Dr. Starr Melton and Dr. Johnson at bedside with patient's family. prognosis very very poor. family aware -all questions answered - Date & Time Date: 09/13/17 Time: 17:11
--- NOTE | 2017-09-13 15:22 | CP.PCM.PN ---
Subjective - Date & Time of Evaluation Date of Evaluation: 09/13/17 Time of Evaluation: 09:30 - Subjective Subjective: Patient seen and examined at bedside around 9:30 AM. Patient was lying comfortably in no acute distress, alert oriented x3 and was still complaining of dry cough. patient denied any shortness of breath, chest pain or dizziness . Spoke with nursing who agreed that the patient has a cough even after patient was given antitussive. later events noted. Objective - Vital Signs/Intake and Output Vital Signs (last 24 hours): Temp Pulse Resp BP Pulse Ox 98.1 F 86 20 119/66 98 09/13/17 07:30 09/13/17 08:01 09/13/17 07:30 09/13/17 10:18 09/13/17 07:30 Intake and Output: 09/13/17 09/13/17 06:59 18:59 Intake Total 100 Balance 100 - Medications Medications: Current Medications Albuterol/Ipratropium (Duoneb 3 Mg/0.5 Mg (3 Ml) Ud) 3 ml INH RQ6 JULI Last Admin: 09/13/17 07:21 Dose: 3 ml Apixaban (Eliquis) 2.5 mg PO DAILY JULI Last Admin: 09/13/17 10:20 Dose: 2.5 mg Docusate Sodium (Colace) 100 mg PO DAILY [facility] Last Admin: 09/13/17 10:20 Dose: 100 mg Azithromycin 500 mg/ Sodium (Chloride) 250 mls @ 250 mls/hr IVPB DAILY JULI PRN Reason: Protocol Last Admin: 09/13/17 10:18 Dose: 250 mls/hr Epinephrine HCl 1 mg/ Sodium (Chloride) 251 mls @ 15.06 mls/hr IV .[id number] PRN ; Protocol; 1 MCG/MIN PRN Reason: TITRATE PER MD ORDER Vasopressin 40 units/ Dextrose 40 mls @ 2.4 mls/hr IV .[id number] JULI; 0.04 UNITS/ MIN PRN Reason: Protocol Sodium Bicarbonate 150 meq/ (Dextrose) 1,150 mls @ 75 mls/hr IV .[id number] JULI Vancomycin/Sodium Chloride (Vancomycin 1 Gm/Ns 200 Ml) 1 gm in 200 mls @ 166.7 mls/hr IVPB Q24H JULI PRN Reason: Protocol Stop: 09/18/17 15:31 Meropenem 1 gm/ Sodium (Chloride) 100 mls @ 100 mls/hr IVPB DAILY [facility] PRN Reason: Protocol Methylprednisolone (Solu-Medrol) 40 mg IVP Q8H [facility] Last Admin: 09/13/17 03:26 Dose: 40 mg Montelukast Sodium (Singulair) 10 mg PO HS [facility] Last Admin: 09/12/17 22:13 Dose: 10 mg - Labs Labs: 09/13/17 11:43 09/13/17 11:43 PT 13.1 SECONDS (9.7-12.2) H 09/10/17 06:55 INR 1.2 09/10/17 06:55 APTT 40 SECONDS (21-34) H 09/10/17 06:55 - Head Exam Head Exam: ATRAUMATIC, NORMOCEPHALIC - Eye Exam Eye Exam: Normal appearance - Neck Exam Neck Exam: Normal Inspection - Respiratory Exam Additional comments: some rales in the bases - Cardiovascular Exam Cardiovascular Exam: REGULAR RHYTHM - GI/Abdominal Exam GI & Abdominal Exam: Soft, Normal Bowel Sounds - Extremities Exam Extremities Exam: Normal Inspection - Neurological Exam Neurological Exam: Alert, Oriented x3 Assessment and Plan (1) COPD (chronic obstructive pulmonary disease) with acute bronchitis Assessment & Plan: the plan was to cont IV steroids, nebulizer treatment and antitussives and CAT scan of chest if cough persists. PE was unlikely at that time as patient was in no distress, saturation always remained good, no tachycardia and patient was not complaining of any symptoms except cough. current management as per ICU team Status: Acute (2) Congestive heart failure Status: Acute
[2017-09-13] MEDS ORDERED: Vancomycin 1 gm/NS 200 ml 1 GM/200 ML BAG IVPB SCH (15:30)
--- NOTE | 2017-09-13 15:34 | RAD ---
HISTORY: sob COMPARISON: 09/10/2017 FINDINGS: LUNGS: Patchy bilateral upper lobe opacities new compared to prior examination. PLEURA: No significant pleural effusion identified, no pneumothorax apparent. CARDIOVASCULAR: Normal heart size. Endotracheal tube new since prior examination. Tracheostomy tip approximately 5.4 cm above tracheal amairani. AICD. Sternotomy wires. OSSEOUS STRUCTURES: No significant abnormalities. VISUALIZED UPPER ABDOMEN: Normal. OTHER FINDINGS: None. IMPRESSION: New bilateral patchy upper lobe opacities. Possible pneumonia. New ETT appropriately positioned. AICD.
[2017-09-13] MEDS ORDERED: Meropenem 1 GM in Sodium Chloride 0.9% 100 ML IVPB SCH (16:00)
[2017-09-13 16:47] LABS: BASO # 0.1 K/uL (0.0-0.2); BASO % 0.8 % (0.0-2.0); EOS # 0.1 K/uL (0.0-0.7); EOS % 1.5 % (0.0-4.0); LYMPH # 2.9 K/uL (1.0-4.3); LYMPH % 33.7 % (20.0-40.0); MEAN CORPUSCULAR HEMOGLOBIN 30.2 pg (27.0-31.0); MEAN PLATELET VOLUME 8.2 fL (7.2-11.7); MONO # 0.2 K/uL (0.0-0.8); MONO % 2.6 % (0.0-10.0); NEUT # 5.4 K/uL (1.8-7.0); NEUT % 61.4 % (50.0-75.0); NRBC % 0.6 % (0.0-2.0); RBC 1.75 Mil/uL (3.80-5.20); RED CELL DISTRIBUTION WIDTH 14.5 % (11.5-14.5); WHITE BLOOD COUNT 8.7 K/uL (4.8-10.8)
[2017-09-13 16:50] LABS: MEAN CELL VOLUME 88.7 fL (81.0-99.0)
[2017-09-13 16:51] LABS: HEMOGLOBIN 5.3 g/dL (11.0-16.0)
--- NOTE | 2017-09-13 17:03 | PCM.RRT ---
TABLET MAKING MACHINE OPERATOR HELPER Nurses Assessment - Situation Date: 09/13/17 Time TABLET MAKING MACHINE OPERATOR HELPER was called: 12:41 TABLET MAKING MACHINE OPERATOR HELPER Responder Arrival Time:: 12:41 TABLET MAKING MACHINE OPERATOR HELPER Location:: ICU Room Number: ICU-6 TABLET MAKING MACHINE OPERATOR HELPER Reason for Call: Not Responding to Urgent Treatment TABLET MAKING MACHINE OPERATOR HELPER Called By: RN, Physician - IV IV Inserted during TABLET MAKING MACHINE OPERATOR HELPER?: No - Respiratory TABLET MAKING MACHINE OPERATOR HELPER Delivery Method: Intubated (Intubated in the ICU) Was the Patient Ventilated with Bag/Mask 100% O2?: Yes Secretions Suctioned?: Yes Was the Patient Intubated?: No (Patient already intubated) Was the Patient Placed on a Ventilator?: Yes - Ventilator Settings Mode: PRVC Ventilator Respiratory Rate Settin Ventilator Tidal Volume Settin PEEP/CPAP (cm H2O): 5 FIO2 (% Oxygen): 100 - Stat Labs Ordered TABLET MAKING MACHINE OPERATOR HELPER Other Labs Ordered: CMP - Recommendations 5) TABLET MAKING MACHINE OPERATOR HELPER Level of Care Recommendations: Remain in current setting - Respiratory Oxygen Delivery Method: Nasal Cannula @L/min, Intubated (bag valve mask was used to wheel patient to CT and to ICU where vent settings were placed) Oxygen Flow Rate: 3 Plan - Assessment of Findings&Treatment Plan Patient was transferred from CT Scan to ICU. Patient arrived to the ICU with low blood pressures. Femoral line and radial arterial line were placed urgently at the bedside. Norepinephrine running. Patient became pulseless. Larissa estevez was called at 12:41am. CPR was initiated. ETT was manually bagged. Patient was given epi x 2. Dopamine and epinephrine drip was started. Also given 1 amp of bicarb. At 12:45 there was ROSC. Patient remains unresponsive to stimuli. Plan -ABG reviewed, Patient with severe metabolic acidosis -Start Bicarb drip -Continue Dopamin/norepinephrine/epinephrine drip -Start Vasopressin -Repeat ABG STAT -Patient remains critical
[2017-09-13] MEDS ORDERED: CALCIUM CHLORIDE 100 MG/ML VIAL IV ONE (17:51)
[2017-09-13 18:06] VITALS: RESP 26
--- NOTE | 2017-09-13 18:06 | CP.PCM.PN ---
Subjective - Date & Time of Evaluation Date of Evaluation: 09/13/17 Time of Evaluation: 14:00 - Subjective Subjective: clinically same Objective - Vital Signs/Intake and Output Vital Signs (last 24 hours): Temp Pulse Resp BP Pulse Ox 98.1 F 50 L 0 L 0/0 L 98 09/13/17 07:30 09/13/17 16:24 09/13/17 16:24 09/13/17 16:24 09/13/17 07:30 Intake and Output: 09/13/17 09/13/17 06:59 18:59 Intake Total 100 502 Balance 100 502 - Medications Medications: Current Medications Albuterol/Ipratropium (Duoneb 3 Mg/0.5 Mg (3 Ml) Ud) 3 ml INH RQ6 JULI Last Admin: 09/13/17 07:21 Dose: 3 ml Apixaban (Eliquis) 2.5 mg PO DAILY [facility] Last Admin: 09/13/17 10:20 Dose: 2.5 mg Docusate Sodium (Colace) 100 mg PO DAILY [facility] Last Admin: 09/13/17 10:20 Dose: 100 mg Azithromycin 500 mg/ Sodium (Chloride) 250 mls @ 250 mls/hr IVPB DAILY JULI PRN Reason: Protocol Last Admin: 09/13/17 10:18 Dose: 250 mls/hr Epinephrine HCl 1 mg/ Sodium (Chloride) 251 mls @ 15.06 mls/hr IV .[id number] PRN ; Protocol; 1 MCG/MIN PRN Reason: TITRATE PER MD ORDER Last Admin: 09/13/17 16:11 Dose: 20 mcg/min, 301.2 mls/hr Vasopressin 40 units/ Dextrose 40 mls @ 2.4 mls/hr IV .[id number] JULI; 0.04 UNITS/ MIN PRN Reason: Protocol Last Admin: 09/13/17 13:10 Dose: 0.04 units/min, 2.4 mls/hr Sodium Bicarbonate 150 meq/ (Dextrose) 1,150 mls @ 75 mls/hr IV .[id number] JULI Last Admin: 09/13/17 13:15 Dose: 75 mls/hr Vancomycin/Sodium Chloride (Vancomycin 1 Gm/Ns 200 Ml) 1 gm in 200 mls @ 166.7 mls/hr IVPB Q24H [facility]ULI PRN Reason: Protocol Stop: 09/18/17 15:31 Last Admin: 09/13/17 16:00 Dose: 166.7 mls/hr Meropenem 1 gm/ Sodium (Chloride) 100 mls @ 100 mls/hr IVPB DAILY JULI PRN Reason: Protocol Last Admin: 09/13/17 16:50 Dose: 100 mls/hr Norepinephrine Bitartrate 4 mg (/ Dextrose) 254 mls @ 15.24 mls/hr IV .[id number] PRN; Protocol; 4 MCG/MIN PRN Reason: TITRATE PER MD ORDER Last Admin: 09/13/17 16:24 Dose: 4 mcg/min, 15.24 mls/hr Dopamine HCl/Dextrose (Dopamine 400mg/250ml D5w) 400 mg in 250 mls @ 3.65 mls/ hr IV .Q24H PRN; Protocol; 2 MCG/KG/MIN PRN Reason: TITRATE PER MD ORDER Last Admin: 09/13/17 13:45 Dose: 2 mcg/kg/min, 3.65 mls/hr Methylprednisolone (Solu-Medrol) 40 mg IVP Q8H [facility] Last Admin: 09/13/17 12:30 Dose: Not Given Montelukast Sodium (Singulair) 10 mg PO HS [facility] Last Admin: 09/12/17 22:13 Dose: 10 mg - Labs Labs: 09/13/17 16:43 09/13/17 11:43 PT 13.1 SECONDS (9.7-12.2) H 09/10/17 06:55 INR 1.2 09/10/17 06:55 APTT 40 SECONDS (21-34) H 09/10/17 06:55 - Constitutional Appears: Well - Head Exam Head Exam: ATRAUMATIC, NORMAL INSPECTION, NORMOCEPHALIC - Eye Exam Eye Exam: EOMI, Normal appearance, PERRL Pupil Exam: NORMAL ACCOMODATION, PERRL - ENT Exam ENT Exam: Mucous Membranes Moist, Normal Exam - Neck Exam Neck Exam: Full ROM, Normal Inspection. absent: Lymphadenopathy - Respiratory Exam Respiratory Exam: Decreased Breath Sounds - Cardiovascular Exam Cardiovascular Exam: REGULAR RHYTHM, +S1, +S2 - GI/Abdominal Exam GI & Abdominal Exam: Soft, Diminished Bowel Sounds - Rectal Exam Rectal Exam: Deferred
--- NOTE | 2017-09-13 18:12 | PCM.RRT ---
COMPUGRAPH OPERATOR Nurses Assessment - Situation Date: 09/13/17 Time COMPUGRAPH OPERATOR was called: 13:04 COMPUGRAPH OPERATOR Responder Arrival Time:: 13:04 COMPUGRAPH OPERATOR Location:: ICU Room Number: ICU-6 COMPUGRAPH OPERATOR Reason for Call: Not Responding to Urgent Treatment COMPUGRAPH OPERATOR Called By: RN, Physician - IV IV Inserted during COMPUGRAPH OPERATOR?: No - Respiratory COMPUGRAPH OPERATOR Delivery Method: Intubated (Intubated and in the ICU) Oxygen Flow Rate: 3 Was the Patient Ventilated with Bag/Mask 100% O2?: Yes Secretions Suctioned?: Yes Was the Patient Intubated?: No (Patient already intubated) Was the Patient Placed on a Ventilator?: Yes - Ventilator Settings Mode: PRVC Ventilator Respiratory Rate Settin Ventilator Tidal Volume Settin PEEP/CPAP (cm H2O): 5 FIO2 (% Oxygen): 100 - Diagnostic Test Ordered EKG: Yes Chest X-Ray: Yes CT Scan: Yes - Stat Labs Ordered COMPUGRAPH OPERATOR Other Labs Ordered: CMP CPR started during COMPUGRAPH OPERATOR?: Yes - Vital Signs at end of COMPUGRAPH OPERATOR Vital Signs at end of COMPUGRAPH OPERATOR: Rapid Response End Vital Sign Blood Pressure 139/94 Pulse Rate 157 O2 Sat by Pulse Oximetry 93 - Recommendations 5) COMPUGRAPH OPERATOR Level of Care Recommendations: Remain in current setting Notifications: Attending Physician, Consultations, Family or Designated Caregiver - Respiratory Oxygen Delivery Method: Intubated (bag valve mask was used to wheel patient to CT and to ICU where vent settings were placed) Plan - Assessment of Findings&Treatment Plan While in the ICU patient was found pulseless and unresponsive to all stimuli. V tach arrest. Code blue was called at 13:04. CPR was initiated. AICD fired 3 times. Epinephrine IVP x 3, Lidocaine IVP x 1, Bicarb amp x 2, calcium gluconate x 1, Amiodarone x 1 given. Magnesium sulfate 1gm x 2 also given. Patient with ROSC at 13:15. Obtained with BP 116s/65s on max 4 pressors (norepi/ epi/vaso and dopamine). Plan -Continue Pressors -Prognosis is poor -Pupils not reactive, patient's son at bedside, informed of patient's condition and the possibility of repeat cardiac arrest -Patient remains full code -Plan discussed with Dr Prather
--- NOTE | 2017-09-13 18:21 | PN ---
DATE: SUBJECTIVE: The patient had traumatic event this morning where she was noted to be unresponsive and in agonal respiration. Cardiopulmonary resuscitation was initiated. The patient was intubated and required IV epinephrine and IV bicarb and was taken to stat CT scan with IV contrast and had another cardiac arrest and CAT scan that required a CPR and IV epinephrine. Subsequently brought to the ICU and the cardiac resuscitation performed for a period of time with subsequent resumption of pulse and is currently unresponsive on Levophed, epinephrine, and Dopamine and is in sinus tachycardia. PHYSICAL EXAMINATION LUNGS: Reveal diffuse bilateral rhonchi. HEART: S1 and S2 regular. EXTREMITIES: No edema. LABORATORIES: At around 11:40 p.m., repeat hemoglobin and hematocrit to be 8.5 and 25.3, white count and platelet count are within normal limits. SMA-7 around the same time, sodium 130, potassium 4.5, chloride 95, CO2 17, glucose 225, BUN 40, creatinine 1.7, and troponin 0.137. Chest, abdomen, and pelvic CT angio was performed and revealed extravasation of the dye into the posterior aspect of the left lung. Full visualization of the abdomen and pelvis either not completed or not processed. ASSESSMENT: 1. See events of recent cardiac arrest. Mainly pulseless electrical activity following respiratory arrest that required intubation and mechanical ventilation. 2. Extravasation of the dye noted in the right posterior aspect of the left lung. Possibility of alveolar capillary or annular rupture. 3. Dilated cardiomyopathy. 4. Chronic obstructive lung disease. 5. Coronary artery disease, status post coronary artery bypass surgery. RECOMMENDATIONS: The case was discussed with the patient and son at the bedside at length. He stated that he is main decision maker for his mother in the family and he is awaiting follow up on her neurological assessment prior to making any decision regarding do not resuscitate status. In the meantime, the patient's overall condition is grave and in my opinion, further resuscitative efforts are futile. Soren Johnson MD
--- NOTE | 2017-09-13 18:52 | PCM.RRT ---
WILLOWER Nurses Assessment - Situation Date: 09/13/17 Time WILLOWER was called: 17:51 WILLOWER Responder Arrival Time:: 17:51 WILLOWER Location:: ICU Room Number: ICU-6 WILLOWER Reason for Call: Not Responding to Urgent Treatment WILLOWER Called By: RN, Physician - IV IV Inserted during WILLOWER?: No - Respiratory WILLOWER Delivery Method: Intubated (bag valve mask was used to wheel patient to CT and to ICU where vent settings were placed) Oxygen Flow Rate: 3 Was the Patient Ventilated with Bag/Mask 100% O2?: Yes Secretions Suctioned?: Yes Was the Patient Intubated?: No (Patient already intubated) Was the Patient Placed on a Ventilator?: Yes - Ventilator Settings Mode: PRVC Ventilator Respiratory Rate Settin Ventilator Tidal Volume Settin PEEP/CPAP (cm H2O): 5 FIO2 (% Oxygen): 100 - Stat Labs Ordered WILLOWER Other Labs Ordered: CMP CPR started during WILLOWER?: Yes - Time WILLOWER Ended Time WILLOWER Ended: 17:59 - Vital Signs at end of WILLOWER Vital Signs at end of WILLOWER: Rapid Response End Vital Sign Blood Pressure 139/94 Pulse Rate 157 O2 Sat by Pulse Oximetry 93 - Recommendations 5) WILLOWER Level of Care Recommendations: Remain in current setting Notifications: Attending Physician, Consultations, Family or Designated Caregiver - Respiratory Oxygen Delivery Method: Intubated (bag valve mask was used to wheel patient to CT and to ICU where vent settings were placed) Oxygen Flow Rate: 3 Plan - Assessment of Findings&Treatment Plan Patient in the ICU. Patient was found hypotensive, no BP reading, no palpable pulses and unresponsive. Larissa estevez was called at 17:51. CPR was initiated. During the code patient was given 40 units of vasopressin x 1, epinephrine IVP x 3, Calcium gluconate x 2 IVP, Bicarb x 2. There was ROSC at 17:59. BP 162/66, V paced. Continue present management.
[2017-09-13] MEDS ORDERED: (Novolog) Insulin Aspart, Recombinant 100 u/ml 10 ml vial SC SCH (19:00)
--- NOTE | 2017-09-13 21:33 | CP.PCM.PRO ---
Pronouncement of Note - Clinical Findings Physical Exam: No Response Verbal/Painful Stimuli, Absent Peripheral Pulses{ Carotid & Femoral}, Absent Heart & Breath Sounds, No Pupillary Light Reflex, No Corneal Reflex, Pupils Fixed & Dilated, Absence of Vital Signs - Pronouncement Time Time of Pronouncement of : 21:10 - Notifications Pronouncement Notifications: Family Notified, Atending Notified [employer] Teacher Notified: No - [place] [id number]
--- NOTE | 2017-09-13 21:39 | CARD ---
APPROVED REPORT EXAM: Two-dimensional and M-mode echocardiogram with Doppler and color Doppler. Other Information Quality : AverageRhythm : Technically limited study due to PT ON VENT ,SUPINE INDICATION Dyspnea Cardiac Disease: CAD Cardiomyopathy POST CARDIAC ARREST 2D DIMENSIONS IVSd0.6 (0.7-1.1cm)LVDd5.9 (3.9-5.9cm) PWd0.6 (0.7-1.1cm)LVDs5.4 (2.5-4.0cm) FS (%) 8.6 %LVEF (%)9.0 (>50%) M-Mode DIMENSIONS Left Atrium (MM)4.01 (2.5-4.0cm)Aortic Root2.46 (2.2-3.7cm) Aortic Cusp Exc.1.67 (1.5-2.0cm) Mitral Valve MV E Dzhhhmtq18.5cm/sE/A ratio0.0 TDI E/Lateral E'0.0E/Medial E'0.0 Tricuspid Valve TR Peak [id number]/sTR Peak Gr.[id number] LEFT VENTRICLE The left ventricle is normal size. There is normal left ventricular wall thickness. The left ventricular function is severely dilated. The left ventricular ejection fraction is markedly reduced The entire heart shows severe global akinesis, with the exception of the base, which demonstrates motion. The left ventricular diastolic function is indeterminate, but tissue doppler indices are elvated, c/w elevated LA pressure. No left ventricle thrombus noted on this study. There is no ventricular septal defect visualized. There is no left ventricular aneurysm. There is no mass noted in the left ventricle. RIGHT VENTRICLE The right ventricle is poorly seen. A ppm wire is noted. ATRIA The left atrial volume index is mildly dilated. The right atrium size is poorly seen, but appears dialted. The interatrial septum is intact with no evidence for an atrial septal defect. AORTIC VALVE The aortic valve is normal in structure and function. mild aortic regurgitation is present. There is no aortic valvular stenosis. There is no aortic valvular vegetation. MITRAL VALVE The mitral valve is normal in structure and function. There is no evidence of mitral valve prolapse. There is no mitral valve stenosis. There is mild mitral valve regurgitation noted. TRICUSPID VALVE The tricuspid valve is normal in structure and function. There is severe tricuspid valve regurgitation noted. There is no tricuspid valve prolapse or vegetation. There is no tricuspid valve stenosis. PULMONIC VALVE The pulmonary valve is normal in structure and function. There is moderate to severe pulmonic valvular regurgitation. There is no pulmonic valvular stenosis. GREAT VESSELS The aortic root is normal in size. The ascending aorta is normal in size. The pulmonary artery is normal. The IVC is dilated. PERICARDIAL EFFUSION A loculated pericardial effusion is noted adjacent to the right ventricle, compressing it in systole. <Conclusion> Severe ischemic cardiomyopathy with apical aneurysm. A loculated pericardial effusion is noted adjacent to the right ventricle, compressing it in systole. Consider tamponade. 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 Elevated left atrial pressure.
[2017-09-13 22:30] VITALS: BP 36/16; PULSE 60
[2017-09-13 22:31] VITALS: O2SAT 75
[2017-09-13 22:43] VITALS: TEMP 95.1
== END 2017-09-14 00:30 | DRG 208 ==
LOC: C.ER 06:06 → C.9E 08:53 → C.3T 10:51 → C.6T 09-11 19:42 → C.9I 09-13 12:20
PROVIDERS: ADMIT Internal Medicine Nephrology; ATTEND Internal Medicine Nephrology
PROC: 5A12012 Performance of Cardiac Output, Single, Manual (ICD-10-PCS; principal; 2017-09-13)
PROC: 5A1935Z Respiratory Ventilation, Less than 24 Consecutive Hours (ICD-10-PCS; 2017-09-13)
PROC: 05HY33Z Insertion of Infusion Device into Upper Vein, Percutaneous Approach (ICD-10-PCS; 2017-09-13)
PROC: 03HB33Z Insertion of Infusion Device into Right Radial Artery, Percutaneous Approach (ICD-10-PCS; 2017-09-13)
PROC: 0BH17EZ Insertion of Endotracheal Airway into Trachea, Via Natural or Artificial Opening (ICD-10-PCS; 2017-09-13)
DX: J44.1 Chronic obstructive pulmonary disease with (acute) exacerbation (principal); I50.23 Acute on chronic systolic (congestive) heart failure; D62 Acute posthemorrhagic anemia; E87.2 Acidosis; I47.2 Ventricular tachycardia; I42.0 Dilated cardiomyopathy; J44.0 Chronic obstructive pulmonary disease with (acute) lower respiratory infection; I11.0 Hypertensive heart disease with heart failure; I25.10 Atherosclerotic heart disease of native coronary artery without angina pectoris; I46.9 Cardiac arrest, cause unspecified; Z95.810 Presence of automatic (implantable) cardiac defibrillator; Z95.1 Presence of aortocoronary bypass graft; Z86.73 Personal history of transient ischemic attack (TIA), and cerebral infarction without residual deficits; J20.9 Acute bronchitis, unspecified; I25.5 Ischemic cardiomyopathy; E11.9 Type 2 diabetes mellitus without complications; I48.91 Unspecified atrial fibrillation